=== PATIENT | female | born 1970 | race Caucasian/White ===

== ENCOUNTER 2016-07-15 22:05 | Emergency (ER) | payer MEDICAID ==
[2016-07-15 22:54] VITALS: BP 108/89
--- NOTE | 2016-07-15 23:13 | EDM.PDOC ---
ED HPI RENAL/ - General Chief Complaint: Genitourinary Problem Stated Complaint: UTI Time Seen by Provider: 07/15/16 22:33 Source: Reports: Patient History Limitations: Reports: No limitations - History of Present Illness INITIAL COMMENTS - FREE TEXT/NARRATIVE: . This patient complains of severe burning on urination that started 2 days ago. He's also had urgency and frequency but just very small amounts. She saw a couple drops of blood in the urine today. Today the pain is in the lower abdomen and also a little bit in her back both sides but the left lobe worse than the right. She denies fever - Related Data Allergies/ADRs: Allergies Allergy/AdvReac Type Severity Reaction Status Date / Time bupropion HCl Allergy Hives Verified 07/15/16 22:43 [From Wellbutrin] paliperidone [From Invega] Allergy Hives Verified 07/15/16 22:43 oxytocin [From Pitocin] AdvReac Syncope Verified 07/15/16 22:43 varenicline tartrate AdvReac Delusions Verified 07/15/16 22:43 [From Chantix] Home Meds: Home Meds RABEprazole [Aciphex] 40 mg PO DAILY 08/06/14 [History] LORazepam [Ativan] 1 mg PO ASDIRECTED PRN 11/02/15 [History] Triamcinolone Acetonide [Triamcinolone Acetonide 0.1% Crm] 15 gm TOP BID [History] Triamterene/Hydrochlorothiazid [Triamterene-HCTZ 37.5-25 MG] 1 each PO BEDTIME 02/07/16 [History] metFORMIN [Glucophage] 500 mg PO BEDTIME 02/07/16 [History] Past Medical History HEENT History: Reports: Hard of hearing, Impaired vision Cardiovascular History: Reports: Arrhythmia, High cholesterol, Hypertension Respiratory History: Reports: Bronchitis, recurrent Gastrointestinal History: Reports: Chronic diarrhea, GERD Other Gastrointestinal History: Crohns [employer] History: Reports: Spontaneous Musculoskeletal History: Reports: Back pain, chronic, Fracture, Other (see below ) Other Musculoskeletal History: bulging disc spinal fussion of c-6-7 07/31/15 Neurological History: Reports: Migraines Psychiatric History: Reports: Anxiety, Depression, Mood swings, Panic attack, PTSD Endocrine/Metabolic History: Reports: Diabetes, type II Hematologic History: Reports: Anemia - Infectious Disease History Infectious Disease History: Reports: Chicken pox Other Infectious Disease History: unknown - Past Surgical History HEENT Surgical History: Reports: Myringotomy w tube(s) Respiratory Surgical History: Reports: None GI Surgical History: Reports: Appendectomy, Cholecystectomy Female Surgical History: Reports: section, Hysterectomy, Tubal ligation Social & Family History - Tobacco Use Smoking Status *Q: Current Every Day Smoker Years of Tobacco use: 15 Packs/Tins Daily: 0.5 Used Tobacco, but Quit: No Second Hand Smoke Exposure: Yes - Caffeine Use Caffeine Use: Reports: Soda - Alcohol Use Days Per Week of Alcohol Use: 0 - Recreational Drug Use Recreational Drug Use: No ED ROS GENERAL - Review of Systems Review Of Systems: ROS reveals no pertinent complaints other than HPI. ED EXAM, RENAL/ - Physical Exam Exam: See Below Exam Limited By: No limitations General Appearance: alert, WD/WN, no apparent distress GI/Abdominal: soft, other (Minimal suprapubic tenderness) Back Exam: CVA tenderness (L) (Mild CVA tenderness bilateral) Extremities: normal inspection Course - Vital Signs Last Recorded V/S: Last Vital Signs Temp 37.6 C 07/15/16 22:53 Pulse 79 07/15/16 22:53 Resp 16 07/15/16 22:53 BP 108/89 07/15/16 22:53 Pulse Ox 96 07/15/16 22:53 - Orders/Labs/Meds Labs: Laboratory Tests 07/15/16 Range/Units 22:35 Urine Color Yellow Urine Appearance Clear Urine pH 6.0 (4.5-8.0) Ur Specific [place] 1.010 (1.008-1.030) Urine Protein Negative (NEGATIVE) mg/dL Urine Glucose (UA) Normal (NEGATIVE) mg/dL Urine Ketones Negative (NEGATIVE) mg/dL Urine Occult Blood Negative (NEGATIVE) Urine Nitrite Negative (NEGATIVE) Urine Bilirubin Negative (NEGATIVE) Urine Urobilinogen Normal (NORMAL) mg/dL Ur Leukocyte Esterase Negative (NEGATIVE) Urine RBC 5-10 H (0-5) Urine WBC 0-5 (0-5) Ur Epithelial Cells Few Amorphous Sediment Few Urine Bacteria Rare Urine Mucus Few - Re-Assessments/Exams Free Text/Narrative Re-Assessment/Exam: 07/15/16 23:25 Urinalysis only shows a small amount of red cells in the urine few bacteria and few WBCs however her history is definitely suggestive of a bladder infection. Departure - Departure Time of Disposition: 23:22 Disposition: Home, Self-Care 01 Condition: fair Clinical Impression: UTI, Urinary tract infectious disease Referrals: Charles Sadler MD [Primary Care Provider] - Forms: ED Department Discharge Additional Instructions: Take Bactrim DS one tablet twice daily for one week. Take pyridium 200 mg 3 times a day to relieve urinary discomfort. Be sure to drink plenty of water. See your Dr. if no better in 2 or 3 days
== END 2016-07-15 23:40 | disposition home or self-care (01) ==
LOC: JP.ED 22:05
DX: N39.0 Urinary tract infection, site not specified (principal); E11.9 Type 2 diabetes mellitus without complications; E78.00 Pure hypercholesterolemia, unspecified; I10 Essential (primary) hypertension; F17.210 Nicotine dependence, cigarettes, uncomplicated; Z88.8 Allergy status to other drugs, medicaments and biological substances; Z79.899 Other long term (current) drug therapy; Z79.84 Long term (current) use of oral hypoglycemic drugs; Z90.49 Acquired absence of other specified parts of digestive tract; Z90.710 Acquired absence of both cervix and uterus
CPT/HCPCS: 81001; 99284

== ENCOUNTER 2016-08-04 14:11 | Emergency (ER) | payer MEDICAID ==
--- NOTE | 2016-08-04 14:43 | CR ---
Chest 1V Frontal INDICATION: chest pain FINDINGS: Comparison 08/30/2014. Normal heart size. Lungs are clear. Postoperative changes fusion at the cervical thoracic junction are new. Chest otherwise negative.
[2016-08-04] MEDS ORDERED: Aspirin 81 MG Tab.Chew PO ONE (14:56)
[2016-08-04] MEDS ORDERED: Alum Hydrox/Mag Hydrox/Simeth 15 ML, Lidocaine 2% 15 ML PO ONE ×2 (15:36)
--- NOTE | 2016-08-04 15:37 | EDM.PDOC ---
ED HISTORY OF PRESENT ILLNESS - General Chief Complaint: Chest Pain Stated Complaint: CHEST PAIN SENT FROM CLINIC Time Seen by Provider: 08/04/16 14:30 Source: Reports: Patient History Limitations: Reports: No limitations - History of Present Illness INITIAL COMMENTS - FREE TEXT/NARRATIVE: pt arrived with ome pressure in her chest and a squeezing sensation. She has been uncomfortable for a couple of days. She has not vomited. Timing/Duration: Reports: Day(s):, Getting worse Severity: moderate Location, General: Reports: chest Associated Symptoms: Reports: chest pain, other (pt has had increased burning i her stomach. ) - Related Data Allergies/ADRs: Allergies Allergy/AdvReac Type Severity Reaction Status Date / Time bupropion HCl Allergy Hives Verified 08/04/16 14:20 [From Wellbutrin] paliperidone [From Invega] Allergy Hives Verified 08/04/16 14:20 oxytocin [From Pitocin] AdvReac Syncope Verified 08/04/16 14:20 varenicline tartrate AdvReac Delusions Verified 08/04/16 14:20 [From Chantix] Home Meds: Home Meds RABEprazole [Aciphex] 40 mg PO DAILY 08/06/14 [History] LORazepam [Ativan] 1 mg PO ASDIRECTED PRN 11/02/15 [History] Triamcinolone Acetonide [Triamcinolone Acetonide 0.1% Crm] 15 gm TOP BID [History] Triamterene/Hydrochlorothiazid [Triamterene-HCTZ 37.5-25 MG] 1 each PO BEDTIME 02/07/16 [History] metFORMIN [Glucophage] 500 mg PO BEDTIME 02/07/16 [History] Past Medical History HEENT History: Reports: Hard of hearing, Impaired vision Cardiovascular History: Reports: Arrhythmia, High cholesterol, Hypertension Respiratory History: Reports: Bronchitis, recurrent Gastrointestinal History: Reports: Chronic diarrhea, GERD Other Gastrointestinal History: Crohns Genitourinary History: Reports: Other (see below) Other Genitourinary History: past uti 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 Musculoskeletal History: Reports: Back pain, chronic, Fracture, Other (see below ) Other Musculoskeletal History: bulging disc spinal fussion of c-6-7 07/31/15 Neurological History: Reports: Migraines Psychiatric History: Reports: Anxiety, Depression, Mood swings, Panic attack, PTSD Endocrine/Metabolic History: Reports: Diabetes, type II Hematologic History: Reports: Anemia - Infectious Disease History Infectious Disease History: Reports: Chicken pox Other Infectious Disease History: unknown - Past Surgical History HEENT Surgical History: Reports: Myringotomy w tube(s) Respiratory Surgical History: Reports: None GI Surgical History: Reports: Appendectomy, Cholecystectomy Female Surgical History: Reports: section, Hysterectomy, Tubal ligation Social & Family History - Tobacco Use Smoking Status *Q: Current Every Day Smoker Years of Tobacco use: 15 Packs/Tins Daily: 0.5 Used Tobacco, but Quit: No Second Hand Smoke Exposure: Yes - Caffeine Use Caffeine Use: Reports: Soda - Alcohol Use Days Per Week of Alcohol Use: 0 - Recreational Drug Use Recreational Drug Use: No ED ROS GENERAL - Review of Systems Review Of Systems: See Below Constitutional: Reports: no symptoms HEENT: Reports: No symptoms, Vertigo Cardiovascular: Reports: Chest pain, Other ( pressure sensation) Endocrine: Reports: no symptoms GI/Abdominal: Reports: Other ( Pt has had burning in her upper abdoman. ) : Reports: no symptoms Musculoskeletal: Reports: no symptoms Skin: Reports: no symptoms Neurological: Reports: No Symptoms ED EXAM, GENERAL - Physical Exam Exam: See Below Free Text/Narrative:: Pt arrived with pressure and sqeezing sensation in the chest. She feel like this is different that the pain she getts from her stomach but She has had increased burning in her stomach. She did have a neg stress test 1 year ago. Exam Limited By: No limitations General Appearance: alert, mild distress Ears: normal TMs Nose: normal inspection Throat/Mouth: Normal inspection Head: atraumatic Neck: other ( Tendrness in th post cervical area. ) Respiratory/Chest: no respiratory distress Cardiovascular: regular rate, rhythm GI/Abdominal: soft, non tender (Female) Exam: Deferred Rectal (Female) Exam: Deferred Back Exam: normal inspection Extremities: normal inspection Neurological: alert, oriented, normal cognition Course - Vital Signs Last Recorded V/S: Last Vital Signs Temp 36 C 08/04/16 16:25 Pulse 76 08/04/16 16:25 Resp 16 08/04/16 16:25 BP 127/75 08/04/16 16:25 Pulse Ox 96 08/04/16 16:25 - Orders/Labs/Meds Orders: Active Orders 24 hr Category Date Time Status Famotidine [Pepcid] Med 08/04/16 16:35 Once 20 mg PO ONETIME ONE Labs: Laboratory Tests 08/04/16 08/04/16 08/04/16 Range/Units 14:21 14:24 14:24 WBC 8.4 (4.5-11.0) K/uL RBC 4.74 (3.30-5.50) M/uL Hgb 14.6 (12.0-15.0) g/dL Hct 42.4 (36.0-48.0) % MCV 90 (80-98) fL MCH 31 (27-31) pg MCHC 34 (32-36) % Plt Count 337 (150-400) K/uL Neut % (Auto) 56 (36-66) % Lymph % (Auto) 36 (24-44) % [place] % (Auto) 7 H (2-6) % Eos % (Auto) 1 L (2-4) % Baso % (Auto) 1 (0-1) % Sodium (140-148) mmol/L Potassium (3.6-5.2) mmol/L Chloride (100-108) mmol/L Carbon Dioxide (21-32) mmol/L Anion Gap (5.0-14.0) mmol/L BUN (7-18) mg/dL Creatinine (0.6-1.0) mg/dL Est Cr Clr Drug Dosing mL/min Estimated GFR (MDRD) (>60) Glucose (74-106) mg/dL Calcium (8.5-10.1) mg/dL Total Bilirubin (0.2-1.0) mg/dL AST (15-37) U/L ALT (12-78) U/L Alkaline Phosphatase (46-116) U/L Creatine Kinase (26-192) U/L Troponin I < 0.017 (0.000-0.056) ng/mL Total Protein (6.4-8.2) g/dL Albumin (3.4-5.0) g/dL Globulin (2.3-3.5) g/dL Albumin/Globulin Ratio (1.2-2.2) Urine Color Yellow Urine Appearance Clear Urine pH 6.0 (4.5-8.0) Ur Specific [place] 1.010 (1.008-1.030) Urine Protein Negative (NEGATIVE) mg/dL Urine Glucose (UA) Normal (NEGATIVE) mg/dL Urine Ketones Negative (NEGATIVE) mg/dL Urine Occult Blood Negative (NEGATIVE) Urine Nitrite Negative (NEGATIVE) Urine Bilirubin Negative (NEGATIVE) Urine Urobilinogen Normal (NORMAL) mg/dL Ur Leukocyte Esterase Negative (NEGATIVE) Urine RBC 0-5 (0-5) Urine WBC 0-5 (0-5) Ur Epithelial Cells Rare Amorphous Sediment Not seen Urine Bacteria Few Urine Mucus Not seen Urine Other 08/04/16 Range/Units 14:24 WBC (4.5-11.0) K/uL RBC (3.30-5.50) M/uL Hgb (12.0-15.0) g/dL Hct (36.0-48.0) % MCV (80-98) fL MCH (27-31) pg MCHC (32-36) % Plt Count (150-400) K/uL Neut % (Auto) (36-66) % Lymph % (Auto) (24-44) % [place] % (Auto) (2-6) % Eos % (Auto) (2-4) % Baso % (Auto) (0-1) % Sodium 143 (140-148) mmol/L Potassium 4.1 (3.6-5.2) mmol/L Chloride 105 (100-108) mmol/L Carbon Dioxide 27 (21-32) mmol/L Anion Gap 11.0 (5.0-14.0) mmol/L BUN 9 (7-18) mg/dL Creatinine 0.9 (0.6-1.0) mg/dL Est Cr Clr Drug Dosing 74.67 mL/min Estimated GFR (MDRD) > 60 (>60) Glucose 97 (74-106) mg/dL Calcium 8.5 (8.5-10.1) mg/dL Total Bilirubin 0.3 (0.2-1.0) mg/dL AST 12 L (15-37) U/L ALT 20 (12-78) U/L Alkaline Phosphatase 69 (46-116) U/L Creatine Kinase 156 (26-192) U/L Troponin I (0.000-0.056) ng/mL Total Protein 7.5 (6.4-8.2) g/dL Albumin 3.7 (3.4-5.0) g/dL Globulin 3.8 H (2.3-3.5) g/dL Albumin/Globulin Ratio 1.0 L (1.2-2.2) Urine Color Urine Appearance Urine pH (4.5-8.0) Ur Specific [place] (1.008-1.030) Urine Protein (NEGATIVE) mg/dL Urine Glucose (UA) (NEGATIVE) mg/dL Urine Ketones (NEGATIVE) mg/dL Urine Occult Blood (NEGATIVE) Urine Nitrite (NEGATIVE) Urine Bilirubin (NEGATIVE) Urine Urobilinogen (NORMAL) mg/dL Ur Leukocyte Esterase (NEGATIVE) Urine RBC (0-5) Urine WBC (0-5) Ur Epithelial Cells Amorphous Sediment Urine Bacteria Urine Mucus Urine Other Meds: Medications Discontinued Medications Generic Name Dose Route Start Last Admin Trade Name Freq PRN Reason Stop Dose Admin Aspirin 324 mg 08/04/16 14:56 08/04/16 15:00 Aspirin PO 08/04/16 14:57 324 mg ONETIME ONE Administration Al Hydroxide/Mg Hydroxide 15 0 ml 08/04/16 15:36 08/04/16 15:49 ml/ Lidocaine HCl 15 ml PO 08/04/16 15:37 30 ml ONETIME ONE Administration - Re-Assessments/Exams Free Text/Narrative Re-Assessment/Exam: 08/04/16 15:44 ekg is unchanged from her last one in 2016 Her cardiac enzymes were normal. 08/04/16 16:36 Gi cocktail was not helpful Departure - Departure Time of Disposition: 16:36 Disposition: Home, Self-Care 01 Condition: fair Clinical Impression: Atypical chest pain Forms: ED Department Discharge Care Plan Goals: rtc for a stress alejandro, cont aciphex, Use [place] 2tbs after each meal and at bedtime - My Orders Last 24 Hours: My Active Orders 08/04/16 16:35 Famotidine [Pepcid] 20 mg PO ONETIME ONE - Assessment/Plan Last 24 Hours: My Active Orders 08/04/16 16:35 Famotidine [Pepcid] 20 mg PO ONETIME ONE
[2016-08-04 16:26] VITALS: BP 127/75
[2016-08-04] MEDS ORDERED: Famotidine 20 MG Tab PO ONE (16:35)
== END 2016-08-04 16:50 | disposition home or self-care (01) ==
LOC: JP.ED 14:11
DX: R07.89 Other chest pain (principal); I10 Essential (primary) hypertension; E78.00 Pure hypercholesterolemia, unspecified; K21.9 Gastro-esophageal reflux disease without esophagitis; K50.90 Crohn's disease, unspecified, without complications; G89.29 Other chronic pain; M54.9 Dorsalgia, unspecified; F32.9 Major depressive disorder, single episode, unspecified; F41.9 Anxiety disorder, unspecified; E11.9 Type 2 diabetes mellitus without complications; Z79.84 Long term (current) use of oral hypoglycemic drugs; D64.9 Anemia, unspecified; F17.200 Nicotine dependence, unspecified, uncomplicated; Z79.899 Other long term (current) drug therapy; Z88.8 Allergy status to other drugs, medicaments and biological substances
CPT/HCPCS: 36415; 71010; 80053; 81001; 82550; 84484; 85025; 99285; A9270

== ENCOUNTER 2016-11-10 03:29 | Emergency (ER) | payer MEDICAID ==
[2016-11-10 03:56] VITALS: BP 145/76
--- NOTE | 2016-11-10 04:34 | EDM.PDOC ---
[id number] Complaint: SWOLLEN RIGHT ARM Time Seen by Provider: 11/10/16 04:00 Source of Information: Reports: Patient History Limitations: Reports: No Limitations - History of Present Illness INITIAL COMMENTS - FREE TEXT/NARRATIVE: Gretchen comes in when she woke up with pain in her right arm one hour ago. The pain started in her elbow and radiate through the forearm to her hand. [facility] and they told her to come in to make sure it wasn 't a "circulation problem". She has no chest pain or shortness of breath. She still feels like her upper arm is swollen and tender to touch, her forearm also feels tender. She was started on prednisone 40 mg a day earlier today for a Crohn's exacerbation. Onset: Sudden Duration: Hour(s): (One hour ago) Location: Reports: Upper Extremity, Right Worsens with: Reports: Other (Palpation of the sore area), Movement Associated Symptoms: Reports: Other (She's had persistent diarrhea because of a Crohn's exacerbation.) Right Arm Pain Score (Numeric/FACES): 6 - Related Data Allergies Allergy/AdvReac Type Severity Reaction Status Date / Time bupropion HCl Allergy Hives Verified 11/10/16 03:46 [From Wellbutrin] paliperidone [From Invega] Allergy Hives Verified 11/10/16 03:46 oxytocin [From Pitocin] AdvReac Syncope Verified 11/10/16 03:46 varenicline tartrate AdvReac Delusions Verified 11/10/16 03:46 [From Chantix] Home Meds: Home Meds RABEprazole [Aciphex] 40 mg PO DAILY 08/06/14 [History] LORazepam [Ativan] 1 mg PO ASDIRECTED PRN 11/02/15 [History] Triamterene/Hydrochlorothiazid [Triamterene-HCTZ 37.5-25 MG] 1 each PO BEDTIME 02/07/16 [History] metFORMIN [Glucophage] 500 mg PO BEDTIME 02/07/16 [History] Prochlorperazine [Compazine] 25 mg PO Q6H 11/10/16 [History] metroNIDAZOLE [Flagyl] 250 mg PO QID 11/10/16 [History] predniSONE [Prednisone] 40 mg PO DAILY 11/10/16 [History] Past Medical History HEENT History: Reports: Hard of Hearing, Impaired Vision Cardiovascular History: Reports: Arrhythmia, High Cholesterol, Hypertension Respiratory History: Reports: Bronchitis, Recurrent Gastrointestinal History: Reports: Chronic Diarrhea, GERD Other Gastrointestinal History: Crohns Genitourinary History: Reports: Other (See Below) Other Genitourinary History: 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 uti [employer]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 Musculoskeletal History: Reports: Back Pain, Chronic, Fracture, Other (See Below ) Other Musculoskeletal History: bulging disc spinal fussion of c-6-7 07/31/15 Neurological History: Reports: Migraines Psychiatric History: Reports: Anxiety, Depression, Mood Swings, Panic Attack, PTSD Endocrine/Metabolic History: Reports: Diabetes, Type II Hematologic History: Reports: Anemia - Infectious Disease History Infectious Disease History: Reports: Chicken Pox Other Infectious Disease History: unknown - Past Surgical History HEENT Surgical History: Reports: Myringotomy w Tube(s) Female Surgical History: Reports: Section, Hysterectomy, Tubal Ligation Social & Family History - Tobacco Use Smoking Status *Q: Current Every Day Smoker Years of Tobacco use: 15 Packs/Tins Daily: 0.5 Used Tobacco, but Quit: No Second Hand Smoke Exposure: Yes - Caffeine Use Caffeine Use: Reports: Soda - Alcohol Use Days Per Week of Alcohol Use: 0 - Recreational Drug Use Recreational Drug Use: No Review of Systems - Review of Systems Review Of Systems: See Below Constitutional: Denies: Fever Eyes: Denies: Blurred Vision Respiratory: Denies: Shortness of Breath, Cough Cardiovascular: Denies: Palpitations Musculoskeletal: Reports: Arm Pain Skin: Reports: No Symptoms Neurological: Denies: Dizziness, Headache Psychiatric: Reports: No Symptoms ED EXAM, GENERAL - Physical Exam Exam: See Below Exam Limited By: No Limitations General Appearance: Alert, No Apparent Distress Respiratory/Chest: No Respiratory Distress Cardiovascular: Regular Rate, Rhythm Extremities: Other (Exam is otherwise limited to the right upper extremity. It looks symmetric to the left, there is no edema or swelling. She has an excellent radial pulse, normal capillary refill and normal range of motion. She does have increased pain when trying to rotate her arm and put her hand behind her head.) Course - Vital Signs Last Recorded V/S: Last Vital Signs Temp 97.3 F 11/10/16 03:53 Pulse 77 11/10/16 03:53 Resp 16 11/10/16 03:53 BP 145/76 H 11/10/16 03:53 Pulse Ox 96 11/10/16 03:53 - Re-Assessments/Exams Free Text/Narrative Re-Assessment/Exam: 11/10/16 04:31 I reassured the patient that this is a musculoskeletal issue or nerve irritation and not a circulation problem or symptoms from a cardiac source. She needs to wait and see if this doesn't resolve on its own over the course of the next day or 2. There is a possibility she could the having some nerve impingement difficulties again but that will presented self with time, she is already started a prednisone taper which is a good medicine to help that. She' ll recheck in the next few days if not improving. Departure - Departure Time of Disposition: 04:45 Disposition: Home, Self-Care 01 Condition: Good Clinical Impression: Arm pain, right - Discharge Information Instructions: Neuropathic Pain Referrals: Charles Sadler MD [Primary Care Provider] - Forms: ED Department Discharge Care Plan Goals: Continue activity as tolerated. Recheck in the next 2-3 days if not improving, he can always return to ER sooner if worsening such as discoloration of the arm or persistent severe numbness.
== END 2016-11-10 04:45 | disposition home or self-care (01) ==
LOC: JP.ED 03:29
DX: M79.601 Pain in right arm (principal); E78.00 Pure hypercholesterolemia, unspecified; I10 Essential (primary) hypertension; K21.9 Gastro-esophageal reflux disease without esophagitis; E11.9 Type 2 diabetes mellitus without complications; F43.10 Post-traumatic stress disorder, unspecified; F17.210 Nicotine dependence, cigarettes, uncomplicated; Z96.22 Myringotomy tube(s) status; Z98.51 Tubal ligation status; Z90.710 Acquired absence of both cervix and uterus; Z79.84 Long term (current) use of oral hypoglycemic drugs; Z88.8 Allergy status to other drugs, medicaments and biological substances
CPT/HCPCS: 99283

== ENCOUNTER 2017-01-05 15:49 | Emergency (ER) | payer MEDICAID ==
[2017-01-05 16:24] VITALS: BP 121/85
--- NOTE | 2017-01-05 17:36 | EDM.PDOC ---
ED HPI GENERAL MEDICAL PROBLEM - General Chief Complaint: Neck Problem Stated Complaint: LEADBETTER SENT/POST SURGICAL NECK Time Seen by Provider: 01/05/17 16:35 Source of Information: Reports: Patient History Limitations: Reports: No Limitations - History of Present Illness INITIAL COMMENTS - FREE TEXT/NARRATIVE: 46-year-old female who had a C6-C7 cervical fusion 17 months ago went to a fair yesterday and went on some roller coaster like rides jarring her neck from side to side. Today at sore with pain radiating down into both trapezius areas. She was concerned that she may have injured her surgical area. She called the clinic and they told her to come to the emergency room. She has not developed any neurologic symptoms such as paresthesias or numbness in her upper extremities, no weakness. No nausea or vomiting. Location: Reports: Neck, Back Quality: Reports: Ache, Burning Severity: Moderate Worsens with: Reports: Movement Associated Symptoms: Reports: No Other Symptoms Lower Posterior Neck Pain Score (Numeric/FACES): 8 - Related Data Allergies Allergy/AdvReac Type Severity Reaction Status Date / Time bupropion HCl Allergy Hives Verified 11/10/16 03:46 [From Wellbutrin] paliperidone [From Invega] Allergy Hives Verified 11/10/16 03:46 oxytocin [From Pitocin] AdvReac Syncope Verified 11/10/16 03:46 varenicline tartrate AdvReac Delusions Verified 11/10/16 03:46 [From Chantix] Home Meds: Home Meds RABEprazole [Aciphex] 40 mg PO DAILY 08/06/14 [History] LORazepam [Ativan] 1 mg PO ASDIRECTED PRN 11/02/15 [History] Triamterene/Hydrochlorothiazid [Triamterene-HCTZ 37.5-25 MG] 1 each PO BEDTIME 02/07/16 [History] metFORMIN [Glucophage] 500 mg PO BEDTIME 02/07/16 [History] Prochlorperazine [Compazine] 25 mg PO Q6H 11/10/16 [History] Past Medical History HEENT History: Reports: Hard of Hearing, Impaired Vision Cardiovascular History: Reports: Arrhythmia, High Cholesterol, Hypertension Respiratory History: Reports: Bronchitis, Recurrent Gastrointestinal History: Reports: Chronic Diarrhea, GERD Other Gastrointestinal History: Crohns Genitourinary History: Reports: Other (See Below) Other Genitourinary History: past uti 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 Musculoskeletal History: Reports: Back Pain, Chronic, Fracture, Other (See Below ) Other Musculoskeletal History: bulging disc spinal fussion of c-6-7 07/31/15 Neurological History: Reports: Migraines Psychiatric History: Reports: Anxiety, Depression, Mood Swings, Panic Attack, PTSD Endocrine/Metabolic History: Reports: Diabetes, Type II Hematologic History: Reports: Anemia - Infectious Disease History Infectious Disease History: Reports: Chicken Pox Other Infectious Disease History: unknown - Past Surgical History HEENT Surgical History: Reports: Myringotomy w Tube(s) Female Surgical History: Reports: Section, Hysterectomy, Tubal Ligation Social & Family History - Tobacco Use Smoking Status *Q: Current Some Day Smoker Years of Tobacco use: 18 Packs/Tins Daily: 0.5 Used Tobacco, but Quit: No Second Hand Smoke Exposure: Yes - Caffeine Use Caffeine Use: Reports: Soda - Alcohol Use Days Per Week of Alcohol Use: 0 - Recreational Drug Use Recreational Drug Use: No ED ROS GENERAL - Review of Systems Review Of Systems: See Below Constitutional: Denies: Fever, Chills Respiratory: Denies: Shortness of Breath, Cough Cardiovascular: Denies: Chest Pain GI/Abdominal: Denies: Abdominal Pain, Nausea, Vomiting Musculoskeletal: Reports: Neck Pain Skin: Reports: No Symptoms Neurological: Denies: Paresthesia ED EXAM, UPPER BACK/NECK PAIN - Physical Exam Exam: See Below Exam Limited By: No Limitations General Appearance: Alert, No Apparent Distress Eye Exam: Bilateral Eye: EOMI Head Exam: Atraumatic Neck Exam: Paraspinous Muscle Tender (Palpation along the lower paraspinous cervical area is tender bilaterally extending into the trapezius bilaterally) Neurologic: No Motor/Sensory Deficits. No: Motor Weakness Psychiatric: Normal Affect, Normal Mood Course - Vital Signs Last Recorded V/S: Last Vital Signs Temp 97.3 F 01/05/17 16:40 Pulse 79 01/05/17 16:40 Resp 16 01/05/17 16:40 BP 121/85 01/05/17 16:40 Pulse Ox 96 01/05/17 16:40 - Re-Assessments/Exams Free Text/Narrative Re-Assessment/Exam: 01/05/17 17:34 Discussed her case with surgery, a cervical spine x-ray was obtained which showed no acute findings and hardware in its proper positioning. Patient was given 15 Flexeril to take 3 times daily along with anti-inflammatories and can increase her activity as tolerated. If she develops neurologic deficits or symptoms of the upper extremities she should be rechecked. Departure - Departure Time of Disposition: 17:46 Disposition: Home, Self-Care 01 Condition: Good Clinical Impression: Neck strain Qualifiers: Encounter type: initial encounter Qualified Code(s): S16.1XXA - Strain of muscle, fascia and tendon at neck level, initial encounter - Discharge Information Instructions: Cervical Sprain, [id number] Referrals: Charles Sadler MD [Primary Care Provider] - Forms: ED Department Discharge Care Plan Goals: Increase activity as tolerated. Ice to the sore area for the next 24 hours may help, anti-inflammatories and muscle relaxers will be beneficial. Return for recheck if you develop numbness or weakness in the arms or your pain becomes significantly worse.
--- NOTE | 2017-01-06 10:13 | CR ---
Cervical Spine 2V or 3V INDICATION: post op neck pain, surgery 17 months ago FINDINGS: Postoperative changes anterior fusion at C6-7. Hardware appears intact. Minimal endplate hy pertrophic changes at C5-6. Cervical spine otherwise negative.
== END 2017-01-05 17:46 | disposition home or self-care (01) ==
LOC: JP.ED 15:49
DX: S16.1XXA Strain of muscle, fascia and tendon at neck level, initial encounter (principal); I10 Essential (primary) hypertension; E78.00 Pure hypercholesterolemia, unspecified; K21.9 Gastro-esophageal reflux disease without esophagitis; F32.9 Major depressive disorder, single episode, unspecified; F41.9 Anxiety disorder, unspecified; E11.9 Type 2 diabetes mellitus without complications; F17.210 Nicotine dependence, cigarettes, uncomplicated; Z79.84 Long term (current) use of oral hypoglycemic drugs; Z79.899 Other long term (current) drug therapy; Z96.22 Myringotomy tube(s) status; Z90.710 Acquired absence of both cervix and uterus; Z98.51 Tubal ligation status; Z98.1 Arthrodesis status; Z98.890 Other specified postprocedural states; Z87.440 Personal history of urinary (tract) infections; Z88.8 Allergy status to other drugs, medicaments and biological substances; X50.9XXA Other and unspecified overexertion or strenuous movements or postures, initial encounter
CPT/HCPCS: 72040; 72040-26; 99284

== ENCOUNTER 2017-03-06 02:34 | Emergency (ER) | payer MEDICAID ==
[2017-03-06 02:55] VITALS: BP 135/70
[2017-03-06] MEDS ORDERED: Ketorolac 30 MG/ML SDV IVPUSH ONE (03:12)
--- NOTE | 2017-03-06 03:18 | EDM.PDOC ---
ED HPI GENERAL MEDICAL PROBLEM - General Chief Complaint: Chest Pain Stated Complaint: CHEST PAIN Time Seen by Provider: 03/06/17 02:49 Source of Information: Reports: Patient, Significant Other History Limitations: Reports: No Limitations - History of Present Illness INITIAL COMMENTS - FREE TEXT/NARRATIVE: chest pain; this is a 46 year old female presents to ER for evaluation of chest pain. She reports for the past 4 days having intermittent chest pain. 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 She then went to the [employer] for 2 hours, came home ate chile, noticed her chest pain was extending into her arm, took Ativan 2 mg at midnight. She was worried and came to ER. denies any nausea, vomiting eating and drinking her usual amounts taking her medications as directed. 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: Other (see below) (Ativan 2mg po) chest pain Pain Score (Numeric/FACES): 8 - Related Data Allergies Allergy/AdvReac Type Severity Reaction Status Date / Time bupropion HCl Allergy Hives Verified 03/06/17 02:43 [From Wellbutrin] paliperidone [From Invega] Allergy Hives Verified 03/06/17 02:43 oxytocin [From Pitocin] AdvReac Syncope Verified 03/06/17 02:43 varenicline tartrate AdvReac Delusions Verified 03/06/17 02:43 [From Chantix] Home Meds: Home Meds RABEprazole [Aciphex] 40 mg PO DAILY 08/06/14 [History] LORazepam [Ativan] 1 mg PO ASDIRECTED PRN 11/02/15 [History] Triamterene/Hydrochlorothiazid [Triamterene-HCTZ 37.5-25 MG] 1 each PO BEDTIME 02/07/16 [History] metFORMIN [Glucophage] 500 mg PO BEDTIME 02/07/16 [History] Past Medical History HEENT History: Reports: Hard of Hearing, Impaired Vision Cardiovascular History: Reports: Arrhythmia, High Cholesterol, Hypertension Respiratory History: Reports: Bronchitis, Recurrent Gastrointestinal History: Reports: Chronic Diarrhea, GERD Other Gastrointestinal History: Crohns Genitourinary History: Reports: Other (See Below) Other Genitourinary History: past uti 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 Musculoskeletal History: Reports: Back Pain, Chronic, Fracture, Other (See Below ) Other Musculoskeletal History: bulging disc spinal fussion of c-6-7 07/31/15 Neurological History: Reports: Migraines Psychiatric History: Reports: Anxiety, Depression, Mood Swings, Panic Attack, PTSD Endocrine/Metabolic History: Reports: Diabetes, Type II Hematologic History: Reports: Anemia - Infectious Disease History Infectious Disease History: Reports: Chicken Pox, Shingles Other Infectious Disease History: unknown - Past Surgical History HEENT Surgical History: Reports: Myringotomy w Tube(s) Female Surgical History: Reports: Section, Hysterectomy, Tubal Ligation Social & Family History - Tobacco Use Smoking Status *Q: Current Every Day Smoker Years of Tobacco use: 20 Packs/Tins Daily: 0.5 Used Tobacco, but Quit: No Second Hand Smoke Exposure: Yes - Caffeine Use Caffeine Use: Reports: Soda - Alcohol Use Days Per Week of Alcohol Use: 0 - Recreational Drug Use Recreational Drug Use: No - Living Situation & Occupation Living situation: Reports: with Significant Other Occupation: Employed ED ROS GENERAL - Review of Systems Review Of Systems: See Below Constitutional: Reports: No Symptoms HEENT: Reports: No Symptoms Respiratory: Reports: No Symptoms, Other (smokes half a pack of cigarettes per day. last one prior to arrival) Cardiovascular: Reports: Chest Pain Endocrine: Reports: No Symptoms GI/Abdominal: Reports: No Symptoms, Other (epigastric pain) : Reports: No Symptoms Musculoskeletal: Reports: Back Pain (upper back and bilateral arm pain) Skin: Reports: No Symptoms Neurological: Reports: No Symptoms Psychiatric: Reports: Anxiety (Ativan 2 mg po at 2400) Hematologic/Lymphatic: Reports: No Symptoms Immunologic: Reports: No Symptoms ED EXAM, GENERAL - Physical Exam Exam: See Below Exam Limited By: No Limitations General Appearance: Alert, WD/WN, No Apparent Distress Eye Exam: Bilateral Eye: Normal Inspection, PERRL Ears: Normal External Exam, Normal Canal, Hearing Grossly Normal, Normal TMs Nose: Normal Inspection, Normal Mucosa, No Blood Throat/Mouth: Normal Inspection, Normal Lips, Normal Teeth, Normal Gums, Normal Oropharynx, Normal Voice, No Airway Compromise Head: Atraumatic, Normocephalic Neck: Normal Inspection, Supple, Non-Tender, Full Range of Motion Respiratory/Chest: No Respiratory Distress, Lungs Clear, Normal Breath Sounds, No Accessory Muscle Use, Other (chest wall pain localized to sternum and epigastric area, reproducible with application of pressure. ) Cardiovascular: Normal Peripheral Pulses, Regular Rate, Rhythm, No Edema, No Gallop, No Murmur, No Rub Peripheral Pulses: 2+: Radial (L), Radial (R) GI/Abdominal: Normal Bowel Sounds, Soft, No Organomegaly, No Distention, No Abnormal Bruit, No Mass, Other (epigastric pain with palpation, no rebound, no guarding.) (Female) Exam: Deferred Rectal (Female) Exam: Deferred Back Exam: Normal Inspection, Full Range of Motion Extremities: Normal Inspection, Normal Range of Motion, Non-Tender, No Pedal Edema, Normal Capillary Refill Neurological: Alert, Oriented, Normal Cognition, No Motor/Sensory Deficits Psychiatric: Normal Affect, Normal Mood Skin Exam: Warm, Dry, Intact, Normal Color, No Rash Lymphatic: No Adenopathy EKG INTERPRETATION Rhythm: NSR Tracy: Normal P-Wave: Present QRS: Normal ST-T: Normal QT: Normal Course - Vital Signs Last Recorded V/S: Last Vital Signs Temp 36.5 C 03/06/17 02:46 Pulse 78 03/06/17 02:46 Resp 17 03/06/17 02:46 BP 135/70 03/06/17 02:46 Pulse Ox 97 03/06/17 02:46 - Orders/Labs/Meds Labs: Laboratory Tests 03/06/17 03/06/17 Range/Units 02:54 02:54 WBC 11.8 H (4.5-11.0) K/uL RBC 4.57 (3.30-5.50) M/uL Hgb 14.0 (12.0-15.0) g/dL Hct 40.2 (36.0-48.0) % MCV 88 (80-98) fL MCH 31 (27-31) pg MCHC 35 (32-36) % Plt Count 331 (150-400) K/uL Neut % (Auto) 54 (36-66) % Lymph % (Auto) 35 (24-44) % [place] % (Auto) 9 H (2-6) % Eos % (Auto) 2 (2-4) % Baso % (Auto) 0 (0-1) % Sodium 140 (140-148) mmol/L Potassium 3.8 (3.6-5.2) mmol/L Chloride 104 (100-108) mmol/L Carbon Dioxide 29 (21-32) mmol/L Anion Gap 6.7 (5.0-14.0) mmol/L BUN 9 (7-18) mg/dL Creatinine 0.9 (0.6-1.0) mg/dL Est Cr Clr Drug Dosing 77.57 mL/min Estimated GFR (MDRD) > 60 (>60) Glucose 107 H (74-106) mg/dL Calcium 8.1 L (8.5-10.1) mg/dL Troponin I < 0.017 (0.000-0.056) ng/mL Meds: Medications Discontinued Medications Generic Name Dose Route Start Last Admin Trade Name Manpreetq PRN Reason Stop Dose Admin Ketorolac Tromethamine 30 mg 03/06/17 03:12 03/06/17 03:17 Toradol IVPUSH 03/06/17 03:13 30 mg ONETIME ONE Administration - Re-Assessments/Exams Free Text/Narrative Re-Assessment/Exam: 03/06/17 03:30 labs; CBC, BMP, Troponin all negative EKG; SR given Toradol 30 mg IV will discharge to home, follow up with Primary Care Provider Departure - Departure Time of Disposition: 03:36 Disposition: Home, Self-Care 01 Condition: Good Clinical Impression: Muscle strain of chest wall Qualifiers: Encounter type: initial encounter Qualified Code(s): S29.011A - Strain of muscle and tendon of front wall of thorax, initial encounter - Discharge Information Referrals: Charles Sadler MD [Primary Care Provider] - Forms: ED Department Discharge Care Plan Goals: Muscle strain of chest pain -labs for cardiac, infection, electrolytes, anemia; all negative -EKG; sinus rhym; normal -given Toradol IV -declines any discharge medication advise to rest, push fluids, avoid any bending, lifting or twisting for the next 3 days follow up with Primary Care Provider this week for recheck. - Problem List & Annotations (1) Muscle strain of chest wall SNOMED Code(s): 611536598 Code(s): S29.011A - STRAIN OF MUSCLE AND TENDON OF FRONT WALL OF THORAX, INIT Status: Acute Priority: Medium Current Visit: Yes Qualifiers: Encounter type: initial encounter Qualified Code(s): S29.011A - Strain of muscle and tendon of front wall of thorax, initial encounter - Problem List Review Problem List Initiated/Reviewed/Updated: Yes - Assessment/Plan Plan: Muscle strain of chest pain -labs for cardiac, infection, electrolytes, anemia; all negative -EKG; sinus rhym; normal -given Toradol IV -declines discharge medications advise to rest, push fluids, avoid any bending, lifting or twisting for the next 3 days follow up with Primary Care Provider this week for recheck.
== END 2017-03-06 03:41 | disposition home or self-care (01) ==
LOC: JP.ED 02:34
DX: S29.011A Strain of muscle and tendon of front wall of thorax, initial encounter (principal); F17.210 Nicotine dependence, cigarettes, uncomplicated; I10 Essential (primary) hypertension; E78.00 Pure hypercholesterolemia, unspecified; E11.9 Type 2 diabetes mellitus without complications; Z79.84 Long term (current) use of oral hypoglycemic drugs; Z88.8 Allergy status to other drugs, medicaments and biological substances; X58.XXXA Exposure to other specified factors, initial encounter
CPT/HCPCS: 36415; 80048; 84484; 85025; 96374; 99285; J1885

== ENCOUNTER 2017-03-28 22:04 | Emergency (ER) | payer MEDICAID ==
[2017-03-28 22:23] VITALS: BP 145/71
[2017-03-28] MEDS ORDERED: Ondansetron 4 MG/2 ML SDV IVPUSH ONE (22:53)
[2017-03-28] MEDS ORDERED: Morphine 2 MG/ML Syringe IVPUSH ONE (22:53)
[2017-03-28] MEDS ORDERED: Sodium Chloride 0.9% 1,000 ML IV SCH (23:00)
[2017-03-28] MEDS ORDERED: Sodium Chloride 0.9% 80 ML IV STA (23:19)
[2017-03-28] MEDS ORDERED: Iopamidol 612 MG/ML 150 ML Bottle IV STA (23:19)
--- NOTE | 2017-03-29 00:40 | EDM.PDOC ---
ED HPI GENERAL MEDICAL PROBLEM - General Chief Complaint: Gastrointestinal Problem Stated Complaint: ILLNESS Time Seen by Provider: 03/28/17 22:11 Source of Information: Reports: Patient History Limitations: Reports: No Limitations - History of Present Illness INITIAL COMMENTS - FREE TEXT/NARRATIVE: Diarrhea, cramping, abdominal pain; this is a 46 year old female presents to ER with , concerns of illness for the past 7 to 8 days. She has been having intermittent chills, fever, anything she eats causes instant diarrhea. Came to the ER this evening because the pain and symptoms have worsen instead of resolving. In the past she has been treated with Prednisone and Flaygl. Onset: Gradual Duration: Day(s): (7 to 8 ), Getting Worse Location: Reports: Abdomen Quality: Reports: Same as Previous Episode (pain is worse today) Severity: Moderate Improves with: Reports: None Worsens with: Reports: Eating - Related Data Allergies Allergy/AdvReac Type Severity Reaction Status Date / Time bupropion HCl Allergy Hives Verified 03/28/17 22:29 [From Wellbutrin] paliperidone [From Invega] Allergy Hives Verified 03/28/17 22:29 oxytocin [From Pitocin] AdvReac Syncope Verified 03/28/17 22:29 varenicline tartrate AdvReac Delusions Verified 03/28/17 22:29 [From Chantix] Home Meds: Home Meds RABEprazole [Aciphex] 40 mg PO DAILY 08/06/14 [History] LORazepam [Ativan] 1 mg PO ASDIRECTED PRN 11/02/15 [History] Triamterene/Hydrochlorothiazid [Triamterene-HCTZ 37.5-25 MG] 1 each PO BEDTIME 02/07/16 [History] metFORMIN [Glucophage] 500 mg PO BEDTIME 02/07/16 [History] Past Medical History HEENT History: Reports: Hard of Hearing, Impaired Vision Cardiovascular History: Reports: Arrhythmia, High Cholesterol, Hypertension Respiratory History: Reports: Bronchitis, Recurrent Gastrointestinal History: Reports: Chronic Diarrhea, GERD Other Gastrointestinal History: Crohns Genitourinary History: Reports: Other (See Below) Other Genitourinary History: past uti SCHOOL [employer] History: Reports: Spontaneous Musculoskeletal History: Reports: Back Pain, Chronic, Fracture, Other (See Below ) Other Musculoskeletal History: bulging disc spinal fussion of c-6-7 07/31/15 Neurological History: Reports: Migraines Psychiatric History: Reports: Anxiety, Depression, Mood Swings, Panic Attack, PTSD Endocrine/Metabolic History: Reports: Diabetes, Type II Hematologic History: Reports: Anemia - Infectious Disease History Infectious Disease History: Reports: Chicken Pox, Shingles Other Infectious Disease History: unknown - Past Surgical History HEENT Surgical History: Reports: Myringotomy w Tube(s) Female Surgical History: Reports: Section, Hysterectomy, Tubal Ligation Social & Family History - Tobacco Use Smoking Status *Q: Current Every Day Smoker Years of Tobacco use: 20 Packs/Tins Daily: 0.5 Used Tobacco, but Quit: No Second Hand Smoke Exposure: Yes - Caffeine Use Caffeine Use: Reports: Soda - Alcohol Use Days Per Week of Alcohol Use: 0 - Recreational Drug Use Recreational Drug Use: No - Living Situation & Occupation Living situation: Reports: with Significant Other Occupation: Employed ED ROS GENERAL - Review of Systems Review Of Systems: See Below Constitutional: Reports: Fever, Chills, Malaise, Decreased Appetite, Weight Loss HEENT: Reports: No Symptoms Respiratory: Reports: No Symptoms Cardiovascular: Reports: No Symptoms Endocrine: Reports: No Symptoms GI/Abdominal: Reports: Abdominal Pain, Diarrhea, Distension, Nausea : Reports: No Symptoms Musculoskeletal: Reports: Back Pain Skin: Reports: No Symptoms Neurological: Reports: No Symptoms Psychiatric: Reports: No Symptoms Hematologic/Lymphatic: Reports: No Symptoms Immunologic: Reports: No Symptoms ED EXAM, GI/ABD - Physical Exam Exam: See Below Exam Limited By: No Limitations General Appearance: Alert, WD/WN, No Apparent Distress Eyes: Bilateral: Normal Appearance Ears: Normal External Exam Nose: Normal Inspection Throat/Mouth: Normal Inspection Head: Atraumatic, Normocephalic Neck: Normal Inspection, Supple, Non-Tender Respiratory/Chest: No Respiratory Distress, Lungs Clear Cardiovascular: Regular Rate, Rhythm, No Murmur GI/Abdominal Exam: Soft, Distended, Tender (epigastric area) (Female) Exam: Deferred Rectal (Female) Exam: Deferred Back Exam: Normal Inspection, Full Range of Motion, Muscle Spasm (lower back) Extremities: Normal Inspection, Normal Range of Motion, Non-Tender, No Pedal Edema, Normal Capillary Refill Neurological: Alert, Oriented, Normal Cognition, Normal Gait, No Motor/Sensory Deficits Psychiatric: Normal Affect, Normal Mood Skin Exam: Warm, Dry, Intact, Normal Color, No Rash Lymphatic: No Adenopathy Course - Vital Signs Last Recorded V/S: Last Vital Signs Temp 36.3 C 03/28/17 22:22 Pulse 89 03/28/17 22:22 Resp 18 03/28/17 22:22 BP 145/71 H 03/28/17 22:22 Pulse Ox 98 03/28/17 22:22 - Orders/Labs/Meds Orders: Active Orders 24 hr Category Date Time Status Abdomen Pelvis w Cont [CT] Stat Exams 03/28/17 22:50 Taken CULTURE STOOL + SHIGATOX [RM] Stat Lab 03/28/17 22:51 Uncollected Sodium Chloride 0.9% [Normal Saline] 1,000 ml Med 03/28/17 23:00 Active IV ASDIRECTED Medication Orders Sodium Chloride (Normal Saline) 1,000 mls @ 999 mls/hr IV ASDIRECTED NADINE Last Admin: 03/28/17 23:03 Dose: 999 mls/hr Labs: Laboratory Tests 03/28/17 03/28/17 03/28/17 Range/Units 23:00 23:00 23:56 WBC 12.0 H (4.5-11.0) K/uL RBC 4.49 (3.30-5.50) M/uL Hgb 13.8 (12.0-15.0) g/dL Hct 40.2 (36.0-48.0) % MCV 90 (80-98) fL MCH 31 (27-31) pg MCHC 34 (32-36) % Plt Count 363 (150-400) K/uL Neut % (Auto) 58 (36-66) % Lymph % (Auto) 32 (24-44) % [place] % (Auto) 8 H (2-6) % Eos % (Auto) 1 L (2-4) % Baso % (Auto) 0 (0-1) % Sodium 142 (140-148) mmol/L Potassium 3.5 L (3.6-5.2) mmol/L Chloride 105 (100-108) mmol/L Carbon Dioxide 29 (21-32) mmol/L Anion Gap 11.5 (5.0-14.0) mmol/L BUN 11 (7-18) mg/dL Creatinine 0.8 (0.6-1.0) mg/dL Est Cr Clr Drug Dosing 87.27 mL/min Estimated GFR (MDRD) > 60 (>60) Glucose 82 (74-106) mg/dL Calcium 8.0 L (8.5-10.1) mg/dL Total Bilirubin 0.3 (0.2-1.0) mg/dL AST 16 (15-37) U/L ALT 20 (12-78) U/L Alkaline Phosphatase 70 (46-116) U/L Total Protein 7.1 (6.4-8.2) g/dL Albumin 3.6 (3.4-5.0) g/dL Globulin 3.5 (2.3-3.5) g/dL Albumin/Globulin Ratio 1.0 L (1.2-2.2) Amylase 44 (25-115) U/L Lipase 189 (73-393) U/L Urine Color Yellow Urine Appearance Clear Urine pH 6.0 (4.5-8.0) Ur Specific [place] 1.010 (1.008-1.030) Urine Protein Negative (NEGATIVE) mg/dL Urine Glucose (UA) Normal (NEGATIVE) mg/dL Urine Ketones Negative (NEGATIVE) mg/dL Urine Occult Blood Moderate (NEGATIVE) Urine Nitrite Negative (NEGATIVE) Urine Bilirubin Negative (NEGATIVE) Urine Urobilinogen Normal (NORMAL) mg/dL Ur Leukocyte Esterase Negative (NEGATIVE) Urine RBC 0-5 (0-5) Urine WBC 0-5 (0-5) Ur Epithelial Cells Moderate Amorphous Sediment Not seen Urine Bacteria Few Urine Mucus Not seen Meds: Medications Generic Name Dose Route Start Last Admin Trade Name Freq PRN Reason Stop Dose Admin Sodium Chloride 1,000 mls @ 999 mls/hr 03/28/17 23:00 03/28/17 23:03 Normal Saline IV 999 mls/hr ASDIRECTED NADINE Administration Discontinued Medications Generic Name Dose Route Start Last Admin Trade Name Freq PRN Reason Stop Dose Admin Sodium Chloride 80 mls @ 4 mls/sec 03/28/17 23:19 Normal Saline IV 03/28/17 23:20 ASDIRECTED STA Iopamidol 130 ml 03/28/17 23:19 03/28/17 23:26 Isovue-300 (61%) IV 03/28/17 23:20 150 ml . DIRECTED STA Administration Morphine Sulfate 2 mg 03/28/17 22:53 03/28/17 23:07 Morphine IVPUSH 03/28/17 22:54 2 mg ONETIME ONE Administration Ondansetron HCl 4 mg 03/28/17 22:53 03/28/17 23:07 Zofran IVPUSH 03/28/17 22:54 4 mg ONETIME ONE Administration - Radiology Interpretation Free Text/Narrative:: CT abdomen-Pelvis ; negative except for Enteritis. reviewed report with Mrs. Prasad, given a copy for home medical record discussed starting medication as previous occurrence of enteritis or colititis she agree with plan of care will be seeing PCP on . Departure - Departure Time of Disposition: 00:50 Disposition: Home, Self-Care 01 Condition: Good Clinical Impression: Enteritis - Discharge Information Referrals: Charles Sadler MD [Primary Care Provider] - Forms: ED Department Discharge Care Plan Goals: Enteritis -Prednisone as directed -Flagyle 500mg take two times a day x 17 days -Zofran 4mg oral every 8 hours as needed for nausea -Tylenol with codeine; take one to two tablets every 4 hours as needed for pain trial BRAT diet; bananas, rice, apple, toast as tolerated return to ER, Urgent Care or Clinic for any increased pain, fever, chills, nausea, vomiting, worsen diarrhea, rash or not improved keep follow up appointment with Primary Care on . - Problem List & Annotations (1) Enteritis SNOMED Code(s): 31554789 Code(s): K52.9 - NONINFECTIVE GASTROENTERITIS AND COLITIS, UNSPECIFIED Status: Acute Priority: High Current Visit: Yes - Problem List Review Problem List Initiated/Reviewed/Updated: Yes - My Orders Last 24 Hours: My Active Orders 03/28/17 22:50 Abdomen Pelvis w Cont [CT] Stat 03/28/17 22:51 CULTURE STOOL + SHIGATOX [RM] Stat 03/28/17 23:00 Sodium Chloride 0.9% [Normal Saline] 1,000 ml IV ASDIRECTED - Assessment/Plan Last 24 Hours: My Active Orders 03/28/17 22:50 Abdomen Pelvis w Cont [CT] Stat 03/28/17 22:51 CULTURE STOOL + SHIGATOX [RM] Stat 03/28/17 23:00 Sodium Chloride 0.9% [Normal Saline] 1,000 ml IV ASDIRECTED Plan: Enteritis -Prednisone as directed -Flagyle 500mg take two times a day x 17 days -Zofran 4mg oral every 8 hours as needed for nausea -Tylenol with codiene; take one to two tablets every 4 hours as needed for pain trial BRAT diet; bananas, rice, apple, toast as tolerated return to ER, Urgent Care or Clinic for any increased pain, fever, chills, nausea, vomiting, worsen diarrhea, rash or not improved keep follow up appointment with Primary Care on .
== END 2017-03-29 00:51 | disposition home or self-care (01) ==
LOC: JP.ED 22:04
DX: K52.9 Noninfective gastroenteritis and colitis, unspecified (principal); I10 Essential (primary) hypertension; E78.00 Pure hypercholesterolemia, unspecified; K21.9 Gastro-esophageal reflux disease without esophagitis; F32.9 Major depressive disorder, single episode, unspecified; E11.9 Type 2 diabetes mellitus without complications; F17.210 Nicotine dependence, cigarettes, uncomplicated; Z79.84 Long term (current) use of oral hypoglycemic drugs; Z79.899 Other long term (current) drug therapy; Z88.8 Allergy status to other drugs, medicaments and biological substances; M25.562 Pain in left knee; G89.29 Other chronic pain; M17.12 Unilateral primary osteoarthritis, left knee; M22.42 Chondromalacia patellae, left knee; M25.462 Effusion, left knee
CPT/HCPCS: 36415; 73721; 74177; 80053; 81001; 82150; 83690; 85025; 96361; 96374; 96375; 99284; J2270; J2405; J7040

== ENCOUNTER 2017-04-19 21:13 | Emergency (ER) | payer MEDICAID ==
[2017-04-19 22:17] VITALS: BP 132/83
[2017-04-19] MEDS ORDERED: cefTRIAXone 1 GM, Lidocaine 1% 2.1 ML IM ONE ×2 (22:31)
[2017-04-19] MEDS ORDERED: Bacitracin Oint 1 GM U/D Packet TOP ONE (22:45)
--- NOTE | 2017-04-19 23:41 | EDM.PDOC ---
ED HPI GENERAL MEDICAL PROBLEM - General Chief Complaint: Upper Extremity Injury/Pain Stated Complaint: R ARM SWELLING / REDNESS Time Seen by Provider: 04/19/17 22:15 Source of Information: Reports: Patient, Family History Limitations: Reports: No Limitations - History of Present Illness INITIAL COMMENTS - FREE TEXT/NARRATIVE: pt had a small pimple on her wrist level--farah side that was squeezed, This has now gotten hot indurated and red. This was very tender. She has tenderness going up to the elebow. She did get some pus out of it when she squeezed this. 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 Onset: Gradual Duration: Hour(s): Location: Reports: Upper Extremity, Right Associated Symptoms: Reports: No Other Symptoms - Related Data Allergies Allergy/AdvReac Type Severity Reaction Status Date / Time bupropion HCl Allergy Hives Verified 03/28/17 22:29 [From Wellbutrin] paliperidone [From Invega] Allergy Hives Verified 03/28/17 22:29 oxytocin [From Pitocin] AdvReac Syncope Verified 03/28/17 22:29 varenicline tartrate AdvReac Delusions Verified 03/28/17 22:29 [From Chantix] Home Meds: Home Meds RABEprazole [Aciphex] 40 mg PO DAILY 08/06/14 [History] LORazepam [Ativan] 1 mg PO ASDIRECTED PRN 11/02/15 [History] Triamterene/Hydrochlorothiazid [Triamterene-HCTZ 37.5-25 MG] 1 each PO BEDTIME 02/07/16 [History] Past Medical History HEENT History: Reports: Impaired Vision Cardiovascular History: Reports: Arrhythmia, High Cholesterol, Hypertension Respiratory History: Reports: Bronchitis, Recurrent Gastrointestinal History: Reports: Chronic Diarrhea, GERD Other Gastrointestinal History: Crohns Genitourinary History: Reports: Other (See Below) Other Genitourinary History: past uti 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 Musculoskeletal History: Reports: Back Pain, Chronic, Fracture, Other (See Below ) Other Musculoskeletal History: bulging disc spinal fussion of c-6-7 07/31/15 Neurological History: Reports: Migraines Psychiatric History: Reports: Anxiety, Depression, Mood Swings, Panic Attack, PTSD Endocrine/Metabolic History: Reports: Diabetes, Type II Hematologic History: Reports: Anemia Dermatologic History: Reports: Cellulitis - Infectious Disease History Infectious Disease History: Reports: Chicken Pox, Shingles Other Infectious Disease History: unknown - Past Surgical History HEENT Surgical History: Reports: Myringotomy w Tube(s) Female Surgical History: Reports: Section, Hysterectomy, Tubal Ligation Social & Family History - Family History Family Medical History: Noncontributory - Tobacco Use Smoking Status *Q: Current Every Day Smoker Years of Tobacco use: 20 Packs/Tins Daily: 0.2 Used Tobacco, but Quit: No Second Hand Smoke Exposure: Yes - Caffeine Use Caffeine Use: Reports: Soda - Alcohol Use Days Per Week of Alcohol Use: 0 - Recreational Drug Use Recreational Drug Use: No - Living Situation & Occupation Living situation: Reports: with Significant Other Occupation: Employed Review of Systems - Review of Systems Review Of Systems: See Below Constitutional: Reports: No Symptoms Eyes: Reports: No Symptoms Ears: Reports: No Symptoms Nose: Reports: No Symptoms Mouth/Throat: Reports: No Symptoms Respiratory: Reports: No Symptoms Cardiovascular: Reports: No Symptoms GI/Abdominal: Reports: No Symptoms Genitourinary: Reports: No Symptoms Musculoskeletal: Reports: Other ( pt has a red indurated area on the right wrist. This does feel hot. ) Skin: Reports: Erythema ED EXAM, GENERAL - Physical Exam Exam: See Below Free Text/Narrative:: pt has a hot indurated area on the rt wrist. Exam Limited By: No Limitations General Appearance: Alert, Moderate Distress Ears: Normal TMs Nose: Normal Inspection Throat/Mouth: Normal Inspection Head: Atraumatic Neck: Normal Inspection Respiratory/Chest: No Respiratory Distress Cardiovascular: Regular Rate, Rhythm GI/Abdominal: Soft, Non-Tender Rectal (Female) Exam: Deferred Extremities: Other ( pt has a hot endurated area on the farah aspect of the rt wrist. This is very tender. ) Neurological: Alert Course - Vital Signs Last Recorded V/S: Last Vital Signs Temp 36.3 C 04/19/17 22:35 Pulse 84 04/19/17 22:35 Resp 16 04/19/17 22:35 BP 132/83 04/19/17 22:35 Pulse Ox 100 04/19/17 22:35 - Orders/Labs/Meds Meds: Medications Discontinued Medications Generic Name Dose Route Start Last Admin Trade Name Freq PRN Reason Stop Dose Admin Bacitracin 1 dose 04/19/17 22:45 04/19/17 22:59 Bacitracin Oint 1 Gm TOP 04/19/17 22:46 1 dose ONETIME ONE Administration Ceftriaxone Sodium 1 gm/ 0 gm 04/19/17 22:31 04/19/17 22:45 Lidocaine HCl 2.1 ml IM 04/19/17 22:32 1 inj ONETIME ONE Administration - Re-Assessments/Exams Free Text/Narrative Re-Assessment/Exam: 04/19/17 23:41 pt was given rocephen 1 gm im. She will be covered with clindomycin since she works at a [place] [facility]. Departure - Departure Time of Disposition: 23:42 Disposition: Home, Self-Care 01 Condition: Fair Clinical Impression: Cellulitis - Discharge Information Referrals: Charles Sadler MD [Primary Care Provider] - Care Plan Goals: soak area twice daily in a dreft solution, apply bacatracin, keep covered, recheck with Amna Head in 3-4 days, clindomycin 300mg tid, motrin 600mg q6h prn for pain, If this is getting worse rtc before the visit with Amna Head
== END 2017-04-19 23:59 | disposition home or self-care (01) ==
LOC: JP.ED 21:13
DX: L03.113 Cellulitis of right upper limb (principal); I10 Essential (primary) hypertension; E78.00 Pure hypercholesterolemia, unspecified; E11.9 Type 2 diabetes mellitus without complications; F41.0 Panic disorder [episodic paroxysmal anxiety]; F32.9 Major depressive disorder, single episode, unspecified; F17.210 Nicotine dependence, cigarettes, uncomplicated; Z79.899 Other long term (current) drug therapy; Z88.8 Allergy status to other drugs, medicaments and biological substances
CPT/HCPCS: 96372; 99283; J0696

== ENCOUNTER 2017-07-18 00:49 | Emergency (ER) | payer MEDICAID ==
[2017-07-18 01:08] VITALS: BP 122/84
--- NOTE | 2017-07-18 02:18 | EDM.PDOC ---
ED HPI GENERAL MEDICAL PROBLEM - General Chief Complaint: ENT Problem Stated Complaint: THROAT AND EAR PAIN Time Seen by Provider: 07/18/17 01:30 Source of Information: Reports: Patient History Limitations: Reports: No Limitations - History of Present Illness INITIAL COMMENTS - FREE TEXT/NARRATIVE: This patient comes in complaining of a sore throat. She has cold symptoms and her ears hurt a little bit. She has a cough. She complains of posttussive emesis since last night. She denies any fever. She does have some green sputum. She is a smoker. Throat Pain Score (Numeric/FACES): 7 - Related Data Allergies Allergy/AdvReac Type Severity Reaction Status Date / Time bupropion HCl Allergy Hives Verified 03/28/17 22:29 [From Wellbutrin] paliperidone [From Invega] Allergy Hives Verified 03/28/17 22:29 oxytocin [From Pitocin] AdvReac Syncope Verified 03/28/17 22:29 varenicline tartrate AdvReac Delusions Verified 03/28/17 22:29 [From Chantix] Home Meds: Home Meds RABEprazole [Aciphex] 40 mg PO DAILY 08/06/14 [History] LORazepam [Ativan] 1 mg PO ASDIRECTED PRN 11/02/15 [History] Triamterene/Hydrochlorothiazid [Triamterene-HCTZ 37.5-25 MG] 1 each PO BEDTIME 02/07/16 [History] Past Medical History HEENT History: Reports: Impaired Vision Cardiovascular History: Reports: Arrhythmia, High Cholesterol, Hypertension Respiratory History: Reports: Bronchitis, Recurrent Gastrointestinal History: Reports: Chronic Diarrhea, GERD Other Gastrointestinal History: Crohns Genitourinary History: Reports: Other (See Below) Other Genitourinary History: past uti 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 Musculoskeletal History: Reports: Back Pain, Chronic, Fracture, Other (See Below ) Other Musculoskeletal History: bulging disc spinal fussion of c-6-7 07/31/15 Neurological History: Reports: Migraines Psychiatric History: Reports: Anxiety, Depression, Mood Swings, Panic Attack, PTSD Endocrine/Metabolic History: Reports: Diabetes, Type II Hematologic History: Reports: Anemia Dermatologic History: Reports: Cellulitis - Infectious Disease History Infectious Disease History: Reports: Chicken Pox, Shingles Other Infectious Disease History: unknown - Past Surgical History HEENT Surgical History: Reports: Myringotomy w Tube(s) Female Surgical History: Reports: Section, Hysterectomy, Tubal Ligation Social & Family History - Family History Family Medical History: Noncontributory - Tobacco Use Smoking Status *Q: Light Tobacco Smoker Years of Tobacco use: 15 Packs/Tins Daily: 0.5 Used Tobacco, but Quit: No Second Hand Smoke Exposure: Yes - Caffeine Use Caffeine Use: Reports: Soda - Alcohol Use Days Per Week of Alcohol Use: 0 - Recreational Drug Use Recreational Drug Use: No - Living Situation & Occupation Living situation: Reports: with Significant Other Occupation: Employed ED ROS ENT - Review of Systems Review Of Systems: ROS reveals no pertinent complaints other than HPI. ED EXAM, ENT - Physical Exam Exam: See Below Exam Limited By: No Limitations General Appearance: Alert, WD/WN, No Apparent Distress Eye Exam: Bilateral Eye: Normal Inspection Ears: Normal TMs Nose: Normal Inspection Mouth/Throat: Normal Inspection, Normal Oropharynx Head: Atraumatic Neck: Normal Inspection Respiratory/Chest: Lungs Clear Cardiovascular: Regular Rate, Rhythm, No Murmur GI/Abdominal: Non-Tender Extremities: Normal Inspection Neurological: Alert, Oriented Psychiatric: Normal Affect Course - Vital Signs Last Recorded V/S: Last Vital Signs Temp 36.4 C 07/18/17 01:08 Pulse 89 07/18/17 01:08 Resp 16 07/18/17 01:08 BP 122/84 07/18/17 01:08 Pulse Ox 99 07/18/17 01:08 - Orders/Labs/Meds Orders: Active Orders 24 hr Category Date Time Status Chest 2V [CR] Urgent Exams 07/18/17 01:45 Taken CULTURE STREP A CONFIRMATION [RM] Stat Lab 07/18/17 01:15 Results STREP SCRN A RAPID W CULT CONF [RM] Stat Lab 07/18/17 01:15 Results - Radiology Interpretation Free Text/Narrative:: Chest x-ray showed normal heart size normal lung markings Departure - Departure Time of Disposition: 02:15 Disposition: Home, Self-Care 01 Condition: Fair Clinical Impression: Acute bronchitis, Pharyngitis - Discharge Information Instructions: Pharyngitis, [id number], Acute Bronchitis, Adult Referrals: Charles Sadler MD [Primary Care Provider] - Forms: ED Department Discharge Additional Instructions: Your sore throat is viral but probably is also worsened by the little bit of sputum your bringing up for bronchitis. Take the doxycycline 100 mg twice daily for 10 days that's an antibiotic that works well for bronchitis. For cough use the Tessalon Perles 100 mg one or two 3 times daily - My Orders Last 24 Hours: My Active Orders 07/18/17 01:15 CULTURE STREP A CONFIRMATION [RM] Stat STREP SCRN A RAPID W CULT CONF [RM] Stat 07/18/17 01:45 Chest 2V [CR] Urgent - Assessment/Plan Last 24 Hours: My Active Orders 07/18/17 01:15 CULTURE STREP A CONFIRMATION [RM] Stat STREP SCRN A RAPID W CULT CONF [RM] Stat 07/18/17 01:45 Chest 2V [CR] Urgent
--- NOTE | 2017-07-18 11:55 | CR ---
CHEST: 2 view CLINICAL HISTORY:Cough, fever COMPARISON:2017 FINDINGS: Heart and pulmonary vascularity appear normal. There is some patchy density in the lingula . This could represent some atelectasis or mild infiltrate. No effusions are seen. IMPRESSION: Mild patchy density in the lingula may represent some atelectasis or pneumonic infiltrat e
== END 2017-07-18 02:25 | disposition home or self-care (01) ==
LOC: JP.ED 00:49
DX: J20.9 Acute bronchitis, unspecified (principal); J02.9 Acute pharyngitis, unspecified; I10 Essential (primary) hypertension; K21.9 Gastro-esophageal reflux disease without esophagitis; E11.9 Type 2 diabetes mellitus without complications; F17.210 Nicotine dependence, cigarettes, uncomplicated; Z88.8 Allergy status to other drugs, medicaments and biological substances; Z79.899 Other long term (current) drug therapy
CPT/HCPCS: 71046; 71046-26; 87081; 87430; 99283; 99284

== ENCOUNTER 2017-08-24 22:38 | Emergency (ER) | payer SELFPAY ==
[2017-08-24 23:06] VITALS: BP 101/68
--- NOTE | 2017-08-25 00:16 | EDM.PDOC ---
ED HPI GENERAL MEDICAL PROBLEM - General Chief Complaint: Gastrointestinal Problem Stated Complaint: ABDOMINAL PAIN Time Seen by Provider: 08/24/17 22:55 Source of Information: Reports: Patient, Family () History Limitations: Reports: No Limitations - History of Present Illness INITIAL COMMENTS - FREE TEXT/NARRATIVE: Abdominal and low back pain; this is a 47-year-old female presents emergency room with complaints of painful urination for the past 2 days feeling like cramping sensation in her low pelvis area, pain worsened throughout the night and day. She is now here because of constant pain and pressure more intense on the right side. Also reports fever and chills and decreased appetite. Onset: Gradual Duration: Day(s): (2), Constant, Getting Worse Location: Reports: Abdomen, Back (low back) Quality: Reports: Ache, Burning, Same as Previous Episode (Some a previous UTIs) , Sharp Severity: Moderate Improves with: Reports: None Worsens with: Reports: None Associated Symptoms: Reports: Fever/Chills, Loss of Appetite abdominal pain Pain Score (Numeric/FACES): 8 - Related Data Allergies Allergy/AdvReac Type Severity Reaction Status Date / Time bupropion HCl Allergy Hives Verified 08/24/17 23:11 [From Wellbutrin] paliperidone [From Invega] Allergy Hives Verified 08/24/17 23:11 oxytocin [From Pitocin] AdvReac Syncope Verified 08/24/17 23:11 varenicline tartrate AdvReac Delusions Verified 08/24/17 23:11 [From Chantix] Home Meds: Home Meds RABEprazole [Aciphex] 40 mg PO DAILY 08/06/14 [History] LORazepam [Ativan] 1 mg PO ASDIRECTED PRN 11/02/15 [History] Triamterene/Hydrochlorothiazid [Triamterene-HCTZ 37.5-25 MG] 1 each PO BEDTIME 02/07/16 [History] Sertraline [Zoloft] 25 mg PO BEDTIME 08/24/17 [History] lamoTRIgine [Lamotrigine] 300 mg PO BEDTIME 08/24/17 [History] Past Medical History HEENT History: Reports: Impaired Vision Cardiovascular History: Reports: Arrhythmia, High Cholesterol, Hypertension Respiratory History: Reports: Bronchitis, Recurrent Gastrointestinal History: Reports: Chronic Diarrhea, GERD, Other (See Below) Other Gastrointestinal History: Crohns Genitourinary History: Reports: Other (See Below) Other Genitourinary History: past uti [employer] INS[employer]OR History: Reports: , Spontaneous Musculoskeletal History: Reports: Back Pain, Chronic, Fracture, Other (See Below ) Other Musculoskeletal History: bulging disc spinal fussion of c-6-7 07/31/15 Neurological History: Reports: Migraines Psychiatric History: Reports: Anxiety, Depression, Mood Swings, Panic Attack, PTSD Endocrine/Metabolic History: Reports: Diabetes, Type II Hematologic History: Reports: Anemia Dermatologic History: Reports: Cellulitis - Infectious Disease History Infectious Disease History: Reports: Chicken Pox, Shingles Other Infectious Disease History: unknown - Past Surgical History HEENT Surgical History: Reports: Myringotomy w Tube(s) GI Surgical History: Reports: Appendectomy, Cholecystectomy Female Surgical History: Reports: Section, Hysterectomy, Tubal Ligation Neurological Surgical History: Reports: Spinal Fusion Social & Family History - Family History Family Medical History: Noncontributory - Tobacco Use Smoking Status *Q: Current Every Day Smoker Years of Tobacco use: 20 Packs/Tins Daily: 0.3 Used Tobacco, but Quit: No Second Hand Smoke Exposure: Yes - Caffeine Use Caffeine Use: Reports: Soda - Alcohol Use Days Per Week of Alcohol Use: 0 - Recreational Drug Use Recreational Drug Use: No - Living Situation & Occupation Living situation: Reports: with Significant Other Occupation: Employed ED ROS GENERAL - Review of Systems Review Of Systems: See Below Constitutional: Reports: Fever, Chills, Malaise, Fatigue, Decreased Appetite HEENT: Reports: No Symptoms Respiratory: Reports: No Symptoms Cardiovascular: Reports: No Symptoms Endocrine: Reports: No Symptoms (he will from) GI/Abdominal: Reports: Abdominal Pain, Decreased Appetite, Nausea : Reports: Flank Pain (Low back pain) Musculoskeletal: Reports: Back Pain (Low back) Skin: Reports: No Symptoms Neurological: Reports: No Symptoms Psychiatric: Reports: No Symptoms Hematologic/Lymphatic: Reports: No Symptoms Immunologic: Reports: No Symptoms ED EXAM, GI/ABD - Physical Exam Exam: See Below Exam Limited By: No Limitations General Appearance: Alert, WD/WN, Mild Distress Eyes: Bilateral: Normal Appearance, EOMI Head: Atraumatic, Normocephalic Neck: Normal Inspection, Supple, Non-Tender, Full Range of Motion Respiratory/Chest: No Respiratory Distress, Lungs Clear, Normal Breath Sounds, Chest Non-Tender Cardiovascular: Regular Rate, Rhythm, No Murmur GI/Abdominal Exam: Normal Bowel Sounds, Tender (Pain is noted with palpation of low pelvis area extends to the low back.) Back Exam: Normal Inspection, CVA Tenderness (R), CVA Tenderness (L) Extremities: Normal Range of Motion Neurological: Alert, Oriented Psychiatric: Normal Affect, Normal Mood Skin Exam: Warm, Dry, Intact, Normal Color, No Rash Lymphatic: No Adenopathy Course - Vital Signs Last Recorded V/S: Last Vital Signs Temp 36.8 C 08/24/17 23:13 Pulse 92 08/24/17 23:13 Resp 16 08/24/17 23:13 BP 101/68 08/24/17 23:13 Pulse Ox 91 L 08/24/17 23:13 - Orders/Labs/Meds Orders: Active Orders 24 hr Category Date Time Status UA W/MICROSCOPIC [URIN] Urgent Lab 08/24/17 23:36 Ordered Labs: Laboratory Tests 08/24/17 Range/Units 23:36 Urine Color Yellow Urine Appearance Cloudy Urine pH 6.0 (4.5-8.0) Ur Specific [place] 1.020 (1.008-1.030) Urine Protein Negative (NEGATIVE) mg/dL Urine Glucose (UA) Normal (NEGATIVE) mg/dL Urine Ketones Negative (NEGATIVE) mg/dL Urine Occult Blood Moderate (NEGATIVE) Urine Nitrite Negative (NEGATIVE) Urine Bilirubin Small (NEGATIVE) Urine Urobilinogen 1 (NORMAL) mg/dL Ur Leukocyte Esterase Negative (NEGATIVE) Urine RBC 5-10 H (0-5) Urine WBC 5-10 H (0-5) Ur Epithelial Cells Few Amorphous Sediment Not seen Urine Bacteria Many Urine Mucus Not seen Departure - Departure Time of Disposition: 00:23 Disposition: Home, Self-Care 01 Condition: Good Clinical Impression: UTI, Urinary tract infectious disease, Abdominal pain - Discharge Information Instructions: Abdominal Pain, Adult, [id number], Urinary Tract Infection, Adult Referrals: Charles Sadler MD [Primary Care Provider] - Forms: ED Department Discharge Care Plan Goals: Bladder infection -start tonight; Macrobid 100mg, take one capsule two times a day for 7 days -Tylenol #3, take one every 4 to 6 hours as needed for pain -advised to push fluids, take medications as directed, return to Clinic or ER if not improved or symptoms worsen. - Problem List & Annotations (1) UTI, Urinary tract infectious disease SNOMED Code(s): 35764705 Code(s): N39.0 - URINARY TRACT INFECTION, SITE NOT SPECIFIED Status: Acute Priority: Medium Current Visit: Yes - Problem List Review Problem List Initiated/Reviewed/Updated: Yes - My Orders Last 24 Hours: My Active Orders 08/24/17 23:36 UA W/MICROSCOPIC [URIN] Urgent - Assessment/Plan Last 24 Hours: My Active Orders 08/24/17 23:36 UA W/MICROSCOPIC [URIN] Urgent Plan: Bladder infection -start tonight; Macrobid 100mg, take one capsule two times a day for 7 days -Tylenol #3, take one every 4 to 6 hours as needed for pain -advised to push fluids, take medications as directed, return to Clinic or ER if not improved or symptoms worsen.
== END 2017-08-25 00:25 | disposition home or self-care (01) ==
LOC: JP.ED 22:38
DX: N39.0 Urinary tract infection, site not specified (principal); E78.00 Pure hypercholesterolemia, unspecified; I10 Essential (primary) hypertension; E11.9 Type 2 diabetes mellitus without complications; F17.210 Nicotine dependence, cigarettes, uncomplicated; Z88.8 Allergy status to other drugs, medicaments and biological substances; Z79.899 Other long term (current) drug therapy
CPT/HCPCS: 81001; 99283; 99284

== ENCOUNTER 2018-10-02 07:25 | Day surgery (SDC) | payer MEDICAID ==
[~2018-10-02 07:25] MED LIST: Bupivacaine 0.25% 10 ML SDV ONE
[2018-10-02] MEDS ORDERED: Lactated Ringers 1,000 ML IV SCH (07:30)
[2018-10-02] MEDS ORDERED: Nozin Nasal Sanitizer NASBOTH ONE (07:30)
[2018-10-02] MEDS ORDERED: ceFAZolin 2 GM in Premix Bag 1 BAG IV ONE (08:30)
[2018-10-02] MEDS ORDERED: Ondansetron 4 MG/2 ML SDV ONE (09:06)
[2018-10-02] MEDS ORDERED: fentaNYL 250 MCG/5 ML SDV ONE (09:06)
[2018-10-02] MEDS ORDERED: Rocuronium 50 MG/5 ML Vial ONE (09:06)
[2018-10-02] MEDS ORDERED: Dexamethasone 4 MG/ML SDV ONE (09:06)
[2018-10-02] MEDS ORDERED: Succinylcholine 200 MG/10 ML MDV ONE (09:06)
[2018-10-02] MEDS ORDERED: Propofol 200 MG/20 ML SDV ONE (09:06)
[2018-10-02] MEDS ORDERED: Glycopyrrolate 0.2 MG/ML 5 ML MDV ONE (09:06)
[2018-10-02] MEDS ORDERED: Neostigmine Methylsulfate 1 MG/ML 5 ML Syringe ONE (09:26)
[2018-10-02] MEDS ORDERED: Ketorolac 60 MG/2 ML SDV ONE (09:32)
[2018-10-02] MEDS ORDERED: fentaNYL 100 MCG/2 ML SDV IVPUSH ONE (11:03)
[2018-10-02] MEDS ORDERED: Acetaminophen/HYDROcodone 325-5 MG Tab PO PRN (12:09)
[2018-10-02] MEDS ORDERED: Acetaminophen/HYDROcodone 325-5 MG Tab PO ONE (12:10)
[2018-10-02 13:15] VITALS: BP 105/67
--- NOTE | 2018-10-05 14:50 | OR ---
DATE OF PROCEDURE: 10/02/2018 PREOPERATIVE DIAGNOSIS: Arthrofibrosis, left knee. POSTOPERATIVE DIAGNOSES: 1. Arthrofibrosis, left knee. 2. Patellofemoral malalignment. PROCEDURES: 1. Arthroscopy, left knee, with lysis of adhesions and synovectomy. 2. Arthroscopic lateral release. ANESTHESIA: General. INDICATIONS: Gretchen is a 48-year-old female with a history of a patellofemoral arthroplasty in her left knee, which has been causing persistent difficulty with pain and decreased range of motion. Arthroplasty was done at another facility, and she has undergone fairly extensive physical therapy. She has persistent difficulty with flexion. She has a sensation of catching and instability. There was no evidence of obvious implant failure, infection, or other complication. She now presents for arthroscopic evaluation of the implant with release of adhesions and manipulation under anesthesia if necessary. Risks, benefits, and potential complications of the procedure were discussed. She agrees to proceed. DESCRIPTION OF PROCEDURE: After adequate anesthesia was obtained, the patient was placed supine with a tourniquet about the left upper thigh. Left leg was prepped and draped in a sterile fashion. Leg was exsanguinated and tourniquet inflated to 300 mmHg. Under anesthesia, full extension was obtained with flexion to approximately 115 degrees, which was somewhat better than she had in the office. Standard inferior, anterior, medial and lateral portals were established. Knee was inspected. Medial compartment revealed no evidence of medial meniscus tear or significant articular irregularity of the medial femoral condyle or tibial plateau. ACL and PCL were intact. Lateral compartment showed no evidence of meniscus tear and articular cartilage was intact. The patellofemoral arthroplasty was identified. No evidence of loosening or complication with the femoral/trochlear component. Evaluation of the patellar component revealed encroachment of scar tissue, which was most significant on the lateral inferior aspect, medial and medial superior aspect. Using a combination of shaver and radiofrequency ablation, scar tissue was debrided from around the patellar component, taking care to avoid direct contact with the polyethylene. Working initially from the inferior aspect and working up around the patella, scar tissue and synovium were debrided until the periphery of the component was fully identified. Adhesions in the suprapatellar pouch were identified, and these were taken down with a shaver. The knee was taken through range of motion. The patella was observed to ride off on the edge of the lateral portion of the prosthesis and up on to the articular surface and in more extension. This was observed both with the knee distended with the arthroscopy pump and with the pump off and fluid removed. Using the ablation wand, a lateral release was performed until the patella was observed to center well within the trochlear component. No other abnormalities were identified. The knee was drained. Scope was withdrawn. Port sites were closed in a standard fashion. The knee was infiltrated with Marcaine and a sterile dressing was applied with a light compression over the lateral release. At the finish of the procedure, the knee could be bent into flexion beyond 130 degrees to approximately 135 degrees with the back of her calf against her thigh. The patient was taken from the operating room in a stable condition. There were no complications. Virgilio Madrid MD /[id number]
== END 2018-10-02 13:05 | disposition home or self-care (01) ==
LOC: JP.SDS 07:25
PROVIDERS: ATTEND Specialist
DX: M24.662 Ankylosis, left knee (principal); M22.2X2 Patellofemoral disorders, left knee; E11.9 Type 2 diabetes mellitus without complications; Z96.652 Presence of left artificial knee joint
CPT/HCPCS: 29873; 36415; 80048; 85027; A9270; J0330; J1100; J1885; J2405; J2704; J2710; J3010; J3490; J7120

== ENCOUNTER 2018-10-17 20:24 | Emergency (ER) | payer MEDICAID ==
[2018-10-17 20:45] VITALS: BP 114/75
--- NOTE | 2018-10-17 20:55 | EDM.PDOC ---
ED HPI GENERAL MEDICAL PROBLEM - General Chief Complaint: General Stated Complaint: chest pains and tingly Time Seen by Provider: 10/17/18 20:55 Source of Information: Reports: Patient, Family History Limitations: Reports: No Limitations - History of Present Illness INITIAL COMMENTS - FREE TEXT/NARRATIVE: 48-year-old female arrives with a variety complaints including generalized tingling in her arms and legs, a brief sharp upper back pain, some generalized anterior chest pressure, rash on her lower extremities, a bulge in her upper right abdomen. Her main complaint is that she was sitting at a computer tonight during a thunderstorm when she suddenly felt a sharp pain in her upper back and then the generalized tingling, no headache. No neurologic deficits. She feels like her legs are asleep but she is ambulating fine. Speech is clear, no visual complaints. She said she's also felt "off" for the last several days but is not specific. No nausea or vomiting. She's felt hot and cold but hasn't taken her temperature. Onset: Unknown/Unsure Associated Symptoms: Reports: Chest Pain, Cough, Fever/Chills, Malaise. Denies : Confusion, Nausea/Vomiting, Shortness of Breath Posterior Headache Pain Score (Numeric/FACES): 6 Middle Chest Pain Score (Numeric/FACES): 6 - Related Data Allergies Allergy/AdvReac Type Severity Reaction Status Date / Time bupropion HCl Allergy Hives Verified 10/17/18 20:46 [From Wellbutrin] paliperidone [From Invega] Allergy Hives Verified 10/17/18 20:46 pantoprazole [From Protonix] Allergy Hives Verified 10/17/18 20:46 oxytocin [From Pitocin] AdvReac Syncope Verified 10/17/18 20:46 varenicline tartrate AdvReac Delusions Verified 10/17/18 20:46 [From Chantix] Home Meds: Home Meds LORazepam [Ativan] 1 mg PO ASDIRECTED PRN 11/02/15 [History] Ergocalciferol (Vitamin D2) [Vitamin D2] 50,000 units PO MOWEFR 09/28/17 [ History] Simvastatin [Zocor] 40 mg PO DAILY 09/28/17 [History] FLUoxetine [PROzac] 60 mg PO DAILY 03/02/18 [History] OLANZapine [ZyPREXA] 2.5 mg PO DAILY 03/02/18 [History] Cyanocobalamin (Vitamin B-12) [B-12] 1,000 mcg PO BID 04/26/18 [History] Past Medical History HEENT History: Reports: Impaired Vision Cardiovascular History: Reports: Arrhythmia, High Cholesterol Other Cardiovascular History: HEART SKIPS BEATS PER PT REPORT Respiratory History: Reports: Bronchitis, Recurrent, Sleep Apnea Gastrointestinal History: Reports: Cholelithiasis, Chronic Diarrhea, GERD, Other (See Below) Other Gastrointestinal History: Crohns Genitourinary History: Reports: Diabetic Nephropathy, Other (See Below) Other Genitourinary History: past uti [employer] History: Reports: , 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 left knee pain, left knee partial replacement with prosthesis Neurological History: Reports: Migraines, Neuropathy, Diabetic Psychiatric History: Reports: Anxiety, Depression, Mood Swings, Panic Attack, PTSD Endocrine/Metabolic History: Reports: Diabetes, Type II Other Endocrine/Metabolic History: WAS 95 ON 09/30. LAST A1C WAS 5.1 Hematologic History: Reports: Anemia, B12 Deficiency Other Hematologic History: AND VIT D DEFICIENCY Immunologic History: Reports: None Oncologic (Cancer) History: Reports: None Dermatologic History: Reports: Cellulitis - Infectious Disease History Infectious Disease History: Reports: Chicken Pox Other Infectious Disease History: unknown - Past Surgical History Head Surgeries/Procedures: Reports: None HEENT Surgical History: Reports: Myringotomy w Tube(s), Other (See Below) Other HEENT Surgeries/Procedures: NOSE STRETCHING Cardiovascular Surgical History: Reports: None Respiratory Surgical History: Reports: None GI Surgical History: Reports: Appendectomy, Cholecystectomy, Colonoscopy, EGD, Hernia Repair/Other, Reshma Fundoplication, Other (See Below) Other GI Surgeries/Procedures: EGD with dilatation Female Surgical History: Reports: Section, Hysterectomy, Salpingo- Oophorectomy, Tubal Ligation Endocrine Surgical History: Reports: None Neurological Surgical History: Reports: Spinal Fusion Musculoskeletal Surgical History: Reports: Arthroscopic Knee, Knee Replacement Other Musculoskeletal Surgeries/Procedures:: patella femoral surgery Social & Family History - Family History Family Medical History: Noncontributory - Caffeine Use Caffeine Use: Reports: Soda Other Caffeine Use: 6 CANS/DAY - Living Situation & Occupation Living situation: Reports: with Significant Other Occupation: Employed ED ROS GENERAL - Review of Systems Review Of Systems: See Below Constitutional: Reports: Chills, Malaise HEENT: Denies: Vision Change Respiratory: Reports: Cough. Denies: Shortness of Breath Cardiovascular: Reports: Chest Pain, Lightheadedness. Denies: Palpitations GI/Abdominal: Reports: Abdominal Pain. Denies: Constipation, Nausea, Vomiting : Reports: No Symptoms Musculoskeletal: Reports: Back Pain, Other (Left knee pain) Skin: Reports: Other (Rash on her lower extremities) Neurological: Reports: Paresthesia (Generalized) Psychiatric: Reports: Anxiety ED EXAM, GENERAL - Physical Exam Exam: See Below Exam Limited By: No Limitations General Appearance: Alert, No Apparent Distress Eye Exam: Bilateral Eye: Normal Inspection Head: Atraumatic Neck: Normal Inspection Respiratory/Chest: No Respiratory Distress, Lungs Clear, Other (She does have tenderness to palpation on both sides of the sternum) Cardiovascular: Regular Rate, Rhythm. No: Extra Beats GI/Abdominal: Normal Bowel Sounds, Soft, Tender (Reacts with tenderness to palpation across the upper abdomen in the suprapubic area, she says these areas are chronically painful) Extremities: Other (Patient does have a very faint erythematous rash on the lower extremities from the knees to the ankles, well-healed surgical scars around the left knee. No warmth or edema.) EKG INTERPRETATION Rhythm: NSR Comparison: No Change (No significant change from an EKG 8 months ago) Course - Vital Signs Last Recorded V/S: Last Vital Signs Temp 98.3 F 10/17/18 20:42 Pulse 89 10/17/18 20:42 Resp 21 H 10/17/18 20:42 BP 114/75 10/17/18 20:42 Pulse Ox 95 10/17/18 20:42 - Orders/Labs/Meds Orders: Active Orders 24 hr Category Date Time Status EKG Documentation Completion [RC] ASDIRECTED Care 10/17/18 20:30 Active EKG 12 Lead [EK] Routine Ther 10/17/18 20:30 Ordered Labs: Laboratory Tests 10/17/18 10/17/18 Range/Units 21:12 21:12 WBC 9.0 (4.5-11.0) K/uL RBC 4.48 (3.30-5.50) M/uL Hgb 13.4 (12.0-15.0) g/dL Hct 39.7 (36.0-48.0) % MCV 89 (80-98) fL MCH 30 (27-31) pg MCHC 34 (32-36) % Plt Count 327 (150-400) K/uL Neut % (Auto) 54 (36-66) % Lymph % (Auto) 34 (24-44) % [place] % (Auto) 10 H (2-6) % Eos % (Auto) 2 (2-4) % Baso % (Auto) 0 (0-1) % Sodium 138 L (140-148) mmol/L Potassium 3.5 L (3.6-5.2) mmol/L Chloride 103 (100-108) mmol/L Carbon Dioxide 27 (21-32) mmol/L Anion Gap 11.5 (5.0-14.0) mmol/L BUN 10 (7-18) mg/dL Creatinine 0.9 (0.6-1.0) mg/dL Est Cr Clr Drug Dosing 73.12 mL/min Estimated GFR (MDRD) > 60 (>60) Glucose 108 H (74-106) mg/dL Calcium 8.7 (8.5-10.1) mg/dL Total Bilirubin 0.5 (0.2-1.0) mg/dL AST 15 (15-37) U/L ALT 16 D (12-78) U/L Alkaline Phosphatase 74 (46-116) U/L Troponin I < 0.017 (0.000-0.056) ng/mL Total Protein 7.0 (6.4-8.2) g/dL Albumin 3.5 (3.4-5.0) g/dL Globulin 3.5 (2.3-3.5) g/dL Albumin/Globulin Ratio 1.0 L (1.2-2.2) - Re-Assessments/Exams Free Text/Narrative Re-Assessment/Exam: 10/17/18 21:17 EKG was reassuring. Had a long visit with the patient that her symptoms do not correlate with stroke, heart attack, or any other acute significant medical problem other than anxiety or somatic concern. A two-view chest x-ray was obtained, along with a CBC, CMP and troponin. She hasn't appointment with a primary provider at the clinic in 2 days, if everything is reassuring she can recheck at that time. 10/17/18 22:32 Patient remained comfortable throughout her ER visit, all labs returned normal and chest x-ray was normal. No new treatment, she'll recheck on as planned. Departure - Departure Time of Disposition: 22:38 Disposition: Home, Self-Care 01 Condition: Good Clinical Impression: Atypical chest pain, Paresthesias - Discharge Information Instructions: Nonspecific Chest Pain, [id number] Referrals: Charles Sadler MD [Primary Care Provider] - Forms: ED Department Discharge Care Plan Goals: Continue current medications, activity as tolerated and recheck on as planned. Return sooner if worsening or you develop other concerns. - My Orders Last 24 Hours: My Active Orders 10/17/18 20:30 EKG Documentation Completion [RC] ASDIRECTED EKG 12 Lead [EK] Routine - Assessment/Plan Last 24 Hours: My Active Orders 10/17/18 20:30 EKG Documentation Completion [RC] ASDIRECTED EKG 12 Lead [EK] Routine
--- NOTE | 2018-10-17 21:38 | CRLCR ---
INDICATION: dyspnea TECHNIQUE: Chest 2 views. COMPARISON: 07/18/17 FINDINGS: Cardiovascular and mediastinum: Heart size and vasculature are normal in caliber and appearance. Mediastinum is within normal limits. Lungs and pleural spaces: Lungs are clear. No sign of infiltrate or mass. No sign of pleural effusion. No pneumothorax. Bones and soft tissues: No significant findings. IMPRESSION: Unremarkable chest. Dictated by: Juan López MD @ 10/17/2018 21:38:19 (Electronically Signed)
== END 2018-10-17 22:38 | disposition home or self-care (01) ==
LOC: JP.ED 20:24
DX: R07.89 Other chest pain (principal); R20.2 Paresthesia of skin; E78.00 Pure hypercholesterolemia, unspecified; F32.9 Major depressive disorder, single episode, unspecified; E11.21 Type 2 diabetes mellitus with diabetic nephropathy; F41.9 Anxiety disorder, unspecified; Z88.8 Allergy status to other drugs, medicaments and biological substances; Z79.899 Other long term (current) drug therapy
CPT/HCPCS: 36415; 71046; 80053; 84484; 85025; 93005; 99285-25

== ENCOUNTER 2018-10-21 19:06 | Emergency (ER) | payer MEDICAID ==
[2018-10-21 21:01] VITALS: BP 112/64
--- NOTE | 2018-10-21 21:40 | EDM.PDOC ---
ED HPI GENERAL MEDICAL PROBLEM - General Chief Complaint: Lower Extremity Injury/Pain Stated Complaint: KNEE PROBLEMS Time Seen by Provider: 10/21/18 21:25 Source of Information: Reports: Patient, Family History Limitations: Reports: No Limitations - History of Present Illness INITIAL COMMENTS - FREE TEXT/NARRATIVE: 48-year-old female who had left knee surgery within the past few months has been healing well but went swimming for several days in a row and had increased activity and now has a swollen area on the lateral aspect of the knee that is tender. No fevers or chills, she is able to ambulate. Onset: Unknown/Unsure Associated Symptoms: Denies: Chest Pain, Cough, Fever/Chills, Nausea/Vomiting, Shortness of Breath - Related Data Allergies Allergy/AdvReac Type Severity Reaction Status Date / Time bupropion HCl Allergy Hives Verified 10/21/18 20:50 [From Wellbutrin] paliperidone [From Invega] Allergy Hives Verified 10/21/18 20:50 pantoprazole [From Protonix] Allergy Hives Verified 10/21/18 20:50 oxytocin [From Pitocin] AdvReac Syncope Verified 10/21/18 20:50 varenicline tartrate AdvReac Delusions Verified 10/21/18 20:50 [From Chantix] Home Meds: Home Meds LORazepam [Ativan] 1 mg PO ASDIRECTED PRN 11/02/15 [History] Ergocalciferol (Vitamin D2) [Vitamin D2] 50,000 units PO MOWEFR 09/28/17 [ History] Simvastatin [Zocor] 40 mg PO DAILY 09/28/17 [History] FLUoxetine [PROzac] 60 mg PO DAILY 03/02/18 [History] OLANZapine [ZyPREXA] 2.5 mg PO DAILY 03/02/18 [History] Cyanocobalamin (Vitamin B-12) [B-12] 1,000 mcg PO BID 04/26/18 [History] Past Medical History HEENT History: Reports: Impaired Vision Other HEENT History: wears glasses Cardiovascular History: Reports: Arrhythmia, High Cholesterol Other Cardiovascular History: HEART SKIPS BEATS PER PT REPORT Respiratory History: Reports: Bronchitis, Recurrent, Sleep Apnea Gastrointestinal History: Reports: Cholelithiasis, Chronic Diarrhea, GERD, Other (See Below) Other Gastrointestinal History: Crohns Genitourinary History: Reports: Diabetic Nephropathy, Other (See Below) Other Genitourinary History: 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 left knee pain, left knee partial replacement with prosthesis Neurological History: Reports: Migraines, Neuropathy, Diabetic Psychiatric History: Reports: Anxiety, Depression, Mood Swings, Panic Attack, PTSD Endocrine/Metabolic History: Reports: Diabetes, Type II Other Endocrine/Metabolic History: WAS 95 ON 09/30. LAST A1C WAS 5.1 Hematologic History: Reports: Anemia, B12 Deficiency Other Hematologic History: AND VIT D DEFICIENCY Immunologic History: Reports: None Oncologic (Cancer) History: Reports: None Dermatologic History: Reports: Cellulitis - Infectious Disease History Infectious Disease History: Reports: Chicken Pox Other Infectious Disease History: unknown - Past Surgical History Head Surgeries/Procedures: Reports: None HEENT Surgical History: Reports: Myringotomy w Tube(s), Other (See Below) Other HEENT Surgeries/Procedures: NOSE STRETCHING Cardiovascular Surgical History: Reports: None Respiratory Surgical History: Reports: None GI Surgical History: Reports: Appendectomy, Cholecystectomy, Colonoscopy, EGD, Hernia Repair/Other, Reshma Fundoplication, Other (See Below) Other GI Surgeries/Procedures: EGD with dilatation Female Surgical History: Reports: Section, Hysterectomy, Salpingo- Oophorectomy, Tubal Ligation Endocrine Surgical History: Reports: None Neurological Surgical History: Reports: Spinal Fusion Musculoskeletal Surgical History: Reports: Arthroscopic Knee, Knee Replacement Other Musculoskeletal Surgeries/Procedures:: patella femoral surgery Social & Family History - Family History Family Medical History: Noncontributory - Tobacco Use Smoking Status *Q: Current Every Day Smoker Years of Tobacco use: 26 Packs/Tins Daily: 0.2 - Caffeine Use Caffeine Use: Reports: Soda Other Caffeine Use: 6 CANS/DAY - Living Situation & Occupation Living situation: Reports: with Significant Other Occupation: Employed Review of Systems - Review of Systems Review Of Systems: See Below Constitutional: Denies: Fever Respiratory: Reports: No Symptoms GI/Abdominal: Reports: No Symptoms Skin: Denies: Erythema Neurological: Reports: Other (Some shooting pain that extends up the leg into the buttock intermittently) ED EXAM, GENERAL - Physical Exam Exam: See Below Exam Limited By: No Limitations General Appearance: Alert, No Apparent Distress Respiratory/Chest: No Respiratory Distress Extremities: Other (Exam is otherwise limited to the left leg. She has a well- healed surgical incision across the knee longitudinally. There is a small area of edema and swelling lateral to the patella which is tender to palpation. There is no effusion palpable.) Course - Vital Signs Last Recorded V/S: Last Vital Signs Temp 97.2 F 10/21/18 20:59 Pulse 84 10/21/18 20:59 Resp 14 10/21/18 20:59 BP 112/64 10/21/18 20:59 Pulse Ox 98 10/21/18 20:59 - Re-Assessments/Exams Free Text/Narrative Re-Assessment/Exam: 10/22/18 01:16 This patient has a local area of edema or swelling from the increased activity along the distal lateral quadriceps area next the patella. I do not feel it is contiguous with the knee joint, it is not infectious and is likely just attributed to the increase in activity. A four-inch Devyn wrap was applied to the knee and I asked the patient to wear this through the weekend while she increases her activity, and recheck with orthopedics next week if not improving satisfactorily. Departure - Departure Time of Disposition: 21:50 Disposition: Home, Self-Care 01 Clinical Impression: Pain and swelling of left knee - Discharge Information Instructions: Knee Pain, Adult Referrals: Charles Sadler MD [Primary Care Provider] - Forms: ED Department Discharge Care Plan Goals: Keep Devyn wrap on through the weekend to provide support to the knee, and avoid extra activity. Recheck with Dr. Madrid next week if not improving satisfactorily.
== END 2018-10-21 21:51 | disposition home or self-care (01) ==
LOC: JP.ED 19:06
DX: M25.562 Pain in left knee (principal); F17.210 Nicotine dependence, cigarettes, uncomplicated; E11.21 Type 2 diabetes mellitus with diabetic nephropathy; F41.9 Anxiety disorder, unspecified; F32.9 Major depressive disorder, single episode, unspecified; Z79.899 Other long term (current) drug therapy; E11.40 Type 2 diabetes mellitus with diabetic neuropathy, unspecified; Z88.8 Allergy status to other drugs, medicaments and biological substances
CPT/HCPCS: 99283

== ENCOUNTER 2018-12-06 17:28 | Emergency (ER) | payer MEDICAID ==
[2018-12-06 18:15] VITALS: BP 113/74; PULSE 87
--- NOTE | 2018-12-06 18:53 | EDM.PDOC ---
ED HPI GENERAL MEDICAL PROBLEM - General Chief Complaint: Genitourinary Problem Stated Complaint: CRAMPING UNABLE TO URINATE Time Seen by Provider: 12/06/18 18:46 Source of Information: Reports: Patient, Family, RN Notes Reviewed History Limitations: Reports: No Limitations - History of Present Illness INITIAL COMMENTS - FREE TEXT/NARRATIVE: 48-year-old female presents to the emergency department today with complaint of low back pain, and left side urinary urgency and frequency with little production, no fevers no nausea vomiting Pelvic Pain Score (Numeric/FACES): 8 - Related Data Allergies Allergy/AdvReac Type Severity Reaction Status Date / Time bupropion HCl Allergy Hives Verified 12/06/18 18:19 [From Wellbutrin] paliperidone [From Invega] Allergy Hives Verified 12/06/18 18:19 pantoprazole [From Protonix] Allergy Hives Verified 12/06/18 18:19 oxytocin [From Pitocin] AdvReac Syncope Verified 12/06/18 18:19 varenicline tartrate AdvReac Delusions Verified 12/06/18 18:19 [From Chantix] Home Meds: Home Meds LORazepam [Ativan] 1 mg PO ASDIRECTED PRN 11/02/15 [History] Ergocalciferol (Vitamin D2) [Vitamin D2] 50,000 units PO MOWEFR 09/28/17 [ History] Simvastatin [Zocor] 40 mg PO DAILY 09/28/17 [History] FLUoxetine [PROzac] 60 mg PO DAILY 03/02/18 [History] OLANZapine [ZyPREXA] 2.5 mg PO DAILY 03/02/18 [History] Cyanocobalamin (Vitamin B-12) [B-12] 1,000 mcg PO BID 04/26/18 [History] Past Medical History HEENT History: Reports: Impaired Vision Other HEENT History: wears glasses Cardiovascular History: Reports: Arrhythmia, High Cholesterol Other Cardiovascular History: HEART SKIPS BEATS PER PT REPORT Respiratory History: Reports: Bronchitis, Recurrent, Sleep Apnea Gastrointestinal History: Reports: Cholelithiasis, Chronic Diarrhea, GERD, Other (See Below) Other Gastrointestinal History: Crohns Genitourinary History: Reports: Diabetic Nephropathy, Other (See Below) 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 left knee pain, left knee partial replacement with prosthesis Neurological History: Reports: Migraines, Neuropathy, Diabetic Psychiatric History: Reports: Anxiety, Bipolar, Depression, Mood Swings, Panic Attack, PTSD Endocrine/Metabolic History: Reports: Diabetes, Type II Other Endocrine/Metabolic History: WAS 95 ON 09/30. LAST A1C WAS 5.1 Hematologic History: Reports: Anemia, B12 Deficiency Other Hematologic History: AND VIT D DEFICIENCY Oncologic (Cancer) History: Reports: None Dermatologic History: Reports: Cellulitis - Infectious Disease History Infectious Disease History: Reports: Chicken Pox Other Infectious Disease History: unknown - Past Surgical History Head Surgeries/Procedures: Reports: None HEENT Surgical History: Reports: Myringotomy w Tube(s), Other (See Below) Other HEENT Surgeries/Procedures: NOSE STRETCHING Cardiovascular Surgical History: Reports: None Respiratory Surgical History: Reports: None GI Surgical History: Reports: Appendectomy, Cholecystectomy, Colonoscopy, EGD, Hernia Repair/Other, Reshma Fundoplication, Other (See Below) Other GI Surgeries/Procedures: EGD with dilatation Female Surgical History: Reports: Section, Hysterectomy, Salpingo- Oophorectomy, Tubal Ligation Endocrine Surgical History: Reports: None Neurological Surgical History: Reports: Spinal Fusion Musculoskeletal Surgical History: Reports: Arthroscopic Knee, Knee Replacement Other Musculoskeletal Surgeries/Procedures:: patella femoral surgery Social & Family History - Family History Family Medical History: Noncontributory - Tobacco Use Smoking Status *Q: Current Every Day Smoker Years of Tobacco use: 20 Packs/Tins Daily: 0.5 - Caffeine Use Caffeine Use: Reports: Soda Other Caffeine Use: 6 CANS/DAY - Recreational Drug Use Recreational Drug Use: No - Living Situation & Occupation Living situation: Reports: with Significant Other Occupation: Employed ED ROS GENERAL - Review of Systems Review Of Systems: See Below Constitutional: Reports: No Symptoms HEENT: Reports: No Symptoms Respiratory: Reports: No Symptoms Cardiovascular: Reports: No Symptoms GI/Abdominal: Reports: No Symptoms : Reports: Flank Pain, Frequency, Urgency, Urinary Retention Musculoskeletal: Reports: No Symptoms Skin: Reports: No Symptoms Neurological: Reports: No Symptoms ED EXAM, RENAL/ - Physical Exam Exam: See Below Exam Limited By: No Limitations General Appearance: Alert, WD/WN, No Apparent Distress Respiratory/Chest: No Respiratory Distress, Lungs Clear, Normal Breath Sounds, No Accessory Muscle Use, Chest Non-Tender Cardiovascular: Regular Rate, Rhythm, No Murmur GI/Abdominal: Soft, Non-Tender Back Exam: Full Range of Motion, CVA Tenderness (L). No: CVA Tenderness (R) Course - Vital Signs Last Recorded V/S: Last Vital Signs Temp 97.1 F 12/06/18 18:17 Pulse 87 12/06/18 18:17 Resp 20 12/06/18 18:17 BP 113/74 12/06/18 18:17 Pulse Ox 96 12/06/18 18:17 - Orders/Labs/Meds Orders: Active Orders 24 hr Category Date Time Status Bladder Scan [RC] ASDIRECTED Care 12/06/18 18:47 Active CULTURE URINE [RM] Urgent Lab 12/06/18 19:28 Ordered Labs: Laboratory Tests 12/06/18 12/06/18 12/06/18 Range/Units 17:52 18:55 18:55 WBC 7.6 (4.5-11.0) K/uL RBC 4.42 (3.30-5.50) M/uL Hgb 13.4 (12.0-15.0) g/dL Hct 39.5 (36.0-48.0) % MCV 89 (80-98) fL MCH 30 (27-31) pg MCHC 34 (32-36) % Plt Count 303 (150-400) K/uL Neut % (Auto) 59 (36-66) % Lymph % (Auto) 32 (24-44) % Jennings % (Auto) 8 H (2-6) % Eos % (Auto) 1 L (2-4) % Baso % (Auto) 0 (0-1) % Sodium 142 (140-148) mmol/L Potassium 4.3 (3.6-5.2) mmol/L Chloride 104 (100-108) mmol/L Carbon Dioxide 30 (21-32) mmol/L Anion Gap 8.1 (5.0-14.0) mmol/L BUN 9 (7-18) mg/dL Creatinine 0.9 (0.6-1.0) mg/dL Est Cr Clr Drug Dosing 73.12 mL/min Estimated GFR (MDRD) > 60 (>60) Glucose 108 H (74-106) mg/dL Calcium 8.6 (8.5-10.1) mg/dL Total Bilirubin 0.3 (0.2-1.0) mg/dL AST 14 L (15-37) U/L ALT 16 (12-78) U/L Alkaline Phosphatase 77 (46-116) U/L C-Reactive Protein 1.00 H (0.0-0.3) mg/dL Total Protein 6.6 (6.4-8.2) g/dL Albumin 3.3 L (3.4-5.0) g/dL Globulin 3.3 (2.3-3.5) g/dL Albumin/Globulin Ratio 1.0 L (1.2-2.2) Urine Color Yellow Urine Appearance Cloudy Urine pH 6.0 (4.5-8.0) Ur Specific [place] 1.015 (1.008-1.030) Urine Protein 100 H (NEGATIVE) mg/dL Urine Glucose (UA) Normal (NEGATIVE) mg/dL Urine Ketones 15 H (NEGATIVE) mg/dL Urine Occult Blood Large (NEGATIVE) Urine Nitrite Negative (NEGATIVE) Urine Bilirubin Moderate (NEGATIVE) Urine Urobilinogen 4 (NORMAL) mg/dL Ur Leukocyte Esterase Large (NEGATIVE) Urine RBC Not seen (0-5) Urine WBC Not seen (0-5) Ur Epithelial Cells Not seen Amorphous Sediment Not seen Urine Bacteria Not seen Urine Mucus Not seen Urine Other See note Urinalysis Comment QNS Departure - Departure Time of Disposition: 19:30 Disposition: Home, Self-Care 01 Condition: Fair Clinical Impression: Urinary urgency - Discharge Information Referrals: Charles Sadler MD [Primary Care Provider] - Forms: ED Department Discharge Additional Instructions: Take full course of antibiotics, Please followup with your primary care provider in 3-5 days if not better, please call return to the emergency department with worsening of symptoms. - My Orders Last 24 Hours: My Active Orders 12/06/18 18:47 Bladder Scan [RC] ASDIRECTED 12/06/18 19:28 CULTURE URINE [RM] Urgent - Assessment/Plan Last 24 Hours: My Active Orders 12/06/18 18:47 Bladder Scan [RC] ASDIRECTED 12/06/18 19:28 CULTURE URINE [RM] Urgent Plan: Assessment Acuity = acute Site and laterality = urinary urgency Etiology = suspicious for urinary tract infection bacterial cause Manifestations = none Location of injury = Home Lab values = CBC, BMP, urinalysis unremarkable Plan Elected to treat empirically Bactrim DS one tab by mouth twice a day 3 days urine was culture is pending follow-up primary care 3-5 days This note was dictated using [employer] voice recognition software please call with any questions on syntax or grammar.
== END 2018-12-06 19:35 | disposition home or self-care (01) ==
LOC: JP.ED 17:28
DX: R39.15 Urgency of urination (principal); E78.00 Pure hypercholesterolemia, unspecified; K21.9 Gastro-esophageal reflux disease without esophagitis; E11.21 Type 2 diabetes mellitus with diabetic nephropathy; E11.40 Type 2 diabetes mellitus with diabetic neuropathy, unspecified; F31.9 Bipolar disorder, unspecified; F41.9 Anxiety disorder, unspecified; F17.210 Nicotine dependence, cigarettes, uncomplicated; Z88.8 Allergy status to other drugs, medicaments and biological substances; Z79.899 Other long term (current) drug therapy
CPT/HCPCS: 36415; 51798; 80053; 81001; 85025; 86140; 87086; 99283

== ENCOUNTER 2019-01-26 08:09 | Day surgery (SDC) | payer MEDICAID ==
[2019-01-26] MEDS ORDERED: Dextrose 5%-Lactated Ringers 1,000 ML IV SCH (08:45)
[2019-01-26] MEDS ORDERED: fentaNYL 100 MCG/2 ML SDV ONE (09:33)
[2019-01-26] MEDS ORDERED: Propofol 200 MG/20 ML SDV ONE (09:33)
[2019-01-26] MEDS ORDERED: Midazolam 1 MG/ML 2 ML SDV ONE (09:33)
[2019-01-26 12:02] VITALS: BP 99/66; PULSE 73
--- NOTE | 2019-02-01 22:11 | OR ---
DATE OF PROCEDURE: 01/26/2019 SURGEON: Terry Gonzalez MD PREOPERATIVE DIAGNOSES: Colonoscopy showin. Mildly excoriated hemorrhoids. 2. A picture of retained food (ingested corn) that had been ingested more than 7 days ago consistent with a probable slow transit constipation. OPERATIVE PROCEDURE: Flexible colonoscopy. ANESTHESIA: IV sedation. INDICATION FOR PROCEDURE: This is a 48-year-old female presenting with a picture of quite severe constipation to rule out a mechanical partial obstructive type. FINDINGS: The patient did undergo a colonoscopy. The patient was instructed to take rather than 2 doses of the 119 g of MiraLAX and to take 3 of these, which she did, and despite that the prep was not entirely satisfactory. The plan is to proceed with a flexible colonoscopy with biopsies and polypectomy as indicated. The potential risks including bleeding and perforation were discussed, and the patient wishes to proceed. DETAILS OF PROCEDURE: The patient was taken to the operating room and placed in a left lateral decubitus position. IV sedation was administered, after which the initial digital rectal exam was performed and was unremarkable. Passage of the scope. The patient had some mildly excoriated hemorrhoids. The scope was eventually passed to the cecum. The colon was somewhat longer than average, but not to an extreme extent by any means. Otherwise, there were no areas of diverticula, no areas of colitis, and no polyps or other signs of neoplasia. The striking finding was that the patient did have some retained corn present in an otherwise somewhat marginal bowel prep despite the 3 doses of the MiraLAX being given, 50% increase from the normal colonoscopy prep. The scope was then withdrawn and the above findings reconfirmed. The patient states that the last time she ate corn was a week or more ago and this along with the inadequate prep despite the increased MiraLAX dosage would suggest that the patient is likely dealing with some slow-transit constipation issue. We will see the patient back next week to initiate workup and/or management. Terry Gonzalez MD /[id number]
== END 2019-01-26 11:55 | disposition home or self-care (01) ==
LOC: JP.SDS 08:09
PROVIDERS: ATTEND Surgery
DX: K58.1 Irritable bowel syndrome with constipation (principal); K64.9 Unspecified hemorrhoids; K21.9 Gastro-esophageal reflux disease without esophagitis; I10 Essential (primary) hypertension; F31.9 Bipolar disorder, unspecified; F43.10 Post-traumatic stress disorder, unspecified; F17.210 Nicotine dependence, cigarettes, uncomplicated; Z87.19 Personal history of other diseases of the digestive system
CPT/HCPCS: 45378; J2250; J2704; J3010

== ENCOUNTER 2019-03-10 11:08 | Emergency (ER) | payer MEDICAID ==
--- NOTE | 2019-03-10 11:19 | EDM.PDOC ---
ED HPI GENERAL MEDICAL PROBLEM - General Stated Complaint: SENT FROM CLINIC WITH SORE THROAT AND EAR PAIN Time Seen by Provider: 03/10/19 12:00 Source of Information: Reports: Patient, Provider (call from [facility] regarding patient requiring further work-up) History Limitations: Reports: No Limitations - History of Present Illness INITIAL COMMENTS - FREE TEXT/NARRATIVE: 48 yo female presented to clinic today for 2 week history of chest heaviness and cough x 2 weeks. Patient's past medical history significant for DM, HTN, elevated cholesterol and smoker. Patient had an initial work-up in the clinic concerning from EKG changes including: new T waves in V2-V3 when compared to previous EKG available at [facility] 1 year ago. Concern regarding infection or cardiac ischemia. Chest Pain Score (Numeric/FACES): 0 ears and throat Pain Score (Numeric/FACES): 5 - Related Data Allergies Allergy/AdvReac Type Severity Reaction Status Date / Time bupropion HCl Allergy Hives Verified 03/10/19 11:39 [From Wellbutrin] paliperidone [From Invega] Allergy Hives Verified 03/10/19 11:39 pantoprazole [From Protonix] Allergy Hives Verified 03/10/19 11:39 oxytocin [From Pitocin] AdvReac Syncope Verified 03/10/19 11:39 varenicline tartrate AdvReac Delusions Verified 03/10/19 11:39 [From Chantix] Home Meds: Home Meds Ergocalciferol (Vitamin D2) [Vitamin D2] 50,000 units PO BEDTIME 09/28/17 [ History] Simvastatin [Zocor] 40 mg PO BEDTIME 09/28/17 [History] FLUoxetine [PROzac] 60 mg PO BEDTIME 03/02/18 [History] OLANZapine [ZyPREXA] 5 mg PO BEDTIME 03/02/18 [History] Cyanocobalamin (Vitamin B-12) [B-12] 1,000 mcg PO BEDTIME 01/24/19 [History] Acetaminophen/HYDROcodone [[place] 325-5 MG] 1 - 2 tab PO Q6H PRN 2 Days #10 tab 03/10/19 [Rx] Albuterol Sulfate [Albuterol Sulfate Hfa] 2 gal IH Q4HR PRN 03/10/19 [History] Doxycycline [Vibramycin] 100 mg PO DAILY 10 Days #20 cap 03/10/19 [Rx] Linaclotide [Linzess] 145 mg PO BEDTIME 03/10/19 [History] Past Medical History HEENT History: Reports: Impaired Vision Other HEENT History: wears glasses Cardiovascular History: Reports: Arrhythmia, High Cholesterol Other Cardiovascular History: HEART SKIPS BEATS PER PT REPORT Respiratory History: Reports: Bronchitis, Recurrent, Sleep Apnea Gastrointestinal History: Reports: Cholelithiasis, Chronic Diarrhea, GERD, Other (See Below) Other Gastrointestinal History: Crohns Genitourinary History: Reports: Other (See Below) Other Genitourinary History: past uti LOSS 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 left knee pain, left knee partial replacement with prosthesis Neurological History: Reports: Migraines, Neuropathy, Diabetic Psychiatric History: Reports: Anxiety, Bipolar, Depression, Mood Swings, Panic Attack, PTSD Endocrine/Metabolic History: Reports: Diabetes, Type II Other Endocrine/Metabolic History: WAS 95 ON 09/30. LAST A1C WAS 5.1. NOT ON MEDICATIONS Hematologic History: Reports: Anemia, B12 Deficiency Other Hematologic History: AND VIT D DEFICIENCY Immunologic History: Reports: None Oncologic (Cancer) History: Reports: None Dermatologic History: Reports: Cellulitis - Infectious Disease History Infectious Disease History: Reports: Chicken Pox Other Infectious Disease History: unknown - Past Surgical History Head Surgeries/Procedures: Reports: None HEENT Surgical History: Reports: Myringotomy w Tube(s), Other (See Below) Other HEENT Surgeries/Procedures: NOSE STRETCHING Cardiovascular Surgical History: Reports: None Respiratory Surgical History: Reports: None GI Surgical History: Reports: Appendectomy, Cholecystectomy, Colonoscopy, EGD, Hernia Repair/Other, Reshma Fundoplication, Other (See Below) Other GI Surgeries/Procedures: EGD with dilatation Female Surgical History: Reports: Section, Hysterectomy, Salpingo- Oophorectomy, Tubal Ligation Endocrine Surgical History: Reports: None Neurological Surgical History: Reports: Spinal Fusion Other Neurological Surgeries/Procedures: SPINAL FUSION 2015 Musculoskeletal Surgical History: Reports: Arthroscopic Knee, Knee Replacement Other Musculoskeletal Surgeries/Procedures:: patella femoral surgery. NECK FUSED 2016 HARD MARTINEZ IN BACK Social & Family History - Family History Family Medical History: Noncontributory - Caffeine Use Caffeine Use: Reports: Coffee Other Caffeine Use: 6 CANS/DAY - Living Situation & Occupation Living situation: Reports: with Significant Other Occupation: Employed ED ROS GENERAL - Review of Systems Review Of Systems: ROS reveals no pertinent complaints other than HPI. ED EXAM, GENERAL - Physical Exam Exam: See Below Exam Limited By: No Limitations General Appearance: Alert, WD/WN, Mild Distress (cough, headache, facial pressure and chest discomfort) Eye Exam: Bilateral Eye: EOMI Ears: Normal External Exam (fluid noted behind bilateral TMs noted right greater than left with obvious scarring left TM), Normal Canal, Hearing Grossly Normal, Normal TMs Nose: Normal Inspection, Normal Mucosa Throat/Mouth: Normal Inspection, Normal Lips, Normal Teeth, Normal Gums, Normal Oropharynx, Normal Voice, No Airway Compromise, Inflammation (posterior erythema with cobblestoning ), Other Head: Facial Tenderness (right frontal and maxillary pressure and pain. No dental pain. ) Neck: Normal Inspection, Supple Respiratory/Chest: No Respiratory Distress, Lungs Clear, Normal Breath Sounds, No Accessory Muscle Use, Splinting (unable to take deep breath due to pain and concern regarding repeat cough), Prolonged Expiration, Other (significant right and left anterior and lateral chest pain to palpation ) Cardiovascular: Normal Peripheral Pulses, Regular Rate, Rhythm, No Edema, No Murmur. No: Tachycardia, Diastolic Murmur, Systolic Murmur, Friction Rub GI/Abdominal: Normal Bowel Sounds, Soft, No Distention, No Mass, Tender (across upper abdomen worse with cough and palpation with abdominal wall contraction) (Female) Exam: Deferred Rectal (Female) Exam: Deferred Back Exam: Normal Inspection, Full Range of Motion, NT Extremities: Normal Inspection, Normal Range of Motion, Non-Tender, Normal Capillary Refill, No Pedal Edema Neurological: Alert, Oriented, CN II-XII Intact, Normal Cognition, Normal Gait, Normal Reflexes, No Motor/Sensory Deficits Psychiatric: Normal Affect, Normal Mood Skin Exam: Warm, Dry, Intact, Normal Color, No Rash EKG INTERPRETATION EKG Date: 03/10/19 Time: 11:00 Rhythm: NSR Rate (Beats/Min): 75 [place]: Normal P-Wave: Present QRS: Normal ST-T: Other (slight T wave inversion V2-V3 less than 1mm depression likely nonspecific) QT: Normal Comparison: Change From Previous EKG (October 2017: V2 unchanged but new flipped V3 noted of 1mm) Course - Vital Signs Last Recorded V/S: Last Vital Signs Temp 36.8 C 03/10/19 11:33 Pulse 74 03/10/19 13:30 Resp 17 03/10/19 13:30 BP 110/61 03/10/19 13:30 Pulse Ox 97 03/10/19 13:30 - Orders/Labs/Meds Labs: Laboratory Tests 03/10/19 03/10/19 03/10/19 Range/Units 11:20 12:37 13:36 Sodium 141 (140-148) mmol/L Potassium 4.5 (3.6-5.2) mmol/L Chloride 103 (100-108) mmol/L Carbon Dioxide 28 (21-32) mmol/L Anion Gap 9.6 (5.0-14.0) mmol/L BUN 10 (7-18) mg/dL Creatinine 0.9 (0.6-1.0) mg/dL Est Cr Clr Drug Dosing 73.12 mL/min Estimated GFR (MDRD) > 60 (>60) Glucose 101 (74-106) mg/dL Calcium 9.4 (8.5-10.1) mg/dL Total Bilirubin 0.5 D (0.2-1.0) mg/dL Direct Bilirubin 0.12 (0.0-0.2) mg/dL Indirect Bilirubin 0.38 AST 12 L (15-37) U/L ALT 19 (12-78) U/L Alkaline Phosphatase 86 (46-116) U/L Troponin I < 0.017 < 0.017 (0.000-0.056) ng/mL Total Protein 7.5 (6.4-8.2) g/dL Albumin 4.0 (3.4-5.0) g/dL Globulin 3.5 (2.3-3.5) g/dL Albumin/Globulin Ratio 1.1 L (1.2-2.2) Meds: Medications Discontinued Medications Generic Name Dose Route Start Last Admin Trade Name Freq PRN Reason Stop Dose Admin Hydrocodone Bitart/Acetaminophen 1 tab 03/10/19 12:12 03/10/19 12:20 [place] 325-5 Mg PO 03/10/19 12:13 1 tab ONETIME ONE Administration Doxycycline Hyclate 100 mg 03/10/19 12:12 03/10/19 12:20 Vibramycin PO 03/10/19 12:13 100 mg ONETIME ONE Administration - Radiology Interpretation Free Text/Narrative:: CXR PA/LAT Radiology Report in clinic: IMPRESSION: No acute cardiopulmonary findings noted. CBC: WBC: 11.4 Normal Differential noted. Hgb 14.7 PLT 301 Departure - Departure Time of Disposition: 14:20 Disposition: Home, Self-Care 01 Clinical Impression: Sinusitis, Acute bronchitis, Atypical chest pain, Pleurisy, Smoker, Type 2 diabetes mellitus Prescriptions: Acetaminophen/HYDROcodone [[place] 325-5 MG] 1 - 2 tab PO Q6H PRN 2 Days #10 tab PRN Reason: Pain (Severe 7-10) Doxycycline [Vibramycin] 100 mg PO DAILY 10 Days #20 cap Instructions: Acute Bronchitis, Adult, Chest Wall Pain, Tobacco Use Disorder, Sinusitis, Adult Referrals: Charles Sadler MD [Primary Care Provider] - Forms: ED Department Discharge Additional Instructions: 1. Doxycycline 100mg BID x 10 days for sinusitis and acute bronchitis with smoking. 2. [place] 1-2 tablets every 6 hours as needed for moderate to severe pain. 3. Ibuprofen 800mg every 6-8 hours OR Naproxen 500mg every 8-12 hours (may work better) than higher doses of Ibuprofen. 4. Follow information regarding Sinusitis and Bronchitis. 5. Heart Pathway negative for MACE in the next 30 days. 6. Follow-up with PCP in 1-2 weeks if not improving, sooner if symptoms worsen or new concerns. 7. Continue to use albuterol and Mucinex as needed for cough and difficulty breathing. 8. Return to ER if worsening chest pain or symptoms not improving in 3-5 days.
[2019-03-10] MEDS ORDERED: Doxycycline 100 MG Cap PO ONE (12:12)
[2019-03-10] MEDS ORDERED: Acetaminophen/HYDROcodone 325-5 MG Tab PO ONE (12:12)
[2019-03-10 14:06] VITALS: BP 110/61; PULSE 74
== END 2019-03-10 14:45 | disposition home or self-care (01) ==
LOC: JP.ED 11:08
DX: J32.9 Chronic sinusitis, unspecified (principal); J20.9 Acute bronchitis, unspecified; R07.89 Other chest pain; R09.1 Pleurisy; E78.00 Pure hypercholesterolemia, unspecified; E11.40 Type 2 diabetes mellitus with diabetic neuropathy, unspecified; F32.9 Major depressive disorder, single episode, unspecified; F17.200 Nicotine dependence, unspecified, uncomplicated; Z88.8 Allergy status to other drugs, medicaments and biological substances; Z79.899 Other long term (current) drug therapy
CPT/HCPCS: 36415; 80048; 80076; 84484; 99283; A9270

== ENCOUNTER 2019-03-25 20:56 | Emergency (ER) | payer MEDICAID ==
[2019-03-25] MEDS: Sodium Chloride 0.9% 10 ML Syringe FLUSH PRN (21:12)
--- NOTE | 2019-03-25 21:16 | EDM.PDOC ---
ED HPI GENERAL MEDICAL PROBLEM - General Chief Complaint: Chest Pain Stated Complaint: HEART PRESSURE Time Seen by Provider: 03/25/19 21:00 Source of Information: Reports: Patient History Limitations: Reports: No Limitations - History of Present Illness INITIAL COMMENTS - FREE TEXT/NARRATIVE: 48 year female whom has had chest pressure since March 10 which she describes as pressure and intermittent and worse with activity. Patient was evaluation in the ER with negative serial troponin and Heart Pathway for MACE less than 30 days. Follow-up in clinic was completed and further work-up for CAD risk factors. Patient had a Thallium stress test on Tuesday which noted T wave inversion in multiple LEADs but without ST segment changes, Normal stress test. Nuclear Medicine reading no evidence of significant myocardial for ischemia or infarction. Normal ejection fraction at 72 percent. Patient was told in the clinic that she has had 2-3 silent heart attacks and great concern if you chest pressure and shortness of breath progresses or radiates to neck, arms or back. Patient noted worsening chest pressure and pain last night which radiated in to the back of her throat. Patient noted worsening pressure that now radiates into her left neck and arm. Patient denies nausea, vomiting or diaphoresis. pressure Pain Score (Numeric/FACES): 5 - Related Data Allergies Allergy/AdvReac Type Severity Reaction Status Date / Time bupropion HCl Allergy Hives Verified 03/25/19 20:59 [From Wellbutrin] paliperidone [From Invega] Allergy Hives Verified 03/25/19 20:59 pantoprazole [From Protonix] Allergy Hives Verified 03/25/19 20:59 oxytocin [From Pitocin] AdvReac Syncope Verified 03/25/19 20:59 varenicline tartrate AdvReac Delusions Verified 03/25/19 20:59 [From Chantix] Home Meds: Home Meds Ergocalciferol (Vitamin D2) [Vitamin D2] 50,000 units PO DAILY 09/28/17 [History ] Simvastatin [Zocor] 40 mg PO BEDTIME 09/28/17 [History] FLUoxetine [PROzac] 60 mg PO BEDTIME 03/02/18 [History] OLANZapine [ZyPREXA] 5 mg PO BEDTIME 03/02/18 [History] Cyanocobalamin (Vitamin B-12) [B-12] 1,000 mcg PO DAILY 01/24/19 [History] Albuterol Sulfate [Albuterol Sulfate Hfa] 1 - 2 puff INH Q4HR PRN 03/10/19 [ History] LORazepam 1 tab PO TID PRN 03/21/19 [History] Past Medical History HEENT History: Reports: Impaired Vision Other HEENT History: wears glasses Cardiovascular History: Reports: Arrhythmia, CAD, High Cholesterol, Hypertension , OH, Other (See Below) Other Cardiovascular History: HEART SKIPS BEATS PER PT REPORT, reports 2 " silent MIs" Respiratory History: Reports: Bronchitis, Recurrent, Sleep Apnea Gastrointestinal History: Reports: Cholelithiasis, Chronic Diarrhea, GERD, Other (See Below) Other Gastrointestinal History: Crohns Genitourinary History: Reports: Pyelonephritis, Renal Calculus, Other (See Below ) Other Genitourinary History: past uti 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 left knee pain, left knee partial replacement with prosthesis Neurological History: Reports: Migraines, Neuropathy, Diabetic Psychiatric History: Reports: Anxiety, Bipolar, Depression, Mood Swings, Panic Attack, PTSD Endocrine/Metabolic History: Reports: Diabetes, Type II Other Endocrine/Metabolic History: WAS 95 ON 09/30. LAST A1C WAS 5.1. NOT ON MEDICATIONS Hematologic History: Reports: Anemia, B12 Deficiency Other Hematologic History: AND VIT D DEFICIENCY Immunologic History: Reports: None Oncologic (Cancer) History: Reports: None Dermatologic History: Reports: Cellulitis - Infectious Disease History Infectious Disease History: Reports: Chicken Pox Other Infectious Disease History: unknown - Past Surgical History Head Surgeries/Procedures: Reports: None HEENT Surgical History: Reports: Myringotomy w Tube(s), Tonsillectomy, Other ( See Below) Other HEENT Surgeries/Procedures: NOSE STRETCHING Cardiovascular Surgical History: Reports: Other (See Below) Other Cardiovascular Surgeries/Procedures: stress test 03/2019 Respiratory Surgical History: Reports: None GI Surgical History: Reports: Appendectomy, Cholecystectomy, Colonoscopy, EGD, Esophageal Dilatation, Hernia Repair/Other, Reshma Fundoplication Female Surgical History: Reports: Section, Hysterectomy, Salpingo- Oophorectomy, Tubal Ligation Endocrine Surgical History: Reports: None Neurological Surgical History: Reports: Spinal Fusion Other Neurological Surgeries/Procedures: SPINAL FUSION 2016 Musculoskeletal Surgical History: Reports: Arthroscopic Knee, Knee Replacement Other Musculoskeletal Surgeries/Procedures:: patella femoral surgery. NECK FUSED 2016 HARD MARTINEZ IN BACK Social & Family History - Family History Family Medical History: Noncontributory - Tobacco Use Smoking Status *Q: Current Every Day Smoker Years of Tobacco use: 26 Packs/Tins Daily: 0.7 - Caffeine Use Caffeine Use: Reports: Soda Other Caffeine Use: 6 CANS/DAY - Recreational Drug Use Recreational Drug Use: No - Living Situation & Occupation Living situation: Reports: with Significant Other Occupation: Employed ED ROS GENERAL - Review of Systems Review Of Systems: ROS reveals no pertinent complaints other than HPI. ED EXAM, GENERAL - Physical Exam Exam: See Below Exam Limited By: No Limitations General Appearance: Alert, WD/WN, No Apparent Distress, Anxious Eye Exam: Bilateral Eye: EOMI Ears: Normal External Exam, Hearing Grossly Normal Nose: Normal Inspection, Normal Mucosa, No Blood Throat/Mouth: Normal Inspection, Normal Lips, Normal Teeth, Normal Gums, Normal Oropharynx, Normal Voice Head: Atraumatic, Normocephalic Neck: Normal Inspection, Supple, Limited Range of Motion, Tender Lateral (left trapezius pain to palpation with increased pain with movement ) Respiratory/Chest: No Respiratory Distress, Lungs Clear, Normal Breath Sounds, No Accessory Muscle Use, Other (left anterior chest pain to palpation over pectoralis, peristernal and intercostal muscles. ) Cardiovascular: Normal Peripheral Pulses, Regular Rate, Rhythm GI/Abdominal: Normal Bowel Sounds, Soft, Non-Tender Back Exam: Normal Inspection, Full Range of Motion, NT Extremities: Normal Inspection, Normal Range of Motion, Non-Tender, Normal Capillary Refill, No Pedal Edema Neurological: Alert, Oriented, CN II-XII Intact, Normal Cognition, Normal Gait, Normal Reflexes, No Motor/Sensory Deficits Psychiatric: Normal Affect, Anxious Skin Exam: Warm, Dry, Intact, Normal Color, No Rash EKG INTERPRETATION EKG Date: 03/25/19 Time: 21:16 Rhythm: NSR [place]: RAD-Right [place] Deviation P-Wave: Present QRS: Normal ST-T: Other (Changes noted in V2 without ST elevated or depression) QT: Normal Comparison: No Change Course - Vital Signs Last Recorded V/S: Last Vital Signs Temp 36.3 C 03/25/19 20:56 Pulse 78 03/25/19 21:39 Resp 15 03/25/19 21:39 BP 109/76 03/25/19 21:39 Pulse Ox 99 03/25/19 21:39 - Orders/Labs/Meds Orders: Active Orders 24 hr Category Date Time Status Cardiac Monitoring [RC] .As Directed Care 03/25/19 21:00 Active EKG Documentation Completion [RC] ASDIRECTED Care 03/25/19 21:00 Active Peripheral IV Care [RC] . DIRECTED Care 03/25/19 21:00 Active Sodium Chloride 0.9% [Saline Flush] Med 03/25/19 21:00 Active 10 ml FLUSH ASDIRECTED PRN Peripheral IV Insertion Adult [OM.PC] Urgent Oth 03/25/19 21:00 Ordered EKG 12 Lead [EK] Urgent Ther 03/25/19 21:00 Ordered Medication Orders Sodium Chloride (Saline Flush) 10 ml FLUSH ASDIRECTED PRN PRN Reason: Keep Vein Open Last Admin: 03/25/19 21:12 Dose: 10 ml Labs: Laboratory Tests 03/25/19 03/25/19 03/25/19 Range/Units 21:13 21:13 21:13 WBC (4.5-11.0) K/uL RBC (3.30-5.50) M/uL Hgb (12.0-15.0) g/dL Hct (36.0-48.0) % MCV (80-98) fL MCH (27-31) pg MCHC (32-36) % Plt Count (150-400) K/uL Neut % (Auto) (36-66) % Lymph % (Auto) (24-44) % Morton % (Auto) (2-6) % Eos % (Auto) (2-4) % Baso % (Auto) (0-1) % D-Dimer, Quantitative < 100 (0.0-400.0) ng/mL Sodium 140 (140-148) mmol/L Potassium 3.5 L (3.6-5.2) mmol/L Chloride 105 (100-108) mmol/L Carbon Dioxide 26 (21-32) mmol/L Anion Gap 12.5 (5.0-14.0) mmol/L BUN 9 (7-18) mg/dL Creatinine 0.8 (0.6-1.0) mg/dL Est Cr Clr Drug Dosing 82.26 mL/min Estimated GFR (MDRD) > 60 (>60) Glucose 116 H (74-106) mg/dL Calcium 8.7 (8.5-10.1) mg/dL Troponin I < 0.017 (0.000-0.056) ng/mL NT-Pro-B Natriuret Pep 21 (5-125) pg/mL 03/25/19 Range/Units 21:32 WBC 7.5 (4.5-11.0) K/uL RBC 4.38 (3.30-5.50) M/uL Hgb 13.7 (12.0-15.0) g/dL Hct 39.5 (36.0-48.0) % MCV 90 (80-98) fL MCH 31 (27-31) pg MCHC 35 (32-36) % Plt Count 310 (150-400) K/uL Neut % (Auto) 51 (36-66) % Lymph % (Auto) 39 (24-44) % Morton % (Auto) 8 H (2-6) % Eos % (Auto) 2 (2-4) % Baso % (Auto) 0 (0-1) % D-Dimer, Quantitative (0.0-400.0) ng/mL Sodium (140-148) mmol/L Potassium (3.6-5.2) mmol/L Chloride (100-108) mmol/L Carbon Dioxide (21-32) mmol/L Anion Gap (5.0-14.0) mmol/L BUN (7-18) mg/dL Creatinine (0.6-1.0) mg/dL Est Cr Clr Drug Dosing mL/min Estimated GFR (MDRD) (>60) Glucose (74-106) mg/dL Calcium (8.5-10.1) mg/dL Troponin I (0.000-0.056) ng/mL NT-Pro-B Natriuret Pep (5-125) pg/mL Meds: Medications Generic Name Dose Route Start Last Admin Trade Name Freq PRN Reason Stop Dose Admin Sodium Chloride 10 ml 03/25/19 21:00 03/25/19 21:12 Saline Flush FLUSH 10 ml ASDIRECTED PRN Administration Keep Vein Open Discontinued Medications Generic Name Dose Route Start Last Admin Trade Name Freq PRN Reason Stop Dose Admin Aspirin 324 mg 11/10/19 21:24 03/25/19 21:35 Aspirin PO 03/25/19 21:25 324 mg ONETIME ONE Administration Ketorolac Tromethamine 30 mg 03/25/19 21:31 03/25/19 21:36 Toradol IVPUSH 03/25/19 21:32 30 mg ONETIME ONE Administration - Radiology Interpretation Free Text/Narrative:: CXR PA/LAT: Subtle increased density left lower lung field. No cardiomegaly or acute cardiopulmonary findings noted. Radiology report noted on acute findings. CT Chest w/o contrast: 3mm left lower and 3mm right lower pulmonary nodules noted. Follow-up recommended. No findings to explain patient's chest wall pain. Departure - Departure Time of Disposition: 22:35 Disposition: Home, Self-Care 01 Clinical Impression: Nonspecific chest pain Instructions: Chest Wall Pain, Nonspecific Chest Pain Referrals: Charles Sadler MD [Primary Care Provider] - Forms: ED Department Discharge Additional Instructions: 1. Call PCP in am to discuss ER visit and consider referral to Cardiology for further evaluation, Coronary Angiogram may be considered. 2. STOP Smoking to decrease your risk factor of more significant OH. 3. Consider ASPIRIN 350-650mg every 6-8 hrs as needed for chest pain. 4. Warm compress to improve blood flow and help with chest wall pain. 5. Return to ER if chest pressure become worse, different or additional symptoms of pain lightheadedness, nausea, sweating or weakness noted. ED Communication - Discussed Case With (1) Discussed Case With (1): Patient, Other Provider (Dr Mckenna) Date: 03/25/19 Time Called: 22:40 - My Orders Last 24 Hours: My Active Orders 03/25/19 21:00 Cardiac Monitoring [RC] .As Directed EKG Documentation Completion [RC] ASDIRECTED Peripheral IV Care [RC] . DIRECTED Sodium Chloride 0.9% [Saline Flush] 10 ml FLUSH ASDIRECTED PRN Peripheral IV Insertion Adult [OM.PC] Urgent EKG 12 Lead [EK] Urgent - Assessment/Plan Last 24 Hours: My Active Orders 03/25/19 21:00 Cardiac Monitoring [RC] .As Directed EKG Documentation Completion [RC] ASDIRECTED Peripheral IV Care [RC] . DIRECTED Sodium Chloride 0.9% [Saline Flush] 10 ml FLUSH ASDIRECTED PRN Peripheral IV Insertion Adult [OM.PC] Urgent EKG 12 Lead [EK] Urgent
[2019-03-25] MEDS: Aspirin 81 MG Tab.Chew PO ONE (21:35)
[2019-03-25] MEDS: Ketorolac 30 MG/ML SDV IVPUSH ONE (21:36)
--- NOTE | 2019-03-25 21:39 | CRLCR ---
Indication: Chest pressure. Technique: PA and lateral views the chest were obtained. Comparison: October 17, 2017. Findings: The heart is normal in size. The lungs are clear. No infiltrate, pleural effusion, or pneumothorax is identified. Impression: No acute cardiopulmonary process. Dictated by Kierra Lozada MD @ Mar 25 2019 9:37PM Signed by Dr. iKerra Lozada @ Mar 25 2019 9:37PM
[2019-03-25 21:55] VITALS: BP 109/76; PULSE 78
--- NOTE | 2019-03-25 22:28 | CRLCT ---
Indication: Possible nodule identified on recent chest x-ray. Smoker. Technique: Multiple contiguous axial images were obtained from the thoracic inlet through the upper abdomen without intravenous contrast enhancement. Please note that all CT scans at this facility use dose modulation, iterative reconstruction, and/or weight-based dosing when appropriate to reduce radiation dose to as low as reasonably achievable. Comparison: Chest x-ray from earlier today. Findings: The heart is normal in size. No pericardial effusions identified. The aorta is normal in caliber. No mediastinal or axillary lymphadenopathy is identified. Postoperative changes are identified at the GE junction. The unenhanced liver, spleen, pancreas, adrenals, and kidneys are normal. No intrahepatic biliary ductal dilatation is identified. No hydronephrosis is identified. Postsurgical changes of a cholecystectomy identified. No lytic or blastic lesions are identified within the spine. A 3 millimeter noncalcified pulmonary nodule is identified in the left lower lobe. This is best seen on image number 63, series 3. This should be followed according to Fleischner society criteria. It is doubtful that this was identified on the chest x-ray. A 3 millimeter noncalcified pulmonary nodule is identified in inferior aspect of the right middle lobe. This is best seen on image number 62, series 3. No infiltrate, pleural effusion, or pneumothorax is identified. Impression: 3 millimeter noncalcified pulmonary nodule identified in the left lower lobe. 3 millimeter noncalcified pulmonary nodule identified in the inferior aspect of the right middle lobe. Follow-up should be performed according to the Fleischner society criteria. Please note that all CT scans at this facility use dose modulation, iterative reconstruction, and/or weight-based dosing when appropriate to reduce radiation dose to as low as reasonably achievable. Dictated by Kierra Lozada MD @ Mar 25 2019 10:21PM Signed by Dr. Kierra Lozada @ Mar 25 2019 10:27PM
== END 2019-03-25 22:58 | disposition home or self-care (01) ==
LOC: JP.ED 20:56
DX: R07.89 Other chest pain (principal); R91.1 Solitary pulmonary nodule; I10 Essential (primary) hypertension; I25.10 Atherosclerotic heart disease of native coronary artery without angina pectoris; E78.00 Pure hypercholesterolemia, unspecified; K21.9 Gastro-esophageal reflux disease without esophagitis; E11.40 Type 2 diabetes mellitus with diabetic neuropathy, unspecified; F31.9 Bipolar disorder, unspecified; F41.9 Anxiety disorder, unspecified; F17.210 Nicotine dependence, cigarettes, uncomplicated; Z79.899 Other long term (current) drug therapy; Z88.8 Allergy status to other drugs, medicaments and biological substances
CPT/HCPCS: 36415; 71046; 71250; 80048; 83880; 84439; 84443; 84484; 85025; 85379; 93005; 96374; 99285; A9270; J1885

== ENCOUNTER 2019-06-12 22:13 | Emergency (ER) | payer MEDICAID ==
[2019-06-12 22:39] VITALS: BP 124/77; PULSE 93
[2019-06-12] MEDS ORDERED: Alum Hydrox/Mag Hydrox/Simeth 15 ML, Lidocaine 2% 15 ML PO ONE ×2 (23:25)
--- NOTE | 2019-06-12 23:28 | EDM.PDOC ---
ED HPI GENERAL MEDICAL PROBLEM - General Chief Complaint: Abdominal Pain Stated Complaint: ABD PAIN Time Seen by Provider: 06/12/19 23:18 Source of Information: Reports: Patient, Family, RN Notes Reviewed History Limitations: Reports: No Limitations - History of Present Illness INITIAL COMMENTS - FREE TEXT/NARRATIVE: 49-year-old female presents to the emergency department with a complaint of epigastric pain, she states the pain came on after she ate the meal 3 days prior the pain has been more intense as he has not found anything that relieves the pain as of yet does feel short of breath with deep breath no nausea no diaphoresis does have history of reflux epigastric pain Pain Score (Numeric/FACES): 10 - Related Data Allergies Allergy/AdvReac Type Severity Reaction Status Date / Time bupropion HCl Allergy Hives Verified 06/12/19 23:02 [From Wellbutrin] paliperidone [From Invega] Allergy Hives Verified 06/12/19 23:02 pantoprazole [From Protonix] Allergy Hives Verified 06/12/19 23:02 oxytocin [From Pitocin] AdvReac Syncope Verified 06/12/19 23:02 varenicline tartrate AdvReac Delusions Verified 06/12/19 23:02 [From Chantix] Home Meds: Home Meds Ergocalciferol (Vitamin D2) [Vitamin D2] 50,000 units PO DAILY 09/28/17 [History ] Simvastatin [Zocor] 40 mg PO BEDTIME 09/28/17 [History] FLUoxetine [PROzac] 60 mg PO BEDTIME 03/02/18 [History] OLANZapine [ZyPREXA] 5 mg PO BEDTIME 03/02/18 [History] Cyanocobalamin (Vitamin B-12) [B-12] 1,000 mcg PO DAILY 01/24/19 [History] Albuterol Sulfate [Albuterol Sulfate Hfa] 1 - 2 puff INH Q4HR PRN 03/10/19 [ History] LORazepam 1 tab PO TID PRN 03/21/19 [History] Past Medical History HEENT History: Reports: Impaired Vision Other HEENT History: wears glasses Cardiovascular History: Reports: Arrhythmia, CAD, High Cholesterol, Hypertension , NE, Other (See Below) Other Cardiovascular History: HEART SKIPS BEATS PER PT REPORT, 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 left knee pain, left knee partial replacement with prosthesis Neurological History: Reports: Migraines, Neuropathy, Diabetic Psychiatric History: Reports: Anxiety, Bipolar, Depression, Mood Swings, Panic Attack, PTSD Endocrine/Metabolic History: Reports: Diabetes, Type II Other Endocrine/Metabolic History: WAS 95 ON 09/30. LAST A1C WAS 5.1. NOT ON MEDICATIONS Hematologic History: Reports: Anemia, B12 Deficiency Other Hematologic History: AND VIT D DEFICIENCY Immunologic History: Reports: None Oncologic (Cancer) History: Reports: None Dermatologic History: Reports: Cellulitis - Infectious Disease History Infectious Disease History: Reports: Chicken Pox, Shingles Other Infectious Disease History: unknown - Past Surgical History Head Surgeries/Procedures: Reports: None HEENT Surgical History: Reports: Myringotomy w Tube(s), Tonsillectomy, Other ( See Below) Other HEENT Surgeries/Procedures: NOSE STRETCHING Cardiovascular Surgical History: Reports: Other (See Below) Other Cardiovascular Surgeries/Procedures: stress test 03/2019 Respiratory Surgical History: Reports: None GI Surgical History: Reports: Appendectomy, Cholecystectomy, Colonoscopy, EGD, Esophageal Dilatation, Hernia Repair/Other, Reshma Fundoplication Female Surgical History: Reports: Section, Hysterectomy, Salpingo- Oophorectomy, Tubal Ligation Endocrine Surgical History: Reports: None Neurological Surgical History: Reports: Spinal Fusion Other Neurological Surgeries/Procedures: SPINAL FUSION 2016 Musculoskeletal Surgical History: Reports: Arthroscopic Knee, Knee Replacement Other Musculoskeletal Surgeries/Procedures:: patella femoral surgery. NECK FUSED 2016 HARD MARTINEZ IN BACK Social & Family History - Family History Family Medical History: Noncontributory - Tobacco Use Smoking Status *Q: Current Every Day Smoker Years of Tobacco use: 20 Packs/Tins Daily: 0.5 - Caffeine Use Caffeine Use: Reports: Soda Other Caffeine Use: 6 CANS/DAY - Recreational Drug Use Recreational Drug Use: No - Living Situation & Occupation Living situation: Reports: with Significant Other Occupation: Employed ED ROS GENERAL - Review of Systems Review Of Systems: See Below Constitutional: Denies: Fever, Chills HEENT: Reports: No Symptoms Respiratory: Reports: Shortness of Breath Cardiovascular: Reports: Chest Pain (Epigastric region) GI/Abdominal: Reports: No Symptoms : Reports: No Symptoms ED EXAM, GI/ABD - Physical Exam Exam: See Below Exam Limited By: No Limitations General Appearance: Alert, WD/WN, No Apparent Distress Respiratory/Chest: No Respiratory Distress, Lungs Clear, Normal Breath Sounds, No Accessory Muscle Use, Chest Non-Tender Cardiovascular: Regular Rate, Rhythm, No Murmur GI/Abdominal Exam: Normal Bowel Sounds, Soft, No Distention, No Abnormal Bruit, No Mass, Tender (Tender epigastric region) Course - Vital Signs Last Recorded V/S: Last Vital Signs Temp 99.1 F 06/12/19 23:03 Pulse 93 06/12/19 23:03 Resp 16 06/12/19 23:03 BP 124/77 06/12/19 23:03 Pulse Ox 96 06/12/19 23:03 - Orders/Labs/Meds Orders: Active Orders 24 hr Category Date Time Status EKG Documentation Completion [RC] ASDIRECTED Care 06/12/19 23:24 Active EKG 12 Lead [EK] Stat Ther 06/12/19 23:24 Ordered Labs: Laboratory Tests 06/12/19 06/12/19 06/12/19 Range/Units 23:33 23:33 23:33 WBC 9.2 (4.5-11.0) K/uL RBC 4.57 (3.30-5.50) M/uL Hgb 14.1 (12.0-15.0) g/dL Hct 41.6 (36.0-48.0) % MCV 91 (80-98) fL MCH 31 (27-31) pg MCHC 34 (32-36) % Plt Count 303 (150-400) K/uL Neut % (Auto) 62 (36-66) % Lymph % (Auto) 26 (24-44) % [place] % (Auto) 10 H (2-6) % Eos % (Auto) 1 L (2-4) % Baso % (Auto) 0 (0-1) % Sodium 141 (140-148) mmol/L Potassium 4.0 (3.6-5.2) mmol/L Chloride 103 (100-108) mmol/L Carbon Dioxide 31 (21-32) mmol/L Anion Gap 7.3 (5.0-14.0) mmol/L BUN 7 (7-18) mg/dL Creatinine 0.9 (0.6-1.0) mg/dL Est Cr Clr Drug Dosing 72.34 mL/min Estimated GFR (MDRD) > 60 (>60) Glucose 97 (74-106) mg/dL Lactic Acid 1.0 (0.4-2.0) mmol/L Calcium 8.4 L (8.5-10.1) mg/dL Total Bilirubin 0.5 (0.2-1.0) mg/dL AST 12 L (15-37) U/L ALT 19 (12-78) U/L Alkaline Phosphatase 84 (46-116) U/L Troponin I < 0.017 (0.000-0.056) ng/mL Total Protein 7.1 (6.4-8.2) g/dL Albumin 3.4 (3.4-5.0) g/dL Globulin 3.7 H (2.3-3.5) g/dL Albumin/Globulin Ratio 0.9 L (1.2-2.2) Meds: Medications Discontinued Medications Generic Name Dose Route Start Last Admin Trade Name Freq PRN Reason Stop Dose Admin Al Hydroxide/Mg Hydroxide 15 0 ml 06/12/19 23:25 06/12/19 23:48 ml/ Lidocaine HCl 15 ml PO 06/12/19 23:26 30 ml ONETIME ONE Administration Departure - Departure Time of Disposition: 00:32 Disposition: Home, Self-Care 01 Condition: Fair Clinical Impression: Abdominal pain Qualifiers: Abdominal location: epigastric Qualified Code(s): R10.13 - Epigastric pain - Discharge Information Referrals: Charles Sadler MD [Primary Care Provider] - Forms: ED Department Discharge Additional Instructions: Use hydrocodone as needed for pain control, please call Dr. Gonzalez's office in the morning for an appointment time, call or return to the emergency department with worsening of symptoms Sepsis Event Note - Evaluation Sepsis Screening Result: No Definite Risk - Focused Exam Vital Signs: Vital Signs Temp Pulse Resp BP Pulse Ox 06/12/19 23:03 99.1 F 93 16 124/77 96 06/12/19 22:38 99.1 F 93 16 124/77 96 Date Exam was Performed: 06/13/19 Time Exam was Performed: 00:30 - My Orders Last 24 Hours: My Active Orders 06/12/19 23:24 EKG Documentation Completion [RC] ASDIRECTED EKG 12 Lead [EK] Stat - Assessment/Plan Last 24 Hours: My Active Orders 06/12/19 23:24 EKG Documentation Completion [RC] ASDIRECTED EKG 12 Lead [EK] Stat Plan: Assessment Acuity = acute Site and laterality = epigastric pain complicating the patient with known history of Reshma procedure Etiology = unknown Manifestations = none Location of injury = Home Lab values = CBC, CMP, troponin, chest x-ray, EKG all within normal limits Plan She had no relief from GI cocktail, she is going to try hydrocodone 5/325 1 tab p.o. 3 times daily PRN total #6 and she will follow-up with general surgery tomorrow morning This note was dictated using [employer] voice recognition software please call with any questions on syntax or grammar.
--- NOTE | 2019-06-12 23:56 | CRLCR ---
INDICATION: EPIGASTRIC PAIN TECHNIQUE: Chest 2 views. COMPARISON: None. FINDINGS: Cardiovascular and mediastinum: Heart size and vasculature are normal in caliber and appearance. Mediastinum is within normal limits. Lungs and pleural spaces: Lungs are clear. No sign of infiltrate or mass. No sign of pleural effusion. No pneumothorax. Bones and soft tissues: No significant findings. IMPRESSION: Unremarkable chest. Dictated by: Juan López MD @ 06/12/2019 23:54:05 (Electronically Signed)
== END 2019-06-13 00:41 | disposition home or self-care (01) ==
LOC: JP.ED 22:13
DX: R10.13 Epigastric pain (principal); I10 Essential (primary) hypertension; I25.2 Old myocardial infarction; E78.00 Pure hypercholesterolemia, unspecified; F41.9 Anxiety disorder, unspecified; F32.9 Major depressive disorder, single episode, unspecified; E11.9 Type 2 diabetes mellitus without complications; F17.210 Nicotine dependence, cigarettes, uncomplicated; Z88.8 Allergy status to other drugs, medicaments and biological substances; Z79.899 Other long term (current) drug therapy
CPT/HCPCS: 36415; 71046; 80053; 83605; 84484; 85025; 93005; 99284; A9270

== ENCOUNTER 2019-06-14 06:45 | Day surgery (SDC) | payer MEDICAID ==
[2019-06-14] MEDS ORDERED: Iopamidol 612 MG/ML 100 ML Bottle IV ONE (07:05)
[2019-06-14] MEDS ORDERED: Sodium Chloride 0.9% 10 ML Syringe FLUSH ONE (07:05)
[2019-06-14] MEDS ORDERED: Sodium Chloride 0.9% 80 ML IV SCH (07:15)
[2019-06-14] MEDS ORDERED: Bupivacaine 0.5%/EPINEPHrine 1:200,000 50 ML MDV ONE (07:29)
--- NOTE | 2019-06-14 07:58 | CRLCT ---
CLINICAL INFORMATION: 49-year-old with increased epigastric pain. TECHNIQUE: Contrast-enhanced CT of the abdomen and pelvis was obtained. Coronal and sagittal reformatted images were obtained. Contrast: 100 mL Isovue 300 mL of Omnipaque 350 intravenous contrast was injected uneventfully prior to image acquisition. Radiation Dose Estimate (Total Exam DLP): 1258 mGy-cm. COMPARISON: CT of the abdomen and pelvis 03/28/2017. FINDINGS: Lower Chest: Lung bases: Unremarkable. Heart/Pericardium: Unremarkable. Abdomen/Pelvis: Liver: Expansile occlusive thrombus seen within the left portal vein. Gallbladder: Surgically absent. Spleen: Unremarkable. Adrenal glands: Unremarkable. Kidneys: Unremarkable. Pancreas: Unremarkable. Lymph nodes: No retroperitoneal, mesenteric, inguinal, or pelvic adenopathy by CT criteria. Bowel: Postsurgical changes related to fundoplication. No bowel obstruction. Status post appendectomy. Urinary bladder: Limited evaluation due to underdistention. No gross pathology. Reproductive structures: Surgically absent. No abdominal/pelvis ascites or free intraperitoneal air. Musculoskeletal: : Visualized osseous structures demonstrate diffuse degenerative changes in the spine. IMPRESSION: 1. 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 Right and main portal vein branches are patent. Superior mesenteric vein and splenic veins are patent. Anticoagulation is recommended in patients with acute portal vein occlusion so as to increase likelihood for successful recanalization introduce likelihood for portal hypertension. These findings were discussed with Dr. Terry Gonzalez on 06/14/2019 at 7:55 a.m. Please note that all CT scans at this facility use dose modulation, iterative reconstruction, and/or weight-based dosing when appropriate to reduce radiation dose to as low as reasonably achievable. Dictated by Marquez Arredondo MD @ Jun 14 2019 7:42AM Signed by Dr. Marquez Arredondo @ Jun 14 2019 7:58AM
[2019-06-14] MEDS ORDERED: Neostigmine Methylsulfate 1 MG/ML 5 ML Syringe ONE (09:57)
[2019-06-14] MEDS ORDERED: Propofol 200 MG/20 ML SDV ONE (09:57)
[2019-06-14] MEDS ORDERED: fentaNYL 250 MCG/5 ML SDV ONE ×2 (09:57→14:16)
[2019-06-14] MEDS ORDERED: Succinylcholine 200 MG/10 ML MDV ONE (09:57)
[2019-06-14] MEDS ORDERED: Glycopyrrolate 0.2 MG/ML 5 ML MDV ONE (09:57)
[2019-06-14] MEDS ORDERED: Ondansetron 4 MG/2 ML SDV ONE (09:57)
[2019-06-14] MEDS ORDERED: Dexamethasone 4 MG/ML SDV ONE (09:57)
[2019-06-14] MEDS ORDERED: Rocuronium 50 MG/5 ML Vial ONE (09:57)
[2019-06-14] MEDS: Meropenem 500 MG SDV ONE ×3 (10:49→14:20)
[2019-06-14] MEDS: Celecoxib 200 MG Cap PO ONE ×2 (11:08→11:14)
[2019-06-14] MEDS ORDERED: Acetaminophen 500 MG Tab PO ONE (11:15)
[2019-06-14] MEDS ORDERED: Dextrose 5%-Lactated Ringers 1,000 ML IV SCH (11:30)
[2019-06-14] MEDS ORDERED: Ketamine 500 MG/5 ML MDV IV SCH (12:00)
[2019-06-14] MEDS ORDERED: Albuterol/Ipratropium 3.0-0.5 MG/3 ML Neb Soln NEB ONE (12:00)
[2019-06-14] MEDS ORDERED: Ketamine 50 MG in Sodium Chloride 0.9% 49.5 ML IV SCH (12:00)
[2019-06-14] MEDS ORDERED: ceFAZolin 2 GM in Premix Bag 1 BAG IV ONE (12:45)
[2019-06-14] MEDS ORDERED: Albuterol/Ipratropium 3.0-0.5 MG/3 ML Neb Soln INH PRN (16:12)
[2019-06-14] MEDS ORDERED: HYDROmorphone 1 MG/ML Syringe IV PRN (16:12)
[2019-06-14] MEDS ORDERED: Cyclobenzaprine 10 MG Tab PO PRN (16:13)
[2019-06-14] MEDS ORDERED: Ondansetron 4 MG/2 ML SDV IVPUSH PRN (16:13)
[2019-06-14] MEDS ORDERED: hydrOXYzine HCL 100 MG/2 ML SDV IM PRN (16:14)
[2019-06-14] MEDS: HYDROmorphone 0.5 MG/0.5 ML Syringe IVPUSH PRN ×3 (17:20→23:04)
[2019-06-14] MEDS: ceFAZolin 2 GM in Premix Bag 1 BAG IV SCH (17:36)
[2019-06-14] MEDS ORDERED: OLANZapine 5 MG Tab PO SCH (21:00)
[2019-06-14] MEDS ORDERED: FLUoxetine 20 MG Cap PO SCH (21:00)
[2019-06-14] MEDS: Acetaminophen 500 MG Tab PO SCH (21:49)
[2019-06-14] MEDS: Dextrose 5%-Lactated Ringers 1,000 ML IV SCH (22:55)
[2019-06-15] MEDS: ceFAZolin 2 GM in Premix Bag 1 BAG IV SCH (02:30)
[2019-06-15] MEDS: Acetaminophen 500 MG Tab PO SCH (05:00)
[2019-06-15] MEDS: Dextrose 5%-Lactated Ringers 1,000 ML IV SCH (06:08)
[2019-06-15 07:32] VITALS: BP 110/56; PULSE 54
[2019-06-15] MEDS ORDERED: Acetaminophen/HYDROcodone 325-5 MG Tab PO PRN (08:07)
--- NOTE | 2019-06-17 13:36 | OR ---
DATE OF PROCEDURE: 06/14/2019 SURGEON: Terry Gonzalez MD PREOPERATIVE DIAGNOSIS: Incisional hernia. POSTOPERATIVE DIAGNOSES: 1. Incarcerated incisional hernia. 2. Extensive intraabdominal adhesions. OPERATIVE PROCEDURE: Diagnostic laparoscopy with lysis of adhesions and: 1. Repair of incarcerated incisional hernia with mesh ([id number]). 2. Placement of Interceed mesh to limit adhesion formation between pelvic and abdominal wall and underlying viscera ([id number]). ANESTHESIA: General. DOCK GRADER: Chapis Jiménez PA-C. INDICATIONS FOR PROCEDURE: This is a 49-year-old presenting with painful incisional hernia located in the upper aspect of the midline incision. Plan was to proceed with diagnostic laparoscopy with laparotomy if necessary, and repair of the hernia with mesh. Potential risks including bleeding, infection, injury to underlying viscera, problems with the mesh becoming infected or the hernia recurring were all reviewed, and the patient wishes to proceed. DETAILS OF PROCEDURE: The patient was taken to the operating room. After general endotracheal anesthesia was induced, a Stevens catheter was inserted and the abdomen prepped and draped. In the right lower abdomen, a transverse incision was made. The peritoneal cavity entered under direct vision with an Optiview trocar, inflated to 15 mmHg with CO2. Laparoscope was reinserted. No underlying trocar insertion site injuries were seen. She was noted to have a large amount of omental adhesions to the upper midline incision. A 5-mm trocars were placed x3 in the right lower and mid abdomen. At this point, adhesiolysis was undertaken with Harmonic scalpel, all of the adhesions as well as the omentum and the anterior abdominal wall including the area of herniation which had some incarcerated omentum within it. Once these were divided, the peritoneum in the uppermost aspect of the hernia was incised and some incarcerated preperitoneal fat within the hernia was excised and delivered from the field. The hernia which amounted to a section of actual separation in the upper 3 cm of the upper midline incision was then approximated with 2-0 Vicryl sutures. Once the primary fascial approximation was completed, a 15.2-cm round Ventralight ST mesh with the balloon positioning system placed after being soaked in antibiotic-containing saline solution through a small stab wound in the skin over the center of the hernia. The balloon inflation catheter was brought up bringing this mesh up through the abdominal wall and the balloon inflated. The mesh was then fixed circumferentially with absorbable tacking screws. Once this was completed, the balloon was deflated and removed. The mesh appeared to be well fixed in all directions. Interceed mesh was then placed into the peritoneal cavity underneath the mesh and then from some lower abdominal and pelvic wall to limit recurrent adhesion formation between those surfaces and the underlying viscera. At that point, no further problems were noted. Trocars were removed and the peritoneal cavity deflated. The fascia at the 12-mm trocar site was closed with 0 Vicryl stitch and the skin at each incision with 4-0 Vicryl skin stitch. Dressing was then applied. The patient was taken to the recovery room in satisfactory condition. Physician geriatric nurse assistant, Chapis Jiménez, played an essential role in assisting in this case, helping to position the patient, retract structures as needed as well as suturing and cutting sutures when indicated. Her presence improved patient safety and decreased the operative time. Terry Gonzalez MD /[id number]
[2019-06-18 10:09] LABS: FACTOR IX ACTIVITY 142 % (.); FACTOR VIII ACTIVITY 172 % (.); FACTOR XI ACTIVITY 96 % (.); FACTOR XII ACTIVITY 109 % (.)
== END 2019-06-15 09:10 | disposition home or self-care (01) ==
LOC: JP.SDS 06:45 → JP.MS 16:00 → UNDOADMIN 16:00 → UNDODISIN 06-15 09:10 → JP.SDS 06-15 09:10
PROVIDERS: ATTEND Surgery
DX: K43.0 Incisional hernia with obstruction, without gangrene (principal); K66.0 Peritoneal adhesions (postprocedural) (postinfection); I10 Essential (primary) hypertension; E11.40 Type 2 diabetes mellitus with diabetic neuropathy, unspecified; E78.00 Pure hypercholesterolemia, unspecified; I25.10 Atherosclerotic heart disease of native coronary artery without angina pectoris; K21.9 Gastro-esophageal reflux disease without esophagitis; I25.2 Old myocardial infarction; G47.30 Sleep apnea, unspecified; E53.8 Deficiency of other specified B group vitamins; E55.9 Vitamin D deficiency, unspecified; G43.909 Migraine, unspecified, not intractable, without status migrainosus; F41.9 Anxiety disorder, unspecified; F31.9 Bipolar disorder, unspecified; F43.10 Post-traumatic stress disorder, unspecified; F17.210 Nicotine dependence, cigarettes, uncomplicated; Z88.8 Allergy status to other drugs, medicaments and biological substances; Z79.899 Other long term (current) drug therapy
CPT/HCPCS: 49655; 74177; 81241; 83090; 85240; 85250; 85270; 85280; 94640; A9270; C1713; C1781; J0171; J0330; J0690; J1100; J1170; J2020; J2185; J2405; J2704; J2710; J2795; J3010; J3490; J7050; J7121; Q9967; J7620-GY

== ENCOUNTER 2019-06-26 19:47 | Emergency (ER) | payer MEDICAID ==
[2019-06-26 20:23] VITALS: BP 133/81; PULSE 109
[2019-06-26] MEDS ORDERED: Ketorolac 30 MG/ML SDV IM ONE (21:39)
--- NOTE | 2019-06-26 22:08 | CRLCT ---
INDICATION: Headache, recently started on blood thinners TECHNIQUE: CT head without contrast. COMPARISON: None FINDINGS: CSF spaces: Within normal limits for age. Brain parenchyma: The lisa-white differentiation is normal. No sign of hemorrhage or midline shift. There is a 4.5 round calcification adjacent to the inner table the right frontal skull. No mass effect or surrounding edema. Skull base and calvarium: The visualized paranasal sinuses and mastoid air cells demonstrate no acute or significant findings. The visualized orbits are grossly unremarkable. No skull fractures. IMPRESSION: No acute intracranial abnormality. Likely small meningioma adjacent to the right frontal lobe. Please note that all CT scans at this facility use dose modulation, iterative reconstruction, and/or weight-based dosing when appropriate to reduce radiation dose to as low as reasonably achievable. Dictated by Meseret Bhatti MD @ Jun 26 2019 10:04PM Signed by Dr. Meseret Bhatti @ Jun 26 2019 10:07PM
--- NOTE | 2019-06-26 22:25 | EDM.PDOC ---
ED HPI GENERAL MEDICAL PROBLEM - General Chief Complaint: Headache Stated Complaint: PAIN ON RIGHT SIDE OF HEAD Time Seen by Provider: 06/26/19 21:15 Source of Information: Reports: Patient History Limitations: Reports: No Limitations - History of Present Illness INITIAL COMMENTS - FREE TEXT/NARRATIVE: 49-year-old who presents with concerns of headache. She reports that she's had intermittent right-sided headache for the past 4-5 days. She does have a history of migraines however these feel different. She's had occasional tingling in her right arm, as well as occasional blurring of vision. The headache waxes and wanes in intensity. Currently moderate. She's had no other weakness, difficulty with speech, or gait instability. Of note, she was recently started on pradaxa for portal venous thrombosis. No fevers or chills, no neck discomfort. right sided headache Pain Score (Numeric/FACES): 9 - Related Data Allergies Allergy/AdvReac Type Severity Reaction Status Date / Time bupropion HCl Allergy Hives Verified 06/26/19 20:40 [From Wellbutrin] paliperidone [From Invega] Allergy Hives Verified 06/26/19 20:40 pantoprazole [From Protonix] Allergy Hives Verified 06/26/19 20:40 oxytocin [From Pitocin] AdvReac Syncope Verified 06/26/19 20:40 varenicline tartrate AdvReac Delusions Verified 06/26/19 20:40 [From Chantix] Home Meds: Home Meds Ergocalciferol (Vitamin D2) [Vitamin D2] 50,000 units PO .MWF 09/28/17 [History] Simvastatin [Zocor] 40 mg PO BEDTIME 09/28/17 [History] FLUoxetine [PROzac] 60 mg PO BEDTIME 03/02/18 [History] OLANZapine [ZyPREXA] 5 mg PO BEDTIME 03/02/18 [History] Cyanocobalamin (Vitamin B-12) [B-12] 1,000 mcg PO DAILY 01/24/19 [History] Albuterol Sulfate [Albuterol Sulfate Hfa] 1 - 2 puff INH Q4HR PRN 03/10/19 [ History] LORazepam 1 tab PO TID PRN 03/21/19 [History] Azithromycin [Zithromax] 250 mg PO DAILY 06/13/19 [History] Nicotine Polacrilex [Nicorette] 2 mg BC ASDIRECTED 06/13/19 [History] Acetaminophen [Tylenol Extra Strength] 500 mg PO Q6HR PRN 06/14/19 [History] Acetaminophen/HYDROcodone [Berkey 325-5 MG] 1 tab PO Q6H PRN #28 tablet 06/15/19 [Rx] Dabigatran Etexilate Mesylate [Pradaxa] 75 mg PO BID #60 capsule 06/15/19 [Rx] Docusate Sodium/Sennosides [Senna Plus] 2 each PO BID #30 tab 06/15/19 [Rx] Dabigatran Etexilate Mesylate [Pradaxa] 75 mg PO BID 06/26/19 [History] Past Medical History HEENT History: Reports: Impaired Vision Other HEENT History: wears glasses Cardiovascular History: Reports: Arrhythmia, CAD, High Cholesterol, Hypertension , [place], Other (See Below) Other Cardiovascular History: HEART SKIPS BEATS PER PT REPORT, 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 left knee pain, left knee partial replacement with prosthesis Neurological History: Reports: Migraines, Neuropathy, Diabetic Psychiatric History: Reports: Anxiety, Bipolar, Depression, Mood Swings, Panic Attack, Psych Hospitalization(s), PTSD Endocrine/Metabolic History: Reports: Diabetes, Type II Other Endocrine/Metabolic History: WAS 95 ON 09/30. LAST A1C WAS 5.1. NOT ON MEDICATIONS Hematologic History: Reports: Anemia, B12 Deficiency, Other (See Below) Other Hematologic History: AND VIT D DEFICIENCY Immunologic History: Reports: None Oncologic (Cancer) History: Reports: None Dermatologic History: Reports: Cellulitis - Infectious Disease History Infectious Disease History: Reports: Chicken Pox, Mononucleosis, Shingles Other Infectious Disease History: unknown - Past Surgical History Head Surgeries/Procedures: Reports: None HEENT Surgical History: Reports: Myringotomy w Tube(s), Tonsillectomy, Other ( See Below) Other HEENT Surgeries/Procedures: NOSE STRETCHING Cardiovascular Surgical History: Reports: Other (See Below) Other Cardiovascular Surgeries/Procedures: stress test 03/2019 Respiratory Surgical History: Reports: None GI Surgical History: Reports: Appendectomy, Cholecystectomy, Colonoscopy, EGD, Esophageal Dilatation, Hernia Repair/Other, Reshma Fundoplication Female Surgical History: Reports: Section, Hysterectomy, Salpingo- Oophorectomy, Tubal Ligation Endocrine Surgical History: Reports: None Neurological Surgical History: Reports: Spinal Fusion Other Neurological Surgeries/Procedures: SPINAL FUSION 2015 Musculoskeletal Surgical History: Reports: Arthroscopic Knee, Knee Replacement Other Musculoskeletal Surgeries/Procedures:: patella femoral surgery. NECK FUSED 2016 HARD MARTINEZ IN BACK Dermatological Surgical History: Reports: None Social & Family History - Family History Family Medical History: Noncontributory Cardiac: Reports: IA GI: Reports: Other (See Below) Other GI Family History: chrons : Reports: Renal Disease/Insufficiency OBGYN: Reports: Other (See Below) Other OBGYN Family History: HPV Musculoskeletal: Reports: Arthritis, Osteoporosis Neurological: Reports: Parkinson's Psychiatric: Reports: Depression Endocrine/Metabolic: Reports: Diabetes, type II Oncologic: Reports: Brain, Lung - Tobacco Use Smoking Status *Q: Current Every Day Smoker Years of Tobacco use: 20 Packs/Tins Daily: 0.5 Used Tobacco, but Quit: No - Caffeine Use Caffeine Use: Reports: None Other Caffeine Use: 6 CANS/DAY - Recreational Drug Use Recreational Drug Use: No - Living Situation & Occupation Living situation: Reports: with Significant Other Occupation: Employed ED ROS GENERAL - Review of Systems Review Of Systems: See Below Constitutional: Reports: No Symptoms HEENT: Reports: No Symptoms Respiratory: Reports: No Symptoms Cardiovascular: Reports: No Symptoms Endocrine: Reports: No Symptoms GI/Abdominal: Reports: No Symptoms : Reports: No Symptoms Musculoskeletal: Reports: No Symptoms Skin: Reports: No Symptoms Neurological: Reports: Headache, Numbness Psychiatric: Reports: No Symptoms Hematologic/Lymphatic: Reports: No Symptoms Immunologic: Reports: No Symptoms - Physical Exam Exam: See Below Exam Limited By: No Limitations General Appearance: Alert, No Apparent Distress Ears: Normal External Exam Nose: Normal Inspection Throat/Mouth: Normal Inspection Head Exam: Atraumatic, Normocephalic Neck: Normal Inspection Respiratory/Chest: No Respiratory Distress, Lungs Clear Cardiovascular: Regular Rate, Rhythm Neuro Exam (Abbreviated): Alert, Oriented, CN II-XII Intact, Normal Cognition, Normal Gait, No Motor/Sensory Deficits Extremities: Normal Inspection Psychiatric: Normal Affect, Normal Mood Skin Exam: Warm, Dry Course - Vital Signs Last Recorded V/S: Last Vital Signs Temp 37.2 C 06/26/19 20:39 Pulse 109 H 06/26/19 20:39 Resp 16 06/26/19 20:39 BP 133/81 06/26/19 20:39 Pulse Ox 96 06/26/19 20:39 - Orders/Labs/Meds Meds: Medications Discontinued Medications Generic Name Dose Route Start Last Admin Trade Name Bridgette PRN Reason Stop Dose Admin Ketorolac Tromethamine 15 mg 06/26/19 21:39 06/26/19 21:48 Toradol IM 06/26/19 21:40 15 mg ONETIME ONE Administration - Re-Assessments/Exams Free Text/Narrative Re-Assessment/Exam: 49-year-old presents with concerns of headache. Symptoms are waxing and waning for the last 4-5 days. She is currently neuro intact. She was recently started on anticoagulant, low suspicion for ICH is low we did perform a head CT which was remarkable only for small right frontal meningioma. I am not concerned about infectious etiology or temporal arteritis. I think we can continue to treat her symptomatically. She will follow-up with her PCP this week. I did call over to [place] and have referral for her to be seen in the neurosurgery clinic to make a plan for her meningioma as well. 06/26/19 22:45 Departure - Departure Time of Disposition: 22:31 Disposition: Home, Self-Care 01 Clinical Impression: Meningioma Headache Qualifiers: Headache type: unspecified Headache chronicity pattern: unspecified pattern Intractability: not intractable Qualified Code(s): R51 - Headache - Discharge Information Instructions: General Headache Without Cause Referrals: Charles Sadler MD [Primary Care Provider] - Forms: ED Department Discharge Additional Instructions: We did not find an emergent cause for your headache It is safe to continue treating the headache symptoms with tytenol and ibuprofen Please make a follow-up with Dr Sadler We have placed a referral to a neurosurgeon in [place] for the tumor we found on your brain scan (called a meningioma) If you do not hear from the neurosurgery clinic in the next 2 days please call [facility] in [place] to arrange follow up See a physician if you develop weakness, slurred speech, difficulty walking, or other new symptoms which are concerning to you. Sepsis Event Note - Evaluation Sepsis Screening Result: No Definite Risk - Focused Exam Vital Signs: Vital Signs Temp Pulse Resp BP Pulse Ox 06/26/19 20:39 37.2 C 109 H 16 133/81 96 06/26/19 20:21 37.2 C 109 H 16 133/81 96 Date Exam was Performed: 06/26/19 Time Exam was Performed: 22:41
== END 2019-06-26 22:45 | disposition home or self-care (01) ==
LOC: JP.ED 19:47
DX: D32.0 Benign neoplasm of cerebral meninges (principal); I25.2 Old myocardial infarction; I10 Essential (primary) hypertension; I25.10 Atherosclerotic heart disease of native coronary artery without angina pectoris; E11.9 Type 2 diabetes mellitus without complications; F41.9 Anxiety disorder, unspecified; F17.210 Nicotine dependence, cigarettes, uncomplicated; F32.9 Major depressive disorder, single episode, unspecified; Z79.899 Other long term (current) drug therapy; Z88.8 Allergy status to other drugs, medicaments and biological substances; Z98.1 Arthrodesis status; Z90.49 Acquired absence of other specified parts of digestive tract; Z90.710 Acquired absence of both cervix and uterus
CPT/HCPCS: 70450; 96372; 99284; J1885

== ENCOUNTER 2019-10-17 22:38 | Emergency (ER) | payer MEDICAID ==
[2019-10-17 22:44] VITALS: BP 121/72; PULSE 77
[2019-10-17] MEDS ORDERED: fentaNYL 100 MCG/2 ML SDV IVPUSH ONE (23:28)
[2019-10-17] MEDS ORDERED: Sodium Chloride 0.9% 1,000 ML IV SCH (23:30)
--- NOTE | 2019-10-17 23:34 | EDM.PDOC ---
ED HPI GENERAL MEDICAL PROBLEM - General Chief Complaint: Headache Stated Complaint: MEDICAL VIA [facility] Time Seen by Provider: 10/17/19 23:10 Source of Information: Reports: Patient, Old Records, RN Notes Reviewed History Limitations: Reports: No Limitations - History of Present Illness INITIAL COMMENTS - FREE TEXT/NARRATIVE: 49-year-old female presents emergency department today via EMS services for sudden onset of headache, she describes the headache as sharp stabbing pain in the back of her neck she also has developed some dizziness they all seem to coincide she does have a history of meningioma which is followed by neurology was nauseated but that was resolved with Zofran provided in the EMS. - Related Data Allergies Allergy/AdvReac Type Severity Reaction Status Date / Time bupropion HCl Allergy Hives Verified 06/26/19 20:40 [From Wellbutrin] paliperidone [From Invega] Allergy Hives Verified 06/26/19 20:40 pantoprazole [From Protonix] Allergy Hives Verified 06/26/19 20:40 oxytocin [From Pitocin] AdvReac Syncope Verified 06/26/19 20:40 varenicline tartrate AdvReac Delusions Verified 06/26/19 20:40 [From Chantix] Home Meds: Home Meds Ergocalciferol (Vitamin D2) [Vitamin D2] 50,000 units PO .MWF 09/28/17 [History] Simvastatin [Zocor] 40 mg PO BEDTIME 09/28/17 [History] FLUoxetine [PROzac] 60 mg PO BEDTIME 03/02/18 [History] OLANZapine [ZyPREXA] 5 mg PO BEDTIME 03/02/18 [History] Cyanocobalamin (Vitamin B-12) [B-12] 1,000 mcg PO DAILY 01/24/19 [History] Albuterol Sulfate [Albuterol Sulfate Hfa] 1 - 2 puff INH Q4HR PRN 03/10/19 [ History] LORazepam 1 tab PO TID PRN 03/21/19 [History] Nicotine Polacrilex [Nicorette] 2 mg BC ASDIRECTED 06/13/19 [History] Acetaminophen [Tylenol Extra Strength] 500 mg PO Q6HR PRN 06/14/19 [History] hydrOXYzine pamoate [Hydroxyzine Pamoate] 25 mg PO BEDTIME PRN 10/17/19 [History ] Past Medical History HEENT History: Reports: Impaired Vision Other HEENT History: wears glasses Cardiovascular History: Reports: Arrhythmia, CAD, High Cholesterol, Hypertension , NM, Other (See Below) Other Cardiovascular History: HEART SKIPS BEATS PER PT REPORT, reports 2 " silent MIs" Respiratory History: Reports: Bronchitis, Recurrent, Sleep Apnea Gastrointestinal History: Reports: Cholelithiasis, Chronic Diarrhea, GERD, Other (See Below) Other Gastrointestinal History: Crohns Genitourinary History: Reports: Pyelonephritis, Renal Calculus, Other (See Below ) Other Genitourinary History: 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 left knee pain, Neurological History: Reports: Migraines, Neuropathy, Diabetic Psychiatric History: Reports: Anxiety, Bipolar, Depression, Mood Swings, Panic Attack, Psych Hospitalization(s), PTSD Endocrine/Metabolic History: Reports: Diabetes, Type II Other Endocrine/Metabolic History: WAS 95 ON 09/30. LAST A1C WAS 5.1. NOT ON MEDICATIONS Hematologic History: Reports: Anemia, B12 Deficiency, Other (See Below) Other Hematologic History: AND VIT D DEFICIENCY Immunologic History: Reports: None Oncologic (Cancer) History: Reports: None Dermatologic History: Reports: Cellulitis - Infectious Disease History Infectious Disease History: Reports: Chicken Pox, Mononucleosis, Shingles Other Infectious Disease History: unknown - Past Surgical History HEENT Surgical History: Reports: Myringotomy w Tube(s), Tonsillectomy, Other ( See Below) Other HEENT Surgeries/Procedures: NOSE STRETCHING Cardiovascular Surgical History: Reports: Other (See Below) Other Cardiovascular Surgeries/Procedures: stress test 03/2019 Respiratory Surgical History: Reports: None GI Surgical History: Reports: Appendectomy, Cholecystectomy, Colonoscopy, EGD, Esophageal Dilatation, Hernia Repair/Other, Reshma Fundoplication Female Surgical History: Reports: Section, Hysterectomy, Salpingo- Oophorectomy, Tubal Ligation Endocrine Surgical History: Reports: None Neurological Surgical History: Reports: Spinal Fusion Other Neurological Surgeries/Procedures: SPINAL FUSION 2015 Musculoskeletal Surgical History: Reports: Arthroscopic Knee, Other (See Below) Other Musculoskeletal Surgeries/Procedures:: patella femoral surgery 2018. NECK FUSED 2016 HARD MARTINEZ IN BACK Dermatological Surgical History: Reports: None Social & Family History - Family History Family Medical History: Noncontributory Cardiac: Reports: NM GI: Reports: Other (See Below) Other GI Family History: chrons : Reports: Renal Disease/Insufficiency OBGYN: Reports: Other (See Below) Other OBGYN Family History: HPV Musculoskeletal: Reports: Arthritis, Osteoporosis Neurological: Reports: Parkinson's Psychiatric: Reports: Depression Endocrine/Metabolic: Reports: Diabetes, type II Oncologic: Reports: Brain, Lung - Tobacco Use Smoking Status *Q: Current Every Day Smoker Years of Tobacco use: 20 Packs/Tins Daily: 0.5 - Caffeine Use Caffeine Use: Reports: Soda Other Caffeine Use: 6 CANS/DAY - Recreational Drug Use Recreational Drug Use: No - Living Situation & Occupation Living situation: Reports: with Significant Other Occupation: Employed ED ROS GENERAL - Review of Systems Review Of Systems: See Below Constitutional: Denies: Fever, Chills HEENT: Reports: No Symptoms Respiratory: Reports: No Symptoms Cardiovascular: Reports: No Symptoms GI/Abdominal: Reports: Nausea, Vomiting Musculoskeletal: Reports: No Symptoms Skin: Reports: No Symptoms Neurological: Reports: Headache Psychiatric: Reports: No Symptoms ED EXAM, NEURO - Physical Exam Exam: See Below Text/Narrative:: Cannot perform a hints exam because she will not tolerate neck movement without pain, there is no deviation of skew does have nystagmus to the left that does not fatigue no nystagmus noted to the right Exam Limited By: No Limitations General Appearance: Alert, WD/WN, No Apparent Distress Eye Exam: Left Eye: Other (Nystagmus left does not fatigue), Bilateral Eye: EOMI , Normal Fundi, PERRL Ears: Normal External Exam, Normal Canal, Hearing Grossly Normal, Normal TMs Nose: Normal Inspection, Normal Mucosa, No Blood Head Exam: Atraumatic, Normocephalic Neck: Normal Inspection, Limited Range of Motion, Tender Lateral, Tender Midline Respiratory/Chest: No Respiratory Distress, Lungs Clear, Normal Breath Sounds, No Accessory Muscle Use, Chest Non-Tender Cardiovascular: Regular Rate, Rhythm, No Murmur Neurological: Alert, Normal Mood/Affect, CN II-XII Intact, No Motor/Sensory Deficits Course - Vital Signs Last Recorded V/S: Last Vital Signs Temp 97.4 F 10/17/19 23:00 Pulse 77 10/17/19 23:00 Resp 16 06/03/20 23:00 BP 121/72 10/17/19 23:00 Pulse Ox 97 10/17/19 23:00 - Orders/Labs/Meds Orders: Active Orders 24 hr Category Date Time Status Sodium Chloride 0.9% [Normal Saline] 1,000 ml Med 10/17/19 23:30 Active IV .BOLUS Medication Orders Sodium Chloride (Normal Saline) 1,000 mls @ 999 mls/hr IV .BOLUS NADINE Last Admin: 10/18/19 00:23 Dose: 999 mls/hr Labs: Laboratory Tests 10/17/19 10/17/19 10/17/19 Range/Units 23:36 23:36 23:36 WBC 7.2 (4.5-11.0) K/uL RBC 4.33 (3.30-5.50) M/uL Hgb 13.3 (12.0-15.0) g/dL Hct 39.5 (36.0-48.0) % MCV 91 (80-98) fL MCH 31 (27-31) pg MCHC 34 (32-36) % Plt Count 315 (150-400) K/uL Neut % (Auto) 51 (36-66) % Lymph % (Auto) 37 (24-44) % Peach % (Auto) 10 H (2-6) % Eos % (Auto) 2 (2-4) % Baso % (Auto) 0 (0-1) % Sodium 142 (140-148) mmol/L Potassium 3.9 (3.6-5.2) mmol/L Chloride 105 (100-108) mmol/L Carbon Dioxide 30 (21-32) mmol/L Anion Gap 7.1 (5.0-14.0) mmol/L BUN 7 (7-18) mg/dL Creatinine 1.0 (0.6-1.0) mg/dL Est Cr Clr Drug Dosing 65.11 mL/min Estimated GFR (MDRD) 59 L (>60) Glucose 110 H (74-106) mg/dL Calcium 8.3 L (8.5-10.1) mg/dL Total Bilirubin 0.4 (0.2-1.0) mg/dL AST 14 L (15-37) U/L ALT 25 (12-78) U/L Alkaline Phosphatase 80 (46-116) U/L Troponin I < 0.017 (0.000-0.056) ng/mL Total Protein 6.7 (6.4-8.2) g/dL Albumin 3.4 (3.4-5.0) g/dL Globulin 3.3 (2.3-3.5) g/dL Albumin/Globulin Ratio 1.0 L (1.2-2.2) Meds: Medications Generic Name Dose Route Start Last Admin Trade Name Freq PRN Reason Stop Dose Admin Sodium Chloride 1,000 mls @ 999 mls/hr 10/17/19 23:30 10/18/19 00:23 Normal Saline IV 999 mls/hr .BOLUS NADINE Administration Discontinued Medications Generic Name Dose Route Start Last Admin Trade Name Freq PRN Reason Stop Dose Admin Diphenhydramine HCl 50 mg 10/18/19 01:30 Benadryl IVPUSH 10/18/19 01:31 ONETIME ONE Fentanyl 50 mcg 10/17/19 23:28 10/18/19 00:14 Sublimaze IVPUSH 10/17/19 23:29 50 mcg ONETIME ONE Administration Haloperidol Lactate 5 mg 10/18/19 01:30 Haldol IVPUSH 10/18/19 01:31 ONETIME ONE Hydromorphone HCl 1 mg 10/18/19 01:06 10/18/19 01:22 Dilaudid IVPUSH 10/18/19 01:07 1 mg ONETIME ONE Administration Sodium Chloride 100 mls @ 4 mls/sec 10/18/19 00:05 10/18/19 00:34 Normal Saline IV 10/18/19 00:06 4 mls/sec ASDIRECTED STA Administration Iopamidol 100 ml 10/18/19 00:05 10/18/19 00:34 Isovue-370 (76%) IV 10/18/19 00:06 100 ml . DIRECTED STA Administration Ketorolac Tromethamine 30 mg 10/18/19 01:30 Toradol IVPUSH 10/18/19 01:31 ONETIME ONE Prochlorperazine Edisylate 5 mg 10/18/19 01:06 10/18/19 01:22 Compazine IVPUSH 10/18/19 01:07 5 mg ONETIME ONE Administration Departure - Departure Time of Disposition: 01:59 Disposition: Home, Self-Care 01 Condition: Poor Clinical Impression: Migraine - Discharge Information Instructions: Recurrent Migraine Headache, [id number] Referrals: PCP,None [Primary Care Provider] - Forms: ED Department Discharge Additional Instructions: Continue with regular medications, please follow-up with your primary care in the next 3 to 5 days for reevaluation, call return to the emergency department worsening of symptoms Sepsis Event Note - Evaluation Sepsis Screening Result: No Definite Risk - Focused Exam Vital Signs: Vital Signs Temp Pulse Resp BP Pulse Ox 10/17/19 23:00 97.4 F 77 16 121/72 97 10/17/19 22:42 97.4 F 77 16 121/72 97 Date Exam was Performed: 10/18/19 Time Exam was Performed: 01:58 - My Orders Last 24 Hours: My Active Orders 10/17/19 23:30 Sodium Chloride 0.9% [Normal Saline] 1,000 ml IV .BOLUS - Assessment/Plan Last 24 Hours: My Active Orders 10/17/19 23:30 Sodium Chloride 0.9% [Normal Saline] 1,000 ml IV .BOLUS Plan: Assessment Acuity = acute Site and laterality = migraine type headache Etiology = unknown Manifestations = none Location of injury = Home Lab values = CBC, CMP unremarkable CT CTA also negative Plan Good improvement felt no Compazine and hydromorphone I did offer her the migraine progress she declined prefer to go home follow-up primary care 3 to 5 days if not better This note was dictated using [employer]noPad voice recognition software please call with any questions on syntax or grammar.
[2019-10-18] MEDS ORDERED: Iopamidol 755 Mg/ML 100 ML Bottle IV STA (00:05)
[2019-10-18] MEDS ORDERED: Sodium Chloride 0.9% 100 ML IV STA (00:05)
[2019-10-18] MEDS ORDERED: Prochlorperazine 10 MG/2 ML SDV IVPUSH ONE (01:06)
[2019-10-18] MEDS ORDERED: HYDROmorphone 1 MG/ML Syringe IVPUSH ONE (01:06)
--- NOTE | 2019-10-18 01:16 | CRLCT ---
INDICATION: HEADCAHE, NYSTAGMUS TO THE LEFT. CT HEAD WITHOUT CONTRAST TECHNIQUE: Multiple axial CT images were performed through the head without intravenous contrast administration. COMPARISON: 06/26/[address] FINDINGS: No acute intracranial hemorrhage is identified. No extra-axial collections are evident and there is no mass effect or midline shift. Ventricles are normal in size and configuration. Brain parenchyma appears normal with unremarkable lisa-white differentiation. Osseous structures are within normal limits and no fractures are seen. Included portions of the paranasal sinuses and mastoid air cells are normally aerated. IMPRESSION: Normal non-contrast head CT. MELODIE PANG MD [facility] Dictated by: Ritchie Pang MD @ 10/18/2019 01:16:37 (Electronically Signed)
--- NOTE | 2019-10-18 01:18 | CRLCT ---
INDICATION: Headache, nystagmus to the left. TECHNIQUE: After standard noncontrast head CT, high resolution axial CT images acquired through the head and neck following rapid intravenous administration of iodinated contrast. Multiplanar MIPS of cranial and cervical vasculature performed. FINDINGS: Noncontrast head CT: There is no intracranial hemorrhage or fluid collection. The lisa-white matter differentiation is maintained. The ventricles are of normal morphology. The basal cisterns are clear. CTA head: There is normal filling of the intracranial vasculature; i.e. there is no large vessel occlusion or intracranial stenosis. There is no cerebral aneurysm or evidence for vascular malformation. CTA neck: There is no carotid or vertebral artery stenosis or dissection. The soft tissues of the neck are within normal limits. There has been anterior cervical discectomy and fusion procedure at C6-7. The lung apices are clear. IMPRESSION: Unremarkable CT head, CTA head and neck. Jason Tadeo MD Neurointerventional Radiologist [facility] Please note that all CT scans at this facility use dose modulation, iterative reconstruction, and/or weight-based dosing when appropriate to reduce radiation dose to as low as reasonably achievable. Dictated by Jason Tadeo MD @ Oct 18 2019 7:41AM Signed by Dr. Jason Tadeo @ Oct 18 2019 8:08AM
[2019-10-18] MEDS ORDERED: Ketorolac 30 MG/ML SDV IVPUSH ONE (01:30)
[2019-10-18] MEDS ORDERED: Haloperidol Lactate 5 MG/ML SDV IVPUSH ONE (01:30)
[2019-10-18] MEDS ORDERED: diphenhydrAMINE 50 MG/ML SDV IVPUSH ONE (01:30)
== END 2019-10-18 02:09 | disposition home or self-care (01) ==
LOC: JP.ED 22:38
DX: G43.909 Migraine, unspecified, not intractable, without status migrainosus (principal); I25.10 Atherosclerotic heart disease of native coronary artery without angina pectoris; E78.00 Pure hypercholesterolemia, unspecified; I10 Essential (primary) hypertension; I25.2 Old myocardial infarction; K21.9 Gastro-esophageal reflux disease without esophagitis; E11.40 Type 2 diabetes mellitus with diabetic neuropathy, unspecified; F31.9 Bipolar disorder, unspecified; F41.9 Anxiety disorder, unspecified; F17.210 Nicotine dependence, cigarettes, uncomplicated; Z79.899 Other long term (current) drug therapy; Z88.8 Allergy status to other drugs, medicaments and biological substances
CPT/HCPCS: 36415; 70450; 70496; 70498; 80053; 84484; 85025; 96361; 96374; 96375; 99284; J0780; J1170; J3010; J7030; J7050; Q9967

== ENCOUNTER 2019-10-29 18:45 | Emergency (ER) | payer MEDICAID ==
[2019-10-29 19:11] VITALS: BP 110/42; PULSE 89
--- NOTE | 2019-10-29 20:07 | EDM.PDOC ---
ED HPI GENERAL MEDICAL PROBLEM - General Chief Complaint: Lower Extremity Injury/Pain Stated Complaint: L KNEE PAIN Time Seen by Provider: 10/29/19 19:00 Source of Information: Reports: Patient History Limitations: Reports: No Limitations - History of Present Illness INITIAL COMMENTS - FREE TEXT/NARRATIVE: This is a 49-year-old female with chronic left knee pain who presents with left knee pain. Yesterday she stepped out of the shower and noted some more pain in the left knee. Her boyfriend was helping her towel off when he noted that her knee seem more swollen. She thinks there was a lump on the left side of the knee, this has gotten better. She is continued to note pain in the knee today, she tried to get in with her orthopedist, but was unable to get into their clinic so now presents to the ER. She has no other trauma. She is noted no warmth or redness of the joint. No swelling of the extremity. She has tried ibuprofen and Tylenol at home for pain with minimal success. Left Knee Pain Score (Numeric/FACES): 7 - Related Data Allergies Allergy/AdvReac Type Severity Reaction Status Date / Time bupropion HCl Allergy Hives Verified 10/29/19 20:49 [From Wellbutrin] paliperidone [From Invega] Allergy Hives Verified 10/29/19 20:49 pantoprazole [From Protonix] Allergy Hives Verified 10/29/19 20:49 oxytocin [From Pitocin] AdvReac Syncope Verified 10/29/19 20:49 varenicline tartrate AdvReac Delusions Verified 10/29/19 20:49 [From Chantix] Home Meds: Home Meds Ergocalciferol (Vitamin D2) [Vitamin D2] 50,000 units PO .MWF 09/28/17 [History] Simvastatin [Zocor] 40 mg PO BEDTIME 09/28/17 [History] FLUoxetine [PROzac] 60 mg PO BEDTIME 03/02/18 [History] OLANZapine [ZyPREXA] 5 mg PO BEDTIME 03/02/18 [History] Cyanocobalamin (Vitamin B-12) [B-12] 1,000 mcg PO DAILY 01/24/19 [History] Albuterol Sulfate [Albuterol Sulfate Hfa] 1 - 2 puff INH Q4HR PRN 03/10/19 [ History] LORazepam 1 tab PO TID PRN 03/21/19 [History] Nicotine Polacrilex [Nicorette] 2 mg BC ASDIRECTED 06/13/19 [History] Acetaminophen [Tylenol Extra Strength] 500 mg PO Q6HR PRN 06/14/19 [History] hydrOXYzine pamoate [Hydroxyzine Pamoate] 25 mg PO BEDTIME PRN 10/17/19 [History ] Past Medical History HEENT History: Reports: Impaired Vision Other HEENT History: wears glasses Cardiovascular History: Reports: Arrhythmia, CAD, High Cholesterol, Hypertension , [place], Other (See Below) Other Cardiovascular History: HEART SKIPS BEATS PER PT REPORT, 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 left knee pain, Neurological History: Reports: Migraines, Neuropathy, Diabetic Psychiatric History: Reports: Anxiety, Bipolar, Depression, Mood Swings, Panic Attack, Psych Hospitalization(s), PTSD Endocrine/Metabolic History: Reports: Diabetes, Type II Other Endocrine/Metabolic History: WAS 95 ON 09/30. LAST A1C WAS 5.1. NOT ON MEDICATIONS Hematologic History: Reports: Anemia, B12 Deficiency, Other (See Below) Other Hematologic History: AND VIT D DEFICIENCY Immunologic History: Reports: None Oncologic (Cancer) History: Reports: None Dermatologic History: Reports: Cellulitis - Infectious Disease History Infectious Disease History: Reports: Chicken Pox, Mononucleosis, Shingles Other Infectious Disease History: unknown - Past Surgical History HEENT Surgical History: Reports: Myringotomy w Tube(s), Tonsillectomy, Other ( See Below) Other HEENT Surgeries/Procedures: NOSE STRETCHING Cardiovascular Surgical History: Reports: Other (See Below) Other Cardiovascular Surgeries/Procedures: stress test 03/2019 Respiratory Surgical History: Reports: None GI Surgical History: Reports: Appendectomy, Cholecystectomy, Colonoscopy, EGD, Esophageal Dilatation, Hernia Repair/Other, Reshma Fundoplication Female Surgical History: Reports: Section, Hysterectomy, Salpingo- Oophorectomy, Tubal Ligation Endocrine Surgical History: Reports: None Neurological Surgical History: Reports: Spinal Fusion Other Neurological Surgeries/Procedures: SPINAL FUSION 2016 Musculoskeletal Surgical History: Reports: Arthroscopic Knee, Other (See Below) Other Musculoskeletal Surgeries/Procedures:: patella femoral surgery 2018. NECK FUSED 2016 HARD MARTINEZ IN BACK Dermatological Surgical History: Reports: None Social & Family History - Family History Family Medical History: Noncontributory Cardiac: Reports: NH GI: Reports: Other (See Below) Other GI Family History: chrons : Reports: Renal Disease/Insufficiency OBGYN: Reports: Other (See Below) Other OBGYN Family History: HPV Musculoskeletal: Reports: Arthritis, Osteoporosis Neurological: Reports: Parkinson's Psychiatric: Reports: Depression Endocrine/Metabolic: Reports: Diabetes, type II Oncologic: Reports: Brain, Lung - Tobacco Use Smoking Status *Q: Current Every Day Smoker Years of Tobacco use: 20 Packs/Tins Daily: 0.5 - Caffeine Use Caffeine Use: Reports: Soda Other Caffeine Use: 6 CANS/DAY - Recreational Drug Use Recreational Drug Use: No - Living Situation & Occupation Living situation: Reports: with Significant Other Occupation: Employed Review of Systems - Review of Systems Review Of Systems: See Below Constitutional: Reports: No Symptoms Eyes: Reports: No Symptoms Ears: Reports: No Symptoms Nose: Reports: No Symptoms Mouth/Throat: Reports: No Symptoms Respiratory: Reports: No Symptoms Cardiovascular: Reports: No Symptoms GI/Abdominal: Reports: No Symptoms Genitourinary: Reports: No Symptoms Musculoskeletal: Reports: Other (knee pain) Skin: Reports: No Symptoms Neurological: Reports: No Symptoms Psychiatric: Reports: No Symptoms ED EXAM, GENERAL - Physical Exam Exam: See Below Exam Limited By: No Limitations General Appearance: Alert, No Apparent Distress Ears: Normal External Exam Nose: Normal Inspection Throat/Mouth: Normal Inspection Head: Atraumatic, Normocephalic Neck: Normal Inspection Respiratory/Chest: Lungs Clear Cardiovascular: Regular Rate, Rhythm GI/Abdominal: No Distention Back Exam: Normal Inspection Extremities: Other (Left knee with mild lateral swelling, no erythema. No deformity. No popliteal tenderness. Mild diffuse joint tenderness.) Neurological: Alert, Oriented Psychiatric: Normal Affect, Normal Mood Skin Exam: Warm, Dry Course - Vital Signs Last Recorded V/S: Last Vital Signs Temp 36.7 C 10/29/19 19:07 Pulse 89 10/29/19 19:07 Resp 20 10/29/19 19:10 BP 110/42 L 10/29/19 19:07 Pulse Ox 96 10/29/19 19:10 - Orders/Labs/Meds Orders: Active Orders 24 hr Category Date Time Status Knee 3V Lt [CR] Stat Exams 10/29/19 19:31 Taken - Re-Assessments/Exams Free Text/Narrative Re-Assessment/Exam: 49-year-old presents with acute on chronic left knee pain. No traumatic injury. She is concerned perhaps she dislocated her patella transiently yesterday. On exam she does have some lateral swelling, perhaps due to a known joint effusion which was demonstrated on MRI in August. Obtained a x-ray which showed normal alignment of the patella and joint. No acute process. She is safe for discharge with continued supportive cares and will follow-up with her orthopedist. 10/29/19 21:10 Departure - Departure Time of Disposition: 20:06 Disposition: Home, Self-Care 01 Clinical Impression: Left knee pain Qualifiers: Chronicity: chronic Qualified Code(s): M25.562 - Pain in left knee - Discharge Information Instructions: Acute Knee Pain, Adult Referrals: Charles Sadler MD [Primary Care Provider] - Forms: ED Department Discharge Additional Instructions: Your x-rays look reassuring. As discussed, you do have some fluid around the left knee which we have seen previously on your MRI. Continue to take Tylenol and apply ice. Please follow-up with your orthopedist tomorrow Sepsis Event Note (ED) - Evaluation Sepsis Screening Result: No Definite Risk - Focused Exam Vital Signs: Vital Signs Temp Pulse Resp BP Pulse Ox 10/29/19 19:10 20 96 10/29/19 19:07 36.7 C 89 20 110/42 L 96 - My Orders Last 24 Hours: My Active Orders 10/29/19 19:31 Knee 3V Lt [CR] Stat - Assessment/Plan Last 24 Hours: My Active Orders 10/29/19 19:31 Knee 3V Lt [CR] Stat
--- NOTE | 2019-10-30 09:16 | CR ---
Knee 3V Lt CLINICAL HISTORY: Patellar dislocation FINDINGS: Patient has had previous patellofemoral arthroplasty. Components appear well seated. Impression: Previous patellofemoral plasty
== END 2019-10-29 20:30 | disposition home or self-care (01) ==
LOC: JP.ED 18:45
DX: M25.562 Pain in left knee (principal); G89.29 Other chronic pain; I25.10 Atherosclerotic heart disease of native coronary artery without angina pectoris; E78.00 Pure hypercholesterolemia, unspecified; I10 Essential (primary) hypertension; I25.2 Old myocardial infarction; E11.40 Type 2 diabetes mellitus with diabetic neuropathy, unspecified; F31.9 Bipolar disorder, unspecified; F41.9 Anxiety disorder, unspecified; F17.210 Nicotine dependence, cigarettes, uncomplicated; Z88.8 Allergy status to other drugs, medicaments and biological substances; Z79.899 Other long term (current) drug therapy
CPT/HCPCS: 73562-26-LT; 73562-LT; 99283-25

== ENCOUNTER 2020-02-19 06:26 | Day surgery (SDC) | payer MEDICAID ==
[2020-02-19] MEDS ORDERED: Dextrose 5%-Lactated Ringers 1,000 ML IV SCH (07:00)
[2020-02-19] MEDS ORDERED: Iopamidol 612 MG/ML 500 ML Multipack Bottle IV ONE (07:05)
[2020-02-19] MEDS ORDERED: Sodium Chloride 0.9% 10 ML Syringe FLUSH ONE (07:05)
[2020-02-19] MEDS ORDERED: Sodium Chloride 0.9% 80 ML IV SCH (07:15)
[2020-02-19] MEDS ORDERED: Midazolam 1 MG/ML 2 ML SDV ONE (07:29)
[2020-02-19] MEDS ORDERED: fentaNYL 100 MCG/2 ML SDV ONE (07:29)
[2020-02-19] MEDS ORDERED: Propofol 200 MG/20 ML SDV ONE (07:29)
[2020-02-19] MEDS ORDERED: diphenhydrAMINE 50 MG/ML SDV IVPUSH ONE (07:54)
[2020-02-19] MEDS ORDERED: Glycopyrrolate 0.2 MG/ML 2 ML SDV IVPUSH ONE (08:00)
--- NOTE | 2020-02-19 08:23 | CRLCT ---
INDICATION: Abdominal wall bulging. TECHNIQUE: CT abdomen and pelvis acquired with 134 cc Isovue-300 IV contrast. COMPARISON: June 14, 2019. FINDINGS: Lower chest: Unremarkable. Liver: Unremarkable. Normal in size and attenuation. No masses. Gallbladder and bile ducts: Status post cholecystectomy. No biliary dilatation. Pancreas: Unremarkable. No mass or inflammation. Spleen: Unremarkable. Normal in size. No masses. Adrenal glands: Unremarkable. No nodules. Kidneys: Unremarkable. No masses, stones, or hydronephrosis. GI tract: Stable postoperative changes about the gastroesophageal junction. GI tract is otherwise normal in caliber and appearance. No mass or inflammation. Status post appendectomy. Vasculature: No sign of portal venous thrombosis on today`s exam. Abdominal aorta is normal in caliber. Mesenteric arteries are patent. Lymph nodes: No lymphadenopathy. Omentum/Peritoneum/Abdominal Wall: No sign of hernia. No fluid collection or free air. Pelvis: Unremarkable. Bones: Unremarkable for age. IMPRESSION: Unremarkable CT of the abdomen and pelvis. No sign of hernia or other specific finding to explain abdominal wall bulging. Dictated by Randy Jenkins MD @ 02/19/2020 8:22:31 AM Please note that all CT scans at this facility use dose modulation, iterative reconstruction, and/or weight-based dosing when appropriate to reduce radiation dose to as low as reasonably achievable. Dictated by: Randy Jenkins MD @ 02/19/2020 08:22:36 (Electronically Signed)
[2020-02-19] MEDS ORDERED: Famotidine 20 MG/2 ML SDV IVPUSH ONE (10:13)
[2020-02-19 11:11] VITALS: BP 99/66; PULSE 80
--- NOTE | 2020-02-24 13:29 | OR ---
DATE OF PROCEDURE: 02/19/2020 SURGEON: Terry Gonzalez MD PREOPERATIVE DIAGNOSIS: Postprandial bloating and epigastric discomfort. POSTOPERATIVE DIAGNOSES: 1. Postprandial bloating and epigastric discomfort. 2. Intact Reshma fundoplication with no significant inflammation in the esophagogastric junction. 3. Mild antral gastritis. OPERATIVE PROCEDURE: Esophagogastroduodenoscopy with antral biopsies for CLOtest. ANESTHESIA: IV sedation. INDICATION FOR PROCEDURE: A 49-year-old female status post previous Reshma fundoplication, presenting with some postprandial bloating and abdominal discomfort. In the past, she was thought to have some element of delayed gastric emptying, and she had had a trial of Reglan previously, which did not help as it did not significantly improve her symptoms. The plan is to proceed with an upper GI endoscopy with biopsies as indicated. Potential risks, including bleeding and perforation were discussed, and the patient wishes to proceed. DETAILS OF PROCEDURE: The patient was taken to the operating room and placed in a left lateral decubitus position. IV sedation was administered, after which the upper GI endoscope was passed orally through the length of the esophagus into the stomach with retroflexion view of the fundus and thereafter through the pyloric channel and into the proximal duodenum. Findings included normal hypopharynx, larynx, upper esophageal sphincter, and esophageal body. At the EG junction, the patient was noted to have an intact Reshma effect with no grossly evident inflammation. The scope easily passed through the area of the fundoplication. In the stomach, there was some mild patchy redness in the antrum. Otherwise, the gastric and duodenal exams were unremarkable. At this point, biopsies were obtained from the antrum and sent for CLOtest for H pylori. Minimal bleeding from the biopsy sites was seen and the procedure then concluded. POSTPROCEDURE PLAN: The patient will be started on Pepcid. She will be given Pepcid 40 mg IV in the recovery room and then 40 mg orally today. She does not know if has been intolerant to proton pump inhibitors in the past. We will see the patient back in 3 weeks. If there is no improvement, we may try another agent to help augment gastric emptying that being Zithromax. Terry Gonzalez MD /[id number]
== END 2020-02-19 11:27 | disposition home or self-care (01) ==
LOC: JP.SDS 06:26
PROVIDERS: ATTEND Surgery
DX: K29.70 Gastritis, unspecified, without bleeding (principal); K21.9 Gastro-esophageal reflux disease without esophagitis; E11.9 Type 2 diabetes mellitus without complications; E66.9 Obesity, unspecified; Z98.890 Other specified postprocedural states; Z68.31 Body mass index [BMI] 31.0-31.9, adult
CPT/HCPCS: 43239; 74177; 87081; J1200; J2250; J2704; J3010; J3490; J7050; J7121; Q9967

== ENCOUNTER → 2020-04-28 | Day surgery (SDC) | payer MEDICAID ==
[~2020-04-28] MED LIST changes: +Acetaminophen/oxyCODONE 325-5 MG Tab PO ONE; +Albuterol/Ipratropium 3.0-0.5 MG/3 ML Neb Soln NEB ONE; -Bupivacaine 0.25% 10 ML SDV ONE; +Bupivacaine 0.5% 30 ML SDV ONE; +Dexamethasone 4 MG/ML SDV ONE; +Glycopyrrolate 0.2 MG/ML 5 ML MDV ONE; +Lactated Ringers 1,000 ML IV SCH; +Neostigmine Methylsulfate 1 MG/ML 5 ML Syringe ONE; +Nozin Nasal Sanitizer NASBOTH ONE; +Ondansetron 4 MG/2 ML SDV ONE; +Propofol 200 MG/20 ML SDV ONE; +Rocuronium 50 MG/5 ML Vial ONE; +Succinylcholine 200 MG/10 ML MDV ONE; +fentaNYL 250 MCG/5 ML SDV ONE
[2020-04-28 12:52] VITALS: BP 123/77; PULSE 77
--- NOTE | 2020-04-28 16:29 | OR ---
DATE OF PROCEDURE: 04/28/2020 SURGEON: Virgilio Madrid MD PREOPERATIVE DIAGNOSIS: Chondromalacia, patellofemoral joint, left knee. POSTOPERATIVE DIAGNOSIS: Chondromalacia/proliferative overgrowth of fibrocartilage, patellofemoral joint, left knee. ANESTHESIA: General. INDICATIONS: Gretchen is a 49-year-old female who had previously undergone a patellofemoral partial arthroplasty. She had difficulty following this with pain, catching, and grinding and underwent arthroscopic debridement of scar tissue as well as a lateral release to improve tracking. She did fairly well after this, but over the past year has been having increasing pain with catching and grinding sensation in the anterior knee. She also sustained a fall within the past 2 weeks due to the knee giving out on her, resulting in landing directly onto the left knee on her stairs with increased pain. She now presents for arthroscopy of left knee for chondroplasty, debridement of scar tissue, and evaluation of medial and lateral meniscus following her recent injury. Risks, benefits, and potential complications were discussed. DESCRIPTION OF PROCEDURE: After adequate anesthesia was obtained, patient was placed supine with a tourniquet about the left upper leg. Leg was prepped and draped in a sterile fashion. Leg was exsanguinated and tourniquet inflated to 300 mmHg pressure. Standard anterior, medial, and lateral portals were established through the scars of her previous arthroscopy. The scope was introduced into lateral portal with care taken to avoid direct contact with the articular surface of the prosthesis. The medial compartment was initially evaluated and this revealed no evidence of meniscus tear. This was thoroughly probed. She did have some very minor thinning of a few areas of the medial femoral condyle, but no significant chondromalacia in this location. Evaluation of the patellofemoral joint revealed a significant flap of proliferative fibrocartilage at the very inferior edge of the trochlear component at the junction with her nez perce cartilage. This was observed to be pinching and catching between the patellar button and the trochlear component. Using a combination of shaver and a small curette, this was removed and the nez perce cartilage was debrided back off the edge of the patellofemoral arthroplasty. This was done both along the medial and lateral surfaces of the inferior edge working through both the medial and lateral portals. The knee was then taken through range of motion and the patellar component could be seen to come off the edge of the trochlear component and deep flexion, but there was no contact with the nez perce cartilage after removal of the impinging piece. This was recessed back by a few millimeters. Further evaluation of the patella revealed no evidence of overgrowth or impinging soft tissues on the medial, lateral, or superior aspect. Patella tracked well. Lateral compartment revealed a very minor free edge fraying of the meniscus, which was trimmed with the shaver. Intercondylar notch showed intact ACL and PCL. There was no articular cartilage damage in the lateral compartment. All loose fragments were removed. The knee was drained. Scope was withdrawn. Port sites were closed with 3-0 Monocryl. Steri-Strips infiltrated with Marcaine and a sterile dressing was applied. The patient tolerated procedure very well. There were no complications, taken from the operating room in stable condition. Virgilio Madrid MD /[id number]
== END ==
LOC: JP.SDS 08:37
PROVIDERS: ATTEND Specialist
DX: S83.282A Other tear of lateral meniscus, current injury, left knee, initial encounter (principal); M22.42 Chondromalacia patellae, left knee; I25.10 Atherosclerotic heart disease of native coronary artery without angina pectoris; E78.00 Pure hypercholesterolemia, unspecified; I10 Essential (primary) hypertension; I25.2 Old myocardial infarction; G89.29 Other chronic pain; E11.9 Type 2 diabetes mellitus without complications; D64.9 Anemia, unspecified; F41.9 Anxiety disorder, unspecified; F32.9 Major depressive disorder, single episode, unspecified; M71.22 Synovial cyst of popliteal space [Baker], left knee; Z88.8 Allergy status to other drugs, medicaments and biological substances; Z79.899 Other long term (current) drug therapy; Z98.890 Other specified postprocedural states
CPT/HCPCS: 29881; 36415; 80048; 85027; A9270; J0330; J0690; J1100; J2405; J2704; J2710; J3010; J3490; J7060; J7120

== ENCOUNTER 2020-11-07 07:01 | Day surgery (SDC) | payer MEDICAID ==
[2020-11-07] MEDS ORDERED: Midazolam 1 MG/ML 2 ML SDV ONE (07:11)
[2020-11-07] MEDS ORDERED: fentaNYL 100 MCG/2 ML SDV ONE (07:11)
[2020-11-07] MEDS ORDERED: Propofol 200 MG/20 ML SDV ONE (07:11)
[2020-11-07] MEDS ORDERED: Glycopyrrolate 0.2 MG/ML 2 ML SDV IVPUSH ONE (07:30)
[2020-11-07] MEDS ORDERED: Dextrose 5%-Lactated Ringers 1,000 ML IV SCH (07:30)
[2020-11-07 10:41] VITALS: BP 116/67; PULSE 83
--- NOTE | 2020-11-22 15:46 | OR ---
DATE OF PROCEDURE: 11/07/2020 SURGEON: Terry Gonzalez MD PREOPERATIVE DIAGNOSIS: Increasing problems with heartburn, regurgitation, and dysphagia status post previous Reshma fundoplication. POSTOPERATIVE DIAGNOSES: 1. Increasing problems with heartburn, regurgitation, and dysphagia status post previous Reshma fundoplication. 2. Intact Reshma fundoplication. 3. Very large gastric bezoar consistent with diabetic gastroparesis. 4. Mild proximal duodenitis. OPERATIVE PROCEDURE: Esophagogastroduodenoscopy with antral biopsies for CLOtest. ANESTHESIA: IV sedation. INDICATION FOR PROCEDURE: This is a 50-year-old female presenting with worsening symptoms of heartburn, regurgitation, and dysphagia. She is status post previous Reshma fundoplication. She does have a history of type 2 diabetes mellitus, was noted to have some problems with bezoars in the past. She presently is on Pepcid 20 mg b.i.d. The plan is to proceed with upper endoscopy with biopsies and/or dilation as indicated. Potential risks including bleeding and perforation were discussed and the patient wishes to proceed. DETAILS OF PROCEDURE: The patient was taken to the operating room and placed in a left lateral decubitus position. IV sedation was administered after which the upper GI endoscope was passed orally through the length of the esophagus and the stomach with retroflexion view of the fundus, and thereafter through the pyloric channel, and into the proximal duodenum. Findings included normal hypopharynx, larynx, and upper esophageal sphincter. The esophageal body was likewise unremarkable. At the EG junction, the patient had an otherwise intact Reshma fundoplication and there was essentially no gross inflammation at that area. However, as one entered the stomach, there was a large amount of bezoar present. This occupied a very large portion of the stomach and was associated with diffuse gastritis, likely related to contact with the bezoar. The pyloric channel was widely patent. There was some patchy redness in the proximal duodenum. At this point, biopsies were obtained from the antrum and sent for CLOtest for H. pylori. Minimal bleeding from the biopsy sites was seen and the procedure then concluded. The patient was taken to the recovery room in satisfactory condition. At this point, the patient will likely require somewhat of a resectional procedure. We will initially try some medical management in terms of Zithromax 125 mg daily to see if that is helpful with regard to augmenting gastric emptying. The patient has been on an anti-bezoar diet already, but we will have Dietary review that diet once again, and we will see her back next Tuesday to discuss long-term treatment options. Terry Gonzalez MD /[id number]
== END 2020-11-07 10:15 | disposition home or self-care (01) ==
LOC: JP.SDS 07:01
PROVIDERS: ATTEND Surgery
DX: K29.80 Duodenitis without bleeding (principal); K21.9 Gastro-esophageal reflux disease without esophagitis; E11.9 Type 2 diabetes mellitus without complications; T18.2XXA Foreign body in stomach, initial encounter; F17.200 Nicotine dependence, unspecified, uncomplicated; Z98.84 Bariatric surgery status
CPT/HCPCS: 43239; 87081; J2250; J2704; J3010; J3490; J7121

== ENCOUNTER 2020-11-14 16:57 | Emergency (ER) | payer MEDICAID ==
[2020-11-14 17:14] VITALS: BP 114/79; PULSE 83
--- NOTE | 2020-11-14 18:26 | EDM.PDOC ---
ED HPI GENERAL MEDICAL PROBLEM - General Chief Complaint: Lower Extremity Injury/Pain Stated Complaint: PAIN IN LEG Time Seen by Provider: 11/14/20 18:26 Source of Information: Reports: Patient History Limitations: Reports: No Limitations - History of Present Illness INITIAL COMMENTS - FREE TEXT/NARRATIVE: Gretchen presents today for complaints of left lower leg pain and ecchymosis. She reports she was sent over from clinic for an US of her left leg. She denies any recent injury/trauma or infection. She reports history of blood clot near her liver with past surgical intervention. She complains of bruising to LLE without recent injury. She denies fever, chills, nausea, vomiting, change in bowel/bladder function or other concerns. Left Foot Pain Score (Numeric/FACES): 4 - Related Data Allergies Allergy/AdvReac Type Severity Reaction Status Date / Time Iodinated Contrast Media Allergy Intermediate Itching Verified 11/14/20 17:34 bupropion HCl Allergy Hives Verified 11/14/20 17:34 [From Wellbutrin] celecoxib [From Celebrex] Allergy Cannot Verified 11/14/20 17:34 Remember dabigatran etexilate Allergy Headache Verified 11/14/20 17:34 [From Pradaxa] paliperidone [From Invega] Allergy Hives Verified 11/14/20 17:34 pantoprazole [From Protonix] Allergy Hives Verified 11/14/20 17:34 oxytocin [From Pitocin] AdvReac Syncope Verified 11/14/20 17:34 varenicline tartrate AdvReac Delusions Verified 11/14/20 17:34 [From Chantix] Home Meds: Home Meds Cyanocobalamin (Vitamin B-12) [B-12] 2,000 mcg PO DAILY 01/24/19 [History] LORazepam 1 tab PO TID PRN 03/21/19 [History] Clobetasol [Clobetasol Propionate 0.05% Cream] 1 cm TOP BID 02/18/20 [History] Folic Acid 4 mg PO DAILY 02/18/20 [History] Benzonatate [Tessalon Perle] 100 mg PO TID PRN 11/03/20 [History] Diclofenac Sodium [Voltaren Arthritis Pain] 1 applic TOP QID 11/03/20 [History] Ergocalciferol (Vitamin D2) [Vitamin D2] 1,250 mcg PO DAILY 11/03/20 [History] Famotidine [Pepcid] 20 mg PO BID 11/03/20 [History] Lidocaine [Topicaine] 1 applic TOP BID 11/03/20 [History] Rizatriptan Benzoate [Rizatriptan] 5 mg PO ASDIRECTED 11/03/20 [History] Triamterene/Hydrochlorothiazid [Triamterene-HCTZ 37.5-25 MG] 1 each PO DAILY 11/03/20 [History] Azithromycin 125 mg PO DAILY 11/14/20 [History] Promethazine [Phenergan] 20 ml PO TID PRN 11/14/20 [History] Past Medical History HEENT History: Reports: Impaired Vision Other HEENT History: wears glasses Cardiovascular History: Reports: Arrhythmia, CAD, High Cholesterol, Hypertension, IA, Other (See Below) Other Cardiovascular History: HEART SKIPS BEATS PER PT REPORT, reports 2 "silent MIs" Respiratory History: Reports: Bronchitis, Recurrent, Sleep Apnea Gastrointestinal History: Reports: Cholelithiasis, Chronic Diarrhea, GERD, Hiatal Hernia, Other (See Below) Other Gastrointestinal History: Crohns. bowel stimulator Genitourinary History: Reports: Pyelonephritis, Renal Calculus, UTI, Recurrent, Other (See Below) Other Genitourinary History: past uti CLINICAL TRAINING SPECIALIST History: Reports: , 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 left knee pain,. right shoulder pain Neurological History: Reports: Migraines, Neuropathy, Diabetic Psychiatric History: Reports: Anxiety, Bipolar, Depression, Mood Swings, Panic Attack, Psych Hospitalization(s), PTSD Endocrine/Metabolic History: Reports: Diabetes, Type II Other Endocrine/Metabolic History: WAS 95 ON 09/30. LAST A1C WAS 5.1. NOT ON MEDICATIONS Hematologic History: Reports: Anemia, B12 Deficiency, Other (See Below) Other Hematologic History: AND VIT D DEFICIENCY Immunologic History: Reports: Other (See Below) Other Immunologic History: Lupus Oncologic (Cancer) History: Reports: None Dermatologic History: Reports: Cellulitis - Infectious Disease History Infectious Disease History: Reports: Chicken Pox, Novel Coronavirus, Shingles Other Infectious Disease History: unknown - Past Surgical History Head Surgeries/Procedures: Reports: None HEENT Surgical History: Reports: Myringotomy w Tube(s), Tonsillectomy, Other (See Below) Other HEENT Surgeries/Procedures: NOSE STRETCHING Cardiovascular Surgical History: Reports: Other (See Below) Other Cardiovascular Surgeries/Procedures: stress test 03/2019 GI Surgical History: Reports: Appendectomy, Cholecystectomy, Colonoscopy, EGD, Esophageal Dilatation, Hernia Repair/Other, Reshma Fundoplication, Other (See Below) Other GI Surgeries/Procedures: EGD with dilatation. bowel stimulator Female Surgical History: Reports: Section, Hysterectomy, Salpingo- Oophorectomy, Tubal Ligation Neurological Surgical History: Reports: Spinal Fusion Other Neurological Surgeries/Procedures: SPINAL FUSION 2015 Musculoskeletal Surgical History: Reports: Arthroscopic Knee, Other (See Below) Other Musculoskeletal Surgeries/Procedures:: patella femoral surgery 2017. NECK FUSED 2016 HARD MARTINEZ IN BACK Dermatological Surgical History: Reports: None Social & Family History - Family History Family Medical History: No Pertinent Family History Cardiac: Reports: IA GI: Reports: Other (See Below) Other GI Family History: chrons : Reports: Renal Disease/Insufficiency OBGYN: Reports: Other (See Below) Other OBGYN Family History: HPV Musculoskeletal: Reports: Arthritis, Osteoporosis Neurological: Reports: Parkinson's Psychiatric: Reports: Depression Endocrine/Metabolic: Reports: Diabetes, type II Oncologic: Reports: Brain, Lung - Tobacco Use Tobacco Use Status *Q: Current Every Day Tobacco User Years of Tobacco use: 30 Packs/Tins Daily: 0.5 - Caffeine Use Caffeine Use: Reports: Soda Other Caffeine Use: 6 CANS/DAY - Recreational Drug Use Recreational Drug Use: No - Living Situation & Occupation Living situation: Reports: with Significant Other Occupation: Employed Review of Systems - Review of Systems Review Of Systems: See Below Constitutional: Reports: No Symptoms Eyes: Reports: No Symptoms Ears: Reports: No Symptoms Nose: Reports: No Symptoms Mouth/Throat: Reports: No Symptoms Respiratory: Reports: No Symptoms Cardiovascular: Reports: No Symptoms GI/Abdominal: Reports: No Symptoms Genitourinary: Reports: No Symptoms Musculoskeletal: Reports: Leg Pain (pain to LLE with bruising to LLE calf area) Skin: Reports: Bruising. Denies: Cyanosis, Mottled, Pruritis, Rash, Erythema, Wound Neurological: Reports: No Symptoms Psychiatric: Reports: No Symptoms ED EXAM, GENERAL - Physical Exam Exam: See Below Exam Limited By: No Limitations General Appearance: Alert, WD/WN, No Apparent Distress Head: Atraumatic, Normocephalic Respiratory/Chest: No Respiratory Distress, Lungs Clear, Normal Breath Sounds, No Accessory Muscle Use, Chest Non-Tender. No: Crackles, Rales, Rhonchi, Wheezing Cardiovascular: Normal Peripheral Pulses, Regular Rate, Rhythm, No Edema, No Gallop, No Murmur, No Rub Peripheral Pulses: 4+: Posterior Tibial (L), Posterior Tibial (R), Dorsalis Pedis (L), Dorsalis Pedis (R) Extremities: Normal Range of Motion, No Pedal Edema, Normal Capillary Refill, Leg Pain (let lower leg). No: Lisha's Sign, Increased Warmth, Mottled, Pallor, Redness Neurological: Alert, Oriented, CN II-XII Intact, Normal Cognition, Normal Gait, Normal Reflexes, No Motor/Sensory Deficits Psychiatric: Normal Affect, Anxious Skin Exam: Warm, Dry, Intact, Normal Color, No Rash, Ecchymosis (small faint ecchymosis to Left Lower calf area, no particular pattern), Other (negative Homans sign). No: Erythema Lymphatic: No Adenopathy Course - Vital Signs Last Recorded V/S: Last Vital Signs Temp 36.4 C 11/14/20 17:40 Pulse 83 11/14/20 17:40 Resp 16 11/14/20 17:40 BP 114/79 11/14/20 17:40 Pulse Ox 96 11/14/20 17:40 - Re-Assessments/Exams Free Text/Narrative Re-Assessment/Exam: 11/14/20 19:35 US tech present to complete venous duplex LLE, patient not present in ER room. ER waiting room and parking lot checked for patient, patient not present. Discharged as eloped. Testing/evaluation not completed. Departure - Departure Time of Disposition: 19:35 Disposition: Eloped 07 Clinical Impression: Eloped from emergency department - Discharge Information Referrals: Charles Sadler MD [Primary Care Provider] - Forms: ED Department Discharge Sepsis Event Note (ED) - Evaluation Sepsis Screening Result: No Definite Risk - Focused Exam Vital Signs: Vital Signs Temp Pulse Resp BP Pulse Ox 11/14/20 17:40 36.4 C 83 16 114/79 96 11/14/20 17:13 36.4 C 83 16 114/79 96 - Assessment/Plan Assessment:: Patient left/eloped prior to completion of evaluation and testing.
== END 2020-11-14 19:45 | disposition left against medical advice (07) ==
LOC: JP.ED 16:57
DX: M79.662 Pain in left lower leg (principal); I25.10 Atherosclerotic heart disease of native coronary artery without angina pectoris; I10 Essential (primary) hypertension; I25.2 Old myocardial infarction; E11.9 Type 2 diabetes mellitus without complications; Z53.8 Procedure and treatment not carried out for other reasons; Z91.041 Radiographic dye allergy status; Z88.1 Allergy status to other antibiotic agents; Z88.8 Allergy status to other drugs, medicaments and biological substances
CPT/HCPCS: 99283

== ENCOUNTER 2020-11-25 08:04 | Inpatient (IN) | payer MEDICAID ==
[~2020-11-25 08:04] MED LIST changes: -Acetaminophen/oxyCODONE 325-5 MG Tab PO ONE; -Albuterol/Ipratropium 3.0-0.5 MG/3 ML Neb Soln NEB ONE; -Bupivacaine 0.5% 30 ML SDV ONE; -Lactated Ringers 1,000 ML IV SCH; +Naloxone 0.4 MG/ML SDV IV PRN; -Nozin Nasal Sanitizer NASBOTH ONE; +cefOXitin 2 GM Vial ONE
[2020-11-25] MEDS ORDERED: Gabapentin 300 MG Cap PO ONE (08:30)
[2020-11-25] MEDS ORDERED: Scopolamine 1.5 MG Transdermal Patch TOP ONE (08:30)
[2020-11-25] MEDS ORDERED: Acetaminophen 500 MG Tab PO ONE (08:30)
[2020-11-25] MEDS ORDERED: Dextrose 5%-Lactated Ringers 1,000 ML IV SCH ×2 (08:30→16:30)
[2020-11-25 09:11] LABS: HEMOGLOBIN A1C 5.6 % (4.5-6.2)
[2020-11-25] MEDS ORDERED: Meropenem 500 MG SDV ONE (09:53)
[2020-11-25] MEDS ORDERED: HYDROmorphone/Normal Saline 15 MG/30 ML PCA IV PRN (10:00)
[2020-11-25] MEDS ORDERED: Magnesium Sulfate 2.5 GM in Sodium Chloride 0.9% 100 ML IV SCH (10:00)
[2020-11-25] MEDS ORDERED: Ketamine 50 MG in Sodium Chloride 0.9% 49.5 ML IV SCH (10:00)
[2020-11-25] MEDS ORDERED: Ketamine 500 MG/5 ML MDV IV SCH (10:00)
[2020-11-25] MEDS ORDERED: Ropivacaine 44 ML, dexAMETHasone 8 MG, EPINEPHrine 0.4 MG, Sodium Chloride 0.9% 33.6 ML NERVRT SCH ×4 (10:00)
[2020-11-25] MEDS ORDERED: cefOXitin 2 GM in Sodium Chloride 0.9% 50 ML IV ONE (10:30)
[2020-11-25] MEDS ORDERED: Magnesium Sulfate 2.8 GM in Sodium Chloride 0.9% 250 ML IV ONE (10:30)
[2020-11-25] MEDS ORDERED: Lactated Ringers 1,000 ML ONE (11:46)
[2020-11-25] MEDS ORDERED: Sodium Chloride 0.9% 500 ML ONE (13:40)
[2020-11-25] MEDS ORDERED: fentaNYL 250 MCG/5 ML SDV ONE (13:43)
[2020-11-25] MEDS ORDERED: 50% Dextrose in Water 50 ML Syringe IVPUSH PRN (15:26)
[2020-11-25] MEDS ORDERED: Glucagon,Human Recombinant 1 MG Vial IM PRN (15:26)
[2020-11-25] MEDS ORDERED: Insulin Lispro 100 Unit/ML 3 ML KwikPen SUBCUT ONE (15:30)
[2020-11-25] MEDS ORDERED: Cyclobenzaprine 10 MG Tab PO PRN (16:25)
[2020-11-25] MEDS ORDERED: Albuterol/Ipratropium 3.0-0.5 MG/3 ML Neb Soln INH PRN (16:29)
[2020-11-25] MEDS ORDERED: Lactated Ringers 1,000 ML IV SCH (16:30)
[2020-11-25] MEDS ORDERED: LORazepam 2 MG/ML SDV IV PRN (16:37)
[2020-11-25] MEDS ORDERED: Benzonatate 100 MG Cap PO PRN (16:38)
[2020-11-25] MEDS ORDERED: diphenhydrAMINE 50 MG/ML SDV IVPUSH PRN (17:00)
[2020-11-25] MEDS ORDERED: Acetaminophen 500 MG Tab PO PRN (17:00)
[2020-11-25] MEDS ORDERED: Ondansetron 4 MG/2 ML SDV IVPUSH PRN (17:00)
[2020-11-25] MEDS ORDERED: Labetalol 20 MG/4 ML Syringe IVPUSH PRN (17:00)
[2020-11-25] MEDS ORDERED: hydrOXYzine HCL 100 MG/2 ML SDV IM PRN (17:00)
[2020-11-25] MEDS ORDERED: Calcium Gluconate 10% 1 GM/10 ML SDV IVPUSH PRN (17:00)
[2020-11-25] MEDS ORDERED: Metoclopramide 10 MG/2 ML SDV IVPUSH PRN (17:00)
[2020-11-25] MEDS ORDERED: MVI, Adult with Vitamin K 10 ML, Thiamine 200 MG, Zinc/Copper/Manganese/Selenium 1 ML i... IV SCH ×4 (18:00)
[2020-11-25] MEDS: Acetaminophen 500 MG Tab PO SCH (18:06)
[2020-11-25] MEDS: Pantoprazole 40 MG Vial IVPUSH SCH (18:07)
[2020-11-25] MEDS: cefOXitin 2 GM in Sodium Chloride 0.9% 50 ML IV SCH ×2 (18:12→23:18)
[2020-11-25] MEDS: Heparin Sodium 5,000 Units/ML Vial SUBCUT SCH ×2 (19:36→19:37)
[2020-11-25] MEDS: Insulin Lispro 100 Unit/ML 3 ML KwikPen SUBCUT SCH (22:39)
[2020-11-26] MEDS: Acetaminophen 500 MG Tab PO SCH (00:49)
[2020-11-26] MEDS ORDERED: Iopamidol 612 MG/ML 50 ML SDV PO STA (03:36)
[2020-11-26] MEDS ORDERED: methylPREDNISolone Sodium Succinate 125 MG/2 ML SDV IV ONE (03:45)
[2020-11-26] MEDS: Insulin Lispro 100 Unit/ML 3 ML KwikPen SUBCUT SCH ×4 (04:36→22:57)
[2020-11-26] MEDS: cefOXitin 2 GM in Sodium Chloride 0.9% 50 ML IV SCH ×3 (05:59→17:52)
[2020-11-26] MEDS ORDERED: Acetaminophen/Caffeine 500-65 MG Tab PO PRN (07:09)
[2020-11-26] MEDS ORDERED: Lactated Ringers 1,000 ML IV SCH (07:15)
[2020-11-26] MEDS: Heparin Sodium 5,000 Units/ML Vial SUBCUT SCH ×2 (08:01→19:42)
[2020-11-26] MEDS: Hydrochlorothiazide/Triamterene 25-37.5 Tab PO SCH (08:06)
[2020-11-26] MEDS: SCOPOLAMINE PATCH CHECK TOP SCH (08:08)
--- NOTE | 2020-11-26 08:32 | PN ---
DATE OF SERVICE: 11/26/2020 SUBJECTIVE: Gretchen reports her pain is controlled. Oral intake 400, output 1005. Upper GI was normal this morning. Remainder of review of systems negative for any pertinent positives and negatives with the exception of a caffeine withdrawal headache. OBJECTIVE: GENERAL: Gretchen is a pleasant 50-year-old female. She is alert and orientated. VITAL SIGNS: TPR 95.9, 105, 18. Blood pressure 143/87. HEENT: Negative. NECK: Supple. HEART: Regular rate and rhythm. LUNGS: Clear. ABDOMEN: Dressings dry and intact. Abdominal binder is on. EXTREMITIES: Without peripheral edema. ASSESSMENT: Exploratory laparotomy with: 1. Esophagogastrectomy with Elvira-en-Y esophagojejunostomy. 2. Repair of paraesophageal diaphragmatic hernia. POSTOPERATIVE DIAGNOSES: 1. Severe gastroesophageal reflux disease. 2. SP Reshma fundoplication with severe diabetic gastroparesis refractory to medical management. 3. Small recurrent paraesophageal hernia. 4. Date of procedure: 11/25/2020. Surgeon: Terry Gonzalez MD. PLAN: 1. Discontinue Stevens catheter. 2. Discontinue D5LR. 3. Lactated Ringer's at 100 mL per hour. 4. Step 1 gastric bypass diet. 5. Discontinue acetaminophen 1000 mg q.8 hours. 6. Excedrin-free acetaminophen with caffeine 2 tablets p.o. q.6 hours p.r.n. caffeine headache. 7. Continue use of incentive spirometer. 8. Ambulate short distances 6 times daily. 9. Communication order to drink 3 med cups every hour or 1 every 20 minutes and record at bedside. 10.We will evaluate p.r.n. or in a.m. Chapis Jiménez PA-C /[id number]
--- NOTE | 2020-11-26 09:42 | CR ---
UGI Limited HISTORY: Postbariatric surgery FINDINGS: Patient swallowed water-soluble contrast. Upright views of the abdomen show no evidence of extravasation or obstruction. There are surgical drains in the left upper quadrant. IMPRESSION: Status post bariatric surgery No extravasation or obstruction seen
[2020-11-26] MEDS: MVI, Adult with Vitamin K 10 ML, Thiamine 200 MG, Zinc/Copper/Manganese/Selenium 1 ML i... IV SCH ×8 (14:58→15:59)
[2020-11-26] MEDS ORDERED: oxyCODONE 5 MG Tab PO PRN (17:12)
[2020-11-26] MEDS: Pantoprazole 40 MG Vial IVPUSH SCH (17:52)
[2020-11-26] MEDS ORDERED: Ondansetron 4 MG Tab.DIS PO PRN (19:31)
[2020-11-26] MEDS: Acetaminophen/oxyCODONE 325-5 MG Tab PO PRN (19:41)
[2020-11-27] MEDS: Acetaminophen/oxyCODONE 325-5 MG Tab PO PRN ×4 (01:38→23:07)
[2020-11-27] MEDS: Insulin Lispro 100 Unit/ML 3 ML KwikPen SUBCUT SCH ×4 (05:03→22:44)
[2020-11-27] MEDS: Heparin Sodium 5,000 Units/ML Vial SUBCUT SCH ×2 (07:28→20:04)
[2020-11-27] MEDS: Hydrochlorothiazide/Triamterene 25-37.5 Tab PO SCH (08:19)
[2020-11-27] MEDS: Bisacodyl 5 MG Tab PO SCH ×2 (08:19→20:04)
[2020-11-27] MEDS: SCOPOLAMINE PATCH CHECK TOP SCH (08:19)
[2020-11-27] MEDS: Magnesium Hydroxide 400 MG/5 ML Susp 30 ML Cup PO SCH ×2 (08:19→20:04)
[2020-11-27] MEDS ORDERED: Cyanocobalamin (Vitamin B12) 1,000 MCG/ML SDV IM ONE (09:00)
--- NOTE | 2020-11-27 10:06 | PN ---
DATE OF SERVICE: 11/27/2020 SUBJECTIVE: Gretchen IV infiltrated yesterday with her oral intake adequate, it was not restarted. She was started on oral pain medications and pain is controlled. Her activity is good. Afebrile. Oral intake 1790. Urine output 3350. ELENA drain 1 and 2 put out 30 and 40 of a light pink drainage. REVIEW OF SYSTEMS: Remainder of review of systems negative for any pertinent positives and negatives. OBJECTIVE: GENERAL: Gretchen is a pleasant 50-year-old female. She is alert and orientated. VITAL SIGNS: TPR 97.3, 95, 16, blood pressure 157/77. HEENT: Negative. NECK: Supple. HEART: Regular rate and rhythm. LUNGS: Clear. ABDOMEN: Dressings dry and intact. Abdominal binder on. EXTREMITIES: Without peripheral edema. ASSESSMENT: Exploratory laparotomy with: 1. Esophagogastrectomy with Elvira-en-Y esophagojejunostomy. 2. Repair of paraesophageal diaphragmatic hernia. POSTOPERATIVE DIAGNOSES: 1. Severe gastroesophageal reflux disease. 2. Status post Reshma fundoplication with severe diabetic gastroparesis refractory to medical management. 3. Small recurrent paraesophageal hernia. 4. Date of procedure: 11/25/2020. Surgeon: Terry Gonzalez MD. PLAN: 1. Discontinue Accu-Cheks. 2. Dulcolax tablets 10 mg b.i.d. p.o. scheduled. 3. Milk of magnesia 30 mL b.i.d. scheduled. 4. May shower. 5. Plan discharge in a.m. 6. We will evaluate p.r.n. or in a.m. Chapis Jiménez PA-C /[id number]
[2020-11-28] MEDS: Insulin Lispro 100 Unit/ML 3 ML KwikPen SUBCUT SCH (04:33)
[2020-11-28 09:29] VITALS: BP 134/73; PULSE 101
[2020-11-28] MEDS: Bisacodyl 5 MG Tab PO SCH (09:52)
[2020-11-28] MEDS: Heparin Sodium 5,000 Units/ML Vial SUBCUT SCH (09:52)
[2020-11-28] MEDS: Hydrochlorothiazide/Triamterene 25-37.5 Tab PO SCH (09:53)
[2020-11-28] MEDS: Magnesium Hydroxide 400 MG/5 ML Susp 30 ML Cup PO SCH (09:53)
--- NOTE | 2020-11-28 15:21 | DISCH ---
ADMISSION DIAGNOSES: Diabetic gastroparesis, type 2 diabetes mellitus, benign essential hypertension, history of irritable bowel syndrome, nicotine dependence, bipolar disorder mixed, post-traumatic stress disorder. DISCHARGE DIAGNOSES: Exploratory laparotomy with: 1. Esophagogastrectomy with Elvira-en-Y esophagojejunostomy. 2. Repair of paraesophageal diaphragmatic hernia. POSTOPERATIVE DIAGNOSES: 1. Severe gastroesophageal reflux disease. 2. Status post Reshma fundoplication with severe diabetic gastroparesis refractory to medical management. 3. Small recurrent paraesophageal hernia. 4. Date of procedure: 11/25/2020. Surgeon: Terry Gonzalez MD. HISTORY: Gretchen Prasad is a 50-year-old female with severe gastroesophageal reflux disease. After preoperative evaluation and discussion of possible risks and possible complications, she wished to proceed with surgical procedure. HOSPITAL COURSE: Gretchen had her surgery on 11/25/2020. She had no operative complications. On postoperative day #1, she was started on a step 1 gastric bypass diet. Her IV was decreased. Continued to use her TABLE KEEPER for pain control. On postoperative day #2, Accu-Cheks were discontinued. Blood sugars were within normal limits. She was started on bowel stimulation. On postop day #3, she was able to be discharged to home. Vital signs stable. Oral intake and output adequate. Pain was well controlled. Activity was good and she received adequate dietary instructions. PHYSICAL EXAMINATION: GENERAL: Gretchen is a pleasant 50-year-old female. VITAL SIGNS: Height is 5 feet 6 inches, weight is 198 pounds, BMI is 32. TPR is 96.5, 101, 16, blood pressure 134/73. HEENT: Negative. NECK: Supple. HEART: Regular rate and rhythm. LUNGS: Clear. ABDOMEN: Aquacel dressings on. She has 2 ELENA drains, which drained a light pink drainage. Abdominal binder is on. EXTREMITIES: Without peripheral edema. DISPOSITION: Discharged to home. CONDITION: Stable and improving. FOLLOWUP APPOINTMENT: Chapis Jiménez PA-C, on 12/05/2020 at 9 a.m. at [facility]. HOME MEDICATIONS: 1. Percocet 5/325 mg every 4 hours p.r.n. pain, #12. 2. She is to resume her home medications: a. Triamterene 37.5/25 mg 1 daily. b. Lorazepam 1 tablet oral 3 times a day. c. Rizatriptan benzoate 5 mg oral, use as directed for migraine headaches. d. 3 times a day as needed p.r.n. nausea. DIET: Step 1 gastric bypass diet with protein drinks until first appointment in 64 ounces of fluid. Drink 8 to 10 glasses of water a day. ACTIVITY: Walk 6 times daily. Driving: Do not drive for 1 week. DISCHARGE INSTRUCTIONS: Shower/bathing: May shower. Notify provider if any fever, increased pain, swelling, redness, drainage, nausea, or vomiting. Wound incision care: Keep site clean and dry. Wear abdominal binder for 6 weeks and then as tolerated. Remove Aquacel dressing on Tuesday, on 12/01/2020. Use incentive spirometer 10 times every hour while awake. Record what you are eating and drinking and bring to clinic appointment. /[id number]
--- NOTE | 2020-12-01 13:04 | OR ---
DATE OF PROCEDURE: 11/25/2020 SURGEON: Terry Gonzalez MD PREOPERATIVE DIAGNOSES: 1. Severe ongoing gastroesophageal reflux, status post Reshma fundoplication, with severe diabetic gastroparesis refractory to medical management. 2. Small recurrent paraesophageal diaphragmatic hernia. PROCEDURE PERFORMED: Exploratory laparotomy with: 1. Esophagogastrectomy with Elvira-en-Y esophagojejunostomy (61607). 2. Repair of recurrent paraesophageal diaphragmatic hernia (36588). ANESTHESIA: General. RATTLING MACHINE TENDER: Chapis Jiménez PA-C INDICATION FOR PROCEDURE: A 50-year-old status post previous Reshma fundoplication, now presenting with quite severe reflux-type symptoms. This is associated with otherwise intact Reshma fundoplication grossly, but with severe diabetic gastroparesis with recent endoscopy showing a very large gastric bezoar. Trial of Zithromax was undertaken which actually worsened symptoms, probably related to increasing gastric intraluminal pressure without additional significant gastric emptying resulting in worsening of the reflux symptoms. After discussion, the plan would be to proceed with exploratory laparotomy with takedown of the previous fundoplication and either high proximal gastrectomy or esophagogastrectomy with Elvira-en-Y reconstruction. Potential risks of the procedure including bleeding, infection, leaks from various GI tract closures, as well as the possibility of cardiopulmonary, septic, or hemorrhagic complications leading to were discussed, and the patient wishes to proceed. DETAILS OF PROCEDURE: The patient was taken to the operating room and placed in a supine position. After general endotracheal anesthesia was induced, a Stevens catheter was inserted and the abdomen prepped and draped. An upper midline incision was then made and carried down through the skin and subcutaneous tissue and through the peritoneum. Some adhesions were taken down in the upper abdomen and eventually the area around the fundoplication and esophagogastric junction was well dissected out. The fundoplication at this point was essentially fused to the diaphragm, having potentially been positioned there to prevent slippage. As this was dissected out, it became quite evident that the proximal stomach would not be amenable to appropriate level of anastomosis. Initially, what would be essentially the esophagogastric junction was divided with a DE black load, and there was noted to be an opening as a result of the dissection just distal to that, and this tissue appeared to be quite marginal in terms of quality. The esophagus just proximal to this, however, was of fairly good quality, and it was then divided, and this was then used for the proximal anastomotic line. Given the small caliber of the esophagus, it was clear that we were going to otherwise be using a 28 mm EEA stapler for the proximal anastomosis, but we instead need to use a 25 mm EEA which would result in a somewhat higher stricture rate. The proximal stomach was then resected, initially resected somewhat close to the more proximal resection line, and this likewise appeared to be somewhat problematic in terms of getting the Elvira limb up to the divided esophagus some additional stomach was then resected with DE ryley, dividing the stomach as well the vascular attachments to the stomach. At this point, attention was taken to formation of the Elvira limb. The patient is type 2 diabetic, so we intentionally made a somewhat long biliopancreatic limb to afford some increased metabolic improvement. The patient also is mildly obese. Given this, the ligament of Treitz was identified and small bowel traced out 125 cm distal to that point where it was divided with a DE stapler. The small bowel was then traced out additional 150 cm where the [id number] enteroenterostomy was accomplished with internal firing of the Endo-DE 60 mm stapler. Common openings were closed transversely with the same stapler, angles anastomosed, and mesenteric defect approximated with some 0 Ethibond stitch, and this was then brought out through the retrogastric retrocolic tunnel which we had bluntly created. The patient was noted to have, during the course of the dissection, a recurrent paraesophageal hernia with prolapse of some of the proximal stomach earlier in a plane posterior to the esophagus. As this had been reduced, this crural defect was then approximated with 0 Ethibond sutures. The anvil of the 25 mm 4.8 mm staple height EEA stapler was then selected and the anvil passed through the mouth via an attached Yell sump type tube and pulled down to the stomach through a small opening in the distal esophagus, allowing the anvil likewise to be pulled down to within the distal esophagus. The divided end of the Elvira limb was then opened and the main body of the EEA stapler passed several centimeters into the lumen of the small bowel, brought up the anvil, and united with it, thus creating the esophagojejunostomy. Upon removal of the stapler, double donuts of mucosa were noted within it. As noted, it was somewhat difficult to extract the stapler, but eventually this was done in a reasonably atraumatic manner, and the anastomosis was palpated from within as well as externally and found to be grossly intact. This was reinforced with some 3-0 Vicryl seromuscular stitch including attached to the diaphragm to help secure that anastomosis. The area of dissection was then irrigated with meropenem and Zyvox-containing saline solution. Of note, the patient did have some mesh in the upper 2/3rds of the upper midline incision which was divided. This was then packed off with Zyvox and meropenem-containing soaked sponges, and at the conclusion of the open portion of the procedure, new gloves, gowns, and instruments were then used, and this was done to hopefully limit the rate of infection of the mesh. The esophagojejunostomy was then reinforced with some fibrin sealant circumferentially. Two Manuel-Carter drains were then placed through stab wounds in the left subcostal area and placed adjacent to the esophagojejunostomy initially, then the mesh was reapproximated with a running 0 Prolene stitch over this, and fascial closure was accomplished with a #2 Vicryl stitch, subcutaneous tissue with 2 layers of 3-0 and 4-0 Vicryl stitch, and the skin with ryley. A dressing was applied. The patient was taken to the recovery room in satisfactory condition. Physician dietetic assistant, Chapis Jiménez, played an essential role in assisting in this case, helping to position the patient, retract structures as needed, as well as suturing and cutting sutures when indicated. Her presence improved the patient's safety and decreased the operative time. Teryr Gonzalez MD /[id number]
--- NOTE | 2020-12-01 16:48 | PCM.EKG ---
#1 Interpretation EKG Date: 11/25/20 Time: 08:25 Rhythm: NSR Rate (Beats/Min): 72 Maurice: Normal P-Wave: Present QRS: Normal ST-T: Other (Nonspecific T wave abnormalities) QT: Normal Comparison: NA - No Prior EKG
== END 2020-11-28 09:53 | disposition home or self-care (01) | DRG 328 ==
LOC: JP.SDS 08:04 → JP.2SS 15:15
PROVIDERS: ADMIT Surgery; ATTEND Surgery
PROC: 0D150ZA Bypass Esophagus to Jejunum, Open Approach (ICD-10-PCS; principal; 2020-11-25)
PROC: 0BQT0ZZ Repair Diaphragm, Open Approach (ICD-10-PCS; 2020-11-25)
PROC: 0DB30ZZ Excision of Lower Esophagus, Open Approach (ICD-10-PCS; 2020-11-25)
PROC: 0DB60ZZ Excision of Stomach, Open Approach (ICD-10-PCS; 2020-11-25)
DX: K21.9 Gastro-esophageal reflux disease without esophagitis (principal); K44.9 Diaphragmatic hernia without obstruction or gangrene; I10 Essential (primary) hypertension; F17.210 Nicotine dependence, cigarettes, uncomplicated; F31.9 Bipolar disorder, unspecified; F43.10 Post-traumatic stress disorder, unspecified; E11.43 Type 2 diabetes mellitus with diabetic autonomic (poly)neuropathy; K31.84 Gastroparesis; Z98.84 Bariatric surgery status; Z88.8 Allergy status to other drugs, medicaments and biological substances; Z88.1 Allergy status to other antibiotic agents; E11.21 Type 2 diabetes mellitus with diabetic nephropathy; E78.00 Pure hypercholesterolemia, unspecified; E78.5 Hyperlipidemia, unspecified; E66.9 Obesity, unspecified; Z90.49 Acquired absence of other specified parts of digestive tract; Z96.652 Presence of left artificial knee joint; Z98.1 Arthrodesis status; Z90.89 Acquired absence of other organs; Z68.32 Body mass index [BMI] 32.0-32.9, adult
CPT/HCPCS: 36415; 74240; 74240-26; 80053; 82728; 82947; 83036; 83735; 83880; 84100; 85025; 86850; 86900; 86901; 88305; 88307; 93005; 94762; A9270-GY; C9113; J0171; J0330; J0694; J1100; J1170; J1644; J1815; J2020; J2185; J2405; J2704; J2710; J2795; J2930; J3010; J3411; J3475; J3490; J7040; J7050; J7120; J7121; Q9967

== ENCOUNTER 2021-01-31 01:51 | Emergency (ER) | payer MEDICAID ==
[2021-01-31 02:15] VITALS: BP 113/79; PULSE 96
--- NOTE | 2021-01-31 02:32 | EDM.PDOC ---
ED HPI GENERAL MEDICAL PROBLEM - General Chief Complaint: Skin Complaint Stated Complaint: RASH Time Seen by Provider: 01/31/21 02:34 Source of Information: Reports: Patient, RN Notes Reviewed - History of Present Illness INITIAL COMMENTS - FREE TEXT/NARRATIVE: pt has had a rash for about 1 week. She has had a blister appear on her lower lip and now has swelling on th lower lip nd chion area. This area is letitia tender. Her middle finger of the left hand is swollen and painful She has an area just above the rectum which is red and swollen. She has tenderness in the entire hand and her hands are burning. She has not had a fever. Onset: Gradual, Other ( This has been going on for several days. ) Duration: Day(s): Location: Reports: Generalized Associated Symptoms: Reports: No Other Symptoms Bilateral Hand Pain Score (Numeric/FACES): 4 - Related Data Allergies Allergy/AdvReac Type Severity Reaction Status Date / Time Iodinated Contrast Media Allergy Intermediate Itching Verified 11/25/20 08:48 bupropion HCl Allergy Hives Verified 11/25/20 08:48 [From Wellbutrin] celecoxib [From Celebrex] Allergy Cannot Verified 11/25/20 08:48 Remember dabigatran etexilate Allergy Headache Verified 11/25/20 08:48 [From Pradaxa] paliperidone [From Invega] Allergy Hives Verified 11/25/20 08:48 pantoprazole [From Protonix] Allergy Hives Verified 11/25/20 08:48 oxytocin [From Pitocin] AdvReac Syncope Verified 11/25/20 08:48 varenicline tartrate AdvReac Delusions Verified 11/25/20 08:48 [From Chantix] Home Meds: Home Meds Cyanocobalamin (Vitamin B-12) [B-12] 2,000 mcg PO DAILY 01/24/19 [History] LORazepam 1 tab PO TID PRN 03/21/19 [History] Clobetasol [Clobetasol Propionate 0.05% Cream] 1 cm TOP BID 02/18/20 [History] Folic Acid 4 mg PO DAILY 02/18/20 [History] Benzonatate [Tessalon Perle] 100 mg PO TID PRN 11/03/20 [History] Diclofenac Sodium [Voltaren Arthritis Pain] 1 applic TOP QID 11/03/20 [History] Ergocalciferol (Vitamin D2) [Vitamin D2] 1,250 mcg PO DAILY 11/03/20 [History] Lidocaine [Topicaine] 1 applic TOP BID 11/03/20 [History] Rizatriptan Benzoate [Rizatriptan] 5 mg PO ASDIRECTED 11/03/20 [History] Triamterene/Hydrochlorothiazid [Triamterene-HCTZ 37.5-25 MG] 1 each PO DAILY 11/03/20 [History] Promethazine [Phenergan] 20 ml PO TID PRN 11/14/20 [History] Acetaminophen/oxyCODONE [Percocet 325-5 MG] 1 each PO Q4H PRN #12 tab 11/28/20 [Rx] Past Medical History HEENT History: Reports: Impaired Vision Other HEENT History: wears glasses Cardiovascular History: Reports: Arrhythmia, CAD, High Cholesterol, Hypertension, [place], Other (See Below) Other Cardiovascular History: HEART SKIPS BEATS PER PT REPORT, reports 2 "silent MIs" Respiratory History: Reports: Bronchitis, Recurrent, Sleep Apnea Gastrointestinal History: Reports: Cholelithiasis, Chronic Diarrhea, GERD, Hiatal Hernia, Other (See Below) Other Gastrointestinal History: Crohns. 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 left knee pain,. right shoulder pain Neurological History: Reports: Migraines, Neuropathy, Diabetic Psychiatric History: Reports: Anxiety, Bipolar, Depression, Mood Swings, Panic Attack, Psych Hospitalization(s), PTSD Endocrine/Metabolic History: Reports: Diabetes, Type II Other Endocrine/Metabolic History: WAS 89 ON 09/30. LAST A1C WAS 5.1. NOT ON MEDICATIONS Hematologic History: Reports: Anemia, Anticoagulation Therapy, B12 Deficiency, Other (See Below) Other Hematologic History: AND VIT D DEFICIENCY Immunologic History: Reports: Other (See Below) Other Immunologic History: Lupus Oncologic (Cancer) History: Reports: None Dermatologic History: Reports: Cellulitis - Infectious Disease History Infectious Disease History: Reports: Chicken Pox, Novel Coronavirus, Shingles Other Infectious Disease History: unknown - Past Surgical History Head Surgeries/Procedures: Reports: None HEENT Surgical History: Reports: Myringotomy w Tube(s), Tonsillectomy, Other (See Below) Other HEENT Surgeries/Procedures: NOSE STRETCHING Cardiovascular Surgical History: Reports: Other (See Below) Other Cardiovascular Surgeries/Procedures: stress test 03/2019 Respiratory Surgical History: Reports: None GI Surgical History: Reports: Appendectomy, Cholecystectomy, Colonoscopy, EGD, Esophageal Dilatation, Hernia Repair/Other, Reshma Fundoplication, Other (See Below) Other GI Surgeries/Procedures: EGD with dilatation. bowel stimulator Female Surgical History: Reports: Section, Hysterectomy, Salpingo- Oophorectomy, Tubal Ligation Endocrine Surgical History: Reports: None Neurological Surgical History: Reports: Spinal Fusion Other Neurological Surgeries/Procedures: SPINAL FUSION 2015 Musculoskeletal Surgical History: Reports: Arthroscopic Knee, Other (See Below) Other Musculoskeletal Surgeries/Procedures:: patella femoral surgery 2017. NECK FUSED 2015 HARD MARTINEZ IN BACK Dermatological Surgical History: Reports: None Social & Family History - Family History Family Medical History: No Pertinent Family History Cardiac: Reports: [place] GI: Reports: Other (See Below) Other GI Family History: chrons : Reports: Renal Disease/Insufficiency OBGYN: Reports: Other (See Below) Other OBGYN Family History: HPV Musculoskeletal: Reports: Arthritis, Osteoporosis Neurological: Reports: Parkinson's Psychiatric: Reports: Depression Endocrine/Metabolic: Reports: Diabetes, type II Oncologic: Reports: Brain, Lung - Tobacco Use Tobacco Use Status *Q: Never Tobacco User - Caffeine Use Caffeine Use: Reports: None Other Caffeine Use: 6 CANS/DAY - Recreational Drug Use Recreational Drug Use: No - Living Situation & Occupation Living situation: Reports: with Significant Other Occupation: Employed ED ROS GENERAL - Review of Systems Review Of Systems: See Below Constitutional: Reports: No Symptoms HEENT: Reports: No Symptoms Respiratory: Reports: No Symptoms Cardiovascular: Reports: No Symptoms Endocrine: Reports: No Symptoms GI/Abdominal: Reports: No Symptoms Skin: Reports: Rash, Erythema Neurological: Reports: No Symptoms Psychiatric: Reports: No Symptoms Hematologic/Lymphatic: Reports: No Symptoms ED EXAM, SKIN/RASH Exam: See Below Text/Narrative:: pt has develope a rash on hr lower lip and chin. She hs one finger wich is swollen and very tender. She has redness and swelling just above her rectum. The swollen finger and lower lip is very tender. Exam Limited By: No Limitations General Appearance: Alert, Anxious, Moderate Distress Ears: Normal TMs Nose: Normal Inspection Throat/Mouth: Normal Inspection Head: Atraumatic Neck: Normal Inspection Respiratory/Chest: No Respiratory Distress Cardiovascular: Regular Rate, Rhythm GI/Abdominal: Soft, Non-Tender (Female) Exam: Deferred Rectal (Female) Exam: Deferred Back Exam: Normal Inspection Extremities: Other ( swollen left middle finger) Neurological: Alert, Oriented, Normal Cognition Course - Vital Signs Last Recorded V/S: Last Vital Signs Temp 36.9 C 01/31/21 02:07 Pulse 96 01/31/21 02:07 Resp 16 01/31/21 02:07 BP 113/79 01/31/21 02:07 Pulse Ox 97 01/31/21 02:07 - Orders/Labs/Meds Labs: Laboratory Tests 01/31/21 Range/Units 02:44 WBC 6.5 (4.5-11.0) K/uL RBC 4.83 (3.30-5.50) M/uL Hgb 14.2 (12.0-15.0) g/dL Hct 41.3 (36.0-48.0) % MCV 86 (80-98) fL MCH 29 (27-31) pg MCHC 34 (32-36) % Plt Count 310 (150-400) K/uL Neut % (Auto) 52.7 (36-66) % Lymph % (Auto) 37.0 (24-44) % Mercer % (Auto) 7.6 H (2-6) % Eos % (Auto) 2.5 (2-4) % Baso % (Auto) 0.2 (0-1) % Meds: Medications Discontinued Medications Generic Name Dose Route Start Last Admin Trade Name Freq PRN Reason Stop Dose Admin Triamcinolone Acetonide 60 mg 01/31/21 02:33 01/31/21 02:44 Triamcinolone Acetonide 40 Mg/Ml 1 Ml Sdv INJECT 01/31/21 02:34 60 mg ASDIRECTED ONE Administration - Re-Assessments/Exams Free Text/Narrative Re-Assessment/Exam: 01/31/21 03:17 pt had a normal wbc. She was given kenalog 60 mg . She will follow with Dr Sadler Tuesday Departure - Departure Time of Disposition: 03:18 Disposition: Home, Self-Care 01 Condition: Fair Clinical Impression: Cellulitis - Discharge Information Referrals: Charles Sadler MD [Primary Care Provider] - Forms: ED Department Discharge Care Plan Goals: cool pack hands and lip area, keflex 500mg tid, predisone 10 mg daily for 1 week, appt with Dr Sadler Tuesday. Use Benadryl 50 mg q6h for itching and burning. Sepsis Event Note (ED) - Evaluation Sepsis Screening Result: No Definite Risk - Focused Exam Vital Signs: Vital Signs Temp Pulse Resp BP Pulse Ox 01/31/21 02:07 36.9 C 96 16 113/79 97
[2021-01-31] MEDS: Triamcinolone Acetonide 40 MG/ML 1 ML SDV INJECT ONE (02:44)
== END 2021-01-31 03:31 | disposition home or self-care (01) ==
LOC: JP.ED 01:51
DX: L03.012 Cellulitis of left finger (principal); K61.1 Rectal abscess; I25.10 Atherosclerotic heart disease of native coronary artery without angina pectoris; I10 Essential (primary) hypertension; I25.2 Old myocardial infarction; E11.40 Type 2 diabetes mellitus with diabetic neuropathy, unspecified; Z86.16 Personal history of COVID-19; Z79.01 Long term (current) use of anticoagulants; Z91.041 Radiographic dye allergy status; Z88.8 Allergy status to other drugs, medicaments and biological substances; Z88.1 Allergy status to other antibiotic agents; Z79.899 Other long term (current) drug therapy
CPT/HCPCS: 36415; 85025; 96372; 99283; J3301

== ENCOUNTER 2021-02-27 07:20 | Day surgery (SDC) | payer MEDICAID ==
[~2021-02-27 07:20] MED LIST changes: -Dexamethasone 4 MG/ML SDV ONE; -Glycopyrrolate 0.2 MG/ML 5 ML MDV ONE; +Midazolam 1 MG/ML 2 ML SDV ONE; -Naloxone 0.4 MG/ML SDV IV PRN; -Neostigmine Methylsulfate 1 MG/ML 5 ML Syringe ONE; -Ondansetron 4 MG/2 ML SDV ONE; -Rocuronium 50 MG/5 ML Vial ONE; -Succinylcholine 200 MG/10 ML MDV ONE; -cefOXitin 2 GM Vial ONE; +fentaNYL 100 MCG/2 ML SDV ONE; -fentaNYL 250 MCG/5 ML SDV ONE
[2021-02-27] MEDS ORDERED: Cyanocobalamin (Vitamin B12) 1,000 MCG/ML SDV IM ONE (08:00)
[2021-02-27] MEDS ORDERED: Lactated Ringers 1,000 ML IV ONE (08:00)
[2021-02-27] MEDS ORDERED: MVI, Adult with Vitamin K 10 ML, Thiamine 200 MG, Chromium/Copper/Mang/Selen/Zn 1 ML in... IV ONE ×4 (09:00)
[2021-02-27] MEDS ORDERED: Lactated Ringers 1,000 ML ONE (09:27)
[2021-02-27] MEDS ORDERED: Dexamethasone 4 MG/ML SDV ONE (09:36)
[2021-02-27 10:57] VITALS: BP 110/52; PULSE 71
--- NOTE | 2021-03-03 07:30 | OR ---
DATE OF PROCEDURE: 02/27/2021 SURGEON: Terry Gonzalez MD PREOPERATIVE DIAGNOSIS: Possible stricture at esophagojejunostomy. POSTOPERATIVE DIAGNOSES: 1. Mild stricture at esophagojejunostomy. 2. Foreign body (staple) eroded at esophagojejunostomy. OPERATIVE PROCEDURE: Upper gastrointestinal endoscopy with: 1. Dilation of esophagojejunostomy (01442). 2. Removal of foreign body (staple) eroded at esophagojejunostomy (20413). ANESTHESIA: IV sedation. INDICATION FOR PROCEDURE: The patient is status post esophagogastrectomy as a secondary procedure for reflux disease. She presents now with some symptoms suggestive of stricturing at her gastrojejunostomy. The potential risks of procedure including bleeding and perforation were discussed, and the patient wishes to proceed. DETAILS OF PROCEDURE: The patient was taken to the operating room, placed in a left lateral decubitus position. IV sedation was administered, after which the upper GI endoscope was passed orally through the length of the esophagus and to the level of the esophagojejunostomy. The 1 cm scope could be passed through the anastomosis, and it was only mildly strictured. There was a staple that had eroded and was more or less protruding across the midportion of the anastomosis. This was removed by means of biopsy forceps, after which the esophagojejunostomy was dilated with a 45-Azerbaijani balloon catheter. No complications were evident and the procedure then concluded. The patient was taken to the recovery room in satisfactory condition. Terry Gonzalez MD /[id number]
== END 2021-02-27 11:10 | disposition home or self-care (01) ==
LOC: JP.SDS 07:20
PROVIDERS: ATTEND Surgery
DX: T18.198A Other foreign object in esophagus causing other injury, initial encounter (principal); K91.89 Other postprocedural complications and disorders of digestive system; K22.2 Esophageal obstruction; K21.9 Gastro-esophageal reflux disease without esophagitis; I10 Essential (primary) hypertension; Z20.822 Contact with and (suspected) exposure to COVID-19; K58.9 Irritable bowel syndrome, unspecified; E11.9 Type 2 diabetes mellitus without complications; F31.9 Bipolar disorder, unspecified; F43.10 Post-traumatic stress disorder, unspecified; Z90.3 Acquired absence of stomach [part of]; Z98.0 Intestinal bypass and anastomosis status; Z91.041 Radiographic dye allergy status; Z88.8 Allergy status to other drugs, medicaments and biological substances
CPT/HCPCS: 36415; 80053; 82728; 83735; 84100; 85025; J1100; J2250; J2704; J3010; J3411; J3420; J7120; U0002

== ENCOUNTER 2021-03-06 11:05 | Emergency (ER) | payer MEDICAID ==
--- NOTE | 2021-03-06 12:08 | EDM.PDOC ---
ED HPI GENERAL MEDICAL PROBLEM - General Chief Complaint: Lower Extremity Injury/Pain Stated Complaint: LEFT TOES NUMB AND TURNING PURPLE/BLACK Time Seen by Provider: 03/06/21 11:40 Source of Information: Reports: Patient. Denies: Old Records History Limitations: Reports: Other (no relevant old records) - History of Present Illness INITIAL COMMENTS - FREE TEXT/NARRATIVE: 50 yo female smoker with AODM has known peripheral vascular dz and diabetic peripheral neuropathy. She has has prior extensive work up regarding her poor lower extremity circulation. Fairly recently she was seen in [place] and had an attempted balloon angioplasty of a L leg artery that was not successful. She says she never has a pulse in her L foot/ankle. Today her L great toe distal half is purplish and more painful than normal. She called [place] and was told to go to the ER. Onset: Gradual, Unknown/Unsure Duration: Chronic, Getting Worse Location: Reports: Lower Extremity, Left Quality: Reports: Ache Severity: Mild Improves with: Reports: None Worsens with: Reports: Other (unsure) Context: Reports: Other (See HPI) Associated Symptoms: Reports: No Other Symptoms Treatments GROCERY STOCKER: Reports: Other (see below) (none) Left Foot Pain Score (Numeric/FACES): 7 - Related Data Allergies Allergy/AdvReac Type Severity Reaction Status Date / Time Iodinated Contrast Media Allergy Intermediate Itching Verified 03/06/21 11:23 bupropion HCl Allergy Hives Verified 03/06/21 11:23 [From Wellbutrin] celecoxib [From Celebrex] Allergy Cannot Verified 03/06/21 11:23 Remember dabigatran etexilate Allergy Headache Verified 03/06/21 11:23 [From Pradaxa] paliperidone [From Invega] Allergy Hives Verified 03/06/21 11:23 pantoprazole [From Protonix] Allergy Hives Verified 03/06/21 11:23 oxytocin [From Pitocin] AdvReac Syncope Verified 03/06/21 11:23 varenicline tartrate AdvReac Delusions Verified 03/06/21 11:23 [From Chantix] Home Meds: Home Meds Cyanocobalamin (Vitamin B-12) [B-12] 3,000 mcg PO DAILY 01/24/19 [History] LORazepam 1 tab PO TID PRN 03/21/19 [History] Folic Acid 4 mg PO DAILY 02/18/20 [History] Benzonatate [Tessalon Perle] 100 mg PO TID PRN 11/03/20 [History] Rizatriptan Benzoate [Rizatriptan] 5 mg PO ASDIRECTED PRN 11/03/20 [History] Ergocalciferol (Vitamin D2) [Vitamin D2] 50,000 unit PO DAILY 02/27/21 [History] Multivitamin [Flintstones] 1 each PO DAILY 02/27/21 [History] Warfarin [Coumadin] 5 mg PO ASDIRECTED 02/27/21 [History] Past Medical History HEENT History: Reports: Impaired Vision Other HEENT History: wears glasses Cardiovascular History: Reports: Arrhythmia, CAD, High Cholesterol, Hypertension, CT, Other (See Below) Other Cardiovascular History: HEART SKIPS BEATS PER PT REPORT, 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 left knee pain,. right shoulder pain Neurological History: Reports: Migraines, Neuropathy, Diabetic Psychiatric History: Reports: Anxiety, Bipolar, Depression, Mood Swings, Panic Attack, Psych Hospitalization(s), PTSD Endocrine/Metabolic History: Reports: Diabetes, Type II Other Endocrine/Metabolic History: BS at this time 94 Hematologic History: Reports: Anemia, Anticoagulation Therapy, B12 Deficiency, Other (See Below) Other Hematologic History: AND VIT D DEFICIENCY Immunologic History: Reports: Other (See Below) Other Immunologic History: Lupus Oncologic (Cancer) History: Reports: None Dermatologic History: Reports: Cellulitis - Infectious Disease History Infectious Disease History: Reports: Chicken Pox, Novel Coronavirus, Shingles Other Infectious Disease History: unknown - Past Surgical History Head Surgeries/Procedures: Reports: None HEENT Surgical History: Reports: Myringotomy w Tube(s), Tonsillectomy, Other (See Below) Other HEENT Surgeries/Procedures: NOSE STRETCHING Cardiovascular Surgical History: Reports: Other (See Below) Other Cardiovascular Surgeries/Procedures: stress test 03/2019 Respiratory Surgical History: Reports: None GI Surgical History: Reports: Appendectomy, Bariatric Procedure, Cholecystectomy, Colonoscopy, EGD, Esophageal Dilatation, Hernia Repair/Other, Reshma Fundoplication, Other (See Below) Other GI Surgeries/Procedures: EGD with dilatation. bowel stimulator. RNY October 2020 Female Surgical History: Reports: Section, Hysterectomy, Salpingo- Oophorectomy, Tubal Ligation Endocrine Surgical History: Reports: None Neurological Surgical History: Reports: Spinal Fusion Other Neurological Surgeries/Procedures: SPINAL FUSION 2015 Musculoskeletal Surgical History: Reports: Arthroscopic Knee, Other (See Below) Other Musculoskeletal Surgeries/Procedures:: patella femoral surgery 2017. NECK FUSED 2015 HARD MARTINEZ IN BACK Oncologic Surgical History: Reports: None Dermatological Surgical History: Reports: None Social & Family History - Family History Family Medical History: No Pertinent Family History Cardiac: Reports: CT GI: Reports: Other (See Below) Other GI Family History: chrons : Reports: Renal Disease/Insufficiency OBGYN: Reports: Other (See Below) Other OBGYN Family History: HPV Musculoskeletal: Reports: Arthritis, Osteoporosis Neurological: Reports: Parkinson's Psychiatric: Reports: Depression Endocrine/Metabolic: Reports: Diabetes, type II Oncologic: Reports: Brain, Lung - Tobacco Use Tobacco Use Status *Q: Current Every Day Tobacco User Years of Tobacco use: 22 Packs/Tins Daily: 0.5 - Caffeine Use Caffeine Use: Reports: None Other Caffeine Use: 6 CANS/DAY - Recreational Drug Use Recreational Drug Use: No - Living Situation & Occupation Living situation: Reports: with Significant Other Occupation: Employed Review of Systems - Review of Systems Review Of Systems: See Below Constitutional: Reports: No Symptoms Musculoskeletal: Reports: Foot Pain (L great toe pain) Skin: Reports: Change in Color (more purplish today) Neurological: Reports: Tingling (both feet, now new) ED EXAM, GENERAL - Physical Exam Exam: See Below Exam Limited By: No Limitations General Appearance: Alert, WD/WN, No Apparent Distress Extremities: Normal Range of Motion, No Pedal Edema, Other (L great toe, distal half is cooler than the rest of her already cool feet. No palpable dorsalis pedis or posterior tibialis arteries. ). No: Normal Inspection, Non-Tender, Pedal Edema, Increased Warmth Neurological: Alert, Oriented, CN II-XII Intact, Normal Cognition, No Motor/Sensory Deficits Psychiatric: Normal Affect, Normal Mood Skin Exam: Warm, Dry, Intact, No Rash, Cyanosis (L great toe distal half). No: Normal Color Course - Vital Signs Last Recorded V/S: Last Vital Signs Temp 36.3 C 03/06/21 11:38 Pulse 94 03/06/21 11:38 Resp 16 03/06/21 11:38 BP 132/63 03/06/21 11:38 Pulse Ox 96 03/06/21 11:38 Departure - Departure Time of Disposition: 12:10 Disposition: Home, Self-Care 01 Condition: Fair Clinical Impression: Arterial insufficiency of lower extremity - Discharge Information *PRESCRIPTION DRUG MONITORING PROGRAM REVIEWED*: Not Applicable *COPY OF PRESCRIPTION DRUG MONITORING REPORT IN PATIENT ELEONORA: Not Applicable Referrals: Charles Sadler MD [Primary Care Provider] - Additional Instructions: Warm up your foot with warm water and then try to keep your foot warm. If the purplish color and pain persist you likely should go back to [place] for evaluation of your circulation today. Sepsis Event Note (ED) - Focused Exam Vital Signs: Vital Signs Temp Pulse Resp BP Pulse Ox 03/06/21 11:38 36.3 C 94 16 132/63 96 03/06/21 11:23 36.3 C 94 16 132/63 96
[2021-03-06 12:13] VITALS: BP 132/63; PULSE 94
== END 2021-03-06 12:16 | disposition home or self-care (01) ==
LOC: JP.ED 11:05
DX: I77.1 Stricture of artery (principal); I25.10 Atherosclerotic heart disease of native coronary artery without angina pectoris; I10 Essential (primary) hypertension; I25.2 Old myocardial infarction; E11.40 Type 2 diabetes mellitus with diabetic neuropathy, unspecified; Z79.01 Long term (current) use of anticoagulants; Z72.0 Tobacco use; Z91.041 Radiographic dye allergy status; Z88.8 Allergy status to other drugs, medicaments and biological substances; Z88.1 Allergy status to other antibiotic agents; Z79.899 Other long term (current) drug therapy
CPT/HCPCS: 99283

== ENCOUNTER 2021-04-09 00:47 | Emergency (ER) | payer MEDICAID ==
[2021-04-09 01:11] VITALS: BP 114/71; PULSE 99
--- NOTE | 2021-04-09 01:51 | EDM.PDOC ---
ED HPI GENERAL MEDICAL PROBLEM - General Chief Complaint: Flank Pain Stated Complaint: BACK PAIN Time Seen by Provider: 04/09/21 01:25 Source of Information: Reports: Patient, Old Records, RN History Limitations: Reports: No Limitations - History of Present Illness INITIAL COMMENTS - FREE TEXT/NARRATIVE: 50 yo female presents with L low back pain since last Tuesday. She saw Dr. Sadler for it this past Tuesday and he recommended she try either Voltaren gel or Lidocaine patches. She has tried both without relief. It looks like from his note he is thinking SI joint as the issue. She says the pain waxes and wanes. Pain is worse with walking. She cannot take oral NSAID's due to having had a gastric bypass. She has a wheeled walker at home now. Acetaminophen also has not given her relief. Onset: Gradual Onset Date: 04/03/21 Duration: Day(s):, Getting Worse Location: Reports: Back Quality: Reports: Sharp (with walking) Severity: Moderate Improves with: Reports: Rest Worsens with: Reports: Movement Context: Reports: Other (See HPI) Associated Symptoms: Reports: No Other Symptoms Treatments SLITTER HELPER: Reports: Acetaminophen, NSAIDS (topical), Other (see below) (Lidocaine patches) right lower Pain Score (Numeric/FACES): 9 - Related Data Allergies Allergy/AdvReac Type Severity Reaction Status Date / Time Iodinated Contrast Media Allergy Intermediate Itching Verified 04/09/21 01:13 bupropion HCl Allergy Hives Verified 04/09/21 01:13 [From Wellbutrin] dabigatran etexilate Allergy Headache Verified 04/09/21 01:13 [From Pradaxa] paliperidone [From Invega] Allergy Hives Verified 04/09/21 01:13 pantoprazole [From Protonix] Allergy Hives Verified 04/09/21 01:13 oxytocin [From Pitocin] AdvReac Syncope Verified 04/09/21 01:13 varenicline tartrate AdvReac Delusions Verified 04/09/21 01:13 [From Chantix] Home Meds: Home Meds Cyanocobalamin (Vitamin B-12) [B-12] 3,000 mcg PO DAILY 01/24/19 [History] LORazepam 1 tab PO TID PRN 03/21/19 [History] Folic Acid 4 mg PO DAILY 02/18/20 [History] Rizatriptan Benzoate [Rizatriptan] 5 mg PO ASDIRECTED PRN 11/03/20 [History] Ergocalciferol (Vitamin D2) [Vitamin D2] 50,000 unit PO DAILY 02/27/21 [History] Multivitamin [Flintstones] 1 each PO DAILY 02/27/21 [History] Warfarin [Coumadin] 5 mg PO ASDIRECTED 02/27/21 [History] Aspirin 81 mg PO DAILY 03/19/21 [History] Blood-Glucose Sensor [Dexcom G6] 0 unit SUBCUT DAILY 03/19/21 [History] ARIPiprazole [Abilify] 10 mg PO DAILY 04/09/21 [History] Celecoxib [CeleBREX] 100 mg PO ASDIRECTED PRN 04/09/21 [History] atorvaSTATin Calcium [Atorvastatin Calcium] 10 mg PO DAILY 04/09/21 [History] cilostazoL [Cilostazol] 50 mg PO DAILY 04/09/21 [History] Past Medical History HEENT History: Reports: Impaired Vision Other HEENT History: wears glasses Cardiovascular History: Reports: Arrhythmia, CAD, High Cholesterol, Hypertension, [place], Other (See Below) Other Cardiovascular History: HEART SKIPS BEATS PER PT REPORT, 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 x2 blocked arteries in left leg Respiratory History: Reports: Bronchitis, Recurrent, Sleep Apnea Gastrointestinal History: Reports: Cholelithiasis, Chronic Diarrhea, Colon Polyp, GERD, Hiatal Hernia, Other (See Below) Other Gastrointestinal History: Crohns. 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 left knee pain,. right shoulder pain Neurological History: Reports: Migraines, Neuropathy, Diabetic Psychiatric History: Reports: Anxiety, Bipolar, Depression, Mood Swings, Panic Attack, Psych Hospitalization(s), PTSD Endocrine/Metabolic History: Reports: Diabetes, Type II Other Endocrine/Metabolic History: BS at this time 94 Hematologic History: Reports: Anemia, Anticoagulation Therapy, B12 Deficiency, Other (See Below) Other Hematologic History: AND VIT D DEFICIENCY Immunologic History: Reports: Other (See Below) Other Immunologic History: Lupus Oncologic (Cancer) History: Reports: None Dermatologic History: Reports: Cellulitis - Infectious Disease History Infectious Disease History: Reports: Chicken Pox, Novel Coronavirus, Shingles Other Infectious Disease History: unknown - Past Surgical History Head Surgeries/Procedures: Reports: None HEENT Surgical History: Reports: Myringotomy w Tube(s), Tonsillectomy, Other (See Below) Other HEENT Surgeries/Procedures: NOSE STRETCHING Cardiovascular Surgical History: Reports: Other (See Below) Other Cardiovascular Surgeries/Procedures: stress test 03/2019. angiogram 04/02/21 Respiratory Surgical History: Reports: None GI Surgical History: Reports: Appendectomy, Bariatric Procedure, Cholecystectomy, Colonoscopy, EGD, Esophageal Dilatation, Hernia Repair/Other, Reshma Fundoplication, Other (See Below) Other GI Surgeries/Procedures: EGD with dilatation. bowel stimulator. RNY October 2020 Female Surgical History: Reports: Section, Hysterectomy, Salpingo-Oophorectomy, Tubal Ligation Endocrine Surgical History: Reports: None Neurological Surgical History: Reports: Spinal Fusion Other Neurological Surgeries/Procedures: SPINAL FUSION 2015 Musculoskeletal Surgical History: Reports: Arthroscopic Knee, Other (See Below) Other Musculoskeletal Surgeries/Procedures:: patella femoral surgery 2017. NECK FUSED 2016 HARD MARTINEZ IN BACK Oncologic Surgical History: Reports: None Dermatological Surgical History: Reports: None Social & Family History - Family History Family Medical History: No Pertinent Family History Cardiac: Reports: [place] GI: Reports: Other (See Below) Other GI Family History: chrons : Reports: Renal Disease/Insufficiency OBGYN: Reports: Other (See Below) Other OBGYN Family History: HPV Musculoskeletal: Reports: Arthritis, Osteoporosis Neurological: Reports: Parkinson's Psychiatric: Reports: Depression Endocrine/Metabolic: Reports: Diabetes, type II Oncologic: Reports: Brain, Lung - Tobacco Use Tobacco Use Status *Q: Light Tobacco User Years of Tobacco use: 20 Packs/Tins Daily: 0.3 - Caffeine Use Caffeine Use: Reports: None Other Caffeine Use: 6 CANS/DAY - Recreational Drug Use Recreational Drug Use: No - Living Situation & Occupation Living situation: Reports: with Significant Other Occupation: Employed ED ROS GENERAL - Review of Systems Review Of Systems: See Below Constitutional: Reports: No Symptoms Musculoskeletal: Reports: Back Pain (R low back) Skin: Reports: No Symptoms Neurological: Reports: No Symptoms ED EXAM,LOWER BACK PAIN/INJURY - Physical Exam Exam: See Below Exam Limited By: No Limitations General Appearance: Alert, WD/WN, No Apparent Distress Back Exam: Normal Inspection, Other (tender on palpation of the R SI joint). No: CVA Tenderness (R), CVA Tenderness (L), Vertebral Tenderness Extremities: Normal Inspection, Normal Range of Motion, Non-Tender, No Pedal Edema Neurological: Alert, Normal Mood/Affect, CN II-XII Intact, No Motor/Sensory Deficits, Oriented x 3 Psychiatric: Normal Affect, Normal Mood Skin Exam: Warm, Dry, Intact, Normal Color, No Rash Course - Vital Signs Last Recorded V/S: Last Vital Signs Temp 36.6 C 04/09/21 01:22 Pulse 99 04/09/21 01:22 Resp 14 04/09/21 01:22 BP 114/71 04/09/21 01:22 Pulse Ox 98 04/09/21 01:22 - Orders/Labs/Meds Labs: Laboratory Tests 04/09/21 Range/Units 01:22 Urine Color Yellow (YELLOW) Urine Appearance Cloudy A (CLEAR) Urine pH 6.0 (5.0-8.0) Ur Specific [place] >= 1.030 (1.008-1.030) Urine Protein Negative (NEGATIVE) mg/dL Urine Glucose (UA) Negative (NEGATIVE) mg/dL Urine Ketones Negative (NEGATIVE) mg/dL Urine Occult Blood Trace-intact H (NEGATIVE) Urine Nitrite Negative (NEGATIVE) Urine Bilirubin Small H (NEGATIVE) Urine Urobilinogen 1.0 (0.2-1.0) EU/dL Ur Leukocyte Esterase Negative (NEGATIVE) Urine RBC 5-10 H (0-5) Urine WBC 0-5 (0-5) Ur Epithelial Cells Moderate Amorphous Sediment Not seen Urine Bacteria Moderate Urine Mucus Moderate Urine Other Departure - Departure Time of Disposition: 02:00 Disposition: Home, Self-Care 01 Condition: Fair Clinical Impression: Inflammation of right sacroiliac joint, Microscopic hematuria - Discharge Information *PRESCRIPTION DRUG MONITORING PROGRAM REVIEWED*: Not Applicable *COPY OF PRESCRIPTION DRUG MONITORING REPORT IN PATIENT ELEONORA: Not Applicable Referrals: Charles Sadler MD [Primary Care Provider] - Additional Instructions: Take acetaminophen up to 1000 mg every 6 hrs for pain relief. Continue the Voltaren gel for additional pain relief. Use a non-wheeled walker to help you take weight off your right leg when walking, this should reduce your pain. Follow up with your doctor soon for more testing regarding the blood in your urine and also if your pain is not gone to get either a PT referral or referral for an SI joint cortisone injection. Sepsis Event Note (ED) - Evaluation Sepsis Screening Result: No Definite Risk - Focused Exam Vital Signs: Vital Signs Temp Pulse Resp BP Pulse Ox 04/09/21 01:22 36.6 C 99 14 114/71 98 04/09/21 01:09 36.6 C 99 14 114/71 98
== END 2021-04-09 02:04 | disposition home or self-care (01) ==
LOC: JP.ED 00:47
DX: M46.1 Sacroiliitis, not elsewhere classified (principal); R31.29 Other microscopic hematuria; I25.10 Atherosclerotic heart disease of native coronary artery without angina pectoris; E78.00 Pure hypercholesterolemia, unspecified; I10 Essential (primary) hypertension; I25.2 Old myocardial infarction; K21.9 Gastro-esophageal reflux disease without esophagitis; E11.9 Type 2 diabetes mellitus without complications; Z72.0 Tobacco use; Z91.041 Radiographic dye allergy status; Z88.8 Allergy status to other drugs, medicaments and biological substances; Z79.82 Long term (current) use of aspirin; Z79.01 Long term (current) use of anticoagulants; Z79.899 Other long term (current) drug therapy
CPT/HCPCS: 81001; 99283

== ENCOUNTER 2021-05-28 15:20 | Emergency (ER) | payer MEDICAID ==
[2021-05-28 15:52] VITALS: BP 102/55; PULSE 70
[2021-05-28] MEDS ORDERED: Ondansetron 4 MG/2 ML SDV IVPUSH ONE (16:54)
[2021-05-28] MEDS ORDERED: Sodium Chloride 0.9% 1,000 ML IV SCH (17:00)
== END 2021-05-28 17:00 | disposition left against medical advice (07) ==
LOC: JP.ED 15:20
DX: R10.84 Generalized abdominal pain (principal); R10.30 Lower abdominal pain, unspecified; I25.10 Atherosclerotic heart disease of native coronary artery without angina pectoris; E78.00 Pure hypercholesterolemia, unspecified; I10 Essential (primary) hypertension; I25.2 Old myocardial infarction; E11.40 Type 2 diabetes mellitus with diabetic neuropathy, unspecified; Z79.01 Long term (current) use of anticoagulants; Z72.0 Tobacco use; Z91.041 Radiographic dye allergy status; Z88.8 Allergy status to other drugs, medicaments and biological substances; Z79.82 Long term (current) use of aspirin; Z79.899 Other long term (current) drug therapy
CPT/HCPCS: 36415; 80053; 85025; 99284

== ENCOUNTER 2021-06-29 05:32 | Day surgery (SDC) | payer MEDICAID ==
[2021-06-29 06:27] LABS: CORONAVIRUS COVID-19 NAA NEGATIVE (NEGATIVE)
[2021-06-29] MEDS: Dextrose 5%-Lactated Ringers 1,000 ML IV SCH (06:36)
[2021-06-29] MEDS: Linezolid 600 MG in Premix Bag 1 BAG IV ONE (07:12)
[2021-06-29] MEDS ORDERED: fentaNYL 100 MCG/2 ML SDV ONE (07:19)
[2021-06-29] MEDS ORDERED: Propofol 200 MG/20 ML SDV ONE (07:19)
[2021-06-29] MEDS ORDERED: Midazolam 1 MG/ML 2 ML SDV ONE (07:19)
[2021-06-29] MEDS: Lidocaine 1% with EPINEPHrine 1:100,000 50 ML MDV ONE (07:40)
[2021-06-29] MEDS: Bupivacaine 0.5% 50 ML MDV ONE (07:40)
[2021-06-29] MEDS: MVI, Adult with Vitamin K 10 ML, Zinc/Copper/Manganese/Selenium 1 ML in AA 5%/Calcium/D... IV ONE ×3 (09:14)
[2021-06-29] MEDS: Fat Emulsion 250 ML IV ONE (09:17)
[2021-06-29] MEDS: Acetaminophen 325 MG Tab PO ONE (17:02)
[2021-06-29] MEDS: traMADol 50 MG Tab PO ONE (17:28)
[2021-06-29] MEDS: [UNRECOGNIZED DRUG - OTHER] IV ONE (17:44)
[2021-06-29] MEDS: CALCIUM IV ONE (17:44)
[2021-06-29] MEDS: LYTES IV ONE (17:44)
[2021-06-29 21:20] VITALS: BP 91/43; PULSE 68
== END 2021-06-29 21:15 | disposition home or self-care (01) ==
LOC: JP.SDS 05:32 → JP.MS 08:00 → JP.SDS 21:15
PROVIDERS: ATTEND Surgery
DX: E46 Unspecified protein-calorie malnutrition (principal); F17.210 Nicotine dependence, cigarettes, uncomplicated; E11.49 Type 2 diabetes mellitus with other diabetic neurological complication; E11.21 Type 2 diabetes mellitus with diabetic nephropathy; I10 Essential (primary) hypertension; K21.9 Gastro-esophageal reflux disease without esophagitis; E78.00 Pure hypercholesterolemia, unspecified; G43.909 Migraine, unspecified, not intractable, without status migrainosus; E66.9 Obesity, unspecified; G47.33 Obstructive sleep apnea (adult) (pediatric); E55.9 Vitamin D deficiency, unspecified; Z90.49 Acquired absence of other specified parts of digestive tract; Z98.890 Other specified postprocedural states; Z01.812 Encounter for preprocedural laboratory examination; Z88.8 Allergy status to other drugs, medicaments and biological substances; Z79.899 Other long term (current) drug therapy; Z20.822 Contact with and (suspected) exposure to COVID-19
CPT/HCPCS: 0241U; 36415; 36558; 77001; 80053; 82947; 83735; 84100; 84478; 85027; A9270; J1642; J2020; J2250; J2704; J3010; J3490; J7121; 76000

== ENCOUNTER 2021-08-10 19:28 | Emergency (ER) | payer MEDICAID ==
[2021-08-10 20:05] VITALS: BP 101/37; PULSE 77
== END 2021-08-10 21:28 | disposition home or self-care (01) ==
LOC: JP.ED 19:28
DX: T82.898A Other specified complication of vascular prosthetic devices, implants and grafts, initial encounter (principal); E11.40 Type 2 diabetes mellitus with diabetic neuropathy, unspecified; E78.00 Pure hypercholesterolemia, unspecified; I10 Essential (primary) hypertension; K21.9 Gastro-esophageal reflux disease without esophagitis; F17.210 Nicotine dependence, cigarettes, uncomplicated; Z91.041 Radiographic dye allergy status; Z88.6 Allergy status to analgesic agent; Z88.8 Allergy status to other drugs, medicaments and biological substances; Z79.82 Long term (current) use of aspirin; Z79.899 Other long term (current) drug therapy
CPT/HCPCS: 71046; 99282; 99283-25

== ENCOUNTER 2021-09-23 09:29 | Inpatient (IN) | payer MEDICAID ==
[2021-09-23] MEDS ORDERED: Famotidine 20 MG/2 ML SDV IV ONE (10:00)
[2021-09-23] MEDS ORDERED: MVI, Adult with Vitamin K 10 ML, Zinc/Copper/Manganese/Selenium 1 ML in Dextrose 5%-Lac... IV ONE ×3 (10:30)
[2021-09-23 10:41] LABS: CORONAVIRUS COVID-19 NAA NEGATIVE (NEGATIVE)
[2021-09-23] MEDS ORDERED: Iopamidol 612 MG/ML 100 ML Bottle IV PRN (10:47)
[2021-09-23] MEDS ORDERED: Iopamidol 612 MG/ML 30 ML SDV PO ONE (10:47)
[2021-09-23] MEDS ORDERED: methylPREDNISolone Sodium Succinate 125 MG/2 ML SDV IV ONE (11:00)
[2021-09-23] MEDS ORDERED: Sodium Chloride 0.9% 50 ML IV SCH (11:00)
[2021-09-23] MEDS: Dextrose 5%-Lactated Ringers 1,000 ML IV SCH (22:14)
[2021-09-24] MEDS ORDERED: Meropenem 500 MG SDV ONE (07:01)
[2021-09-24] MEDS ORDERED: Lidocaine 1% with EPINEPHrine 1:100,000 50 ML MDV ONE (07:01)
[2021-09-24] MEDS ORDERED: Bupivacaine 0.5% 50 ML MDV ONE (07:01)
[2021-09-24] MEDS: Dextrose 5%-Lactated Ringers 1,000 ML IV SCH (08:15)
[2021-09-24] MEDS ORDERED: ARIPiprazole 10 MG Tab PO SCH (09:00)
[2021-09-24] MEDS ORDERED: Ondansetron 4 MG/2 ML SDV ONE (10:14)
[2021-09-24] MEDS ORDERED: Propofol 200 MG/20 ML SDV ONE (10:14)
[2021-09-24] MEDS ORDERED: Succinylcholine 200 MG/10 ML MDV ONE (10:14)
[2021-09-24] MEDS ORDERED: Dexamethasone 4 MG/ML SDV ONE (10:14)
[2021-09-24] MEDS ORDERED: Rocuronium 50 MG/5 ML Vial ONE (10:14)
[2021-09-24] MEDS ORDERED: Neostigmine Methylsulfate 1 MG/ML 5 ML Syringe ONE (10:14)
[2021-09-24] MEDS ORDERED: Glycopyrrolate 0.2 MG/ML 5 ML MDV ONE (10:14)
[2021-09-24] MEDS ORDERED: fentaNYL 250 MCG/5 ML SDV ONE (10:14)
[2021-09-24] MEDS ORDERED: Ketamine 17 MG in Sodium Chloride 0.9% 19.83 ML IV SCH (11:30)
[2021-09-24] MEDS ORDERED: Ketamine 500 MG/5 ML MDV IV SCH (11:30)
[2021-09-24] MEDS ORDERED: Ropivacaine 28 ML, dexAMETHasone 8 MG, EPINEPHrine 0.4 MG, Sodium Chloride 0.9% 49.6 ML NERVRT SCH ×4 (11:30)
[2021-09-24] MEDS ORDERED: cefOXitin 2 GM in Sodium Chloride 0.9% 50 ML IV ONE (11:30)
[2021-09-24] MEDS ORDERED: ePHEDrine 50 MG/ML SDV ONE (12:37)
[2021-09-24] MEDS ORDERED: Sodium Chloride 0.9% 10 ML ONE (12:37)
[2021-09-24] MEDS ORDERED: diphenhydrAMINE 25 MG Cap PO PRN (12:49)
[2021-09-24] MEDS ORDERED: Naloxone 0.4 MG/ML SDV IVPUSH PRN (12:49)
[2021-09-24] MEDS ORDERED: Ondansetron 4 MG/2 ML SDV IVPUSH PRN ×2 (12:49→17:00)
[2021-09-24] MEDS ORDERED: diphenhydrAMINE 50 MG/ML SDV IVPUSH PRN ×2 (12:49→17:00)
[2021-09-24] MEDS: HYDROmorphone/Normal Saline 6 MG/30 ML PCA Vial IV PRN (12:57)
[2021-09-24] MEDS ORDERED: Lactated Ringers 1,000 ML ONE (12:58)
[2021-09-24] MEDS ORDERED: fentaNYL 100 MCG/2 ML SDV ONE (13:16)
[2021-09-24] MEDS ORDERED: Dextrose 5%-Lactated Ringers 1,000 ML IV SCH (16:15)
[2021-09-24] MEDS ORDERED: Cyclobenzaprine 10 MG Tab PO PRN (16:23)
[2021-09-24] MEDS ORDERED: Hyoscyamine 0.125 MG Tab.SL SL PRN (16:46)
[2021-09-24] MEDS ORDERED: hydrOXYzine HCL 100 MG/2 ML SDV IM PRN (17:00)
[2021-09-24] MEDS ORDERED: Labetalol 20 MG/4 ML Syringe IVPUSH PRN (17:00)
[2021-09-24] MEDS ORDERED: Albuterol/Ipratropium 3.0-0.5 MG/3 ML Neb Soln INH PRN (17:00)
[2021-09-24] MEDS ORDERED: Acetaminophen 500 MG Tab PO PRN (17:00)
[2021-09-24] MEDS: Insulin Lispro 100 Unit/ML 3 ML KwikPen SUBCUT SCH ×2 (17:02→22:22)
[2021-09-24] MEDS: cefOXitin 2 GM in Sodium Chloride 0.9% 50 ML IV SCH ×2 (18:08→23:22)
[2021-09-24] MEDS: AA 5%/Calcium/D15W/Lytes 2,000 ML with MVI, Adult with Vitamin K 10 ML, Zinc/Copper/Man... IV SCH ×3 (18:12)
[2021-09-24] MEDS: Sodium Chloride 0.9% 1,000 ML IV SCH (18:14)
[2021-09-24] MEDS: Acetaminophen 500 MG Tab PO SCH (18:31)
[2021-09-24] MEDS: Albuterol/Ipratropium 3.0-0.5 MG/3 ML Neb Soln INH SCH (21:11)
[2021-09-24] MEDS: atorvaSTATin 20 MG Tab PO SCH (21:11)
[2021-09-24] MEDS ORDERED: Insulin Lispro 100 Unit/ML 3 ML KwikPen SUBCUT SCH (22:00)
[2021-09-25] MEDS: Acetaminophen 500 MG Tab PO SCH ×3 (01:03→18:07)
[2021-09-25] MEDS ORDERED: Iopamidol 612 MG/ML 50 ML SDV PO ONE (03:55)
[2021-09-25] MEDS: cefOXitin 2 GM in Sodium Chloride 0.9% 50 ML IV SCH ×3 (05:05→17:16)
[2021-09-25] MEDS: Insulin Lispro 100 Unit/ML 3 ML KwikPen SUBCUT SCH ×4 (05:08→21:21)
[2021-09-25] MEDS ORDERED: Ondansetron 4 MG Tab.DIS PO PRN (07:42)
[2021-09-25] MEDS ORDERED: Central Total Parenteral Nutrition Bag SCH (07:45)
[2021-09-25] MEDS ORDERED: Dextrose 5%-Lactated Ringers 1,000 ML IV SCH (07:45)
[2021-09-25] MEDS: Albuterol/Ipratropium 3.0-0.5 MG/3 ML Neb Soln INH SCH ×4 (08:12→20:35)
[2021-09-25] MEDS ORDERED: Warfarin 2.5 MG Tab PO ONE (09:00)
[2021-09-25] MEDS: Famotidine 20 MG Tab PO SCH (09:36)
[2021-09-25] MEDS: HYDROmorphone/Normal Saline 6 MG/30 ML PCA Vial IV PRN (10:27)
[2021-09-25] MEDS: Sodium Chloride 0.9% 1,000 ML IV SCH (16:12)
[2021-09-25] MEDS: AA 5%/Calcium/D15W/Lytes 2,000 ML with MVI, Adult with Vitamin K 10 ML, Zinc/Copper/Man... IV SCH ×3 (18:04)
[2021-09-25] MEDS: atorvaSTATin 20 MG Tab PO SCH (20:43)
[2021-09-26] MEDS: Acetaminophen 500 MG Tab PO SCH ×3 (02:32→18:22)
[2021-09-26] MEDS: Insulin Lispro 100 Unit/ML 3 ML KwikPen SUBCUT SCH ×4 (04:20→21:37)
[2021-09-26] MEDS: Albuterol/Ipratropium 3.0-0.5 MG/3 ML Neb Soln INH SCH ×4 (07:00→20:44)
[2021-09-26] MEDS ORDERED: AA 5%/Calcium/D15W/Lytes 2,000 ML with MVI, Adult with Vitamin K 10 ML, Zinc/Copper/Man... IV SCH ×3 (08:45)
[2021-09-26] MEDS ORDERED: Cyanocobalamin (Vitamin B12) 1,000 MCG/ML SDV IM ONE (09:00)
[2021-09-26] MEDS: Famotidine 20 MG Tab PO SCH (10:17)
[2021-09-26] MEDS: Sodium Chloride 0.9% 1,000 ML IV SCH (13:00)
[2021-09-26] MEDS ORDERED: Warfarin 2.5 MG Tab PO ONE (13:00)
[2021-09-26] MEDS: atorvaSTATin 20 MG Tab PO SCH (20:53)
[2021-09-27] MEDS: Acetaminophen 500 MG Tab PO SCH ×3 (02:29→13:08)
[2021-09-27] MEDS: Insulin Lispro 100 Unit/ML 3 ML KwikPen SUBCUT SCH ×2 (04:02→13:08)
[2021-09-27] MEDS: Albuterol/Ipratropium 3.0-0.5 MG/3 ML Neb Soln INH SCH ×2 (07:05→10:43)
[2021-09-27] MEDS ORDERED: HYDROmorphone 2 MG Tab PO PRN (08:55)
[2021-09-27] MEDS: Famotidine 20 MG Tab PO SCH (08:57)
[2021-09-27 11:33] VITALS: BP 115/71; PULSE 109
== END 2021-09-27 13:45 | disposition home or self-care (01) | DRG 329 ==
LOC: JP.MS 09:29
PROVIDERS: ADMIT Surgery; ATTEND Surgery
PROC: 0DB80ZZ Excision of Small Intestine, Open Approach (ICD-10-PCS; principal; 2021-09-24)
PROC: 0WPF0JZ Removal of Synthetic Substitute from Abdominal Wall, Open Approach (ICD-10-PCS; 2021-09-24)
PROC: 0DS80ZZ Reposition Small Intestine, Open Approach (ICD-10-PCS; 2021-09-24)
PROC: 0WQF0ZZ Repair Abdominal Wall, Open Approach (ICD-10-PCS; 2021-09-24)
PROC: 3E0M05Z Introduction of Adhesion Barrier into Peritoneal Cavity, Open Approach (ICD-10-PCS; 2021-09-24)
PROC: 3E0336Z Introduction of Nutritional Substance into Peripheral Vein, Percutaneous Approach (ICD-10-PCS; 2021-09-26)
DX: K91.89 Other postprocedural complications and disorders of digestive system (principal); K56.2 Volvulus; K56.609 Unspecified intestinal obstruction, unspecified as to partial versus complete obstruction; E46 Unspecified protein-calorie malnutrition; Y83.8 Other surgical procedures as the cause of abnormal reaction of the patient, or of later complication, without mention of misadventure at the time of the procedure; Y82.8 Other medical devices associated with adverse incidents; Z20.822 Contact with and (suspected) exposure to COVID-19; K43.2 Incisional hernia without obstruction or gangrene; I25.10 Atherosclerotic heart disease of native coronary artery without angina pectoris; E78.00 Pure hypercholesterolemia, unspecified; K21.9 Gastro-esophageal reflux disease without esophagitis; G89.29 Other chronic pain; M54.9 Dorsalgia, unspecified; F41.9 Anxiety disorder, unspecified; F32.A Depression, unspecified; M81.0 Age-related osteoporosis without current pathological fracture; G43.909 Migraine, unspecified, not intractable, without status migrainosus; E11.9 Type 2 diabetes mellitus without complications; E55.9 Vitamin D deficiency, unspecified; F17.210 Nicotine dependence, cigarettes, uncomplicated; Z98.1 Arthrodesis status; Z86.010 Personal history of colon polyps; Z91.041 Radiographic dye allergy status; Z88.5 Allergy status to narcotic agent; Z88.8 Allergy status to other drugs, medicaments and biological substances; Z79.82 Long term (current) use of aspirin; Z79.899 Other long term (current) drug therapy; I25.2 Old myocardial infarction; Z95.5 Presence of coronary angioplasty implant and graft; Z90.710 Acquired absence of both cervix and uterus; Z98.891 History of uterine scar from previous surgery; Z90.49 Acquired absence of other specified parts of digestive tract; Z98.84 Bariatric surgery status; Z68.21 Body mass index [BMI] 21.0-21.9, adult
CPT/HCPCS: 0241U; 36415; 74176; 80053; 82728; 82947; 83735; 83880; 84100; 85025; 85027; 85610; A9270-GY; J0171; J0330; J0694; J1100; J1170; J1642; J1815; J2020; J2185; J2405; J2704; J2710; J2795; J3010; J3420; J3430; J3490; J7030; J7120; J7121

== ENCOUNTER 2021-12-03 16:41 | Emergency (ER) | payer MEDICAID ==
[2021-12-03] MEDS ORDERED: Aspirin 81 MG Tab.Chew PO ONE (17:02)
[2021-12-03] MEDS ORDERED: Morphine 4 MG/ML Syringe IVPUSH PRN (17:02)
[2021-12-03] MEDS ORDERED: Sodium Chloride 0.9% 10 ML Syringe FLUSH PRN (17:02)
[2021-12-03] MEDS ORDERED: Nitroglycerin 0.4 MG Tab.SL SL PRN (17:02)
[2021-12-03] MEDS ORDERED: Ondansetron 4 MG/2 ML SDV IVPUSH ONE (17:05)
[2021-12-03] MEDS ORDERED: Morphine 2 MG/ML SYRINGE IVPUSH PRN (17:20)
[2021-12-03 17:22] LABS: ESTIMATED GFR 78 mL/min (>60); TROPONIN I HIGH SENSITIVITY 4.1 pg/mL (<=60.3)
[2021-12-03 18:03] VITALS: BP 104/65; PULSE 87
== END 2021-12-03 18:11 | disposition home or self-care (01) ==
LOC: JP.ED 16:41
DX: R07.89 Other chest pain (principal); I25.10 Atherosclerotic heart disease of native coronary artery without angina pectoris; I10 Essential (primary) hypertension; I25.2 Old myocardial infarction; E11.9 Type 2 diabetes mellitus without complications; F17.210 Nicotine dependence, cigarettes, uncomplicated; Z91.041 Radiographic dye allergy status; Z88.8 Allergy status to other drugs, medicaments and biological substances; Z88.1 Allergy status to other antibiotic agents; Z79.899 Other long term (current) drug therapy; Z79.01 Long term (current) use of anticoagulants; Z86.16 Personal history of COVID-19; Z90.49 Acquired absence of other specified parts of digestive tract; Z90.710 Acquired absence of both cervix and uterus
CPT/HCPCS: 36415; 71045; 80053; 84484; 85025; 85379; 85610; 93005; 96374; 96375; 99285; A9270; J2270; J2405; 93010; 99283

== ENCOUNTER 2021-12-07 13:40 | Inpatient (IN) | payer MEDICAID ==
[2021-12-07] MEDS ORDERED: Acetaminophen 325 MG Tab PO PRN (14:48)
[2021-12-07] MEDS ORDERED: Acetaminophen 650 MG Supp RECTAL PRN (14:49)
[2021-12-07] MEDS ORDERED: Rizatriptan 10 MG Tab.DIS PO PRN (14:49)
[2021-12-07] MEDS ORDERED: Ondansetron 4 MG/2 ML SDV IVPUSH PRN (15:00)
[2021-12-07] MEDS ORDERED: Pantoprazole 40 MG Vial IV SCH (16:00)
[2021-12-07 16:06] LABS: ESTIMATED GFR 90 mL/min (>60)
[2021-12-07] MEDS: Dextrose 5%-Lactated Ringers 1,000 ML IV SCH (16:38)
[2021-12-07] MEDS: Famotidine 20 MG/2 ML SDV IV SCH (16:41)
[2021-12-07 16:49] LABS: HEMOGLOBIN A1C 5.3 % (4.5-6.2)
[2021-12-07] MEDS ORDERED: Warfarin 2.5 MG Tab PO SCH ×2 (17:00→21:00)
[2021-12-07] MEDS: Potassium Chloride 20 MEQ in Premix Bag 1 BAG IV SCH ×3 (17:00→21:44)
[2021-12-07] MEDS ORDERED: Potassium Chloride 20 MEQ, Lidocaine 1% 2 ML in Sodium Chloride 0.9% 100 ML IV SCH (17:30)
[2021-12-08] MEDS: Famotidine 20 MG/2 ML SDV IV SCH ×2 (04:01→16:55)
[2021-12-08] MEDS: Dextrose 5%-Lactated Ringers 1,000 ML IV SCH ×2 (06:10→14:04)
[2021-12-08] MEDS ORDERED: MVI, Adult with Vitamin K 10 ML, Thiamine 200 MG, Zinc/Copper/Manganese/Selenium 1 ML i... IV ONE ×4 (10:00)
[2021-12-08] MEDS ORDERED: Barium Sulfate 98% Powder for Susp 340 GM Bottle PO SCH (10:00)
[2021-12-08] MEDS ORDERED: 1: AA 5%/Calcium/D15W/Lytes 1,000 ML with MVI, Adult with Vitamin K 10 ML, Zinc/Copper/M IV SCH ×3 (11:00)
[2021-12-08] MEDS ORDERED: Fat Emulsion 100 ML IV SCH (16:00)
[2021-12-08] MEDS: Apixaban 5 MG Tab PO SCH (20:06)
[2021-12-09] MEDS: Dextrose 5%-Lactated Ringers 1,000 ML IV SCH ×2 (04:08→19:53)
[2021-12-09] MEDS: Famotidine 20 MG/2 ML SDV IV SCH ×2 (04:11→16:32)
[2021-12-09 05:13] LABS: ESTIMATED GFR 90 mL/min (>60)
[2021-12-09] MEDS ORDERED: Potassium Chloride 20 MEQ in Premix Bag 1 BAG IV ONE (09:00)
[2021-12-09] MEDS: Apixaban 5 MG Tab PO SCH (11:15)
[2021-12-09] MEDS ORDERED: Warfarin 5 MG Tab PO SCH ×2 (13:00→21:00)
[2021-12-10] MEDS: Famotidine 20 MG/2 ML SDV IV SCH ×2 (03:11→17:09)
[2021-12-10 05:11] LABS: ESTIMATED GFR 110 mL/min (>60)
[2021-12-10] MEDS ORDERED: Ketamine 500 MG/5 ML MDV IV SCH ×3 (08:00)
[2021-12-10] MEDS ORDERED: cefOXitin 2 GM in Sodium Chloride 0.9% 50 ML IV ONE (08:00)
[2021-12-10] MEDS ORDERED: Ketamine 14 MG in Sodium Chloride 0.9% 19.86 ML IV SCH (08:00)
[2021-12-10] MEDS: Dextrose 5%-Lactated Ringers 1,000 ML IV SCH (09:13)
[2021-12-10] MEDS: Potassium Phos in 0.9 % NaCl 15 MMOL in Premix Bag 1 BAG IV SCH ×4 (09:14→12:13)
[2021-12-10] MEDS ORDERED: Ondansetron 4 MG/2 ML SDV ONE (10:03)
[2021-12-10] MEDS ORDERED: Neostigmine Methylsulfate 1 MG/ML 5 ML Syringe ONE (10:03)
[2021-12-10] MEDS ORDERED: Glycopyrrolate 0.2 MG/ML 5 ML MDV ONE (10:03)
[2021-12-10] MEDS ORDERED: Succinylcholine 200 MG/10 ML MDV ONE (10:03)
[2021-12-10] MEDS ORDERED: Dexamethasone 4 MG/ML SDV ONE (10:03)
[2021-12-10] MEDS ORDERED: Rocuronium 50 MG/5 ML Vial ONE (10:03)
[2021-12-10] MEDS ORDERED: Propofol 200 MG/20 ML SDV ONE (10:03)
[2021-12-10] MEDS ORDERED: fentaNYL 250 MCG/5 ML SDV ONE ×2 (10:03→10:08)
[2021-12-10] MEDS ORDERED: Ketorolac 30 MG/ML SDV ONE (10:23)
[2021-12-10] MEDS ORDERED: ePHEDrine 50 MG/ML SDV ONE (14:39)
[2021-12-10] MEDS ORDERED: Linezolid 600 MG/300 ML Premix Bag IRR ONE (15:13)
[2021-12-10] MEDS ORDERED: Meropenem 500 MG SDV IRR ONE (15:13)
[2021-12-10] MEDS ORDERED: Lidocaine 1% 50 ML MDV INJECT ONE ×2 (15:21)
[2021-12-10] MEDS ORDERED: Bupivacaine 0.5%/EPINEPHrine 1:200,000 30 ML SDV INJECT ONE ×2 (15:22)
[2021-12-10] MEDS ORDERED: fentaNYL 100 MCG/2 ML SDV ONE (15:32)
[2021-12-10] MEDS ORDERED: diphenhydrAMINE 50 MG/ML SDV IVPUSH PRN ×2 (15:52→18:00)
[2021-12-10] MEDS ORDERED: Ondansetron 4 MG/2 ML SDV IVPUSH PRN (15:52)
[2021-12-10] MEDS ORDERED: diphenhydrAMINE 25 MG Cap PO PRN (15:52)
[2021-12-10] MEDS ORDERED: Naloxone 0.4 MG/ML SDV IVPUSH PRN (15:52)
[2021-12-10] MEDS: HYDROmorphone/Normal Saline 6 MG/30 ML PCA Vial IV PRN (15:58)
[2021-12-10] MEDS ORDERED: Naloxone 0.4 MG/ML SDV IV PRN (16:00)
[2021-12-10] MEDS ORDERED: Dextrose 5%-Lactated Ringers 1,000 ML IV SCH (17:00)
[2021-12-10] MEDS ORDERED: Cyclobenzaprine 10 MG Tab PO PRN (17:01)
[2021-12-10] MEDS ORDERED: Metoclopramide 10 MG/2 ML SDV IVPUSH PRN (18:00)
[2021-12-10] MEDS ORDERED: hydrOXYzine HCL 100 MG/2 ML SDV IM PRN (18:00)
[2021-12-10] MEDS ORDERED: Albuterol/Ipratropium 3.0-0.5 MG/3 ML Neb Soln INH PRN (18:00)
[2021-12-10] MEDS ORDERED: Acetaminophen 500 MG Tab PO PRN (18:00)
[2021-12-10] MEDS ORDERED: MVI, Adult with Vitamin K 10 ML, Thiamine 200 MG, Zinc/Copper/Manganese/Selenium 1 ML i... IV SCH ×4 (18:00)
[2021-12-10] MEDS ORDERED: Labetalol 20 MG/4 ML Syringe IVPUSH PRN (18:00)
[2021-12-10] MEDS: Acetaminophen 500 MG Tab PO SCH (18:23)
[2021-12-10] MEDS: cefOXitin 2 GM in Sodium Chloride 0.9% 50 ML IV SCH (19:05)
[2021-12-10] MEDS: Albuterol/Ipratropium 3.0-0.5 MG/3 ML Neb Soln INH SCH (21:11)
[2021-12-10] MEDS: Apixaban 5 MG Tab PO SCH (21:12)
[2021-12-11] MEDS: cefOXitin 2 GM in Sodium Chloride 0.9% 50 ML IV SCH ×4 (02:20→20:09)
[2021-12-11] MEDS: Acetaminophen 500 MG Tab PO SCH ×3 (02:23→17:03)
[2021-12-11] MEDS: Famotidine 20 MG/2 ML SDV IV SCH ×2 (03:32→17:03)
[2021-12-11 05:21] LABS: ESTIMATED GFR 78 mL/min (>60)
[2021-12-11] MEDS: Albuterol/Ipratropium 3.0-0.5 MG/3 ML Neb Soln INH SCH ×4 (07:05→21:31)
[2021-12-11] MEDS: Apixaban 5 MG Tab PO SCH (09:25)
[2021-12-11] MEDS: Magnesium Sulfate/Water 2 GM/50 ML BAG IV SCH ×3 (09:26→21:31)
[2021-12-11] MEDS: Dextrose 5%-Lactated Ringers 1,000 ML IV SCH (12:38)
[2021-12-11] MEDS ORDERED: MVI, Adult with Vitamin K 10 ML, Thiamine 200 MG, Zinc/Copper/Manganese/Selenium 1 ML i... IV SCH ×4 (16:00)
[2021-12-11] MEDS: HYDROmorphone/Normal Saline 6 MG/30 ML PCA Vial IV PRN (19:15)
[2021-12-12] MEDS: cefOXitin 2 GM in Sodium Chloride 0.9% 50 ML IV SCH (01:17)
[2021-12-12] MEDS: Acetaminophen 500 MG Tab PO SCH ×3 (01:18→17:40)
[2021-12-12] MEDS: Magnesium Sulfate/Water 2 GM/50 ML BAG IV SCH ×5 (02:32→21:56)
[2021-12-12] MEDS: Famotidine 20 MG/2 ML SDV IV SCH ×3 (02:38→16:18)
[2021-12-12] MEDS: Dextrose 5%-Lactated Ringers 1,000 ML IV SCH ×2 (04:19→16:03)
[2021-12-12 05:15] LABS: ESTIMATED GFR 90 mL/min (>60)
[2021-12-12] MEDS ORDERED: Lidocaine 1% with EPINEPHrine 1:100,000 50 ML MDV ONE (06:47)
[2021-12-12] MEDS ORDERED: Meropenem 500 MG SDV ONE (06:47)
[2021-12-12] MEDS ORDERED: Bupivacaine 0.5% 30 ML SDV ONE (06:47)
[2021-12-12] MEDS: Albuterol/Ipratropium 3.0-0.5 MG/3 ML Neb Soln INH SCH ×4 (07:15→20:20)
[2021-12-12] MEDS ORDERED: Propofol 200 MG/20 ML SDV ONE ×2 (07:58→09:12)
[2021-12-12] MEDS ORDERED: Cyanocobalamin (Vitamin B12) 1,000 MCG/ML SDV IM ONE (09:00)
[2021-12-12] MEDS ORDERED: Lactated Ringers 1,000 ML ONE (09:28)
[2021-12-12] MEDS: Apixaban 5 MG Tab PO SCH ×2 (10:15→20:20)
[2021-12-12] MEDS: HYDROmorphone/Normal Saline 6 MG/30 ML PCA Vial IV PRN (14:43)
[2021-12-13] MEDS: Acetaminophen 500 MG Tab PO SCH (01:50)
[2021-12-13] MEDS: Dextrose 5%-Lactated Ringers 1,000 ML IV SCH ×2 (01:51→16:09)
[2021-12-13] MEDS: Famotidine 20 MG/2 ML SDV IV SCH ×2 (04:31→16:01)
[2021-12-13] MEDS: Magnesium Sulfate/Water 2 GM/50 ML BAG IV SCH ×4 (04:31→22:07)
[2021-12-13 04:57] LABS: ESTIMATED GFR 106 mL/min (>60)
[2021-12-13] MEDS: Albuterol/Ipratropium 3.0-0.5 MG/3 ML Neb Soln INH SCH ×4 (07:08→20:20)
[2021-12-13] MEDS ORDERED: Albumin Human 25 GM in Premix Bag 1 BAG IV ONE (08:30)
[2021-12-13] MEDS: Apixaban 5 MG Tab PO SCH ×2 (09:03→20:20)
[2021-12-13] MEDS: Acetaminophen/HYDROcodone 325-5 MG Tab PO PRN ×2 (11:32→18:45)
[2021-12-13] MEDS ORDERED: Loperamide 2 MG Cap PO PRN (21:18)
[2021-12-14] MEDS: Famotidine 20 MG/2 ML SDV IV SCH (03:41)
[2021-12-14] MEDS: Magnesium Sulfate/Water 2 GM/50 ML BAG IV SCH (03:42)
[2021-12-14] MEDS: Dextrose 5%-Lactated Ringers 1,000 ML IV SCH (05:08)
[2021-12-14 05:19] LABS: ESTIMATED GFR 110 mL/min (>60)
[2021-12-14] MEDS: Albuterol/Ipratropium 3.0-0.5 MG/3 ML Neb Soln INH SCH (06:58)
[2021-12-14 07:02] VITALS: BP 110/69; PULSE 85
[2021-12-14] MEDS: Apixaban 5 MG Tab PO SCH (08:30)
[2021-12-14] MEDS ORDERED: Famotidine 20 MG Tab PO SCH (21:00)
== END 2021-12-14 10:00 | disposition home health service (06) | DRG 264 ==
LOC: JP.MS 14:37
PROVIDERS: ADMIT Surgery; ATTEND Surgery
PROC: 0DB80ZZ Excision of Small Intestine, Open Approach (ICD-10-PCS; principal; 2021-12-10)
PROC: 0DQ80ZZ Repair Small Intestine, Open Approach (ICD-10-PCS; 2021-12-10)
PROC: 02PY33Z Removal of Infusion Device from Great Vessel, Percutaneous Approach (ICD-10-PCS; 2021-12-10)
PROC: 0DH60UZ Insertion of Feeding Device into Stomach, Open Approach (ICD-10-PCS; 2021-12-10)
PROC: 3E0G76Z Introduction of Nutritional Substance into Upper GI, Via Natural or Artificial Opening (ICD-10-PCS; 2021-12-10)
PROC: 3E0M05Z Introduction of Adhesion Barrier into Peritoneal Cavity, Open Approach (ICD-10-PCS; 2021-12-10)
PROC: 0WQF0ZZ Repair Abdominal Wall, Open Approach (ICD-10-PCS; 2021-12-12)
DX: T82.868A Thrombosis due to vascular prosthetic devices, implants and grafts, initial encounter (principal); K56.600 Partial intestinal obstruction, unspecified as to cause; E44.0 Moderate protein-calorie malnutrition; K50.90 Crohn's disease, unspecified, without complications; K95.89 Other complications of other bariatric procedure; K56.1 Intussusception; Y83.8 Other surgical procedures as the cause of abnormal reaction of the patient, or of later complication, without mention of misadventure at the time of the procedure; H54.7 Unspecified visual loss; I25.10 Atherosclerotic heart disease of native coronary artery without angina pectoris; E78.00 Pure hypercholesterolemia, unspecified; K52.9 Noninfective gastroenteritis and colitis, unspecified; K21.9 Gastro-esophageal reflux disease without esophagitis; K44.9 Diaphragmatic hernia without obstruction or gangrene; M54.9 Dorsalgia, unspecified; G89.29 Other chronic pain; G43.909 Migraine, unspecified, not intractable, without status migrainosus; E11.40 Type 2 diabetes mellitus with diabetic neuropathy, unspecified; F17.210 Nicotine dependence, cigarettes, uncomplicated; F41.9 Anxiety disorder, unspecified; F31.9 Bipolar disorder, unspecified; F43.10 Post-traumatic stress disorder, unspecified; E55.9 Vitamin D deficiency, unspecified; Z86.16 Personal history of COVID-19; D64.9 Anemia, unspecified; Z86.19 Personal history of other infectious and parasitic diseases; Z90.89 Acquired absence of other organs; I25.2 Old myocardial infarction; Z87.440 Personal history of urinary (tract) infections; Z98.1 Arthrodesis status; Z91.09 Other allergy status, other than to drugs and biological substances; Z88.8 Allergy status to other drugs, medicaments and biological substances; Z79.01 Long term (current) use of anticoagulants; Z79.899 Other long term (current) drug therapy; Z98.84 Bariatric surgery status; Z90.49 Acquired absence of other specified parts of digestive tract; Z90.710 Acquired absence of both cervix and uterus; Z68.20 Body mass index [BMI] 20.0-20.9, adult
CPT/HCPCS: 36415; 74240; 74240-26; 74248; 80053; 82306; 82525; 82607; 82728; 82746; 82947; 83036; 83735; 83880; 84100; 84425; 84590; 84630; 85025; 85027; 85610; 88307; 93971-26; 93971-LT; 94640; A9270-GY; J0171; J0330; J0694; J1100; J1170; J1642; J1885; J2001; J2020; J2185; J2405; J2704; J2710; J2795; J3010; J3411; J3420; J3475; J3480; J3490; J7120; J7121; J7620; P9047

== ENCOUNTER → 2022-02-18 | Day surgery (SDC) | payer MEDICAID ==
[~2022-02-18] MED LIST changes: +Dextrose 5%-Lactated Ringers 1,000 ML IV SCH; +MVI, Adult with Vitamin K 10 ML, Thiamine 200 MG, Zinc/Copper/Manganese/Selenium 1 ML i... IV ONE
== END ==
LOC: JP.SDS 06:00
PROVIDERS: ATTEND Surgery
DX: R13.10 Dysphagia, unspecified (principal); I10 Essential (primary) hypertension; K21.9 Gastro-esophageal reflux disease without esophagitis; K58.9 Irritable bowel syndrome, unspecified; E11.9 Type 2 diabetes mellitus without complications; J45.909 Unspecified asthma, uncomplicated; Z79.899 Other long term (current) drug therapy; Z88.8 Allergy status to other drugs, medicaments and biological substances; Z91.041 Radiographic dye allergy status; Z88.7 Allergy status to serum and vaccine; Z88.5 Allergy status to narcotic agent; Z88.6 Allergy status to analgesic agent
CPT/HCPCS: 43235; J2250; J2704; J3010; J3411; J7120; J7121

== ENCOUNTER → 2022-02-19 | Day surgery (SDC) | payer MEDICAID ==
[~2022-02-19] MED LIST changes: +Bupivacaine 0.5% 50 ML MDV ONE; +Dextrose 5%-Lactated Ringers 1,000 ML IV ONE; -Dextrose 5%-Lactated Ringers 1,000 ML IV SCH; +Lidocaine 1% with EPINEPHrine 1:100,000 50 ML MDV ONE; -MVI, Adult with Vitamin K 10 ML, Thiamine 200 MG, Zinc/Copper/Manganese/Selenium 1 ML i... IV ONE; +MVI, Adult with Vitamin K 10 ML, Zinc/Copper/Manganese/Selenium 1 ML, Thiamine 100 MG i... IV ONE; +ePHEDrine 50 MG/ML SDV ONE
== END ==
LOC: JP.SDS 07:00
PROVIDERS: ATTEND Surgery
DX: Z43.1 Encounter for attention to gastrostomy (principal); I10 Essential (primary) hypertension; F31.9 Bipolar disorder, unspecified; E11.9 Type 2 diabetes mellitus without complications; Z88.8 Allergy status to other drugs, medicaments and biological substances; Z91.041 Radiographic dye allergy status; Z88.7 Allergy status to serum and vaccine
CPT/HCPCS: 36558; 76000; J2020; J2250; J2704; J3010; J3411; J3490; J7120; J7121

== ENCOUNTER 2022-02-20 09:55 | Emergency (ER) | payer MEDICAID | END 2022-02-20 10:10 | disposition home or self-care (01) | LOC: JP.ED 09:55 | DX: Z48.01 Encounter for change or removal of surgical wound dressing (principal) | CPT/HCPCS: 99281 ==

== ENCOUNTER → 2022-05-14 | Day surgery (SDC) | payer MEDICAID ==
[~2022-05-14] MED LIST changes: -Bupivacaine 0.5% 50 ML MDV ONE; -Dextrose 5%-Lactated Ringers 1,000 ML IV ONE; +Dextrose 5%-Lactated Ringers 1,000 ML IV SCH; -Lidocaine 1% with EPINEPHrine 1:100,000 50 ML MDV ONE; -MVI, Adult with Vitamin K 10 ML, Zinc/Copper/Manganese/Selenium 1 ML, Thiamine 100 MG i... IV ONE; -ePHEDrine 50 MG/ML SDV ONE
[2022-05-14 10:56] VITALS: BP 106/54; PULSE 74
== END ==
LOC: JP.SDS 08:02
PROVIDERS: ATTEND Surgery
DX: R13.10 Dysphagia, unspecified (principal); K56.609 Unspecified intestinal obstruction, unspecified as to partial versus complete obstruction; I10 Essential (primary) hypertension; K21.9 Gastro-esophageal reflux disease without esophagitis; E11.9 Type 2 diabetes mellitus without complications; Z79.899 Other long term (current) drug therapy; Z88.8 Allergy status to other drugs, medicaments and biological substances; Z91.041 Radiographic dye allergy status; Z88.5 Allergy status to narcotic agent; Z88.6 Allergy status to analgesic agent; Z88.4 Allergy status to anesthetic agent
CPT/HCPCS: 43235; J1642; J2250; J2704; J3010; J7121

== ENCOUNTER 2022-08-16 00:04 | Emergency (ER) | payer MEDICAID ==
[2022-08-16 00:16] VITALS: BP 117/61; PULSE 81
== END 2022-08-16 01:10 | disposition home or self-care (01) ==
LOC: JP.ED 00:04
DX: S93.491A Sprain of other ligament of right ankle, initial encounter (principal); I25.10 Atherosclerotic heart disease of native coronary artery without angina pectoris; I10 Essential (primary) hypertension; I25.2 Old myocardial infarction; E11.9 Type 2 diabetes mellitus without complications; F17.210 Nicotine dependence, cigarettes, uncomplicated; Z91.041 Radiographic dye allergy status; Z88.1 Allergy status to other antibiotic agents; Z88.8 Allergy status to other drugs, medicaments and biological substances; Z86.16 Personal history of COVID-19; Z90.49 Acquired absence of other specified parts of digestive tract; Z90.710 Acquired absence of both cervix and uterus; X50.1XXA Overexertion from prolonged static or awkward postures, initial encounter
CPT/HCPCS: 73610-26-RT; 73610-RT; 73630-26-RT; 73630-RT; 99283

== ENCOUNTER 2022-10-24 17:07 | Emergency (ER) | payer MEDICAID ==
[2022-10-24 17:29] VITALS: BP 109/57; PULSE 88
== END 2022-10-24 18:44 | disposition left against medical advice (07) ==
LOC: JP.ED 17:07
DX: R69 Illness, unspecified (principal); I25.10 Atherosclerotic heart disease of native coronary artery without angina pectoris; I10 Essential (primary) hypertension; I25.2 Old myocardial infarction; E11.40 Type 2 diabetes mellitus with diabetic neuropathy, unspecified; Z86.16 Personal history of COVID-19; Z91.041 Radiographic dye allergy status; Z88.8 Allergy status to other drugs, medicaments and biological substances; Z88.1 Allergy status to other antibiotic agents; F17.210 Nicotine dependence, cigarettes, uncomplicated; X58.XXXA Exposure to other specified factors, initial encounter
CPT/HCPCS: 99283

== ENCOUNTER 2022-11-18 07:14 | Inpatient (IN) | payer MEDICAID ==
[~2022-11-18 07:14] MED LIST changes: -Dextrose 5%-Lactated Ringers 1,000 ML IV SCH
[2022-11-18 07:33] LABS: HEMATOCRIT 40.8 % (34.3-46.0); HEMOGLOBIN 13.9 g/dL (11.2-15.5); MEAN CORPUSCULAR HGB CONC 34.1 g/dL (31.6-35.5); MEAN CORPUSCULAR VOLUME 90.9 fL (81.4-99.0); RED BLOOD CELL COUNT 4.49 M/uL (3.77-5.24); WHITE BLOOD CELL COUNT,WBC 6.6 K/uL (3.2-11.0)
[2022-11-18] MEDS ORDERED: Dextrose 5%-Lactated Ringers 1,000 ML IV SCH (07:45)
[2022-11-18] MEDS: Bupivacaine 0.5% 50 ML MDV ONE ×2 (07:47→09:25)
[2022-11-18] MEDS: Lidocaine 1% with EPINEPHrine 1:100,000 50 ML MDV ONE ×2 (07:48→09:25)
[2022-11-18 08:12] LABS: ALANINE AMINOTRANSFERASE,ALT 24 U/L (12-78); ALBUMIN 3.6 g/dL (3.4-5.0); ALKALINE PHOSPHATASE 116 U/L (46-116); ASPARTATE AMNIOTRANSFERASE,AST 20 U/L (15-37); BILIRUBIN TOTAL 0.5 mg/dL (0.2-1.0); BLOOD UREA NITROGEN,BUN 11 mg/dL (7-18); CARBON DIOXIDE,CO2 31 mmol/L (21-32); CHLORIDE,CL 97 mmol/L (100-108); CREATININE 0.8 mg/dL (0.6-1.0); EST CRCL DRUG DOSING (CG) 58.56 mL/min; ESTIMATED GFR 90 mL/min (>60); FERRITIN 94 ng/ml (8-388); GLUCOSE RANDOM 96 mg/dL (74-106); MAGNESIUM 1.8 mg/dL (1.8-2.4); PHOSPHORUS 4.7 mg/dL (2.5-4.9); POTASSIUM,K 4.2 mmol/L (3.6-5.2); PRO B-TYPE NATRIUR PEPT,BNPPRO 25 pg/mL (5-125); PROTEIN TOTAL,TP 7.2 g/dL (6.4-8.2); SODIUM,NA 135 mmol/L (140-148)
[2022-11-18 08:13] LABS: ANION GAP 11.2 mmol/L (5.0-14.0)
[2022-11-18] MEDS ORDERED: cefOXitin 2 GM in Sodium Chloride 0.9% 50 ML IV ONE (08:15)
[2022-11-18] MEDS ORDERED: LORazepam 1 MG Tab PO PRN (11:08)
[2022-11-18] MEDS ORDERED: HYDROmorphone 1 MG/ML Syringe IV PRN (12:00)
[2022-11-18] MEDS: Folic Acid 1 MG Tab PO SCH (12:35)
[2022-11-18] MEDS: Vitamin A 10,000 Unit Cap PO SCH (12:35)
[2022-11-18] MEDS: Sodium Chloride 0.9% 1,000 ML IV SCH (13:02)
[2022-11-18] MEDS: Ergocalciferol (Vitamin D2) 1.25 MG Cap PO SCH (14:03)
[2022-11-18] MEDS: HYDROmorphone 0.5 MG/0.5 ML Syringe IVPUSH PRN ×2 (15:21→17:43)
[2022-11-18] MEDS: 1: AA 4.25%/Calcium/D10W/Lytes 1,000 ML with MVI, Adult with Vitamin K 10 ML, Zinc/Coppe IV SCH ×3 (16:37)
[2022-11-18] MEDS: Fat Emulsion 100 ML IV SCH (16:38)
[2022-11-19 04:40] LABS: HEMATOCRIT 32.3 % (34.3-46.0); HEMOGLOBIN 10.8 g/dL (11.2-15.5); MEAN CORPUSCULAR HEMOGLOBIN 30.4 pg (31.6-35.5); MEAN CORPUSCULAR HGB CONC 33.4 g/dL (31.6-35.5); RED BLOOD CELL COUNT 3.55 M/uL (3.77-5.24); WHITE BLOOD CELL COUNT,WBC 3.9 K/uL (3.2-11.0)
[2022-11-19 05:08] LABS: A/G RATIO 0.9 (1.2-2.2); ALANINE AMINOTRANSFERASE,ALT 20 U/L (12-78); ALBUMIN 2.7 g/dL (3.4-5.0); ALKALINE PHOSPHATASE 92 U/L (46-116); ASPARTATE AMNIOTRANSFERASE,AST 15 U/L (15-37); BILIRUBIN TOTAL 0.3 mg/dL (0.2-1.0); BLOOD UREA NITROGEN,BUN 11 mg/dL (7-18); CALCIUM 8.4 mg/dL (8.5-10.1); CARBON DIOXIDE,CO2 30 mmol/L (21-32); CHLORIDE,CL 104 mmol/L (100-108); CREATININE 0.6 mg/dL (0.6-1.0); EST CRCL DRUG DOSING (CG) 81.29 mL/min; ESTIMATED GFR 109 mL/min (>60); GLUCOSE RANDOM 101 mg/dL (74-106); MAGNESIUM 1.9 mg/dL (1.8-2.4); PHOSPHORUS 4.7 mg/dL (2.5-4.9); POTASSIUM,K 4.2 mmol/L (3.6-5.2); PROTEIN TOTAL,TP 5.6 g/dL (6.4-8.2); SODIUM,NA 139 mmol/L (140-148); TRIGLYCERIDES 60 mg/dL (15-150)
[2022-11-19 05:12] LABS: ANION GAP 9.2 mmol/L (5.0-14.0)
[2022-11-19] MEDS: 1: AA 4.25%/Calcium/D10W/Lytes 1,000 ML with MVI, Adult with Vitamin K 10 ML, Zinc/Coppe IV SCH ×6 (07:58→23:22)
[2022-11-19] MEDS: Vitamin A 10,000 Unit Cap PO SCH (08:48)
[2022-11-19] MEDS: Folic Acid 1 MG Tab PO SCH (08:48)
[2022-11-19] MEDS: Fat Emulsion 100 ML IV SCH (15:36)
[2022-11-19] MEDS: Sodium Chloride 0.9% 1,000 ML IV SCH (23:14)
[2022-11-20 04:40] LABS: BASOPHILS PERCENT AUTO 0.3 % (0.1-1.3); EOSINOPHILS ABSOLUTE AUTO 0.07 K/uL (0.00-0.40); EOSINOPHILS PERCENT AUTO 1.9 % (0.0-5.4); HEMATOCRIT 31.8 % (34.3-46.0); HEMOGLOBIN 10.8 g/dL (11.2-15.5); LYMPHOCYTES ABSOLUTE AUTO 1.65 K/uL (0.8-3.3); LYMPHOCYTES PERCENT AUTO 44.2 % (11.4-47.7); MEAN CORPUSCULAR HEMOGLOBIN 31.1 pg (31.6-35.5); MEAN CORPUSCULAR VOLUME 91.6 fL (81.4-99.0); MONOCYTES ABSOLUTE AUTO 0.32 K/uL (0.20-0.90); MONOCYTES PERCENT AUTO 8.6 % (3.3-12.6); NEUTROPHILS ABSOLUTE AUTO 1.68 K/uL (1.0-7.6); PLATELET COUNT,PLT 164 K/uL (130-375); RED BLOOD CELL COUNT 3.47 M/uL (3.77-5.24); WHITE BLOOD CELL COUNT,WBC 3.7 K/uL (3.2-11.0)
[2022-11-20 04:44] LABS: BASOPHILS ABSOLUTE AUTO 0.01 K/uL (0.00-0.10)
[2022-11-20 05:03] LABS: A/G RATIO 0.9 (1.2-2.2); ALANINE AMINOTRANSFERASE,ALT 22 U/L (12-78); ALBUMIN 2.7 g/dL (3.4-5.0); ALKALINE PHOSPHATASE 88 U/L (46-116); ASPARTATE AMNIOTRANSFERASE,AST 15 U/L (15-37); BILIRUBIN TOTAL 0.2 mg/dL (0.2-1.0); BLOOD UREA NITROGEN,BUN 13 mg/dL (7-18); CALCIUM 8.1 mg/dL (8.5-10.1); CARBON DIOXIDE,CO2 29 mmol/L (21-32); CHLORIDE,CL 104 mmol/L (100-108); CREATININE 0.6 mg/dL (0.6-1.0); EST CRCL DRUG DOSING (CG) 81.29 mL/min; ESTIMATED GFR 109 mL/min (>60); GLUCOSE RANDOM 90 mg/dL (74-106); MAGNESIUM 1.8 mg/dL (1.8-2.4); PHOSPHORUS 3.6 mg/dL (2.5-4.9); POTASSIUM,K 3.5 mmol/L (3.6-5.2); PROTEIN TOTAL,TP 5.8 g/dL (6.4-8.2); SODIUM,NA 139 mmol/L (140-148)
[2022-11-20 05:17] LABS: ANION GAP 9.5 mmol/L (5.0-14.0)
[2022-11-20] MEDS: Vitamin A 10,000 Unit Cap PO SCH (10:04)
[2022-11-20] MEDS: Folic Acid 1 MG Tab PO SCH (10:04)
[2022-11-20] MEDS: Ergocalciferol (Vitamin D2) 1.25 MG Cap PO SCH (14:22)
[2022-11-20] MEDS: LYTES IV SCH ×6 (14:23→16:48)
[2022-11-20] MEDS: [UNRECOGNIZED DRUG - OTHER] IV SCH ×6 (14:23→16:48)
[2022-11-20] MEDS: VITAMIN K IV SCH ×6 (14:23→16:48)
[2022-11-20] MEDS: CALCIUM IV SCH ×6 (14:23→16:48)
[2022-11-20] MEDS: MVI IV SCH ×6 (14:23→16:48)
[2022-11-20] MEDS: D10 IV SCH ×6 (14:23→16:48)
[2022-11-20] MEDS: 1: AA 4.25%/Calcium/D10W/Lytes 1,000 ML with MVI, Adult with Vitamin K 10 ML, Zinc/Coppe IV SCH ×3 (15:15)
[2022-11-20] MEDS: Fat Emulsion 100 ML IV SCH (16:56)
[2022-11-20] MEDS: HYDROmorphone 0.5 MG/0.5 ML Syringe IVPUSH PRN ×2 (17:05→21:52)
[2022-11-21 04:22] LABS: BASOPHILS PERCENT AUTO 0.5 % (0.1-1.3); EOSINOPHILS ABSOLUTE AUTO 0.04 K/uL (0.00-0.40); EOSINOPHILS PERCENT AUTO 1.9 % (0.0-5.4); HEMATOCRIT 30.6 % (34.3-46.0); HEMOGLOBIN 10.6 g/dL (11.2-15.5); LYMPHOCYTES ABSOLUTE AUTO 1.08 K/uL (0.8-3.3); LYMPHOCYTES PERCENT AUTO 52.4 % (11.4-47.7); MEAN CORPUSCULAR HEMOGLOBIN 31.5 pg (31.6-35.5); MEAN CORPUSCULAR HGB CONC 34.6 g/dL (31.6-35.5); MEAN CORPUSCULAR VOLUME 90.8 fL (81.4-99.0); MONOCYTES ABSOLUTE AUTO 0.24 K/uL (0.20-0.90); MONOCYTES PERCENT AUTO 11.7 % (3.3-12.6); NEUTROPHILS ABSOLUTE AUTO 0.69 K/uL (1.0-7.6); NEUTROPHILS PERCENT AUTO 33.5 % (40.0-78.1); PLATELET COUNT,PLT 143 K/uL (130-375); RED BLOOD CELL COUNT 3.37 M/uL (3.77-5.24); WHITE BLOOD CELL COUNT,WBC 2.1 K/uL (3.2-11.0)
[2022-11-21 04:35] LABS: BASOPHILS ABSOLUTE AUTO 0.01 K/uL (0.00-0.10)
[2022-11-21 05:06] LABS: A/G RATIO 0.9 (1.2-2.2); ALANINE AMINOTRANSFERASE,ALT 330 U/L (12-78); ALBUMIN 2.7 g/dL (3.4-5.0); ALKALINE PHOSPHATASE 204 U/L (46-116); ASPARTATE AMNIOTRANSFERASE,AST 608 U/L (15-37); BILIRUBIN TOTAL 0.3 mg/dL (0.2-1.0); BLOOD UREA NITROGEN,BUN 15 mg/dL (7-18); CALCIUM 8.3 mg/dL (8.5-10.1); CARBON DIOXIDE,CO2 31 mmol/L (21-32); CHLORIDE,CL 102 mmol/L (100-108); CREATININE 0.6 mg/dL (0.6-1.0); EST CRCL DRUG DOSING (CG) 81.85 mL/min; ESTIMATED GFR 109 mL/min (>60); GLUCOSE RANDOM 86 mg/dL (74-106); MAGNESIUM 1.7 mg/dL (1.8-2.4); PHOSPHORUS 4.9 mg/dL (2.5-4.9); PROTEIN TOTAL,TP 5.7 g/dL (6.4-8.2); SODIUM,NA 138 mmol/L (140-148)
[2022-11-21 09:28] VITALS: BP 95/56; PULSE 75
[2022-11-21] MEDS: Folic Acid 1 MG Tab PO SCH (09:31)
[2022-11-21] MEDS: Vitamin A 10,000 Unit Cap PO SCH (09:31)
== END 2022-11-21 14:25 | disposition home or self-care (01) | DRG 641 ==
LOC: JP.SDS 07:14 → JP.2SS 10:10
PROVIDERS: ADMIT Surgery; ATTEND Surgery
PROC: 05H533Z Insertion of Infusion Device into Right Subclavian Vein, Percutaneous Approach (ICD-10-PCS; principal; 2022-11-18)
DX: E46 Unspecified protein-calorie malnutrition (principal); Z68.1 Body mass index [BMI] 19.9 or less, adult; E11.9 Type 2 diabetes mellitus without complications; E78.5 Hyperlipidemia, unspecified; F43.10 Post-traumatic stress disorder, unspecified; F31.9 Bipolar disorder, unspecified; I25.119 Atherosclerotic heart disease of native coronary artery with unspecified angina pectoris; G43.909 Migraine, unspecified, not intractable, without status migrainosus; E66.9 Obesity, unspecified; G47.33 Obstructive sleep apnea (adult) (pediatric); K21.9 Gastro-esophageal reflux disease without esophagitis; I10 Essential (primary) hypertension; F41.1 Generalized anxiety disorder; Z98.890 Other specified postprocedural states; Z79.899 Other long term (current) drug therapy; Z88.8 Allergy status to other drugs, medicaments and biological substances; Z98.1 Arthrodesis status
CPT/HCPCS: 36415; 77001; 80053; 82728; 83735; 83880; 84100; 84478; 85025; 85027; A9270-GY; J0694; J1170; J1642; J2250; J2704; J3010; J3490; J7030; J7121

== ENCOUNTER 2023-01-04 14:14 | Emergency (ER) | payer MEDICAID ==
[2023-01-04 14:39] VITALS: BP 114/69; PULSE 83
== END 2023-01-04 16:48 | disposition home or self-care (01) ==
LOC: JP.ED 14:14
DX: T82.599A Other mechanical complication of unspecified cardiac and vascular devices and implants, initial encounter (principal); I25.10 Atherosclerotic heart disease of native coronary artery without angina pectoris; I25.2 Old myocardial infarction; E11.9 Type 2 diabetes mellitus without complications; F17.210 Nicotine dependence, cigarettes, uncomplicated; Z86.16 Personal history of COVID-19; Z79.899 Other long term (current) drug therapy; Z88.8 Allergy status to other drugs, medicaments and biological substances; Z91.041 Radiographic dye allergy status; Z88.1 Allergy status to other antibiotic agents
CPT/HCPCS: 71046; 71046-26; 99283

== ENCOUNTER 2023-03-26 11:47 | Emergency (ER) | payer MEDICAID ==
[2023-03-26 14:09] VITALS: BP 111/38; PULSE 98
== END 2023-03-26 16:24 | disposition home or self-care (01) ==
LOC: JP.ED 11:47
DX: M62.831 Muscle spasm of calf (principal); I25.10 Atherosclerotic heart disease of native coronary artery without angina pectoris; I25.2 Old myocardial infarction; F17.210 Nicotine dependence, cigarettes, uncomplicated; E11.40 Type 2 diabetes mellitus with diabetic neuropathy, unspecified; Z79.899 Other long term (current) drug therapy; Z91.041 Radiographic dye allergy status; Z88.8 Allergy status to other drugs, medicaments and biological substances; Z88.6 Allergy status to analgesic agent; Z88.7 Allergy status to serum and vaccine; Z88.4 Allergy status to anesthetic agent
CPT/HCPCS: 93971-RT; 99283; 99284

== ENCOUNTER 2023-04-22 13:11 | Emergency (ER) | payer MEDICAID ==
[2023-04-22 14:09] LABS: BASOPHILS PERCENT AUTO 0.2 % (0.1-1.3); EOSINOPHILS PERCENT AUTO 0.4 % (0.0-5.4); HEMATOCRIT 30.4 % (34.3-46.0); HEMOGLOBIN 10.1 g/dL (11.2-15.5); IMMATURE GRAN PERCENT AUTO 0.4 % (0.0-0.7); LYMPHOCYTES ABSOLUTE AUTO 1.29 K/uL (0.8-3.3); LYMPHOCYTES PERCENT AUTO 24.2 % (11.4-47.7); MEAN CORPUSCULAR HEMOGLOBIN 27.2 pg (31.6-35.5); MEAN CORPUSCULAR HGB CONC 33.2 g/dL (31.6-35.5); MEAN CORPUSCULAR VOLUME 81.7 fL (81.4-99.0); MONOCYTES ABSOLUTE AUTO 0.49 K/uL (0.20-0.90); MONOCYTES PERCENT AUTO 9.2 % (3.3-12.6); NEUTROPHILS PERCENT AUTO 65.6 % (40.0-78.1); PLATELET COUNT,PLT 294 K/uL (130-375); RED BLOOD CELL COUNT 3.72 M/uL (3.77-5.24); WHITE BLOOD CELL COUNT,WBC 5.3 K/uL (3.2-11.0)
[2023-04-22 14:10] LABS: BASOPHILS ABSOLUTE AUTO 0.01 K/uL (0.00-0.10); EOSINOPHILS ABSOLUTE AUTO 0.02 K/uL (0.00-0.40); IMMATURE GRAN ABSOLUTE AUTO 0.02 K/uL (0.00-0.23)
[2023-04-22 14:40] LABS: A/G RATIO 0.5 (1.2-2.2); ALANINE AMINOTRANSFERASE,ALT 15 U/L (12-78); ALBUMIN 2.4 g/dL (3.4-5.0); ALKALINE PHOSPHATASE 156 U/L (46-116); ANION GAP 10.8 mmol/L (5.0-14.0); ASPARTATE AMNIOTRANSFERASE,AST 16 U/L (15-37); BILIRUBIN TOTAL 0.5 mg/dL (0.2-1.0); BLOOD UREA NITROGEN,BUN 8 mg/dL (7-18); CARBON DIOXIDE,CO2 27 mmol/L (21-32); CHLORIDE,CL 103 mmol/L (100-108); CREATININE 0.7 mg/dL (0.6-1.0); EST CRCL DRUG DOSING (CG) 66.33 mL/min; ESTIMATED GFR 105 mL/min (>60); GLUCOSE RANDOM 101 mg/dL (74-106); POTASSIUM,K 3.8 mmol/L (3.6-5.2); SODIUM,NA 141 mmol/L (140-148)
[2023-04-22 15:50] VITALS: BP 100/62; PULSE 95
== END 2023-04-22 17:31 | disposition left against medical advice (07) ==
LOC: JP.ED 13:11
DX: I82.A11 Acute embolism and thrombosis of right axillary vein (principal); F17.210 Nicotine dependence, cigarettes, uncomplicated; I25.10 Atherosclerotic heart disease of native coronary artery without angina pectoris; I25.2 Old myocardial infarction; E11.9 Type 2 diabetes mellitus without complications; Z86.16 Personal history of COVID-19; Z79.899 Other long term (current) drug therapy; Z90.710 Acquired absence of both cervix and uterus; Z90.410 Acquired total absence of pancreas; Z91.041 Radiographic dye allergy status; Z88.8 Allergy status to other drugs, medicaments and biological substances; Z88.6 Allergy status to analgesic agent; Z88.5 Allergy status to narcotic agent; Z88.7 Allergy status to serum and vaccine
CPT/HCPCS: 36415; 80053; 83605; 84145; 85025; 85379; 86140; 93971-26; 93971-RT; 99284

== ENCOUNTER 2023-04-26 08:19 | Day surgery (SDC) | payer MEDICAID ==
[~2023-04-26 08:19] MED LIST changes: +Bupivacaine 0.5% 50 ML MDV ONE; +Lidocaine 1% with EPINEPHrine 1:100,000 50 ML MDV ONE; -Midazolam 1 MG/ML 2 ML SDV ONE; -Propofol 200 MG/20 ML SDV ONE; -fentaNYL 100 MCG/2 ML SDV ONE
[2023-04-26] MEDS ORDERED: Sodium Chloride 0.9% 1,000 ML IV SCH ×2 (09:00→09:45)
[2023-04-26] MEDS ORDERED: Midazolam 1 MG/ML 2 ML SDV ONE (09:28)
[2023-04-26] MEDS ORDERED: fentaNYL 100 MCG/2 ML SDV ONE (09:28)
[2023-04-26] MEDS ORDERED: Propofol 200 MG/20 ML SDV ONE (09:44)
[2023-04-26 11:27] VITALS: BP 113/77; PULSE 100
== END 2023-04-26 11:10 | disposition home or self-care (01) ==
LOC: JP.SDS 08:19
PROVIDERS: ATTEND Surgery
DX: Z45.2 Encounter for adjustment and management of vascular access device (principal); I10 Essential (primary) hypertension; F43.10 Post-traumatic stress disorder, unspecified; E11.9 Type 2 diabetes mellitus without complications; K21.9 Gastro-esophageal reflux disease without esophagitis; Z88.2 Allergy status to sulfonamides
CPT/HCPCS: 36589; J2250; J2704; J3010; J3490; J7030

== ENCOUNTER 2023-05-18 01:56 | Emergency (ER) | payer MEDICAID ==
[2023-05-18] MEDS ORDERED: HYDROmorphone 0.5 MG/0.5 ML Syringe IVPUSH ONE (02:37)
[2023-05-18] MEDS ORDERED: Ondansetron 4 MG/2 ML SDV IVPUSH ONE ×2 (02:37→05:28)
[2023-05-18] MEDS ORDERED: Sodium Chloride 0.9% 1,000 ML IV SCH ×2 (02:45→05:30)
[2023-05-18 02:46] LABS: BASOPHILS PERCENT AUTO 0.1 % (0.1-1.3); HEMATOCRIT 39.3 % (34.3-46.0); HEMOGLOBIN 12.8 g/dL (11.2-15.5); IMMATURE GRAN ABSOLUTE AUTO 0.03 K/uL (0.00-0.23); IMMATURE GRAN PERCENT AUTO 0.3 % (0.0-0.7); LYMPHOCYTES ABSOLUTE AUTO 1.32 K/uL (0.8-3.3); LYMPHOCYTES PERCENT AUTO 12.8 % (11.4-47.7); MEAN CORPUSCULAR HEMOGLOBIN 26.7 pg (31.6-35.5); MEAN CORPUSCULAR HGB CONC 32.6 g/dL (31.6-35.5); MEAN CORPUSCULAR VOLUME 81.9 fL (81.4-99.0); MONOCYTES ABSOLUTE AUTO 0.51 K/uL (0.20-0.90); MONOCYTES PERCENT AUTO 4.9 % (3.3-12.6); NEUTROPHILS ABSOLUTE AUTO 8.44 K/uL (1.0-7.6); NEUTROPHILS PERCENT AUTO 81.9 % (40.0-78.1); PLATELET COUNT,PLT 323 K/uL (130-375); WHITE BLOOD CELL COUNT,WBC 10.3 K/uL (3.2-11.0)
[2023-05-18 02:51] LABS: BASOPHILS ABSOLUTE AUTO 0.01 K/uL (0.00-0.10)
[2023-05-18 03:04] LABS: INR 1.9; PROTHROMBIN TIME 18.4 sec (9.2-10.6)
[2023-05-18 03:07] LABS: A/G RATIO 0.8 (1.2-2.2); ALANINE AMINOTRANSFERASE,ALT 18 U/L (12-78); ALKALINE PHOSPHATASE 103 U/L (46-116); ASPARTATE AMNIOTRANSFERASE,AST 13 U/L (15-37); BILIRUBIN TOTAL 0.4 mg/dL (0.2-1.0); BLOOD UREA NITROGEN,BUN 10 mg/dL (7-18); CALCIUM 8.1 mg/dL (8.5-10.1); CARBON DIOXIDE,CO2 32 mmol/L (21-32); CHLORIDE,CL 102 mmol/L (100-108); CREATININE 0.7 mg/dL (0.6-1.0); EST CRCL DRUG DOSING (CG) 62.59 mL/min; ESTIMATED GFR 105 mL/min (>60); GLUCOSE RANDOM 119 mg/dL (74-106); POTASSIUM,K 3.9 mmol/L (3.6-5.2); PROTEIN TOTAL,TP 6.9 g/dL (6.4-8.2); SODIUM,NA 138 mmol/L (140-148)
[2023-05-18 03:12] LABS: ANION GAP 7.9 mmol/L (5.0-14.0)
[2023-05-18] MEDS ORDERED: diphenhydrAMINE 50 MG/ML SDV IVPUSH ONE (03:38)
[2023-05-18] MEDS ORDERED: methylPREDNISolone Sodium Succinate 125 MG/2 ML SDV IVPUSH ONE (03:43)
[2023-05-18 04:26] LABS: APPEARANCE,URINE CLOUDY (CLEAR); BILIRUBIN,URINE NEGATIVE (NEGATIVE); COLOR,URINE YELLOW (YELLOW); GLUCOSE,URINE NEGATIVE (NEGATIVE); KETONES,URINE NEGATIVE (NEGATIVE); LEUKOCYTE ESTERASE,URINE NEGATIVE (NEGATIVE); NITRITE,URINE NEGATIVE (NEGATIVE); OCCULT BLOOD,URINE NEGATIVE (NEGATIVE); PROTEIN,URINE 30 mg/dL (NEGATIVE)
[2023-05-18 04:40] LABS: AMORPHOUS SEDIMENT,URINE MANY; BACTERIA,URINE MODERATE; EPITHELIAL CELLS,URINE RARE; MUCUS,URINE NOT SEEN; RBC,URINE 0-5 (0-5); WBC,URINE 0-5 (0-5)
[2023-05-18] MEDS ORDERED: Iopamidol 612 MG/ML 100 ML Bottle IV STA (04:51)
[2023-05-18] MEDS ORDERED: Sodium Chloride 0.9% 50 ML IV STA (04:53)
[2023-05-18 06:45] VITALS: BP 113/68; PULSE 56
== END 2023-05-18 07:10 | disposition home or self-care (01) ==
LOC: JP.ED 01:56
DX: R10.11 Right upper quadrant pain (principal); R63.0 Anorexia; I25.10 Atherosclerotic heart disease of native coronary artery without angina pectoris; I25.2 Old myocardial infarction; E11.40 Type 2 diabetes mellitus with diabetic neuropathy, unspecified; Z79.01 Long term (current) use of anticoagulants; Z79.899 Other long term (current) drug therapy; Z88.8 Allergy status to other drugs, medicaments and biological substances; Z88.5 Allergy status to narcotic agent; Z91.041 Radiographic dye allergy status
CPT/HCPCS: 36415; 74177; 80053; 81001; 83690; 85025; 85610; 96361; 96374; 96375; 96376; 99284; J1170; J1200; J2405; J2930; J3490; J7030; Q9967

== ENCOUNTER 2023-06-05 14:26 | Emergency (ER) | payer MEDICAID ==
[2023-06-05 15:10] LABS: APPEARANCE,URINE TURBID (CLEAR); BILIRUBIN,URINE SMALL (NEGATIVE); COLOR,URINE YELLOW (YELLOW); GLUCOSE,URINE NEGATIVE (NEGATIVE); KETONES,URINE TRACE mg/dL (NEGATIVE); LEUKOCYTE ESTERASE,URINE NEGATIVE (NEGATIVE); NITRITE,URINE NEGATIVE (NEGATIVE); OCCULT BLOOD,URINE LARGE (NEGATIVE); PROTEIN,URINE 100 mg/dL (NEGATIVE)
[2023-06-05 15:18] LABS: AMORPHOUS SEDIMENT,URINE FEW; BACTERIA,URINE NOT SEEN; EPITHELIAL CELLS,URINE FEW; MUCUS,URINE NOT SEEN; RBC,URINE PACKED (0-5)
[2023-06-05 15:20] LABS: BASOPHILS PERCENT AUTO 0.4 % (0.1-1.3); EOSINOPHILS ABSOLUTE AUTO 0.08 K/uL (0.00-0.40); EOSINOPHILS PERCENT AUTO 1.5 % (0.0-5.4); HEMATOCRIT 38.8 % (34.3-46.0); HEMOGLOBIN 12.6 g/dL (11.2-15.5); IMMATURE GRAN PERCENT AUTO 0.2 % (0.0-0.7); LYMPHOCYTES ABSOLUTE AUTO 2.49 K/uL (0.8-3.3); LYMPHOCYTES PERCENT AUTO 45.3 % (11.4-47.7); MEAN CORPUSCULAR HEMOGLOBIN 26.6 pg (31.6-35.5); MEAN CORPUSCULAR HGB CONC 32.5 g/dL (31.6-35.5); MONOCYTES ABSOLUTE AUTO 0.32 K/uL (0.20-0.90); MONOCYTES PERCENT AUTO 5.8 % (3.3-12.6); NEUTROPHILS ABSOLUTE AUTO 2.58 K/uL (1.0-7.6); NEUTROPHILS PERCENT AUTO 46.8 % (40.0-78.1); PLATELET COUNT,PLT 257 K/uL (130-375); RED BLOOD CELL COUNT 4.73 M/uL (3.77-5.24); WHITE BLOOD CELL COUNT,WBC 5.5 K/uL (3.2-11.0)
[2023-06-05 15:23] LABS: BASOPHILS ABSOLUTE AUTO 0.02 K/uL (0.00-0.10); IMMATURE GRAN ABSOLUTE AUTO 0.01 K/uL (0.00-0.23)
[2023-06-05 15:35] LABS: ANION GAP 8.1 mmol/L (5.0-14.0); CREATININE 0.6 mg/dL (0.6-1.0); EST CRCL DRUG DOSING (CG) 72.67 mL/min; POTASSIUM,K 4.2 mmol/L (3.6-5.2)
[2023-06-05 15:37] LABS: INR 2.1; PROTHROMBIN TIME 20.3 sec (9.2-10.6)
[2023-06-05 16:23] VITALS: BP 106/76; PULSE 106
== END 2023-06-05 17:32 | disposition home or self-care (01) ==
LOC: JP.ED 14:26
DX: R31.9 Hematuria, unspecified (principal); E11.40 Type 2 diabetes mellitus with diabetic neuropathy, unspecified; I25.10 Atherosclerotic heart disease of native coronary artery without angina pectoris; I25.2 Old myocardial infarction; Z79.01 Long term (current) use of anticoagulants; Z86.16 Personal history of COVID-19; Z91.041 Radiographic dye allergy status; Z88.0 Allergy status to penicillin; Z88.3 Allergy status to other anti-infective agents; Z88.8 Allergy status to other drugs, medicaments and biological substances; Z88.5 Allergy status to narcotic agent
CPT/HCPCS: 36415; 74176; 80048; 81001; 85025; 85610; 99284

== ENCOUNTER 2023-08-22 18:56 | Emergency (ER) | payer MEDICAID ==
[2023-08-22 19:32] VITALS: BP 104/72; PULSE 90
[2023-08-22 20:13] LABS: BASOPHILS ABSOLUTE AUTO 0.03 K/uL (0.00-0.10); BASOPHILS PERCENT AUTO 0.4 % (0.1-1.3); EOSINOPHILS ABSOLUTE AUTO 0.06 K/uL (0.00-0.40); EOSINOPHILS PERCENT AUTO 0.9 % (0.0-5.4); HEMATOCRIT 36.6 % (34.3-46.0); HEMOGLOBIN 12.4 g/dL (11.2-15.5); IMMATURE GRAN PERCENT AUTO 0.1 % (0.0-0.7); LYMPHOCYTES ABSOLUTE AUTO 2.78 K/uL (0.8-3.3); LYMPHOCYTES PERCENT AUTO 41.7 % (11.4-47.7); MEAN CORPUSCULAR HEMOGLOBIN 28.4 pg (31.6-35.5); MEAN CORPUSCULAR HGB CONC 33.9 g/dL (31.6-35.5); MEAN CORPUSCULAR VOLUME 83.9 fL (81.4-99.0); MONOCYTES ABSOLUTE AUTO 0.48 K/uL (0.20-0.90); MONOCYTES PERCENT AUTO 7.2 % (3.3-12.6); NEUTROPHILS ABSOLUTE AUTO 3.31 K/uL (1.0-7.6); NEUTROPHILS PERCENT AUTO 49.7 % (40.0-78.1); PLATELET COUNT,PLT 279 K/uL (130-375); RED BLOOD CELL COUNT 4.36 M/uL (3.77-5.24); WHITE BLOOD CELL COUNT,WBC 6.7 K/uL (3.2-11.0)
[2023-08-22 20:15] LABS: IMMATURE GRAN ABSOLUTE AUTO 0.01 K/uL (0.00-0.23)
[2023-08-22 20:30] LABS: INR 2.3; PROTHROMBIN TIME 21.8 sec (9.2-10.6)
[2023-08-22 20:37] LABS: A/G RATIO 0.7 (1.2-2.2); ALANINE AMINOTRANSFERASE,ALT 14 U/L (12-78); ALBUMIN 2.5 g/dL (3.4-5.0); ALKALINE PHOSPHATASE 109 U/L (46-116); ANION GAP 5.5 mmol/L (5.0-14.0); ASPARTATE AMNIOTRANSFERASE,AST 18 U/L (15-37); BILIRUBIN TOTAL 0.2 mg/dL (0.2-1.0); BLOOD UREA NITROGEN,BUN 13 mg/dL (7-18); CALCIUM 7.9 mg/dL (8.5-10.1); CARBON DIOXIDE,CO2 30 mmol/L (21-32); CHLORIDE,CL 107 mmol/L (100-108); CREATININE 0.8 mg/dL (0.6-1.0); EST CRCL DRUG DOSING (CG) 51.23 mL/min; ESTIMATED GFR 89 mL/min (>60); GLUCOSE RANDOM 97 mg/dL (74-106); MAGNESIUM 1.7 mg/dL (1.8-2.4); POTASSIUM,K 3.8 mmol/L (3.6-5.2); PROTEIN TOTAL,TP 5.9 g/dL (6.4-8.2); SODIUM,NA 142 mmol/L (140-148)
[2023-08-22 20:38] LABS: C-REACTIVE PROTEIN < 0.50 mg/dL (<0.50); TROPONIN I HIGH SENSITIVITY < 4.0 pg/mL (<=60.3)
== END 2023-08-22 22:22 | disposition home or self-care (01) ==
LOC: JP.ED 18:56
DX: I77.1 Stricture of artery (principal); E11.69 Type 2 diabetes mellitus with other specified complication; I10 Essential (primary) hypertension; F17.200 Nicotine dependence, unspecified, uncomplicated; M79.81 Nontraumatic hematoma of soft tissue; I25.10 Atherosclerotic heart disease of native coronary artery without angina pectoris; I25.2 Old myocardial infarction; E11.40 Type 2 diabetes mellitus with diabetic neuropathy, unspecified; Z91.041 Radiographic dye allergy status; Z88.8 Allergy status to other drugs, medicaments and biological substances; Z79.899 Other long term (current) drug therapy; Z86.19 Personal history of other infectious and parasitic diseases; Z86.16 Personal history of COVID-19; Z90.49 Acquired absence of other specified parts of digestive tract; Z84.89 Family history of other specified conditions; Z79.01 Long term (current) use of anticoagulants
CPT/HCPCS: 36415; 80053; 83605; 83690; 83735; 84484; 85025; 85610; 86140; 93926-RT; 93971-RT; 99284

== ENCOUNTER 2023-09-01 00:43 | Emergency (ER) | payer MEDICAID ==
[2023-09-01 00:57] VITALS: BP 125/88; PULSE 78
[2023-09-01 01:25] LABS: BASOPHILS PERCENT AUTO 0.2 % (0.1-1.3); EOSINOPHILS ABSOLUTE AUTO 0.04 K/uL (0.00-0.40); EOSINOPHILS PERCENT AUTO 0.4 % (0.0-5.4); HEMATOCRIT 31.9 % (34.3-46.0); HEMOGLOBIN 10.6 g/dL (11.2-15.5); IMMATURE GRAN ABSOLUTE AUTO 0.03 K/uL (0.00-0.23); IMMATURE GRAN PERCENT AUTO 0.3 % (0.0-0.7); LYMPHOCYTES ABSOLUTE AUTO 3.51 K/uL (0.8-3.3); LYMPHOCYTES PERCENT AUTO 39.1 % (11.4-47.7); MEAN CORPUSCULAR HEMOGLOBIN 28.5 pg (31.6-35.5); MEAN CORPUSCULAR HGB CONC 33.2 g/dL (31.6-35.5); MEAN CORPUSCULAR VOLUME 85.8 fL (81.4-99.0); MONOCYTES ABSOLUTE AUTO 0.76 K/uL (0.20-0.90); MONOCYTES PERCENT AUTO 8.5 % (3.3-12.6); NEUTROPHILS ABSOLUTE AUTO 4.61 K/uL (1.0-7.6); NEUTROPHILS PERCENT AUTO 51.5 % (40.0-78.1); PLATELET COUNT,PLT 239 K/uL (130-375); RED BLOOD CELL COUNT 3.72 M/uL (3.77-5.24)
[2023-09-01 01:28] LABS: BASOPHILS ABSOLUTE AUTO 0.02 K/uL (0.00-0.10)
[2023-09-01 01:34] LABS: INR 2.7; PROTHROMBIN TIME 26.1 sec (9.2-10.6)
[2023-09-01 01:38] LABS: CALCIUM 7.8 mg/dL (8.5-10.1); CREATININE 0.7 mg/dL (0.6-1.0); EST CRCL DRUG DOSING (CG) 59.23 mL/min; TROPONIN I HIGH SENSITIVITY 5.8 pg/mL (<=60.3)
[2023-09-01 01:41] LABS: ANION GAP 10.7 mmol/L (5.0-14.0); POTASSIUM,K 2.7 mmol/L (3.6-5.2)
[2023-09-01] MEDS: Potassium Chloride 20 MEQ Tab.ER PO ONE (02:04)
== END 2023-09-01 02:12 | disposition home or self-care (01) ==
LOC: JP.ED 00:43
DX: R07.89 Other chest pain (principal); E87.6 Hypokalemia; I25.10 Atherosclerotic heart disease of native coronary artery without angina pectoris; I25.2 Old myocardial infarction; E11.40 Type 2 diabetes mellitus with diabetic neuropathy, unspecified; F17.210 Nicotine dependence, cigarettes, uncomplicated; Z91.041 Radiographic dye allergy status; Z88.8 Allergy status to other drugs, medicaments and biological substances; Z79.01 Long term (current) use of anticoagulants; Z79.899 Other long term (current) drug therapy; Z86.19 Personal history of other infectious and parasitic diseases
CPT/HCPCS: 36415; 80048; 84484; 85025; 85610; 99285; A9270; 99284

== ENCOUNTER 2023-11-29 22:39 | Emergency (ER) | payer MEDICAID ==
[2023-11-29 22:51] VITALS: BP 131/72; PULSE 86
== END 2023-11-29 23:38 | disposition home or self-care (01) ==
LOC: JP.ED 22:39
DX: K11.20 Sialoadenitis, unspecified (principal); E11.40 Type 2 diabetes mellitus with diabetic neuropathy, unspecified; F17.210 Nicotine dependence, cigarettes, uncomplicated; Z86.16 Personal history of COVID-19; Z90.49 Acquired absence of other specified parts of digestive tract; Z90.710 Acquired absence of both cervix and uterus; Z79.899 Other long term (current) drug therapy; Z91.041 Radiographic dye allergy status; Z88.1 Allergy status to other antibiotic agents; Z88.8 Allergy status to other drugs, medicaments and biological substances; Z91.048 Other nonmedicinal substance allergy status
CPT/HCPCS: 99283

== ENCOUNTER 2023-12-01 13:49 | Emergency (ER) | payer MEDICAID ==
[2023-12-01 14:04] VITALS: BP 110/71; PULSE 94
[2023-12-01 14:46] LABS: ANION GAP 5.7 mmol/L (5.0-14.0); CALCIUM 7.5 mg/dL (8.5-10.1); CREATININE 0.8 mg/dL (0.6-1.0); EST CRCL DRUG DOSING (CG) 52.01 mL/min; POTASSIUM,K 4.4 mmol/L (3.6-5.2)
== END 2023-12-01 15:08 | disposition home or self-care (01) ==
LOC: JP.ED 13:49
DX: R79.9 Abnormal finding of blood chemistry, unspecified (principal); I25.2 Old myocardial infarction; E11.9 Type 2 diabetes mellitus without complications; Z91.041 Radiographic dye allergy status; Z88.8 Allergy status to other drugs, medicaments and biological substances; Z79.01 Long term (current) use of anticoagulants; Z79.899 Other long term (current) drug therapy; Z86.16 Personal history of COVID-19; Z90.49 Acquired absence of other specified parts of digestive tract; Z90.710 Acquired absence of both cervix and uterus
CPT/HCPCS: 36415; 80048; 93005; 93010; 99283; 99285

== ENCOUNTER 2023-12-18 14:02 | Emergency (ER) | payer MEDICAID ==
[2023-12-18 14:39] VITALS: BP 122/85; PULSE 96
[2023-12-18 15:12] LABS: BASOPHILS PERCENT AUTO 0.4 % (0.1-1.3); EOSINOPHILS PERCENT AUTO 0.4 % (0.0-5.4); HEMATOCRIT 34.8 % (34.3-46.0); HEMOGLOBIN 12.1 g/dL (11.2-15.5); IMMATURE GRAN PERCENT AUTO 0.2 % (0.0-0.7); LYMPHOCYTES ABSOLUTE AUTO 2.21 K/uL (0.8-3.3); LYMPHOCYTES PERCENT AUTO 39.6 % (11.4-47.7); MEAN CORPUSCULAR HEMOGLOBIN 30.9 pg (31.6-35.5); MEAN CORPUSCULAR HGB CONC 34.8 g/dL (31.6-35.5); MEAN CORPUSCULAR VOLUME 88.8 fL (81.4-99.0); MONOCYTES ABSOLUTE AUTO 0.39 K/uL (0.20-0.90); NEUTROPHILS ABSOLUTE AUTO 2.93 K/uL (1.0-7.6); NEUTROPHILS PERCENT AUTO 52.4 % (40.0-78.1); PLATELET COUNT,PLT 246 K/uL (130-375); RED BLOOD CELL COUNT 3.92 M/uL (3.77-5.24); WHITE BLOOD CELL COUNT,WBC 5.6 K/uL (3.2-11.0)
[2023-12-18 15:14] LABS: BASOPHILS ABSOLUTE AUTO 0.02 K/uL (0.00-0.10); EOSINOPHILS ABSOLUTE AUTO 0.02 K/uL (0.00-0.40); IMMATURE GRAN ABSOLUTE AUTO 0.01 K/uL (0.00-0.23)
[2023-12-18 15:35] LABS: ANION GAP 11.5 mmol/L (5.0-14.0); CALCIUM 7.6 mg/dL (8.5-10.1); CREATININE 0.8 mg/dL (0.6-1.0); EST CRCL DRUG DOSING (CG) 53.85 mL/min; POTASSIUM,K 3.5 mmol/L (3.6-5.2); TROPONIN I HIGH SENSITIVITY 4.2 pg/mL (<=60.3)
== END 2023-12-18 16:22 | disposition home or self-care (01) ==
LOC: JP.ED 14:02
DX: E87.70 Fluid overload, unspecified (principal); I25.10 Atherosclerotic heart disease of native coronary artery without angina pectoris; I25.2 Old myocardial infarction; E11.40 Type 2 diabetes mellitus with diabetic neuropathy, unspecified; Z86.16 Personal history of COVID-19; Z90.49 Acquired absence of other specified parts of digestive tract; Z90.710 Acquired absence of both cervix and uterus; Z79.899 Other long term (current) drug therapy; Z79.01 Long term (current) use of anticoagulants; Z88.8 Allergy status to other drugs, medicaments and biological substances; Z91.041 Radiographic dye allergy status; Z88.1 Allergy status to other antibiotic agents; Z91.048 Other nonmedicinal substance allergy status
CPT/HCPCS: 36415; 71045; 71045-26; 80048; 83880; 84484; 85025; 85379; 93005; 93010; 99284; 99285

== ENCOUNTER 2023-12-25 18:38 | Emergency (ER) | payer MEDICAID ==
[2023-12-25 18:58] VITALS: BP 118/89; PULSE 111
== END 2023-12-25 21:14 | disposition home or self-care (01) ==
LOC: JP.ED 18:38
DX: S93.401A Sprain of unspecified ligament of right ankle, initial encounter (principal); K21.9 Gastro-esophageal reflux disease without esophagitis; E11.40 Type 2 diabetes mellitus with diabetic neuropathy, unspecified; F17.210 Nicotine dependence, cigarettes, uncomplicated; Z88.8 Allergy status to other drugs, medicaments and biological substances; Z91.041 Radiographic dye allergy status; Z79.899 Other long term (current) drug therapy; Z79.01 Long term (current) use of anticoagulants; Z86.16 Personal history of COVID-19; Z90.710 Acquired absence of both cervix and uterus; X50.0XXA Overexertion from strenuous movement or load, initial encounter; W19.XXXA Unspecified fall, initial encounter; Y93.89 Activity, other specified
CPT/HCPCS: 73610-26-RT; 73610-RT; 73620-26-RT; 73620-RT; 99283

== ENCOUNTER 2024-03-06 01:29 | Emergency (ER) | payer MEDICAID ==
[2024-03-06 01:36] VITALS: BP 111/49; PULSE 91
[2024-03-06 02:12] LABS: BASOPHILS ABSOLUTE AUTO 0.04 K/uL (0.00-0.10); BASOPHILS PERCENT AUTO 0.5 % (0.1-1.3); EOSINOPHILS ABSOLUTE AUTO 0.08 K/uL (0.00-0.40); EOSINOPHILS PERCENT AUTO 1.1 % (0.0-5.4); HEMATOCRIT 33.2 % (34.3-46.0); HEMOGLOBIN 11.2 g/dL (11.2-15.5); IMMATURE GRAN PERCENT AUTO 0.3 % (0.0-0.7); LYMPHOCYTES ABSOLUTE AUTO 2.75 K/uL (0.8-3.3); LYMPHOCYTES PERCENT AUTO 36.2 % (11.4-47.7); MEAN CORPUSCULAR HEMOGLOBIN 32.6 pg (31.6-35.5); MEAN CORPUSCULAR HGB CONC 33.7 g/dL (31.6-35.5); MEAN CORPUSCULAR VOLUME 96.5 fL (81.4-99.0); MONOCYTES ABSOLUTE AUTO 0.66 K/uL (0.20-0.90); MONOCYTES PERCENT AUTO 8.7 % (3.3-12.6); NEUTROPHILS ABSOLUTE AUTO 4.05 K/uL (1.0-7.6); NEUTROPHILS PERCENT AUTO 53.2 % (40.0-78.1); PLATELET COUNT,PLT 322 K/uL (130-375); RED BLOOD CELL COUNT 3.44 M/uL (3.77-5.24); WHITE BLOOD CELL COUNT,WBC 7.6 K/uL (3.2-11.0)
[2024-03-06 02:13] LABS: IMMATURE GRAN ABSOLUTE AUTO 0.02 K/uL (0.00-0.23)
[2024-03-06 02:26] LABS: INR 2.7; PROTHROMBIN TIME 26.3 sec (9.2-10.6)
== END 2024-03-06 02:45 | disposition home or self-care (01) ==
LOC: JP.ED 01:29
DX: S70.11XA Contusion of right thigh, initial encounter (principal); K21.9 Gastro-esophageal reflux disease without esophagitis; E11.40 Type 2 diabetes mellitus with diabetic neuropathy, unspecified; Z79.899 Other long term (current) drug therapy; Z79.01 Long term (current) use of anticoagulants; Z88.8 Allergy status to other drugs, medicaments and biological substances; Z88.1 Allergy status to other antibiotic agents; Z91.041 Radiographic dye allergy status; X58.XXXA Exposure to other specified factors, initial encounter
CPT/HCPCS: 36415; 85025; 85610; 99283

== ENCOUNTER 2024-08-13 00:40 | Emergency (ER) | payer MEDICAID ==
[2024-08-13 00:56] VITALS: BP 124/64
[2024-08-13] MEDS: Morphine 4 MG/ML Syringe IM ONE (01:29)
[2024-08-13] MEDS: Ondansetron 4 MG Tab.DIS PO ONE (01:29)
== END 2024-08-13 02:06 | disposition home or self-care (01) ==
LOC: JP.ED 00:40
DX: S32.019A Unspecified fracture of first lumbar vertebra, initial encounter for closed fracture (principal); M62.830 Muscle spasm of back; E11.40 Type 2 diabetes mellitus with diabetic neuropathy, unspecified; F17.210 Nicotine dependence, cigarettes, uncomplicated; Z91.041 Radiographic dye allergy status; Z88.8 Allergy status to other drugs, medicaments and biological substances; Z79.01 Long term (current) use of anticoagulants; Z79.899 Other long term (current) drug therapy; Z86.16 Personal history of COVID-19; X58.XXXA Exposure to other specified factors, initial encounter; Y93.89 Activity, other specified
CPT/HCPCS: 96372; 99283; 99284; J2270; Q0162

== ENCOUNTER 2024-09-09 18:14 | Emergency (ER) | payer MEDICAID ==
[2024-09-09 18:30] VITALS: BP 112/72; PULSE 93
[2024-09-09 18:58] LABS: BASOPHILS PERCENT AUTO 0.3 % (0.1-1.3); EOSINOPHILS ABSOLUTE AUTO 0.04 K/uL (0.00-0.40); EOSINOPHILS PERCENT AUTO 0.5 % (0.0-5.4); HEMATOCRIT 33.6 % (34.3-46.0); HEMOGLOBIN 11.5 g/dL (11.2-15.5); IMMATURE GRAN PERCENT AUTO 0.1 % (0.0-0.7); LYMPHOCYTES PERCENT AUTO 30.1 % (11.4-47.7); MEAN CORPUSCULAR HEMOGLOBIN 33.2 pg (31.6-35.5); MEAN CORPUSCULAR HGB CONC 34.2 g/dL (31.6-35.5); MEAN CORPUSCULAR VOLUME 97.1 fL (81.4-99.0); MONOCYTES PERCENT AUTO 6.8 % (3.3-12.6); NEUTROPHILS ABSOLUTE AUTO 4.54 K/uL (1.0-7.6); NEUTROPHILS PERCENT AUTO 62.2 % (40.0-78.1); PLATELET COUNT,PLT 278 K/uL (130-375); RED BLOOD CELL COUNT 3.46 M/uL (3.77-5.24); WHITE BLOOD CELL COUNT,WBC 7.3 K/uL (3.2-11.0)
[2024-09-09 18:59] LABS: BASOPHILS ABSOLUTE AUTO 0.02 K/uL (0.00-0.10); IMMATURE GRAN ABSOLUTE AUTO 0.01 K/uL (0.00-0.23)
[2024-09-09 19:16] LABS: INR 1.2; PROTHROMBIN TIME 12.6 sec (9.2-10.6)
[2024-09-09 19:20] LABS: A/G RATIO 0.7 (1.2-2.2); ALANINE AMINOTRANSFERASE,ALT 22 U/L (12-78); ALBUMIN 2.1 g/dL (3.4-5.0); ALKALINE PHOSPHATASE 168 U/L (46-116); ANION GAP 9.3 mmol/L (5.0-14.0); ASPARTATE AMNIOTRANSFERASE,AST 21 U/L (15-37); BILIRUBIN TOTAL 0.4 mg/dL (0.2-1.0); BLOOD UREA NITROGEN,BUN 13 mg/dL (7-18); CARBON DIOXIDE,CO2 30 mmol/L (21-32); CHLORIDE,CL 107 mmol/L (100-108); CREATININE 0.7 mg/dL (0.6-1.0); EST CRCL DRUG DOSING (CG) 61.89 mL/min; ESTIMATED GFR 104 mL/min (>60); GLUCOSE RANDOM 80 mg/dL (74-106); POTASSIUM,K 3.3 mmol/L (3.6-5.2); PROTEIN TOTAL,TP 5.2 g/dL (6.4-8.2); SODIUM,NA 143 mmol/L (140-148)
[2024-09-09] MEDS: Morphine 2 MG/ML SYRINGE IVPUSH ONE (20:23)
[2024-09-09] MEDS: Ondansetron 4 MG/2 ML SDV IVPUSH ONE (20:23)
== END 2024-09-09 20:44 | disposition home or self-care (01) ==
LOC: JP.ED 18:14
DX: R10.13 Epigastric pain (principal); I25.10 Atherosclerotic heart disease of native coronary artery without angina pectoris; I25.2 Old myocardial infarction; E11.9 Type 2 diabetes mellitus without complications; Z86.16 Personal history of COVID-19; Z98.1 Arthrodesis status; Z90.49 Acquired absence of other specified parts of digestive tract; Z98.84 Bariatric surgery status; Z88.8 Allergy status to other drugs, medicaments and biological substances; Z91.041 Radiographic dye allergy status; Z79.01 Long term (current) use of anticoagulants; Z79.899 Other long term (current) drug therapy
CPT/HCPCS: 36415; 72072; 80053; 84484; 85025; 85610; 93005; 96374; 99285; J2270; J2405

== ENCOUNTER 2024-10-08 18:21 | Emergency (ER) | payer MEDICAID ==
[2024-10-08 18:38] VITALS: BP 103/69; PULSE 116
== END 2024-10-08 19:24 | disposition home or self-care (01) ==
LOC: JP.ED 18:21
DX: S00.412A Abrasion of left ear, initial encounter (principal); E11.9 Type 2 diabetes mellitus without complications; F17.200 Nicotine dependence, unspecified, uncomplicated; Z91.041 Radiographic dye allergy status; Z88.8 Allergy status to other drugs, medicaments and biological substances; Z79.01 Long term (current) use of anticoagulants; Z79.899 Other long term (current) drug therapy; Z86.16 Personal history of COVID-19; Z90.49 Acquired absence of other specified parts of digestive tract; Z90.710 Acquired absence of both cervix and uterus; X58.XXXA Exposure to other specified factors, initial encounter
CPT/HCPCS: 99282; 99283

== ENCOUNTER 2024-10-19 16:28 | Emergency (ER) | payer MEDICAID ==
[2024-10-19 16:58] LABS: BASOPHILS ABSOLUTE AUTO 0.02 K/uL (0.00-0.10); BASOPHILS PERCENT AUTO 0.3 % (0.1-1.3); EOSINOPHILS ABSOLUTE AUTO 0.01 K/uL (0.00-0.40); EOSINOPHILS PERCENT AUTO 0.1 % (0.0-5.4); HEMATOCRIT 36.6 % (34.3-46.0); HEMOGLOBIN 12.3 g/dL (11.2-15.5); IMMATURE GRAN ABSOLUTE AUTO 0.04 K/uL (0.00-0.23); IMMATURE GRAN PERCENT AUTO 0.6 % (0.0-0.7); LYMPHOCYTES ABSOLUTE AUTO 1.71 K/uL (0.8-3.3); LYMPHOCYTES PERCENT AUTO 24.6 % (11.4-47.7); MEAN CORPUSCULAR HEMOGLOBIN 32.6 pg (31.6-35.5); MEAN CORPUSCULAR HGB CONC 33.6 g/dL (31.6-35.5); MEAN CORPUSCULAR VOLUME 97.1 fL (81.4-99.0); MONOCYTES ABSOLUTE AUTO 0.51 K/uL (0.20-0.90); MONOCYTES PERCENT AUTO 7.3 % (3.3-12.6); NEUTROPHILS ABSOLUTE AUTO 4.67 K/uL (1.0-7.6); NEUTROPHILS PERCENT AUTO 67.1 % (40.0-78.1); PLATELET COUNT,PLT 147 K/uL (130-375); RED BLOOD CELL COUNT 3.77 M/uL (3.77-5.24)
[2024-10-19 17:13] LABS: CALCIUM 7.8 mg/dL (8.5-10.1); CREATININE 0.7 mg/dL (0.6-1.0); EST CRCL DRUG DOSING (CG) 57.83 mL/min; POTASSIUM,K 3.8 mmol/L (3.6-5.2)
[2024-10-19 17:15] LABS: INR 2.2; PROTHROMBIN TIME 21.9 sec (9.2-10.6)
[2024-10-19 17:20] LABS: ANION GAP 11.8 mmol/L (5.0-14.0)
[2024-10-19 17:40] VITALS: BP 104/67; PULSE 72
== END 2024-10-19 18:21 | disposition home or self-care (01) ==
LOC: JP.ED 16:28
DX: S42.215A Unspecified nondisplaced fracture of surgical neck of left humerus, initial encounter for closed fracture (principal); I25.10 Atherosclerotic heart disease of native coronary artery without angina pectoris; I25.2 Old myocardial infarction; F17.210 Nicotine dependence, cigarettes, uncomplicated; E11.9 Type 2 diabetes mellitus without complications; Z86.16 Personal history of COVID-19; Z91.041 Radiographic dye allergy status; Z88.8 Allergy status to other drugs, medicaments and biological substances; Z79.899 Other long term (current) drug therapy; W18.39XA Other fall on same level, initial encounter; Y93.89 Activity, other specified
CPT/HCPCS: 36415; 70450; 72125; 73030-LT; 73060-LT; 76377; 80048; 85025; 85610; 99285

== ENCOUNTER 2024-10-26 11:17 | Inpatient (IN) | payer MEDICAID ==
[2024-10-26] MEDS: Sodium Chloride 0.9% 500 ML IV ONE (12:05)
[2024-10-26] MEDS: Furosemide 20 MG/2 ML VIAL IVPUSH ONE (12:05)
[2024-10-26 12:13] LABS: BASE EXCESS VENOUS 1.1 mm/L; BICARBONATE,VENOUS 25.3 mmol/L; CARBOXYHEMOGLOBIN 3.5 % (0.0-1.6); METHEMOGLOBIN 2.1 %; O2 SATURATION VENOUS 82.4; OXYHEMOGLOBIN 77.8 %; PCO2 VENOUS 40.4 mm/Hg; PH,VENOUS 7.412 (7.350-7.450); PO2 VENOUS 48.8 mm/Hg; TOTAL HEMOGLOBIN 12.6 g/dL (12.0-16.0)
[2024-10-26 12:15] LABS: BASOPHILS PERCENT AUTO 0.1 % (0.1-1.3); HEMATOCRIT 35.5 % (34.3-46.0); IMMATURE GRAN ABSOLUTE AUTO 0.06 K/uL (0.00-0.23); IMMATURE GRAN PERCENT AUTO 0.5 % (0.0-0.7); LYMPHOCYTES ABSOLUTE AUTO 0.73 K/uL (0.8-3.3); LYMPHOCYTES PERCENT AUTO 5.8 % (11.4-47.7); MEAN CORPUSCULAR HEMOGLOBIN 32.3 pg (31.6-35.5); MEAN CORPUSCULAR HGB CONC 33.8 g/dL (31.6-35.5); MEAN CORPUSCULAR VOLUME 95.7 fL (81.4-99.0); MONOCYTES ABSOLUTE AUTO 0.76 K/uL (0.20-0.90); NEUTROPHILS PERCENT AUTO 87.6 % (40.0-78.1); PLATELET COUNT,PLT 259 K/uL (130-375); RED BLOOD CELL COUNT 3.71 M/uL (3.77-5.24); WHITE BLOOD CELL COUNT,WBC 12.7 K/uL (3.2-11.0)
[2024-10-26 12:17] LABS: BASOPHILS ABSOLUTE AUTO 0.01 K/uL (0.00-0.10)
[2024-10-26] MEDS ORDERED: Naloxone 0.4 MG/ML SDV IVPUSH PRN (12:34)
[2024-10-26] MEDS: HYDROmorphone 0.5 MG/0.5 ML Syringe IVPUSH ONE ×2 (12:38→14:34)
[2024-10-26 12:45] LABS: A/G RATIO 0.4 (1.2-2.2); ALANINE AMINOTRANSFERASE,ALT 13 U/L (12-78); ALBUMIN 1.3 g/dL (3.4-5.0); ALKALINE PHOSPHATASE 192 U/L (46-116); ASPARTATE AMNIOTRANSFERASE,AST 16 U/L (15-37); BILIRUBIN TOTAL 0.9 mg/dL (0.2-1.0); BLOOD UREA NITROGEN,BUN 21 mg/dL (7-18); CALCIUM 7.9 mg/dL (8.5-10.1); CARBON DIOXIDE,CO2 24 mmol/L (21-32); CHLORIDE,CL 102 mmol/L (100-108); CREATININE 0.5 mg/dL (0.6-1.0); ESTIMATED GFR 113 mL/min (>60); GLUCOSE RANDOM 98 mg/dL (74-106); POTASSIUM,K 4.7 mmol/L (3.6-5.2); PRO B-TYPE NATRIUR PEPT,BNPPRO 503 pg/mL (5-125); SODIUM,NA 133 mmol/L (140-148)
[2024-10-26 12:47] LABS: PROTHROMBIN TIME 23.8 sec (9.2-10.6)
[2024-10-26 12:50] LABS: ANION GAP 11.7 mmol/L (5.0-14.0)
[2024-10-26 12:58] LABS: INR 2.4
[2024-10-26 13:04] LABS: MAGNESIUM 1.5 mg/dL (1.8-2.4); TROPONIN I HIGH SENSITIVITY 7.9 pg/mL (<=60.3)
[2024-10-26 13:07] LABS: APPEARANCE,URINE CLEAR (CLEAR); BILIRUBIN,URINE SMALL (NEGATIVE); COLOR,URINE OTHER (YELLOW); GLUCOSE,URINE NEGATIVE (NEGATIVE); KETONES,URINE TRACE mg/dL (NEGATIVE); LEUKOCYTE ESTERASE,URINE TRACE (NEGATIVE); NITRITE,URINE NEGATIVE (NEGATIVE); OCCULT BLOOD,URINE NEGATIVE (NEGATIVE); PROTEIN,URINE 30 mg/dL (NEGATIVE)
[2024-10-26 13:13] LABS: AMORPHOUS SEDIMENT,URINE FEW; BACTERIA,URINE FEW; EPITHELIAL CELLS,URINE FEW; MUCUS,URINE MODERATE; WBC,URINE 0-5 (0-5)
[2024-10-26 13:25] LABS: BASE EXCESS ARTERIAL 2.2 mm/L; BICARBONATE,ARTERIAL 25.5 mmol/L (22.0-26.0); CARBOXYHEMOGLOBIN 2.8 % (0.0-1.6); METHEMOGLOBIN 2.1 %; O2 SATURATION ARTERIAL 88.5 % (95.0-98.0); OXYHEMOGLOBIN 84.2 %; PCO2 ARTERIAL 36.6 mmHg (35.0-42.0); PO2 ARTERIAL 61.9 mmHg (75.0-100.0); TOTAL HEMOGLOBIN 13.2 g/dL (12.0-16.0)
[2024-10-26] MEDS ORDERED: Acetaminophen/HYDROcodone 325-5 MG Tab PO PRN (16:08)
[2024-10-26] MEDS ORDERED: Ondansetron 4 MG/2 ML SDV IV PRN (16:08)
[2024-10-26] MEDS ORDERED: Morphine 15 MG Tab.ER PO PRN (16:08)
[2024-10-26] MEDS: MVI, Adult with Vitamin K 10 ML, Thiamine 100 MG, Folic Acid 1 MG, Magnesium Sulf 1 GM/... IV ONE (17:03)
[2024-10-26] MEDS: Morphine 15 MG Tab PO PRN (18:28)
[2024-10-26] MEDS: Albumin Human 25 GM in Premix Bag 1 BAG IV ONE (21:35)
[2024-10-26] MEDS: Multivitamins with Iron Tab.Chew CHEW SCH (21:42)
[2024-10-27] MEDS: Morphine 15 MG Tab.ER PO SCH
[2024-10-27] MEDS: Magnesium Sulfate 2 GM/50 mL 2 GM in Premix Bag 1 BAG IV ONE (02:23)
[2024-10-27 05:56] LABS: HEMATOCRIT 30.9 % (34.3-46.0); HEMOGLOBIN 10.6 g/dL (11.2-15.5); MEAN CORPUSCULAR HEMOGLOBIN 32.6 pg (31.6-35.5); MEAN CORPUSCULAR HGB CONC 34.3 g/dL (31.6-35.5); MEAN CORPUSCULAR VOLUME 95.1 fL (81.4-99.0); RED BLOOD CELL COUNT 3.25 M/uL (3.77-5.24); WHITE BLOOD CELL COUNT,WBC 11.4 K/uL (3.2-11.0)
[2024-10-27 06:15] LABS: INR 1.7; PROTHROMBIN TIME 17.2 sec (9.2-10.6)
[2024-10-27 06:23] LABS: IRON,FE 13 ug/dL (50-170); PERCENT FE SATURATION 9 % (20-55); TOTAL IRON BINDING CAPACITY 139 ug/dl (250-450)
[2024-10-27 06:31] LABS: CREATININE 0.4 mg/dL (0.6-1.0); EST CRCL DRUG DOSING (CG) 118.28 mL/min; PHOSPHORUS 2.4 mg/dL (2.5-4.9)
[2024-10-27] MEDS: Enoxaparin 30 MG/0.3 ML Syringe SUBCUT SCH (09:41)
[2024-10-27] MEDS: Albumin Human 25 GM in Premix Bag 1 BAG IV ONE (09:41)
[2024-10-27] MEDS: Sodium Ferric Gluconate Cmplex 250 MG in Sodium Chloride 0.9% 100 ML IV ONE (14:34)
[2024-10-27] MEDS: Acetaminophen/HYDROcodone 325-5 MG Tab PO PRN (19:27)
[2024-10-28] MEDS: Vitamin B Complex Tab PO SCH (09:01)
[2024-10-28] MEDS: Ergocalciferol (Vitamin D2) 1.25 MG Cap PO ONE (09:02)
[2024-10-28 10:42] LABS: HEMATOCRIT 32.2 % (34.3-46.0); HEMOGLOBIN 10.6 g/dL (11.2-15.5); MEAN CORPUSCULAR HGB CONC 32.9 g/dL (31.6-35.5); MEAN CORPUSCULAR VOLUME 97.3 fL (81.4-99.0); RED BLOOD CELL COUNT 3.31 M/uL (3.77-5.24); WHITE BLOOD CELL COUNT,WBC 8.7 K/uL (3.2-11.0)
[2024-10-28 10:55] LABS: INR 1.5; PROTHROMBIN TIME 14.6 sec (9.2-10.6)
[2024-10-28 10:59] LABS: A/G RATIO 0.6 (1.2-2.2); ALANINE AMINOTRANSFERASE,ALT 13 U/L (12-78); ALBUMIN 1.9 g/dL (3.4-5.0); ALKALINE PHOSPHATASE 149 U/L (46-116); ASPARTATE AMNIOTRANSFERASE,AST 18 U/L (15-37); BILIRUBIN TOTAL 0.9 mg/dL (0.2-1.0); BLOOD UREA NITROGEN,BUN 13 mg/dL (7-18); CALCIUM 7.7 mg/dL (8.5-10.1); CARBON DIOXIDE,CO2 27 mmol/L (21-32); CHLORIDE,CL 103 mmol/L (100-108); CREATININE 0.3 mg/dL (0.6-1.0); EST CRCL DRUG DOSING (CG) 157.71 mL/min; ESTIMATED GFR 128 mL/min (>60); GLUCOSE RANDOM 92 mg/dL (74-106); MAGNESIUM 1.6 mg/dL (1.8-2.4); POTASSIUM,K 3.5 mmol/L (3.6-5.2); PROTEIN TOTAL,TP 4.9 g/dL (6.4-8.2); SODIUM,NA 138 mmol/L (140-148)
[2024-10-28 11:02] LABS: ANION GAP 11.5 mmol/L (5.0-14.0)
[2024-10-28] MEDS ORDERED: Albumin Human 25 GM in Premix Bag 1 BAG IV ONE (11:30)
[2024-10-28] MEDS: Magnesium Sulfate 2 GM/50 mL 2 GM in Premix Bag 1 BAG IV SCH (12:00)
[2024-10-28] MEDS: Potassium Chloride 10 MEQ in Premix Bag 1 BAG IV SCH (12:00)
[2024-10-28 13:55] LABS: BODY FLUID TYPE PLEURAL FLUID; PH,BODY FLUID 7.5
[2024-10-28 13:57] LABS: BODY FLUID TYPE PLEURAL FLUID
[2024-10-28 14:16] LABS: AMYLASE,BODY FLUID 11 U/L; GLUCOSE,BODY FLUID 99 mg/dL; LACTATE DEHYDROGENASE,BODY FL 95 IU/L
[2024-10-28 14:27] LABS: PROTEIN,BODY FLUID < 2 g/dL
[2024-10-28 14:28] LABS: BODY FLUID TYPE PLEURAL FLUID
[2024-10-28 14:39] LABS: ALBUMIN,BODY FLUID < 0.6
[2024-10-28 14:57] LABS: MONONUCLEAR, BODY FLUID 28 %; POLYMORPHONUCLEAR, BODY FLUID 72 %; RBC,BODY FLUID 52 /ul; WBC BODY FLUID 52 /ul
[2024-10-28 16:50] LABS: AMYLASE BODY FLUID TYPE PLEURAL FLUID
[2024-10-28] MEDS: Albumin Human 25 GM in Premix Bag 1 BAG IV ONE (19:10)
[2024-10-29 06:19] LABS: INR 1.5; PROTHROMBIN TIME 14.6 sec (9.2-10.6)
[2024-10-29 06:20] LABS: CALCIUM 8.1 mg/dL (8.5-10.1); CREATININE 0.4 mg/dL (0.6-1.0); EST CRCL DRUG DOSING (CG) 118.28 mL/min
[2024-10-29] MEDS: Cholecalciferol (Vitamin D3) 50,000 Unit Cap PO SCH (11:48)
[2024-10-29] MEDS: Enoxaparin 40 MG/0.4 ML Syringe SUBCUT SCH (16:17)
[2024-10-29] MEDS: Albumin Human 25 GM in Premix Bag 1 BAG IV ONE (16:17)
[2024-10-29] MEDS: Warfarin 5 MG Tab PO ONE (16:17)
[2024-10-30 06:17] LABS: INR 1.5; PROTHROMBIN TIME 15.5 sec (9.2-10.6)
[2024-10-30 06:20] LABS: ALANINE AMINOTRANSFERASE,ALT 14 U/L (12-78); ALBUMIN 2.2 g/dL (3.4-5.0); ALKALINE PHOSPHATASE 131 U/L (46-116); ASPARTATE AMNIOTRANSFERASE,AST 13 U/L (15-37); BILIRUBIN TOTAL 0.9 mg/dL (0.2-1.0); BLOOD UREA NITROGEN,BUN 11 mg/dL (7-18); CALCIUM 8.4 mg/dL (8.5-10.1); CARBON DIOXIDE,CO2 27 mmol/L (21-32); CHLORIDE,CL 106 mmol/L (100-108); CREATININE 0.3 mg/dL (0.6-1.0); EST CRCL DRUG DOSING (CG) 157.71 mL/min; ESTIMATED GFR 128 mL/min (>60); GLUCOSE RANDOM 70 mg/dL (74-106); POTASSIUM,K 3.6 mmol/L (3.6-5.2); PROTEIN TOTAL,TP 4.5 g/dL (6.4-8.2); SODIUM,NA 139 mmol/L (140-148)
[2024-10-30 06:24] LABS: ANION GAP 9.6 mmol/L (5.0-14.0)
[2024-10-30] MEDS: Ondansetron 4 MG Tab.DIS PO PRN (10:16)
[2024-10-30] MEDS: Warfarin 5 MG Tab PO ONE (12:19)
[2024-10-30] MEDS: Albumin Human 25 GM in Premix Bag 1 BAG IV ONE (15:26)
[2024-10-30] MEDS: Furosemide 20 MG/2 ML VIAL IVPUSH SCH (15:27)
[2024-10-31 05:59] LABS: INR 2.4; PROTHROMBIN TIME 23.3 sec (9.2-10.6)
[2024-10-31] MEDS: Furosemide 20 MG/2 ML VIAL IVPUSH ONE (09:11)
[2024-10-31 11:20] VITALS: BP 114/66; PULSE 76
[2024-10-31] MEDS: Warfarin 2.5 MG Tab PO ONE (12:06)
== END 2024-10-31 12:52 | disposition home or self-care (01) | DRG 189 ==
LOC: JP.ED 11:17 → JP.ICU 15:33
PROVIDERS: ADMIT Internal Medicine; ATTEND Hospitalist
PROC: 0W9B3ZZ Drainage of Left Pleural Cavity, Percutaneous Approach (ICD-10-PCS; principal; 2024-10-26)
DX: J96.01 Acute respiratory failure with hypoxia (principal); E43 Unspecified severe protein-calorie malnutrition; J90 Pleural effusion, not elsewhere classified; Z68.1 Body mass index [BMI] 19.9 or less, adult; H54.7 Unspecified visual loss; I25.2 Old myocardial infarction; K80.20 Calculus of gallbladder without cholecystitis without obstruction; K21.9 Gastro-esophageal reflux disease without esophagitis; N20.0 Calculus of kidney; M19.90 Unspecified osteoarthritis, unspecified site; G43.909 Migraine, unspecified, not intractable, without status migrainosus; S42.215D Unspecified nondisplaced fracture of surgical neck of left humerus, subsequent encounter for fracture with routine healing; S22.060D Wedge compression fracture of T7-T8 vertebra, subsequent encounter for fracture with routine healing; E11.40 Type 2 diabetes mellitus with diabetic neuropathy, unspecified; F41.9 Anxiety disorder, unspecified; F31.9 Bipolar disorder, unspecified; E55.9 Vitamin D deficiency, unspecified; D64.9 Anemia, unspecified; E53.8 Deficiency of other specified B group vitamins; Z86.16 Personal history of COVID-19; Z98.890 Other specified postprocedural states; Z90.49 Acquired absence of other specified parts of digestive tract; Z98.891 History of uterine scar from previous surgery; Z90.710 Acquired absence of both cervix and uterus; Z96.659 Presence of unspecified artificial knee joint; Z72.0 Tobacco use; Z98.84 Bariatric surgery status; Z79.01 Long term (current) use of anticoagulants; Z79.899 Other long term (current) drug therapy; Z86.718 Personal history of other venous thrombosis and embolism
CPT/HCPCS: 32555; 36415; 36600; 70450; 70450-26; 71045; 71045-26; 71250; 71250-26; 73060-26-LT; 73060-LT; 80048; 80053; 81001; 82042; 82150; 82306; 82550; 82607; 82728; 82803; 82945; 83550; 83605; 83615; 83735; 83880; 83986; 84100; 84157; 84484; 85025; 85027; 85379; 85610; 87070; 87102; 87205; 87220; 89050; 93005; 93010; 93306; 96361; 96374; 96375; 96376; 97116-GP; 97162-GP; 97165-GO; 99223; 99232; 99238; 99284; 99285-25; A9270-GY; C1729; J1171; J1650; J1938; J2916; J3411; J3475; J3480; J3490; J7030; P9047; Q0162

== ENCOUNTER 2024-11-21 22:06 | Emergency (ER) | payer MEDICAID ==
[2024-11-21 22:40] LABS: BASE EXCESS ARTERIAL 3.5 mm/L; BICARBONATE,ARTERIAL 27.5 mmol/L (22.0-26.0); O2 SATURATION ARTERIAL 86.1 % (95.0-98.0); OXYHEMOGLOBIN 81.6 %; PCO2 ARTERIAL 40.9 mmHg (35.0-42.0); PO2 ARTERIAL 54.1 mmHg (75.0-100.0); TOTAL HEMOGLOBIN 12.4 g/dL (12.0-16.0)
[2024-11-21 22:42] LABS: BASOPHILS PERCENT AUTO 0.1 % (0.1-1.3); EOSINOPHILS PERCENT AUTO 0.1 % (0.0-5.4); IMMATURE GRAN ABSOLUTE AUTO 0.11 K/uL (0.00-0.23); IMMATURE GRAN PERCENT AUTO 0.7 % (0.0-0.7); LYMPHOCYTES ABSOLUTE AUTO 1.50 K/uL (0.8-3.3); LYMPHOCYTES PERCENT AUTO 10.0 % (11.4-47.7); MONOCYTES ABSOLUTE AUTO 0.84 K/uL (0.20-0.90); MONOCYTES PERCENT AUTO 5.6 % (3.3-12.6); NEUTROPHILS ABSOLUTE AUTO 12.57 K/uL (1.0-7.6); NEUTROPHILS PERCENT AUTO 83.5 % (40.0-78.1); PLATELET COUNT,PLT 275 K/uL (130-375); RED BLOOD CELL COUNT 4.14 M/uL (3.77-5.24); WHITE BLOOD CELL COUNT,WBC 15.1 K/uL (3.2-11.0)
[2024-11-21 22:57] LABS: BASOPHILS ABSOLUTE AUTO 0.02 K/uL (0.00-0.10); EOSINOPHILS ABSOLUTE AUTO 0.01 K/uL (0.00-0.40)
[2024-11-21 23:01] LABS: A/G RATIO 0.5 (1.2-2.2); ALANINE AMINOTRANSFERASE,ALT 15 U/L (12-78); ASPARTATE AMNIOTRANSFERASE,AST 15 U/L (15-37); BILIRUBIN TOTAL 1.0 mg/dL (0.2-1.0); BLOOD UREA NITROGEN,BUN 18 mg/dL (7-18); CARBON DIOXIDE,CO2 29 mmol/L (21-32); CHLORIDE,CL 102 mmol/L (100-108); CREATININE 0.5 mg/dL (0.6-1.0); EST CRCL DRUG DOSING (CG) 75.40 mL/min; ESTIMATED GFR 113 mL/min (>60); GLUCOSE RANDOM 93 mg/dL (74-106); POTASSIUM,K 3.9 mmol/L (3.6-5.2); PROTEIN TOTAL,TP 5.1 g/dL (6.4-8.2); SODIUM,NA 137 mmol/L (140-148)
[2024-11-21 23:03] LABS: INR 2.5
[2024-11-22] MEDS: Ondansetron 4 MG/2 ML SDV IVPUSH ONE (00:41)
[2024-11-22 03:09] LABS: BASE EXCESS ARTERIAL 4.0 mm/L; BICARBONATE,ARTERIAL 28.1 mmol/L (22.0-26.0); O2 SATURATION ARTERIAL 88.1 % (95.0-98.0); OXYHEMOGLOBIN 85.6 %; PCO2 ARTERIAL 42.6 mmHg (35.0-42.0); PO2 ARTERIAL 57.5 mmHg (75.0-100.0); TOTAL HEMOGLOBIN 11.5 g/dL (12.0-16.0)
[2024-11-22] MEDS: Furosemide 20 MG/2 ML VIAL IVPUSH ONE (04:28)
[2024-11-22] MEDS ORDERED: Succinylcholine 200 MG/10 ML MDV IV STA (05:00)
[2024-11-22] MEDS ORDERED: Etomidate 2 MG/ML 10 ML SDV IVPUSH ONE (05:01)
[2024-11-22 07:21] VITALS: BP 94/58; PULSE 88
== END 2024-11-22 08:35 ==
LOC: JP.ED 22:06
DX: J96.01 Acute respiratory failure with hypoxia (principal); J18.9 Pneumonia, unspecified organism; I50.9 Heart failure, unspecified; I25.10 Atherosclerotic heart disease of native coronary artery without angina pectoris; I25.2 Old myocardial infarction; E11.42 Type 2 diabetes mellitus with diabetic polyneuropathy; F17.200 Nicotine dependence, unspecified, uncomplicated; Z86.16 Personal history of COVID-19; Z90.49 Acquired absence of other specified parts of digestive tract; Z98.84 Bariatric surgery status; Z90.710 Acquired absence of both cervix and uterus; Z88.8 Allergy status to other drugs, medicaments and biological substances; Z91.041 Radiographic dye allergy status; Z79.01 Long term (current) use of anticoagulants; Z79.899 Other long term (current) drug therapy
CPT/HCPCS: 36415; 36600; 71045; 71045-26; 80053; 82803; 83605; 83880; 84484; 85025; 85610; 87040; 93005; 93010; 94660; 96365; 96367; 96375; 96376; 99291; 99291-25; J0330; J0456; J0696; J1938; J2270; J7050